=== PATIENT | female | born 1955 | race Caucasian/White ===

== ENCOUNTER 2020-02-03 08:53 | Emergency (ER) | payer OTHER, SELFPAY ==
--- NOTE | ~2020-02-03 | CT_ITS ---
EXAMINATION: CT abdomen pelvis w con DATE: 02/03/2020 10:13 INDICATION: Abdominal pain TECHNIQUE: Computed tomography (CT) of the abdomen and pelvis was performed without intravenous contr ast. Automated exposure control and iterative reconstruction technique were employed. Exam dose: 785 .55 mGy-cm total exam DLP. COMPARISON: 04/21/2018 CT abdomen pelvis FINDINGS: The lung bases are clear. Normal heart size. No pericardial or pleural effusion. There is mild intrahepatic and extrahepatic bile duct dilatation, likely secondary to cholecystectomy . The liver duct dilatation is more prominent at the left hepatic lobe but is chronic, present on 03/29. There is extensive hepatic steatosis, relatively sparing the left lateral hepatic lobe area. No panc reatic or splenic mass lesion. There is an 8 cm right adrenal or upper pole right renal cyst. 2 cm right renal cyst. 8 mm left renal cyst. No urinary tract calculus or hydroureteronephrosis is detected. There is atherosclerotic calcification of the abdominal aorta. No intraperitoneal or retroperitoneal or pelvic mass lesion or adenopathy. The uterus and adnexal areas are unremarkable. No bowel obstruction, bowel wall thickening, pneumatosis or intraperitoneal free air. Multilevel degenerative disc disease of the lumbar and lumbosacral spine. No suspicious osteolytic or osteoblastic lesions. IMPRESSION: Nonspecific biliary duct dilatation, more prominent on the left lobe, but chronic since 04/21/2018 Partial hepatic steatosis Right adrenal or upper pole right renal 8 cm cyst; additional bilateral renal cysts Reviewed, dictated and finalized at Location [facility]. Reviewed, dictated and finalized at location B. IMPRESSION: Nonspecific biliary duct dilatation, more prominent on the left lo be, but chronic since 04/21/2018 Partial hepatic steatosis Right adrenal or upper pole right renal 8 cm cyst; additional bilateral renal c ysts
[2020-02-03 09:04] VITALS: BP 140/66; PULSE 104; RESP 20; TEMP 37.4; O2SAT 100
--- NOTE | 2020-02-03 09:07 | ED.BACK ---
HPI - Back Pain/Injury General Chief Complaint: Back Pain/Injury Stated Complaint: ABD PAIN Time Seen by Provider: 02/03/20 08:58 Source: patient Mode of arrival: ambulatory Limitations: no limitations History of Present Illness HPI Narrative: Patient is a 64-year-old female with a history of biliary stones who presents for evaluation of abdominal pain. Patient reports middle abdominal pain as well as back pain. She denies any chest pain or shortness of breath. She reports low-grade fever, nausea, vomiting, and chills. Patient states she has had pain consistent with this in the past and then of having bile duct stones. Patient also reports an orange coloration to her urine with frequency without dysuria or hematuria. She denies flank pain, but reports middle back pain. Pain in the epigastrium is intermittently sharp in nature, no association with movement. Patient has had decreased oral intake over the past 48 hours. Past surgery for ductal stones was by Dr. Barba in [place]. Related Data Home Medications Medication Instructions Recorded Confirmed alprazolam HS 02/03/20 lisinopril DAILY 02/03/20 oxybutynin chloride BID 02/03/20 tramadol mg HS 02/03/20 Allergies Allergy/AdvReac Type Severity Reaction Status Date / Time Sulfa (Sulfonamide Allergy Unknown Hives Verified 02/03/20 09:10 Antibiotics) Review of Systems Review of Systems: Narrative: CONSTITUTIONAL: Reports subjective fever and chills EYES: Denies visual changes, redness, or discharge. ENT: Denies rhinorrhea, congestion, sore throat, or otalgia. CARDIOVASCULAR: Denies chest pain, palpitations, or edema. RESPIRATORY: Denies cough or dyspnea. GASTROINTESTINAL: Reports abdominal pain, nausea and vomiting GENITOURINARY: Denies dysuria or hematuria. Reports orange coloration to urine. SKIN: Denies rash or itching. MUSCULOSKELETAL: Reports middle back pain NEUROLOGIC: Denies headache, numbness, or weakness. [facility] Past Medical History Medical History Bile duct calculus Carpal tunnel syndrome Hypertension Surgical History Surgical History History of carpal tunnel surgery Hx of cholecystectomy Hx of foot surgery Social History Social History (Updated 02/03/20 @ 09:46 by Yenni Kelly MD) Alcohol intake: never Substance use: never Gender identity (if verbalized by the patient): Female Exam Narrative: Exam Narrative: GENERAL: Awake, alert, conversant HEAD: Normocephalic, atraumatic. EYES: PERRLA and EOMI. ENT: Nares clear, no rhinorrhea or epistaxis. Mucous membranes dry NECK: Supple. CHEST: No respiratory distress, breathing even and non labored HEART: Regular rate, sinus rhythm ABDOMEN: Mild distention, tender in epigastrium, no guarding, negative Neely sign, ventral hernia scar well-healed, no suprapubic pain, no flank tenderness EXTREMITIES: Normal range of motion. No edema. SKIN: Warm, dry, no rash. NEURO:No focal deficits. Alert and oriented x3 Course Vital Signs Vital signs: Vital Signs Temperature 37.4 C 02/03/20 09:04 Pulse Rate 104 H 02/03/20 09:04 Respiratory Rate 20 02/03/20 09:04 Blood Pressure 140/66 02/03/20 09:04 Pulse Oximetry 100 02/03/20 09:04 Temperature 37.4 C 02/03/20 09:04 Pulse Rate 86 02/03/20 11:01 Respiratory Rate 16 02/03/20 11:01 Blood Pressure 141/67 H 02/03/20 11:01 Pulse Oximetry 99 02/03/20 11:01 MDM - Back Pain/Injury MDM Narrative Medical decision making narrative: Pt presented for evaluation of fever, nausea, vomiting, urinary frequency and abdominal pain. Pt at the time of assessment and vital signs are intact. No chest pain. Given the strange nature of pain and back pain did obtain an EKG which showed some nonspecific ST changes, but no ST elevation or depression. Patient without other anginal type pain. Laboratory results notable f
--- NOTE | 2020-02-03 09:46 | ECG_ITS ---
Measurements Intervals [place] Rate: 82 P: 39 CA: 162 QRS: 14 QRSD: 105 T: 1 QT: 353 QTc: 413 Interpretive Statements SINUS RHYTHM NONSPECIFIC T-WAVE ABNORMALITY- ANT/INF LEADS BORDERLINE ECG Electronically Signed On 02-03-2020 11:17:01 CDT by Evan Najera D.O.
[2020-02-03] MEDS: SODIUM CHLORIDE 0.9% IV 1,000 ML 999 ML IV CONT (09:57)
[2020-02-03 09:58] LABS: Basophils Percent Auto 0.3 % (0.2-1.2); Eosinophils Percent Auto 0.1 % (0-4.4); Hematocrit 37.1 % (37.0-47.0); Hemoglobin 12.3 g/dL (12.0-15.0); Immature Granulocyte Absolute 0.05 K/mm3 (0.00-0.031); Immature Granulocyte Percent A 0.4 % (0-0.5); Lymphocytes Absolute Auto 1.25 K/mm3 (0.9-3.2); Lymphocytes Percent Auto 10.9 % (18.3-44.2); Mean Corpuscular HGB Conc 33.2 g/dl (32-36); Mean Corpuscular Volume 90.5 fl (80-100); Mean Platelet Volume 9.8 fl (7.4-10.4); Monocytes Absolute Auto 0.8 K/mm3 (0.1-0.6); Monocytes Percent Auto 7.2 % (2.6-8.5); Neutrophils Absolute Auto 9.3 K/mm3 (1.3-6.7); Neutrophils Percent Auto 81.1 % (45.5-73.1); Platelet Count Result 213 k/mm3 (150-375); Red Cell Distribution Width 12.7 % (11.5-14.5); White Blood Count 11.5 K/mm3 (4.5-10.0)
[2020-02-03] MEDS: ONDANSETRON INJ 4 MG/2 ML VIAL IV PUSH (09:58)
[2020-02-03] MEDS: MORPHINE SULFATE 4 MG/ML INJ IV PUSH (09:58)
[2020-02-03 10:01] LABS: Add Urine Microscopic? YES; Appearance Urine Cloudy (Clear); Bacteria Urine 2+ /hpf; Bilirubin Urine Negative (Negative); Blood Urine 2+ (Negative); Color Urine Yellow (Yellow); Glucose Urine UA Negative (Negative); Ketones Urine 2+ mg/dL (Negative); Leukocyte Esterase Ur 2+ LEU/UL (Negative); Mucus Urine Rare /lpf; Nitrate Urine Positive (Negative); Protein Urine 2+ mg/dL (Negative); Specific Grav Ur 1.017 (1.001-1.035); Squamous Epithelial Cell Urine Few /hpf (Few); Urobilinogen Urine Negative mg/dL (<2.0); WBC Urine >75 /hpf
[2020-02-03 10:09] LABS: Alanine Aminotransferase 19 U/L (4-35); Albumin Level 4.3 g/dL (3.5-5.1); Alkaline Phosphatase 97 U/L (38-126); Aspartate Amino Transferase 18 U/L (14-36); Bilirubin,Total 1.1 mg/dL (0.2-1.3); Blood Urea Nitrogen 11 mg/dL (7-17); Carbon Dioxide 25 mmol/L (22-30); Chloride 103 mmol/L (98-107); Estimated CRCL calculation 84 ml/min; Estimated Glomerular Filt Rate > 60; Glucose 120 mg/dL (65-105); Lipase 32 U/L (23-300); Sodium 138 mmol/L (137-145)
[2020-02-03 10:11] LABS: Estimated CRCL calculation 84 ml/min; Estimated Glomerular Filt Rate > 60
[2020-02-03 11:01] VITALS: BP 141/67; PULSE 86; RESP 16; O2SAT 99
[2020-02-03 12:24] VITALS: BP 155/75; PULSE 80; RESP 18; TEMP 37.8; O2SAT 97
== END 2020-02-03 12:43 | disposition home or self-care (01) ==
PROVIDERS: Emergency Provider Emergency Medicine; PCP Emergency Medicine
DX: N39.0 Urinary tract infection, site not specified (principal); I10 Essential (primary) hypertension; K76.0 Fatty (change of) liver, not elsewhere classified; R94.31 Abnormal electrocardiogram [ECG] [EKG]; N28.1 Cyst of kidney, acquired
CPT/HCPCS: 36415; 74177; 80053; 81001; 83690; 85025; 87077; 87086; 87088; 87186; 93005; 96361; 96365; 96375; 99284; J0696; J2270; J2405; J7030; Q9967

== ENCOUNTER 2020-02-04 06:59 | Outpatient (NON) | payer OTHER, SELFPAY ==
[2020-02-04 18:05] LABS: SARS-CoV-2 RNA PCR Negative
== END 2020-02-04 07:00 ==
PROVIDERS: Visit Provider Emergency Medicine
DX: Z20.828 Contact with and (suspected) exposure to other viral communicable diseases (principal)
CPT/HCPCS: 87635; C9803; U0003

== ENCOUNTER → 2020-05-29 12:21 | Outpatient (CLI) | payer OTHER, SELFPAY ==
--- NOTE | ~2020-05-29 | XR_ITS ---
EXAMINATION: XR knee LT 2V DATE: 05/29/2020 13:20 INDICATION: Left knee pain. TECHNIQUE: 2 views of left knee were obtained. COMPARISON: None. FINDINGS: Bone alignment is normal. No fracture. There is mild tricompartmental osteoarthritis. No kn ee joint effusion. IMPRESSION: 1. Mild left knee osteoarthritis. Reviewed, dictated and finalized at location A. OLE PARAFFINER
--- NOTE | ~2020-05-29 | XR_ITS ---
EXAMINATION: XR hand BI arthritis min 3V DATE: 05/29/2020 13:20 INDICATION: Pain in unspecified joint, other specified abnormal immunological. TECHNIQUE: 4 views of right hand and 4 views of left hand on a total of 7 radiographs were obtained. COMPARISON: Right knee radiographs 09/30/2012 FINDINGS: RIGHT HAND: Bone alignment is normal. No fracture. There is mild osteoarthritis of first carpometacar pal joint, moderate osteoarthritis of third metacarpophalangeal joint, mild osteoarthritis of second metacarpophalangeal joint and most of the interphalangeal joints, and moderate osteoarthritis of firs t interphalangeal joint and second and third distal interphalangeal joints. LEFT HAND: Bone alignment is normal. No fracture. There is mild osteoarthritis of first carpometacarp al joint, first-third metacarpophalangeal joints, and most of the interphalangeal joints. IMPRESSION: 1. Polyarticular osteoarthritis. Reviewed, dictated and finalized at location A. OR ORACLE DBA
--- NOTE | ~2020-05-29 | XR_ITS ---
EXAMINATION: XR knee RT 2V DATE: 05/29/2020 13:19 INDICATION: Right knee pain. TECHNIQUE: 2 views of right knee were obtained. COMPARISON: None. FINDINGS: Bone alignment is normal. No fracture. There is mild tricompartment osteoarthritis. No knee joint effusion. IMPRESSION: 1. Mild right knee osteoarthritis. Reviewed, dictated and finalized at location A. H OPERATOR
--- NOTE | ~2020-05-29 | XR_ITS ---
EXAMINATION: XR hip RT min 2V DATE: 05/29/2020 13:20 INDICATION: Right hip pain. TECHNIQUE: 2 views of right hip were obtained. COMPARISON: Pelvis radiograph 02/13/2018 FINDINGS: Bone alignment is normal. No fracture. There is mild right hip osteoarthritis. IMPRESSION: 1. Mild right hip osteoarthritis. Reviewed, dictated and finalized at location A. S REGISTERED NURSE RN
== END ==
PROVIDERS: PCP Emergency Medicine
DX: R76.8 Other specified abnormal immunological findings in serum (principal); M19.041 Primary osteoarthritis, right hand; M19.042 Primary osteoarthritis, left hand; M16.11 Unilateral primary osteoarthritis, right hip; M17.0 Bilateral primary osteoarthritis of knee
CPT/HCPCS: 73130; 73502; 73560

== ENCOUNTER 2020-07-03 10:51 | Outpatient (CLI) | payer OTHER, SELFPAY ==
--- NOTE | ~2020-07-03 | MR_ITS ---
EXAMINATION: MR MRCP DATE: 07/03/2020 12:04 INDICATION: Dilated bile duct. Abdominal pain. Melena. TECHNIQUE: Magnetic resonance imaging (MRI) of the abdomen was performed without and with 15 mL Multi Emily intravenous contrast. Sequences included coronal T2-weighted FS FSE, coronal T2-weighted FSE, a xial T1-weighted LAVA, coronal FS FIESTA, axial dual-echo T1-weighted SPGR, coronal lava-FLEX, sagitt al T2-weighted FSE, axial T2-weighted FSE, and axial DWI. Thick-slab T2-weighted FSE images were obta ined for magnetic resonance cholangiopancreatography (MRCP). Maximum intensity projection 3-D reconst ructions of the volumetric data were created by the technologist. Postcontrast sequences included cor onal LAVA-flex and time course of axial T1-weighted LAVA. COMPARISON: MRCP 12/11/2007, CT abdomen and pelvis 02/03/2020, 04/21/18 FINDINGS: ABDOMEN MRI: There is steatosis of right hepatic lobe. There is a 16 mm hyperenhancing mass in right hepatic lobe without washout, stable from 04/21/18, likely focal nodular hyperplasia. There is chronic atrophy of left hepatic lobe with chronic biliary duct dilatation, likely secondary to old infection or vascular insult. There is gas in the bile ducts in left hepatic lobe, likely secondary to sphinct erotomy. The gallbladder is absent. There is a 4 mm cystic lesion in the tail of the pancreas, stable from 12/11/07, likely benign. The spleen and left adrenal gland are normal. There are cysts in the ki dneys measuring up to 2.1 cm on the right. A chronic 8.3 cm cyst superior to right kidney may be from the kidney or adrenal gland. There are no dilated loops of bowel. There are no pathologically enlarg ed lymph nodes. There is no free intraperitoneal fluid. ABDOMEN MRCP: The common hepatic duct is chronically dilated to 18 mm. No choledocholithiasis. IMPRESSION: 1. Chronic atrophy of left hepatic lobe with chronic biliary duct dilatation, likely secondary to old infection or vascular insult. 2. Chronic dilatation of the common duct to 18 mm, likely not clinically significant given the normal liver function tests on 02/03/2020. 3. Hepatic steatosis. Reviewed, dictated and finalized at location B. SFER MACHINE OPERATOR IMPRESSION: 1. Chronic atrophy of left hepatic lobe with chronic biliary duct dilatation, l ikely secondary to old infection or vascular insult. 2. Chronic dilatation of the common duct to 18 mm, likely not clinically signif icant given the normal liver function tests on 02/03/2020. 3. Hepatic steatosis.
[2020-07-03 11:21] LABS: Estimated Glomerular Filt Rate > 60
== END 2020-07-03 10:52 ==
PROVIDERS: Visit Provider Internal Medicine Gastroenterology
DX: K92.1 Melena (principal); R10.84 Generalized abdominal pain; K76.0 Fatty (change of) liver, not elsewhere classified
CPT/HCPCS: 74183; A9577

== ENCOUNTER → 2020-10-17 12:49 | Outpatient (CLI) | payer MEDICARE, SELFPAY ==
--- NOTE | ~2020-10-17 | MM_ITS ---
EXAMINATION: MM screening [facility] BI w liliya HISTORY: Screening mammogram TECHNIQUE: Craniocaudal and mediolateral oblique 3-D tomosynthesis images were obtained and synthetic 2-D images were generated. CAD analysis was submitted and interpreted. COMPARISON: 04/15/2019, 01/07/2018 BREAST PARENCHYMAL COMPOSITION: The breasts are almost entirely fatty. FINDINGS: Scattered benign-appearing calcifications are present. There is no evidence of suspicious m ass, calcification, or architectural distortion to suggest malignancy in either breast. There has bee n no suspicious interval change. IMPRESSION: 1. No mammographic evidence of malignancy. 2. Recommend routine screening mammography in one year. BI-RADS Category 2: Benign finding(s). Reviewed, dictated and finalized at location A.
== END ==
PROVIDERS: PCP Emergency Medicine; Visit Provider Emergency Medicine
DX: Z12.31 Encounter for screening mammogram for malignant neoplasm of breast (principal)
CPT/HCPCS: 77063; 77067

== ENCOUNTER → 2020-10-19 12:13 | Outpatient (CLI) | payer MEDICARE, SELFPAY ==
--- NOTE | ~2020-10-19 | MR_ITS ---
EXAMINATION: MR lumbar spine wo con EXAM DATE: 10/19/2020 12:58 INDICATION: Low back pain, right hip pain/swelling, symptoms for years. TECHNIQUE: Multi-sequential, multiplanar MR images of the lumbar spine were obtained without contrast . Sagittal T1, T2, T2 fat saturation images. Axial T2 weighted images. Comparison is made to prior examination from 02/18/2019. FINDINGS: Incidental note of right renal lesions, imaged portions consistent with cysts, largest on t he right at 8 cm. There is mild to moderate upper lumbar levoscoliosis. Moderate to severe L5-S1 disc disease, moderate at the other lumbar levels. There is 2 mm retrolisthesis L1 on L2, L2 on L3, L3 on L4. The conus medullaris terminates at the L1/2 level and has normal signal intensity and morphology . Level by level evaluation: T12-L1: There is a mild diffuse disc bulge. Facet arthropathy: Mild bilateral. Neural foraminal stenosis: No stenosis. Central canal stenosis: No stenosis. L1-L2: There is a mild to moderate diffuse disc bulge. Facet arthropathy: Mild to moderate. Neural foraminal stenosis: Mild to moderate right, mild left. Central canal stenosis: Mild. L2-L3: There is a mild to moderate diffuse disc bulge. Facet arthropathy: Mild to moderate. Neural foraminal stenosis: Mild to moderate right, mild left. Central canal stenosis: Mild. L3-L4: There is a moderate diffuse disc bulge. Facet arthropathy: Moderate. Neural foraminal stenosis: Moderate right, mild to moderate left. Central canal stenosis: Mild. L4-L5: There is a moderate diffuse disc bulge. Facet arthropathy: Moderate to severe right, moderate left. Neural foraminal stenosis: Mild to moderate bilateral. Central canal stenosis: Mild. L5-S1: There is a moderate diffuse disc bulge. Facet arthropathy: Moderate. Neural foraminal stenosis: Moderate to severe left, moderate right. Central canal stenosis: Mild to moderate. Compared to prior study, mild progression in the scoliosis. Otherwise difficult to appreciate any sig nificant interval change. IMPRESSION: 1. Overall moderate lumbar spondylosis as detailed above. 2. Mild to moderate levoscoliosis. Reviewed, dictated and finalized at location A.
== END ==
PROVIDERS: PCP Emergency Medicine; Visit Provider Emergency Medicine
DX: M47.896 Other spondylosis, lumbar region (principal)
CPT/HCPCS: 72148

== ENCOUNTER 2020-12-19 14:03 | Outpatient (CLI) | payer MEDICARE, SELFPAY ==
--- NOTE | ~2020-12-19 | MR_ITS ---
EXAMINATION: MR hip RT wo con DATE: 12/19/2020 15:00 INDICATION: Right hip pain. Gluteus alma swelling. TECHNIQUE: Magnetic resonance imaging (MRI) of the right hip was performed without intravenous contr ast. Sequences included full-field axial PD-weighted FS FSE and T1-weighted FSE, coronal of the pelvi s with PD-weighted FS FSE and T1-weighted FSE, small field of view of the right hip with axial PD-we ighted FS FSE, sagittal PD-weighted FS FSE, coronal T2-weighted FS FSE and coronal PD weighted FS FSE . Additional radial T1-weighted FGR oriented orthogonal to the acetabular rim were obtained for evalu ation of the labrum. COMPARISON: None FINDINGS: Bones/labrum/cartilage: Mild lumbar levocurvature with severe spondylosis. Normal alignment at the bilateral hips. No fractu re, avascular necrosis or pathologic marrow replacing process. Labrum is normal. Mild right hip osteo arthritis with partial thickness cartilage loss with smooth chondral surface and without degenerative subchondral changes most prominent along the posterior superior and posterior margins of the joint s pace. Fluid: Symmetric physiologic amount of fluid within both hip joints. Soft tissues: Normal and symmetric muscle bulk and signal in the pelvis and visualized proximal thighs. Full-thickn ess tear at the right ischial tuberosity origin of the right biceps femoris and semitendinosus tendon s with approximately 1.5 cm distal retraction. Partial tear of the right ischial tuberosity origin of the right semimembranosus tendon. The tear defect along the ischial tuberosity measures approximatel y 2.8 x 2.8 cm area. Mild tendinopathy without discrete tear at the proximal left hamstring tendons. Mild tendinopathy at the bilateral gluteus medius medius tendons. Relatively symmetric focal muscular atrophy at the central distal aspect of the bilateral gluteus medius muscles resulting elongated lexx earance to the gluteus medius tendons with myotendinous junction position approximately 2 cm above le camille of the greater trochanter consistent with partial thickness tears along the lateral facets of the greater trochanters. Small amount of fluid in the bilateral gluteus medius medius bursa consistent w ith associated mild bursitis. Mild tendinopathy without discrete tear of the left gluteus minimus ten don. The right radius minimus tendon is normal. The bilateral gluteus alma and iliopsoas muscles a nd tendons appear normal. Limited evaluation of visceral organs of the pelvis is unremarkable. No pa thologically enlarged pelvic/inguinal lymphadenopathy. IMPRESSION: 1. Complete avulsion of the right biceps femoris and semitendinosus tendons and partial avulsion of t he right semimembranosus tendon from the right ischial tuberosity origin. 2. Mild bilateral gluteus medius tendinopathy with relatively metric partial thickness tears at the l ateral facet insertions of both tendons. 3. Mild left gluteus minimus tendinopathy without discrete tear. 4. Mild right hip osteoarthritis with normal labrum. 5. Mild lumbar levocurvature with severe spondylosis. Reviewed, dictated and finalized at location A. IMPRESSION: 1. Complete avulsion of the right biceps femoris and semitendinosus tendons and partial avulsion of the right semimembranosus tendon from the right ischial tu berosity origin. 2. Mild bilateral gluteus medius tendinopathy with relatively metric partial th ickness tears at the lateral facet insertions of both tendons. 3. Mild left gluteus minimus tendinopathy without discrete tear. 4. Mild right hip osteoarthritis with normal labrum. 5. Mild lumbar levocurvature with severe spondylosis.
== END 2020-12-19 14:04 ==
PROVIDERS: PCP Emergency Medicine; Visit Provider Emergency Medicine
DX: M16.11 Unilateral primary osteoarthritis, right hip (principal); M47.896 Other spondylosis, lumbar region
CPT/HCPCS: 73721

== ENCOUNTER 2021-04-30 08:54 | Outpatient (CLI) | payer MEDICARE, SELFPAY ==
--- NOTE | ~2021-04-30 | US_ITS ---
EXAMINATION: US thyroid DATE: 04/30/2021 09:08 INDICATION: Hypothyroidism, unspecified. TECHNIQUE: Multiple ultrasound images of the thyroid were obtained. COMPARISON: None. FINDINGS: The right thyroid lobe measures 3.6 x 1.1 x 1.5 cm. The left thyroid lobe measures 3.5 x 1.0 x 1.2 c m. In the right thyroid lobe, there is a 3 mm nodule. IMPRESSION: 1. Small thyroid nodule, likely not clinically significant. No follow-up is needed. Reviewed, dictated and finalized at location A. IMPRESSION: 1. Small thyroid nodule, likely not clinically significant. No follow-up is nee ded.
== END 2021-04-30 08:55 ==
PROVIDERS: PCP Emergency Medicine; Visit Provider Emergency Medicine
DX: E03.9 Hypothyroidism, unspecified (principal)
CPT/HCPCS: 76536

== ENCOUNTER → 2021-07-02 09:02 | Outpatient (CLI) | payer MEDICARE, SELFPAY ==
[2021-07-02 19:12] LABS: SARS-CoV-2 RNA PCR Negative
== END ==
PROVIDERS: PCP Emergency Medicine; Visit Provider Orthopaedic Surgery Sports Medicine
DX: S76.801A Unspecified injury of other specified muscles, fascia and tendons at thigh level, right thigh, initial encounter (principal); X58.XXXA Exposure to other specified factors, initial encounter
CPT/HCPCS: C9803; U0003; U0005

== ENCOUNTER → 2021-11-27 08:27 | Outpatient (REF) | payer MEDICARE, SELFPAY | LOC: ANHLAB 08:27 | PROVIDERS: PCP Emergency Medicine; Visit Provider Nurse Practitioner | DX: D17.1 Benign lipomatous neoplasm of skin and subcutaneous tissue of trunk (principal) | CPT/HCPCS: 88304 ==

== ENCOUNTER 2022-01-31 23:14 | Emergency (ER) | payer MEDICARE, SELFPAY ==
--- NOTE | ~2022-01-31 | CT_ITS ---
EXAMINATION: CT BRAIN W/O DATE: 01/31/2022 23:56 INDICATION: Headache and dizziness TECHNIQUE: Computed tomography (CT) of the head was performed without intravenous contrast. The dose- length product was 605.33 mGy-cm. Automated exposure control and iterative reconstruction technique w ere employed. COMPARISON: No prior studies for comparison. FINDINGS: Normal brain parenchymal volume for age. Normal iqbal-white differentiation. No acute intrac ranial hemorrhage, infarction, mass or mass effect. No ventriculomegaly or midline shift. Midline sagittal images demonstrate a normal corpus callosum, c raniovertebral junction and sella turcica. Basilar cisterns are patent. Paranasal sinuses and mastoids are pneumatized. No depressed skull fractures. IMPRESSION: 1. No acute intracranial abnormality. Reviewed, dictated and finalized at location L.
--- NOTE | ~2022-01-31 | XR_ITS ---
EXAMINATION: XR chest 1V portable INDICATION: Heart palpitations TECHNIQUE: Portable AP chest at 2348 hours COMPARISON: 02/17/2009 FINDINGS: The lungs are free of acute opacities. No pleural effusion or pneumothorax. The cardiomedia stinal silhouette is normal. Suture anchors are noted in the right humeral head. IMPRESSION: 1. No acute cardiopulmonary abnormality. Reviewed, dictated and finalized at location B.
[2022-01-31 23:15] VITALS: BP 175/84; PULSE 89; RESP 18; O2SAT 98
[2022-01-31 23:20] VITALS: PULSE 89
[2022-01-31 23:23] VITALS: BP 175/84; PULSE 104; PULSE 90; RESP 14; RESP 18; O2SAT 97; O2SAT 98
[2022-01-31 23:30] VITALS: PULSE 88; RESP 17; O2SAT 96
[2022-01-31 23:31] VITALS: BP 155/73; PULSE 86; RESP 14; O2SAT 94
--- NOTE | 2022-01-31 23:35 | ECG_ITS ---
Measurements Intervals [place] Rate: 86 P: 34 PA: 160 QRS: 22 QRSD: 94 T: 38 QT: 345 QTc: 414 Interpretive Statements SINUS RHYTHM ATRIAL PREMATURE COMPLEX BASELINE ARTIFACT- I, II, III, AVR, AVF BORDERLINE ECG Electronically Signed On 02-01-2022 6:35:38 CDT by Evan Najera D.O.
--- NOTE | 2022-01-31 23:41 | ED.GENADULT ---
HPI - General Adult General Chief complaint: Unspecified Stated complaint: muscle spasms, ringing in the head, HTN Source: RN notes reviewed History of Present Illness HPI narrative: Patient presents emergency department from home for weakness. Patient states that prior to arrival she is getting up to walk to her bedroom when she began to feel pain in her bilateral legs from her knees up to her hips. She states that with this she began to feel very weak she states that she had to lay down in her bed and then was too weak to get up. She states that with that she experienced a headache and ringing in her ears per the son's nephew that was present the patient also had some mild slurred speech during this episode by the time EMS arrived the patient slurred speech was resolved the patient denies having any unilateral numbness or weakness she was noted to have a feeling of heart fluttering but denies having chest pain shortness of breath abdominal pain nausea or vomiting. Patient states she continues to have a headache and ringing in her ear the patient states she had not taken her evening blood pressure medicine yet this evening Related Data Home Medications Medication Instructions Recorded Confirmed lisinopril 40 mg tablet DAILY 02/03/20 Allergies Allergy/AdvReac Type Severity Reaction Status Date / Time Sulfa (Sulfonamide Allergy Unknown Hives Verified 01/31/22 23:24 Antibiotics) latex Allergy Itching Verified 01/31/22 23:24 Review of Systems Review of Systems: Gen.: Denies fevers or chills Eyes: Denies eye pain or visual change ENT: Denies congestion reports ringing in her ear Respiratory: Denies shortness of breath or cough CV: Denies chest pain reports heart fluttering GI: Denies abdominal pain nausea, emesis or diarrhea Musculoskeletal: Denies back pain reports muscle spasms bilateral legs Neuro: Reports headache and weakness Skin: Denies rash Except as documented, all other systems reviewed and negative [facility] Past Medical History Medical History (Updated 02/01/22 @ 03:53 by Silvio Chow DO) Bile duct calculus Carpal tunnel syndrome Hypertension Surgical History Surgical History History of carpal tunnel surgery Hx of cholecystectomy Hx of foot surgery Social History Social History Smoking status: Unknown if ever smoked Alcohol intake: never Substance use: never Gender identity (if verbalized by the patient): Female Exam Narrative: APPEARANCE: No acute distress, nontoxic, resting in bed HEENT: Normocephalic, atraumatic, OMM, TMs clear bilaterally EYES: PERRL, EOMI NECK: Supple, nontender, full range of motion without pain, no meningismus RESPIRATORY: No respiratory distress, clear to auscultation bilaterally with no rhonchi wheezing or rales CARDIOVASCULAR: RRR s murmur ABDOMINAL: Soft, nontender, nondistended MUSCULOSKELETAL: Moves all extremities. No clubbing, cyanosis or edema. NEURO: A and O ?3, following commands, speech normal, cranial nerves II through XII grossly intact,muscle strength 5 out of 5 bilateral upper and lower extremities SKIN:: Warm, dry. Normal Color PSYCHIATRIC: Normal affect/mood Course Course Emergency Course: Patient is remained asymptomatic throughout her stay in the ER remained on director of cardiac cath lab with no arrhythmias noted. States headache is resolved at this time Discussed with patient results of workup and diagnosis. Discussed need for follow-up with primary care, proper use of medication, and reasons to return to the emergency department. Patient understands and agrees to current treatment plan Vital Signs Vital signs: Vital Signs Pulse Rate 89 01/31/22 23:15 Respiratory Rate 18 01/31/22 23:15 Blood Pressure 175/84 H 01/31/22 23:15 Pulse Oximetry 98 01/31/22 23:15 Oxygen Delivery Room Air 01/31/22 23:15 Temperature
[2022-01-31 23:57] LABS: Appearance Urine Clear (Clear); Bilirubin Urine Negative (Negative); Blood Urine 2+ (Negative); Color Urine Yellow (Yellow); Glucose Urine UA Negative (Negative); Ketones Urine Negative (Negative); Leukocyte Esterase Ur Trace LEU/UL (Negative); Nitrate Urine Negative (Negative); Protein Urine Negative (Negative); Specific Grav Ur 1.015 (1.001-1.035); Urobilinogen Urine 0.2 mg/dL (<2.0)
[2022-01-31 23:57] LABS: Basophils Absolute Auto 0.1 K/mm3 (0.0-0.1); Basophils Percent Auto 0.4 % (0.2-1.2); Eosinophils Percent Auto 0.3 % (0-4.4); Hematocrit 39.2 % (37.0-47.0); Hemoglobin 13.1 g/dL (12.0-15.0); Immature Granulocyte Absolute 0.07 K/mm3 (0.00-0.031); Immature Granulocyte Percent A 0.6 % (0-0.5); Lymphocytes Absolute Auto 0.92 K/mm3 (0.9-3.2); Lymphocytes Percent Auto 7.3 % (18.3-44.2); Mean Corpuscular HGB Conc 33.4 g/dl (32-36); Mean Corpuscular Hemoglobin 30.8 pg (26-34); Mean Corpuscular Volume 92.2 fl (80-100); Mean Platelet Volume 9.7 fl (7.4-10.4); Monocytes Absolute Auto 0.2 K/mm3 (0.1-0.6); Monocytes Percent Auto 1.8 % (2.6-8.5); Neutrophils Absolute Auto 11.3 K/mm3 (1.3-6.7); Neutrophils Percent Auto 89.6 % (45.5-73.1); Platelet Count Result 237 k/mm3 (150-375); Red Blood Count 4.25 M/mm3 (4.2-5.4); Red Cell Distribution Width 13.1 % (11.5-14.5); White Blood Count 12.6 K/mm3 (4.5-10.0)
[2022-01-31] MEDS: SODIUM CHLORIDE 0.9% IV 1,000 ML 999 ML IV CONT (23:58)
[2022-01-31 23:59] VITALS: PULSE 90; RESP 18; O2SAT 98
[2022-02-01] VITALS (11 sets, daily range): BP systolic 140–166; BP diastolic 66–78; PULSE 75–92; RESP 10–19; TEMP 36.8; O2SAT 96–97
[2022-02-01 00:03] LABS: Add Urine Microscopic? YES; Bacteria Urine Trace /hpf; Mucus Urine Rare /lpf; Squamous Epithelial Cell Urine Rare /hpf (Few)
[2022-02-01 00:04] LABS: Prothrombin Time 12.5 Seconds (11.1-14.7)
[2022-02-01 00:05] LABS: Partial Thromboplastin Time 28.8 SECONDS (22.3-36.8)
[2022-02-01 00:23] LABS: Alanine Aminotransferase 31 U/L (6-35); Albumin Level 4.2 g/dL (3.5-5.1); Alkaline Phosphatase 73 U/L (38-126); Anion Gap 8 mmol/L (8-16); Aspartate Amino Transferase 21 U/L (14-36); Bilirubin,Total 0.6 mg/dL (0.2-1.3); Blood Urea Nitrogen 19 mg/dL (7-17); Calcium 8.6 mg/dL (8.4-10.2); Carbon Dioxide 22 mmol/L (22-30); Chloride 106 mmol/L (98-107); Creatine Kinase 74 U/L (30-135); Estimated CRCL calculation 80 ml/min; Estimated Glomerular Filt Rate > 60; Glucose 113 mg/dL (65-110); Lipase 150 U/L (23-300); Magnesium 1.9 mg/dL (1.6-2.3); Potassium 3.6 mmol/L (3.4-5.0); Sodium 136 mmol/L (137-145); Troponin I < 0.012 ng/mL (0.000-0.034)
[2022-02-01 03:02] LABS: Ethanol < 10 mg/dL (<10)
[2022-02-01 03:29] LABS: Troponin I < 0.012 ng/mL (0.000-0.034)
[2022-02-01 03:51] LABS: Amphetamine Screen Urine Negative (Negative); Barbiturate Screen Urine Negative (Negative); Benzodiazepines Screen Urine Negative (Negative); Cannabinoid Screen Urine Negative (Negative); Cocaine Screen Urine Negative (Negative); Methadone Screen Urine Negative (Negative); Opiate Screen Urine Negative (Negative); Phencyclidine Screen Urine Negative (Negative)
[2022-02-01 03:54] LABS: SARS-CoV-2 RNA PCR Negative
== END 2022-02-01 04:03 | disposition home or self-care (01) ==
PROVIDERS: Emergency Provider Emergency Medicine; PCP Emergency Medicine
DX: R51.9 Headache, unspecified (principal); Z20.822 Contact with and (suspected) exposure to COVID-19; I10 Essential (primary) hypertension; I49.1 Atrial premature depolarization; M79.652 Pain in left thigh; M79.651 Pain in right thigh; Z79.899 Other long term (current) drug therapy
CPT/HCPCS: 36415; 70450; 71045; 80053; 80307; 81001; 82550; 83690; 83735; 84484; 85025; 85610; 85730; 87077; 87086; 87186; 93005; 96360; 96361; 99284; C9803; J7030; U0003; U0005

== ENCOUNTER → 2022-03-11 13:24 | Outpatient (CLI) | payer MEDICARE, SELFPAY ==
--- NOTE | ~2022-03-11 | DEXA_ITS ---
Bone Density Report Name: ARON DICKSON Age: 66 Sex: Female Ethnicity: White Date of : 1955 Indication: postmenopausal; screening for osteoporosis; Referring Provider: CHERISE CHAMORRO Study: Bone densitometry was performed. Exam Date: March 11, 2022 Accession number: [id number] Bone Density: Region BMD T-score Z-score Classification AP Spine (L1-L4) 1.102 0.5 2.4 Normal Femoral Neck (Left) 0.796 -0.5 1.1 Normal Total Hip (Left) 0.931 -0.1 1.2 Normal Femoral Neck (Right) 0.788 -0.6 1.0 Normal Total Hip (Right) 0.867 -0.6 0.7 Normal Total Hip Mean 0.899 -0.4 1.0 Normal World Health Organization criteria for BMD impression classify patients as: Normal (T-score at or above -1.0), Osteopenia (T-score between -1.0 and -2.5), or Osteoporosis (T-score at or below -2.5). 10-year Fracture Risk: FRAX not reported because: All T-scores for Spine Total, Hip Total, Femoral Neck at or above -1.0 Previous Exams: Region Exam Age BMD T-score BMD Change BMD Change Date g/cm2 vs Baseline vs Previous AP Spine(L1-L4) 03/11/2022 66 1.102 0.5 -0.095* -0.045* 01/07/2018 62 1.147 0.9 -0.051* -0.051* 06/16/2015 59 1.198 1.4 Total Hip(Left) 03/11/2022 66 0.931 -0.1 -0.155* -0.081* 01/07/2018 62 1.012 0.6 -0.074* -0.074* 06/16/2015 59 1.086 1.2 Total Hip(Right) 03/11/2022 66 0.867 -0.6 -0.152* -0.107* 01/07/2018 62 0.974 0.3 -0.045* -0.045* 06/16/2015 59 1.020 0.6 *Denotes significance at 95% confidence level, LSC for AP Spine = 0.022 g/cm2, LSC for Total Hip = 0.027 g/cm2 Clinical Information Provided by Patient: Has used the following medications: Vitamin D Patient maximum height was 62 Menopause Age: 54 Does not regularly consume dairy products Drinks caffeinated beverages Onset of menses at age 10 Number of children 5 Impression: The patient has normal bone mass. The BMD for the AP Spine(L1-L4) decreased, changing by -0.045 since the last DXA exam. The BMD for the Total Hip(Left) decreased, changing by -0.081 since the last DXA exam. The BMD for the Total Hip(Right) decreased, changing by -0.107 since the last DXA exam. Discussion: BONE DENSITY IS ABOVE THE MINIMUM DESIRABLE LEVEL AT ALL SKELETAL SITES TESTED. This patient?s bone mineral density is above the minimum desirable level (T-score -1.0 or better) at all sites me
== END ==
PROVIDERS: PCP Emergency Medicine; Visit Provider Emergency Medicine
DX: Z13.820 Encounter for screening for osteoporosis (principal); Z78.0 Asymptomatic menopausal state
CPT/HCPCS: 77080

== ENCOUNTER → 2022-04-16 07:05 | Outpatient (CLI) | payer MEDICARE, SELFPAY ==
--- NOTE | ~2022-04-16 | MM_ITS ---
EXAMINATION: MM screening [facility] BI w liliya HISTORY: Screening mammogram TECHNIQUE: Craniocaudal and mediolateral oblique 3-D tomosynthesis images were obtained and synthetic 2-D images were generated. CAD analysis was submitted and interpreted. COMPARISON: 10/17/2020, 04/15/2019, 01/07/2018 BREAST PARENCHYMAL COMPOSITION: There are scattered areas of fibroglandular density. FINDINGS: Scattered benign-appearing calcifications are present. There is no suspicious mass, calcifi cation, or architectural distortion to suggest malignancy in either breast. There has been no suspici ous interval change. IMPRESSION: 1. No mammographic evidence of malignancy. 2. Recommend routine screening mammography in one year. BI-RADS Category 2: Benign finding(s). Reviewed, dictated and finalized at location A.
== END ==
PROVIDERS: PCP Emergency Medicine; Visit Provider Emergency Medicine
DX: Z12.31 Encounter for screening mammogram for malignant neoplasm of breast (principal)
CPT/HCPCS: 77063; 77067

== ENCOUNTER 2022-07-01 11:26 | Outpatient (CLI) | payer MEDICARE, SELFPAY ==
--- NOTE | ~2022-07-01 | US_ITS ---
EXAMINATION: US carotid duplex BI DATE: 07/01/2022 12:06 INDICATION: Right-sided neck pain TECHNIQUE: Grayscale, color Doppler, and pulsed Doppler images of the cervical carotid arteries were obtained. The degree of vessel stenosis is placed in one of the following categories: normal, <50%, 5 0-69%, >=70% but less than near-occlusion, near-occlusion, or total occlusion. Note that percent sten osis relative to normal distal artery lumen diameter is indirectly measured from velocity measurement s as described by Luis Manuel, et al. Radiology 2003; 229:340-346. Notes: Normal: Peak systolic velocity <125 centimeters/sec and no plaque <50%. Peak systolic velocity <125 ( EDV <40; ICA/CCA PSV ratio <2.0; used these factors only a tandem lesions or low cardiac output or co ntralateral disease) 50-69 %: PSV 125-230 (EDV 40-100; ratio 2-4) >= 70% but less than near occlusion: PSV greater than 230 (EDV > 100; ratio> 4.0) Near Occlusion: PSV that is variable; markedly narrowed lumen Occlusion: Absent flow on color/spectral Doppler and no lumen on iqbal scale. COMPARISON: None. FINDINGS: RIGHT: The right common carotid artery (CCA) peak systolic velocity (PSV) is 73 cm/s. The right internal car otid artery (ICA) PSV is 58 cm/s. The right ICA end-diastolic velocity (EDV) is 23 cm/s. The right IC A/CCA PSV ratio is 0.8. The external carotid artery (ECA) PSV is 71 cm/s. There is antegrade flow in the right vertebral artery. LEFT: The left CCA PSV is 86 cm/s. The left ICA PSV is 61 cm/s. The left ICA EDV is 18 cm/s. The left ICA/C CA PSV ratio is 0.7. The ECA PSV is 71 cm/s. There is antegrade flow in the left vertebral artery. IMPRESSION: 1. Less than 50% stenosis in the right internal carotid artery by sonographic criteria. 2. Less than 50% stenosis in the left internal carotid artery by sonographic criteria. Reviewed, dictated and finalized at location A. SINGER IMPRESSION: 1. Less than 50% stenosis in the right internal carotid artery by sonographic marcello askew. 2. Less than 50% stenosis in the left internal carotid artery by sonographic carlitos duron.
== END 2022-07-01 11:27 | disposition home or self-care (01) ==
PROVIDERS: PCP Emergency Medicine; Visit Provider Emergency Medicine
DX: M54.2 Cervicalgia (principal); I65.23 Occlusion and stenosis of bilateral carotid arteries
CPT/HCPCS: 93880

== ENCOUNTER 2022-12-20 08:45 | Outpatient (CLI) | payer MEDICARE, SELFPAY ==
--- NOTE | ~2022-12-20 | CT_ITS ---
CT scan of the Neck Technique: 2.5 mm axial scans were obtained through the neck after intravenous administration of 75 c c Omnipaque 350. Coronal and sagittal reconstructions of the neck were obtained. Dose reduction techn ique was used on this scan by utilizing automated exposure control and iterative reconstruction techn ique. The dose-length product (DLP) was 382.50 mGy-cm. Clinical History: Right submandibular pain and lump Findings: There is no evidence of any significant cervical lymphadenopathy. Several small, nonenlarged jugulo- digastric and posterior cervical lymph nodes are noted bilaterally. Parapharyngeal spaces appear norm al bilaterally. The parotid and submandibular glands appear normal. The pharyngeal mucosal spaces appear normal. No soft tissue masses are seen in the neck. The thyroid gland appears normal. Images of the lung apices reveal no abnormalities. There is mild le ft sphenoid sinus disease. Remaining paranasal sinuses and mastoid air cells are clear. There is mild to moderate diffuse degenerative disc narrowing throughout cervical spine. Impression: No abnormal mass lesion or significant soft tissue abnormality seen in the neck. Degenerative changes of the cervical spine, as above. Reviewed, dictated and finalized at location . Impression: No abnormal mass lesion or significant soft tissue abnormality seen in the neck . Degenerative changes of the cervical spine, as above.
[2022-12-20 09:05] LABS: Estimated Glomerular Filt Rate > 60
== END 2022-12-20 08:46 ==
LOC: MICIMG 08:46
PROVIDERS: PCP Emergency Medicine; Visit Provider Emergency Medicine
DX: R22.1 Localized swelling, mass and lump, neck (principal)
CPT/HCPCS: 70491; Q9967

== ENCOUNTER → 2023-09-25 13:30 | Outpatient (CLI) | payer MEDICARE, SELFPAY ==
--- NOTE | ~2023-09-25 | MM_ITS ---
EXAMINATION: MM screening [facility] BI w liliya HISTORY: Screening TECHNIQUE: Craniocaudal and mediolateral oblique 3-D tomosynthesis images were obtained and synthetic 2-D images were generated. CAD analysis was submitted and interpreted. COMPARISON: No prior mammogram is available for comparison at this institution. BREAST PARENCHYMAL COMPOSITION: There are scattered areas of fibroglandular density. FINDINGS: There is no evidence of suspicious mass, calcification, or architectural distortion to sugg est malignancy in either breast. There has been no suspicious interval change. IMPRESSION: 1. No mammographic evidence of malignancy. 2. Recommend routine screening mammography in one year. BI-RADS Category 1: Negative Reviewed, dictated and finalized at location A. 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
== END ==
PROVIDERS: PCP Obstetrics & Gynecology; Visit Provider Emergency Medicine
DX: Z12.31 Encounter for screening mammogram for malignant neoplasm of breast (principal)
CPT/HCPCS: 77063; 77067

== ENCOUNTER 2023-11-08 16:28 | Emergency (ER) | payer MEDICARE, SELFPAY ==
[2023-11-08 16:42] VITALS: BP 120/70; PULSE 72; RESP 18; TEMP 36.4; O2SAT 100
--- NOTE | 2023-11-08 17:05 | PC.NURSE ---
RSV note error- wrong patient.
--- NOTE | 2023-11-08 17:18 | ED.URI ---
HPI - URI/Sore Throat General Chief Complaint: Upper Respiratory Infection Stated Complaint: covid + home test Source: patient Mode of arrival: ambulatory Limitations: no limitations History of Present Illness HPI Narrative: 68-year-old female presents to [facility] with complaints of chills, headache, diarrhea, runny nose, hoarse voice and intermittent dizziness for the past 3 days. Patient reports that 2 family members who live in the home recently tested positive for COVID. Patient reports that he she did take a positive home COVID test today. Patient denies shortness of breath, wheezing, cough, congestion, nausea, vomiting. Patient denies recent travel. MD elicited complaint: rhinorrhea Onset (ago): day(s) (3) Able to tolerate fluids by mouth: Yes Relieving factors: nothing Context: sick contacts Related Data Home Medications Medication Instructions Recorded Confirmed alprazolam 0.5 mg tablet mg 11/08/23 dicyclomine 10 mg capsule mg 11/08/23 irbesartan 300 mg tablet mg 11/08/23 metoprolol succinate 100 mg mg PO 11/08/23 tablet,extended release 24 hr ropinirole 0.5 mg tablet mg 11/08/23 spironolactone 100 mg tablet mg 11/08/23 Allergies Allergy/AdvReac Type Severity Reaction Status Date / Time Sulfa (Sulfonamide Allergy Unknown Hives Verified 11/08/23 16:48 Antibiotics) latex Allergy Itching Verified 11/08/23 16:48 Review of Systems Constitutional: Constitutional: Reports fatigue, Denies fever(s) and Denies weakness ENT: Denies vertigo, Reports dizziness, Denies epistaxis, Denies nasal congestion and Denies sore throat Comments: Runny nose Respiratory: Respiratory: Denies cough, Denies dyspnea and Denies wheezing Gastrointestinal: Gastrointestinal: Reports diarrhea, Denies nausea and Denies vomiting Integumentary/Breasts: Skin/Breast: Denies erythema and Denies rash Neurologic: Denies confusion, Denies vertigo, Reports dizziness, Denies syncope, Denies headache(s), Denies focal weakness, Denies numbness and Denies weakness PMF Past Medical History Medical History (Updated 11/08/23 @ 17:22 by Erlinda Chairez, FERNANDO) Bile duct calculus Carpal tunnel syndrome Hypertension Surgical History Surgical History History of carpal tunnel surgery Hx of cholecystectomy Hx of foot surgery Social History Social History Smoking status: Unknown if ever smoked Alcohol intake: never Substance use: never Gender identity (if verbalized by the patient): Female Comments At time of signature, I agree with nursing past medical, surgical, social and family history. There is no relevant family history pertinent to the presenting complaint. Exam Const: General: healthy appearing and no acute distress Nutritional Appearance: well nourished Orientation/consciousness: patient oriented x3 Limitations: no limitations HENMT: Head: normal to inspection Ears: external ears normal and TM's normal bilaterally Face/Nose/Sinus: Normal external nose present Mouth: Yes Normal oral and palatal mucosa present and Yes moist mucous membranes Throat: posterior oropharynx normal and uvula midline Eyes: Conjunctivae: conjunctivae normal Neck: Neck: normal visual inspection Resp: Effort & Inspection: normal respiratory effort Auscultation: clear to auscultation bilaterally, no crackles and no rales Cardio: Rate: regular rate Rhythm: regular rhythm Heart sounds: no murmurs Skin: General skin exam: normal color Rashes: no rashes Neuro: General: patient oriented x3 Speech: normal speech Gait exam (Neuro): Normal gait present Psych: Affect: normal affect Attitude: cooperative Course Course Level of Care: Express Care Visit Vital Signs Vital signs: Vital Signs Temperature 36.4 C 11/08/23 16:42 Pulse Rate 72 11/08/23 16:42 Respiratory Rate 18 11/08/23 16:42 Blood
== END 2023-11-08 17:25 | disposition home or self-care (01) ==
PROVIDERS: Emergency Provider Nurse Practitioner Family; PCP Emergency Medicine
DX: B34.9 Viral infection, unspecified (principal); I10 Essential (primary) hypertension
CPT/HCPCS: 87426; 87804; 99213; G0463

== ENCOUNTER 2023-12-08 13:48 | Outpatient (CLI) | payer MEDICARE, SELFPAY ==
--- NOTE | ~2023-12-08 | US_ITS ---
EXAMINATION: US soft tissue head and neck DATE: 12/08/2023 14:10 INDICATION: Left supraclavicular lymphadenopathy with palpable knot. TECHNIQUE: Multiple grayscale and Doppler ultrasound images of the left supraclavicular region of adrienne rivasn at the base of the left neck to the left shoulder were obtained. COMPARISON: None FINDINGS: There is a bilobed complex loculated fluid collection in the subcutaneous tissues corresponding to th e palpable abnormality of concern. There is a lateral component which measures 1.7 x 1.1 cm appears c omplex with superficial anechoic component and deeper hypoechoic component. This component is located immediately adjacent to and likely arises from the left acromioclavicular joint. There is a 2.2 cm l anna neck measuring approximately 4 mm in maximal diameter which extends to a more medial loculated co mponent to the fluid collection which measures 3.5 cm medial to lateral and 1.8 x 1.4 cm in maximal o rthogonal dimensions. This portion of the fluid collection appears primarily anechoic with a few inte rnal low-level echoes. There are couple small lobular extensive and medial side of the collection. Th e overall medial to lateral length of the fluid collection measures measures 5.5 cm. No evident inter nal vascular flow or surrounding hyperemia on color Doppler. IMPRESSION: 1. Bilobed loculated complex fluid collection measuring 5.5 cm in length and 1.4 x 1.8 cm in maximal transaxial dimensions. This appears to arise and extending medially from the left acromioclavicular j oint most likely representing a ganglion cyst. Reviewed, dictated and finalized at location B. IMPRESSION: 1. Bilobed loculated complex fluid collection measuring 5.5 cm in length and 1. 4 x 1.8 cm in maximal transaxial dimensions. This appears to arise and extendin g medially from the left acromioclavicular joint most likely representing a luz glion cyst.
== END 2023-12-08 13:49 ==
LOC: MICIMG 13:49
PROVIDERS: PCP Emergency Medicine; Visit Provider Emergency Medicine
DX: R59.1 Generalized enlarged lymph nodes (principal)
CPT/HCPCS: 76536

== ENCOUNTER 2025-03-07 09:21 | Emergency (ER) | payer MEDICARE, SELFPAY ==
--- NOTE | 2025-03-07 09:23 | ED.FEMALEGU ---
HPI - Female Genitourinary General Chief complaint: Urogenital-Female Stated complaint: uti Time Seen by Provider: 03/07/25 09:23 Source: patient Mode of arrival: ambulatory Limitations: no limitations History of Present Illness HPI Narrative: Patient is a 69-year-old female that presents with 3 days of darker urine, urgency, frequency left flank pain. Also had shivers, shakes and self-induced vomiting at the start of symptoms but has not had any since. MD elicited complaint: dysuria Related Data Home Medications ?Medication ?Instructions ?Recorded ?Confirmed ?Last Taken ?Type alprazolam 0.5 mg tablet mg 11/08/23 Unknown History dicyclomine 10 mg capsule mg 11/08/23 Unknown History irbesartan 300 mg tablet mg 11/08/23 Unknown History metoprolol succinate 100 mg mg PO 11/08/23 Unknown History tablet,extended release 24 hr spironolactone 100 mg tablet mg 11/08/23 Unknown History levothyroxine 25 mcg tablet mcg 03/07/25 Unknown History (Unithroid) Allergies Allergy/AdvReac Type Severity Reaction Status Date / Time Sulfa (Sulfonamide Allergy Unknown Hives Verified 03/07/25 09:36 Antibiotics) latex Allergy Itching Verified 03/07/25 09:36 Review of Systems Review of Systems: All systems reviewed & are unremarkable except as noted in HPI and below Constitutional: Constitutional: Denies chills, Denies fever(s), Denies headache(s), Denies malaise and Denies weakness Eyes: Eyes: Denies change in vision, Denies eye discharge and Denies irritation ENT: Denies otalgia, Denies headache(s), Denies nasal congestion, Denies nasal discharge, Denies sinus pain and Denies sore throat Cardiovascular: Cardiovascular: Denies chest pain, Denies edema, Denies palpitations and Denies dyspnea Respiratory: Respiratory: Denies cough and Denies dyspnea Gastrointestinal: Gastrointestinal: Denies abdominal pain, Denies diarrhea, Denies nausea and Denies vomiting Genitourinary: Genitourinary: Denies hematuria, Reports nocturia, Denies dysuria, Denies flank pain and Reports urinary urgency Musculoskeletal: Musculoskeletal: Denies back pain and Denies numbness Integumentary/Breasts: Skin/Breast: Denies pruritus and Denies rash Neurologic: Denies headache(s), Denies numbness and Denies weakness Psychiatric: Psychiatric: Reports no additional psychiatric complaints Endocrine: Endocrine: Denies palpitations PMFSH Past Medical History Medical History Carpal tunnel syndrome Hypertension Bile duct calculus Surgical History Surgical History Hx of foot surgery History of carpal tunnel surgery Hx of cholecystectomy Social History Social History Smoking status: Unknown if ever smoked Alcohol intake: never Substance use: never Gender identity (if verbalized by the patient): Female Comments At time of signature, agree with nursing past medical, surgical, social and family history. There is no relevant family history pertinent to the presenting complaint. Exam Const: General: cooperative, healthy appearing, comfortable, no acute distress and well nourished Nutritional Appearance: well nourished Orientation/consciousness: patient oriented x3 HENMT: Head: normocephalic and atraumatic Ears: external ears normal Face/Nose/Sinus: Normal external nose present, Normal nares present and normal facial exam Face and sinus: normal facial exam Eyes: General: appearance normal, both eyes and all related structures Pupils: Equal, round and reactive pupils present EOM: EOMs intact bilaterally Neck: Neck: normal visual inspection, full ROM and supple Chest: Chest palpation & inspection: normal inspection of the chest Resp: Effort & Inspection: normal respiratory effort and able to speak in complete sentences Cardio: Rate: regular rate Rhythm: regular rhythm GI: Inspection: normal to inspection GI Palp: No abdominal tenderness and Yes Soft to palpation : General: Yes no CVA tenderness Back/Spine/Pelvis: Back: no CVA tenderness Skin: General skin exam: normal color and no rashes or lesions noted Neuro: General: patient oriented x3 and moves all extremities Cranial nerves: Yes Equal, round and reactive pupils present Extrem: General: normal to inspection and full ROM Psych: Appearance: grossly normal and well kempt Course Course Emergency Course: Patient is aware of diagnosis, understands and agrees to treatment plan. Anticipatory guidance given. Patient agrees to follow-up as directed and is aware of reasons to seek care at the emergency department. Portions of this record may have been created with voice recognition software Level of Care: Express Care Visit Vital Signs Vital signs: Vital Signs Temperature 36.2 C L 03/07/25 09:32 Pulse Rate 66 03/07/25 09:32 Respiratory Rate 18 03/07/25 09:32 Blood Pressure 122/62 03/07/25 09:32 Pulse Oximetry 100 03/07/25 09:32 Oxygen Delivery Room Air 03/07/25 09:32 Temperature 36.2 C L 03/07/25 09:32 Pulse Rate 66 03/07/25 09:32 Respiratory Rate 18 03/07/25 09:32 Blood Pressure 122/62 03/07/25 09:32 Pulse Oximetry 100 03/07/25 09:32 Oxygen Delivery Room Air 03/07/25 09:32 Reviewed MDM - Female Genitourinary MDM Narrative Medical decision making narrative: Exam findings and UA show probable UTI; patient is non-toxic appearing and is in no distress. No CMT, adnexal tenderness, or evidence of pelvic etiology. Patient is appropriate for outpatient treatment and follow-up. Differential Diagnosis Differential diagnosis: Likely urinary tract infection, bacterial vaginosis, trichomoniasis, cervicitis, vaginitis and cystitis Medical Records Attestation: I reviewed the patient's medical records. Lab Data Attestation: I reviewed the patient's lab results. Labs: Lab Results 03/07/25 Range/Units 09:37 POC Urine Color Dark POC Urine Clarity Clear POC Urine pH 5.5 POC Ur Specif [place] 1.025 POC Urine Protein 2+ (Negative) POC Ur Glucose (UA) Negative (Negative) POC Urine Ketones Trace (Negative) POC Urine Blood 2+ (Negative) POC Urine Nitrite Positive (Negative) POC Urine Bilirubin 2+ (Negative) POC Urine Urobilinogen 1.0 POC U Leukocyte Esteras Trace (Negative) Discharge Plan Discharge Clinical Impression: Acute UTI Patient Disposition: Home Condition: Stable Instructions: Urinary Tract Infection in Women (ED) Additional Instructions: We will send a urine culture to the lab, based on your symptoms and urine dip we will start treatment today. If culture comes back and bacteria is not susceptible to antibiotic, your prescription may change. Your symptoms should improve within a day of starting antibiotics, but you should finish all the antibiotic pills you get. Otherwise your infection might come back Continue with increased water intake. Take Tylenol or ibuprofen as needed for pain or fever. Follow-up with primary care provider for urine recheck or see ER visit if condition worsens with high fever, nausea, vomiting, severe back pain Patient Language: Icelandic Prescriptions: New phenazopyridine [Pyridium] 200 mg tablet 200 mg PO TID 3 Days Qty: 9 0RF cephalexin 500 mg capsule 500 mg PO Q12H 7 Days Qty: 14 0RF ondansetron 4 mg tablet,disintegrating 4 mg PO Q6-8H PRN (Reason: nausea and vomiting) Qty: 7 0RF No Action levothyroxine [Unithroid] 25 mcg tablet spironolactone 100 mg tablet metoprolol succinate 100 mg tablet extended release 24 hr PO alprazolam 0.5 mg tablet dicyclomine 10 mg capsule irbesartan 300 mg tablet Follow-up/Referrals: Fritz Soria MD [Primary Care Provider] - 3 Days Time of Disposition: 09:50
--- OUTSIDE RECORDS SUMMARY | 2025-03-07 09:28 | XMS_ITS | Clinical Summary ---
Author Organization [facility] [employer] Address [address] [place] [address] Care Team Providers Care Vp Research Name Role Phone Fritz Soria MD Primary Care Provider Source Comments [facility],non-owned Affiliates and Associated Physician Practices is amultiple site organization consisting of ambulatory clinics and hospital sitesin [place], [place], [place] and [place]. This disclosure is being madepursuant to the Care Everywhere program and may not contain all information available regarding this patient. Last updated 18.[facility] [employer] Allergies Active Allergy Reactions Criticality Noted Date Comments Sulfa Drugs Urticaria Medium 01/10/2021 Medications * Be aware that medications may not be up to date on this document. Alwaysverify current medications with the patient. rOPINIRole (Requip) 0.5 MG tablet Take 1 (one) tablet by mouth at bedtime 2 Active diclofenac sodium (Voltaren) 1 % gel Apply 2 (two) g to 4 (four) g to affected area 4 times daily as needed Do Not use with Mobic- TS 3 Active dicyclomine (Bentyl) 10 MG capsule Take 1 (one) capsule by mouth 4 times daily as needed 4 Active Nystop [id number] UNIT/GM powder Apply to affected area 2 times daily as needed 4 Active pantoprazole EC (Protonix) 20 MG tablet Take 1 (one) tablet by mouth once daily Active spironolactone (Aldactone) 100 MG tablet Take 1 (one) tablet by mouth once daily 4 Active ALPRAZolam (Xanax) 0.5 MG tablet Take 1 (one) tablet by mouth as directed 4 Active irbesartan (Avapro) 300 MG tablet Take 1 (one) tablet by mouth every 24 hours 4 Active metoprolol succinate XL 24hr (Toprol XL) 100 MG tablet Take 1 (one) tablet by mouth at bedtime 4 Active clobetasol (Temovate) 0.05 % cream Apply to affected area 2 times daily as needed 4 Active triamcinolone acetonide (Kenalog) 0.1 % cream as needed 4 Active CALCIUM MAGNESIUM ZINC PO Take by mouth at bedtime Active Other Sweet relief OTC glycogen support Active meloxicam (Mobic) 15 MG tablet Take 1 (one) tablet by mouth once daily 30 tablet 4 Active Additional Information Patient not taking.Reported on 02/17/2025 famotidine (Pepcid) 20 MG tablet Take 1 (one) tablet by mouth every 12 hours for 30 days 60 tablet 4 Active Additional Information Patient not taking.Reported on 02/17/2025 aspirin EC (Ecotrin) 81 MG tablet Take 1 (one) tablet by mouth every 12 hours 60 tablet 4 Active Additional Information Patient not taking.Reported on 02/17/2025 pregabalin (Lyrica) 50 MG capsule Take 1 (one) capsule by mouth 2 times daily for 30 days 60 capsule 4 Active Additional Information Patient not taking.Reported on 02/17/2025 HYDROcodone-daniela taminophen ([place]) 5-325 MG tabletIndicatio ns:S/P total knee arthroplasty, right Take 1 (one) tablet by mouth every 4 hours as needed for Pain 42 tablet 4 Active Additional Information Patient not taking.Reported on 02/17/2025 pantoprazole EC (Protonix) 40 MG tablet Take 1 (one) tablet by mouth once daily 4 Active cyclobenzaprine (Flexeril) 10 MG tabletIndicatio ns:S/P total knee arthroplasty, right Take 1 (one) tablet by mouth nightly as needed for Muscle Spasms 30 tablet 5 Active Additional Information Patient not taking.Reported on 02/17/2025 Unithroid 25 MCG tablet TAKE 1 TABLET BY MOUTH EVERY DAY IN THE MORNING ON EMPTY STOMACH 5 Active Active Problems Problem Noted Date Diagnosed Date S/P total knee arthroplasty, right 03/08/2024 Primary osteoarthritis of right knee 03/08/2024 Encounter for screening mamm ogram for malignant neoplasm of breast 12/30/2023 Pain in right knee 06/17/2023 06/17/2023 Recurrent major depression 04/07/202306/17 Panic attacks 04/07/2023 06/17/2023 Nonrheumatic aortic (valve) stenosis 07/31/2022 Labile hypertension 04/11/2022 Heart murmur, systolic 04/11/2022 Restless leg syndrome 04/11/2022 Primary hypertension 04/11/2022 Lumbar radiculopathy 09/26/2020 Hammer toe 04/11/2015 Contracture of Achilles tendon 03/28/2015 Synovitis 03/28/2015 Pain of foot 02/14/2015 Joint pain 10/18/2014 Dizziness and giddiness 08/25/2014 Skin eruption 07/18/2014 Skin eruption 07/18/2014 Obesity 07/08/2014 Streptococcal sore throat 07/08/2014 Abnormal blood chemistry level 06/02/2014 Gastroesophageal reflux disease 06/02/2014 Urinary tract infectious disease 06/02/2014 Abnormal blood chemistry level 06/02/2014 Hyperlipidemia 11/26/2013 Wrist joint pain 09/30/2012 Multiple joint pain 08/06/2012 Low back pain 05/07/2012 Generalized anxiety disorder 05/07/2012 Essential hypertension 05/07/2012 Encounters Date Type Department Care Team Description 02/17/2025 8:45 AM CDT - 02/17/2025 11:59 PM CDT Hospital Encounter [facility] - [facility] [address], [address] [phone] Chiki Vargas MD Discharge Disposition: Home or Self Care 02/17/2025 8:45 AM CDT Office Visit [facility] - [facility] Surgery [address] [place] [phone] Chiki Vargas MD Lumbar spondylosis (Primary Dx); Tendinopathy of left rotator cuff; Tear of left rotator cuff, unspecified tear extent, unspecified whether traumatic; Cervical spondylosis 02/17/2025 Travel 01/04/2025 9:35 AM CDT - 01/04/2025 11:59 PM CDT Hospital Encounter [facility] - [facility] [address] [place] [address], [facility] [address] [phone] Jeff Ortiz MD Discharge Disposition: Home or Self Care 01/04/2025 8:30 AM CDT Office Visit [facility] - Orthopedic Surgery [address] [place] [phone] Jeff Ortiz MD Lumbar spondylosis (Primary Dx); Primary osteoarthritis of left hip 01/04/2025 8:28 AM CDT - 01/04/2025 9:34 AM CDT Hospital Encounter [facility] - Orth[facility] [address] [place] [address], [facility] [address] [phone] Jeff Ortiz MD Discharge Disposition: Home or Self Care 01/04/2025 Travel 01/03/2025 Orders Only [facility] - Orthopedic Surgery [address] [place] [phone] Jeff Ortiz MD History of total right knee replacement ; Pain of left hip from Last 3 Months Social History Tobacco Use Types Packs/Day Years Used Date Smoking Tobacco: Former Smokeless Tobacco: Never Tobacco Cessation:Counseling Given: Not Answered Alcohol Use Standard Drinks/Week Comments Not Currently 0 (1 standard drink = 0.6 oz pur e alcohol) Comments Unknown Sex and Gender Information Value Date Recorded Sex Assigned at Not on file Legal Sex Female 6:26 AM 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 Gender Identity Female 06/15/2021 6:51 AM 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 Sexual Orientation Not on file Last Filed Vital Signs Vital Sign Reading Time Taken Comments Blood Pressure 125/71 03/09/2024 8:18 AM CDT Pulse 59 03/09/2024 8:18 AM CDT Temperature 36.8 C (98.2 F) 03/09/2024 8:18 AM CDT Respiratory Rate 18 03/09/2024 8:18 AM CDT Oxygen Saturation 92% 03/09/2024 8:18 AM CDT Inhaled Oxygen Concentration - - Weight 79.4 kg (175 lb) 04/06/2024 11:58 AM CDT Height 160 cm (5' 3) 04/06/2024 11:58 AM CDT Body Mass Index 31 04/06/2024 11:58 AM CDT Plan of Treatment Upcoming Encounters Date Type Department Care Team (Late st Contact Info) Description 03/31/2025 10:00 AM CDT Office Visit [facility] - [facility] Surgery [address] [place] [phone] Chiki Vargas MD [address] [place] [address] Health Maintenance Due Date Last Done Comments BONE DENSITY TESTING 1955 COLOGUARD (AGES 45-75) - COL ON CA SCREENING 1955 COLON MONITORING 1955 COLONOSCOPY - COLON CA SCREENING 1955 CT COLONOGRAPHY - COLON CA SCREENING 1955 Colorectal Cancer Screening 1955 FIT - COLON CA SCREENING 1955 FLEX SIG - COLON CA SCREENING 1955 MAMMOGRAM 1955 HEPATITIS C SCREENING 09/03/1973 DTAP/TDAP/TD VACCINES (1 - Tdap) 1974 LIPID TESTING 07/28/2003 07/28/1998 PNEUMOCOCCAL VACCINE 50+ (1 of 1 - PCV) 2005 ZOSTER VACCINE (1 of 2) 2005 COVID-19 VACCINE (1 - 2023-2 5 season) 2024 DEPRESSION SCREENING 07/28/2024 MEDICARE AWV CALENDAR YEAR 2024 INFLUENZA VACCINE (#1) 2025 SCREENING FOR DIABETES 02/22/2027 , 02/23/2024, 07/28/1998 Respiratory Syncytial Virus (RSV) Vaccine Pt: or over 60 yrs (1 - 1-dose 75+ series) 2030 HEPATITIS B VACCINE Aged Out No longe r eligible based on patient's age to complete this topic HIB VACCINE Aged Out No longer eligi ble based on patient's age to complete this topic HPV VACCINE Aged Out No longer eligi ble based on patient's age to complete this topic MENINGOCOCCAL (Group B) VACCINE SHARED DECISION-MAKING Aged Out No longer eligible based on patient's age to complete this topic MENINGOCOCCAL GROUPS A/C/Y/W VACCINE Aged Out No longer eligible b ased on patient's age to complete this topic Medical Devices Implanted Type Area Scada Operator Device Identifier Shelf Expiration Date Model / Serial / Lot [place] Sut Qanchr Arthsc Tissue Shldr Implanted:Qty: 2 on 07/05/2021 by Ever Garner MD at [facility] [employer] 11/25/2023 [id number] / / [id number] Cmpnt Fem Kn Rt 4 Crcte Rtn Legion John Implanted:Qty: 1 on 03/08/2024 by Jeff Ortiz MD at [facility] Right: [employer] [id number] 06/30/2033 [id number] / / [id number] Deep Dished Articular Insert Implanted:Qty: 1 on 03/08/2024 by Jeff Ortiz MD at [facility] Right: [employer] [id number] 10/20/2031 [id number] / / [id number] Porous Tibia Baseplate Implanted:Qty: 1 on 03/08/2024 by Jeff Ortiz MD at [facility] Right: [employer] [id number] 09/19/2031 [id number] / / [id number] Procedures Procedure Name Priority Date/Time Associated Diagnosis Comments XR CERVICAL SPINE 4 OR 5VW Routine 02/17/2025 10:03 AM CDT Tendinopathy of left rotator cuff Tear of left rotator cuff, unspecified tear extent, unspecified whether traumatic XR LUMBAR SPINE 2 OR 3VW Routine 01/04/2025 9:38 AM CDT Lumbar spondylosis XR KNEE RIGHT 4VW OR MORE Routine 01/04/2025 8:44 AM CDT History of total right knee replacement XR PELVIS W LEFT HIP 2VW Routine 01/04/2025 8:44 AM CDT Pain of left hip COMPREHENSIVE METABOLIC PANEL Pre-Op 02/23/2024 10:07 AM CDT Preop testing LIPID PROFILE Routine 07/28/1998 12:00 AM 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 from Last 3 Months or Most Recently Relevant to Health Maintenance Results * XR Cervical Spine 4 or 5Vw (02/17/2025 10:03 AM CDT) Anatomical Region Laterality Modality Spine Radiographic Swati ging 02/17/2025 12:1 4 PM CDT Impressions 02/17/2025 12:21 PM CDT IMPRESSION: Multilevel cervical degenerative change. Edited by Charla Chavarria on 02/17/2025 12:18 PM > Interpreting Provider: Tierra Gallardo MD on 02/17/2025 12:21 PM Narrative 02/17/2025 12:21 PM CDT PROCEDURE: XR CERVICAL SPINE 4 OR 5VW DATE/TIME OF EXAM: 02/17/2025 10:03 AM INDICATION: M67.912: Tendinopathy of left rotator cuff. M75.102: Tear of left rotator cuff, unspecified tear extent, unspecified whether traumatic. Additional History: COMPARISON: None. FINDINGS: There is slight kyphosis of the upper cervical spine. There is fusion of the spinous processes at C2 and C3. There is severe multilevel disc space narrowing and facet arthritis. There is posterior osteophyte formation at C4-C5 and C5-C6. There is multilevel uncovertebral osteoarthritis. Lung apices are clear. Vertebral body heights are normal. There is no abnormal translatory motion on flexion or extension. There is limited motion overall on extension. Procedure Note Tierra Gallardo MD - 02/17/2025 PROCEDURE: XR CERVICAL SPINE 4 OR 5VW DATE/TIME OF EXAM: 02/17/2025 10:03 AM INDICATION: M67.912: Tendinopathy of left rotator cuff. M75.102: Tear of left rotator cuff, unspecified tear extent, unspecified whether traumatic. Additional History: COMPARISON: None. FINDINGS: There is slight kyphosis of the upper cervical spine. There is fusion of the spinous processes at C2 and C3. There is severe multilevel discspace narrowing and facet arthritis. There is posterior osteophyte formationat C4-C5 and C5-C6. There is multilevel uncovertebral osteoarthritis. Lung apices are clear. Vertebral body heights are normal. There is noabnormal translatory motion on flexion or extension. There is limited motionoverall on extension. IMPRESSION: Multilevel cervical degenerative change. Edited by Charla Chavarria on 02/17/2025 12:18 PM > Interpreting Provider: Tierra Gallardo MD on 02/17/2025 12:21 PM Chiki Vargas MD DIAGNOSTIC IMAGING ORD ERABLES Final Result * XR Lumbar Spine 2 or 3Vw (01/04/2025 9:38 AM CDT) Anatomical Region Laterality Modality Spine Radiographic Swati ging 01/04/2025 10:1 4 AM CDT Narrative 01/04/2025 10:35 AM CDT PROCEDURE: XR LUMBAR SPINE 2 OR 3VW DATE/TIME OF EXAM: 01/04/2025 9:38 AM CLINICAL INFORMATION: None relevant/not provided if blank. Indication: M47.816: Lumbar spondylosis Additional History: FINDINGS/IMPRESSION: Neurostimulator device superimposes left sacral ala. Degenerative changes are seen in the hips. There is levoscoliosis seen in the spine. No acute fracture or dislocation is seen. Vascular calcifications are present in the abdominal aorta. Edited by Betsy Hazel on 01/04/2025 10:20 AM > Interpreting Provider: Syed Mojica MD on 01/04/2025 10:35 AM Procedure Note Syed Mojica MD - 01/04/2025 PROCEDURE: XR LUMBAR SPINE 2 OR 3VW DATE/TIME OF EXAM: 01/04/2025 9:38 AM CLINICAL INFORMATION: None relevant/not provided if blank. Indication: M47.816: Lumbar spondylosis Additional History: FINDINGS/IMPRESSION: Neurostimulator device superimposes left sacral ala. Degenerativechanges are seen in the hips. There is levoscoliosis seen in the spine. No acute fracture or dislocation is seen. Vascular calcifications are present inthe abdominal aorta. Edited by Betsy Hazel on 01/04/2025 10:20 AM > Interpreting Provider: Syed Mojica MD on 01/04/2025 10:35 AM us Jeff Ortiz MD DIAGNOSTIC IMAGING ORDERABL ES Final Result * XR Pelvis W Left Hip 2Vw (01/04/2025 8:44 AM CDT) Anatomical Region Laterality Modality Pelvis Radiographic Swati ging 01/04/2025 9:04 AM CDT Narrative 01/04/2025 9:13 AM CDT PROCEDURE: XR PELVIS W LEFT HIP 2VW DATE/TIME OF EXAM: 01/04/2025 8:44 AM CLINICAL INFORMATION: None relevant/not provided if blank. Indication: M25.552: Pain of left hip. Additional History: FINDINGS/IMPRESSION: Degenerative changes are seen in the bilateral hips. Surgical anchors are noted along the right inferior ramus. Nerve stimulator device superimposes the left sacrum. Circular density superimposes the lower pelvis. Degenerative changes are seen in the lumbar spine. No acute fracture or dislocation is seen. Edited by Kathi Grady on 01/04/2025 9:08 AM > Interpreting Provider: Syed Mojica MD on 01/04/2025 9:13 AM Procedure Note Syed Mojica MD - 01/04/2025 PROCEDURE: XR PELVIS W LEFT HIP 2VW DATE/TIME OF EXAM: 01/04/2025 8:44 AM CLINICAL INFORMATION: None relevant/not provided if blank. Indication: M25.552: Pain of left hip. Additional History: FINDINGS/IMPRESSION: Degenerative changes are seen in the bilateral hips. Surgical anchorsare noted along the right inferior ramus. Nerve stimulator devicesuperimposes the left sacrum. Circular density superimposes the lower pelvis. Degenerative changes are seen in the lumbar spine. No acute fracture or dislocation is seen. Edited by Kathi Grady on 01/04/2025 9:08 AM > Interpreting Provider: Syed Mojica MD on 01/04/2025 9:13 AM Jeff Ortiz MD DIAGNOSTIC IMAGING ORDERABL ES Final Result * XR Knee Right 4Vw or More (01/04/2025 8:44 AM CDT) Anatomical Region Laterality Modality Lower Extremity Radiographic Swati ging 01/04/2025 9:00 AM CDT Narrative 01/04/2025 9:00 AM CDT PROCEDURE: XR KNEE RIGHT 4VW OR MORE DATE/TIME OF EXAM: 01/04/2025 8:44 AM CLINICAL INFORMATION: None relevant/not provided if blank. Indication: Z96.651: History of total right knee replacement Additional History: Findings/impression: No acute fracture or dislocation seen. Soft tissues appear unremarkable. > Interpreting Provider: Syed Mojica MD on 01/04/2025 9:00 AM Procedure Note Syed Mojica MD - 01/04/2025 PROCEDURE: XR KNEE RIGHT 4VW OR MORE DATE/TIME OF EXAM: 01/04/2025 8:44 AM CLINICAL INFORMATION: None relevant/not provided if blank. Indication: Z96.651: History of total right knee replacement Additional History: Findings/impression: No acute fracture or dislocation seen. Soft tissues appear unremarkable. > Interpreting Provider: Syed Mojica MD on 01/04/2025 9:00 AM us Jeff Ortiz MD DIAGNOSTIC IMAGING ORDERABL ES Final Result * (ABNORMAL) COMPREHENSIVE METABOLIC PANEL (02/23/2024 10:07 AM CDT) [facility] Signature Glucose 101 70 - 105 mg/dL 02/23/2024 11:00 AM CDT [facility] Sodium 137 136 - 145 mmol/L 02/23/2024 11:00 AM CDT [facility] Potassium 4.3 3.5 - 5.1 mmol/L 02/23/2024 11:00 AM [facility] Chloride 103 98 - 107 mmol/L 02/23/2024 11:00 AM [facility] CO2 25 22 - 29 mmol/L 02/23/2024 11:00 AM [facility] Calcium 9.6 8.4 - 10.4 mg/dL 02/23/2024 11:00 AM [facility] Anion Gap 9 6 - 16 mmol/L 02/23/2024 11:00 AM [facility] BUN 15 7 - 26 mg/dL 02/23/2024 11:00 AM [facility] Creatinine 0.82 0.57 - 1.11 mg/dL 02/23/2024 11:00 AM [facility] Alkaline Phosphatase 85 40 - 150 U/L 02/23/2024 11:00 AM [facility] ALT 19 0 - 55 U/L 02/23/2024 11:00 AM [facility] AST 15 5 - 34 U/L 02/23/2024 11:00 AM [facility] Protein Total 7.6 6.4 - 8.3 gm/dL 02/23/2024 11:00 AM [facility] Albumin 4.0 3.4 - 5.0 gm/dL 02/23/2024 11:00 AM [facility] Bilirubin Total 0.6 0.2 - 1.2 mg/dL 02/23/2024 11:00 AM [facility] eGFR by CKD-EPI 78(L) >=90 mL/min/1.7 3 m2 02/23/2024 11:00 AM [facility] Blood BLOOD SPECIMEN / Unknown Venipuncture / Unknown 02/23/2024 10:07 AM CDT 02/23/2024 10:35 AM [facility] us Jeff Ortiz MD LAB - CHEMISTRY ORDERABLES Final Result [facility] [address] [place], [place] [id number] * (ABNORMAL) LIPID PROFILE (07/28/1998 12:00 AM 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) Cholesterol Total 192 [facility] HDL 47 mg/dL [facility] Triglycerides 204(H) <150 mg/dL [facility] LDL Calculated 109 [facility] Venous blood specimen (specimen) 07/28/1998 Narrative [facility] - 07/28/1998 12:00 AM 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 This order was created through External Result Entry Fritz Soria MD LAB - CHEMISTRY ORDERABLES Final Result [facility] [address] from Last 3 Months or Most Recently Relevant to Health Maintenance Insurance [employer] [facility] MANAGED MEDICARE ADV Advance Directives * Full Code (Latest Code Status on File) Date Activated Date Inactivated Comments 03/08/2024 2:53 PM 03/09/2024 2:48 PM Care Teams Vp Research Relationship Specialty Start Date End Date Fritz Soria MD PCP - General 01/04/21
--- OUTSIDE RECORDS SUMMARY | 2025-03-07 09:28 | XMS_ITS | Clinical Summary ---
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 Gender Identity Not on file Sexual Orientation Not on file Plan of Treatment Health Maintenance Due Date Last Done Comments Hepatitis C Virus (HCV) Screening 1955 TdaP Immunization 1955 Cologuard 2000 Colonoscopy 2000 Colorectal Cancer Screening 2000 Immunochemical Fecal Occult Blood 2000 Pneumococcal Immunization (5 0+ years) (1 of 1 - PCV) 2005 Zoster Immunization (1 of 2) 2005 SARS-COV-2 Immunization ( - season) 2024 Influenza Immunization (#1) 2025 05/10/2020 Respiratory Syncytial Virus (RSV) Immunization (Adult) (1 - 1-dose 75+ series) 2030 Hepatitis B Immunization Aged Out No longer eligible based on patient's age to complete this topic Human Papillomavirus (HPV) Immunization Aged Out No longer eligible b ased on patient's age to complete this topic Meningococcal Immunization (ACWY) Aged Out No longer eligible based on patient's age to complete this topic Rotavirus Immunization Aged Out No lo nger eligible based on patient's age to complete this topic
--- OUTSIDE RECORDS SUMMARY | 2025-03-07 09:28 | XMS_ITS | Patient Health Record ---
Author Organization [facility] Address [id number] [place] [id number] Care Team Providers Care Benzol Still Operator Name Role Phone Yumiko Jay [phone] Allergies No Known Allergies Results Component Value Reference Range Flag Notes .COMPREHENSIVE METABOLIC SIMS EL (52685) CMP Reviewed date:12/12/2024 02:19:18 PM Interpretation: Performing Lab:Madan AUSTIN-Lrtcey75721 Eliazar MonteroaKS[address] Shan Yadav MD Notes/Report: GLUCOSE 96 65-99 mg/dL N Fasting reference interval UREA NITROGEN (BUN) 17 7-25 mg/dL N CREATININE 0.56 0.50-1.05 mg/dL N EGFR 99 > OR = 60 mL/min/1.73m2 N BUN/CREATININE RATIO SEE NOTE: 6-22 (calc) Not Reported: BUN and Creatinine are within reference range. SODIUM 145 135-146 mmol/L N POTASSIUM 4.4 3.5-5.3 mmol/L N CHLORIDE 107 98-110 mmol/L N CARBON DIOXIDE 27 20-32 mmol/L N CALCIUM 9.1 8.6-10.4 mg/dL N PROTEIN, TOTAL 7.1 6.1-8.1 g/dL N ALBUMIN 4.4 3.6-5.1 g/dL N GLOBULIN 2.7 1.9-3.7 g/dL (calc) N ALBUMIN/GLOBULIN RATIO 1.6 1.0-2.5 (calc) N BILIRUBIN, TOTAL 0.3 0.2-1.2 mg/dL N ALKALINE PHOSPHATASE 82 37-153 U/L N AST 11 10-35 U/L N ALT 15 6-29 U/L N IRON AND TOTAL IRON BINDING CAPACITY (7573) Reviewed date:12/12/2024 02:19:18 PM Interpretation: Performing Lab:Madan AUSTIN-Hepviu94902 Dustin MonteroQjfawdMH[address] Shan Yadav MD Notes/Report: IRON, TOTAL 51 45-160 mcg/dL N IRON BINDING CAPACITY 363 250-450 mc g/dL (calc) N % SATURATION 14 16-45 % (calc) L .CBC (INCLUDES DIFF/PLT) (63 99) Reviewed date:12/12/2024 02:19:18 PM Interpretation: Performing Lab:Madan AUSTIN-Dfnuiu13985Eliazar HaroaKS[address] Shan Yadav MD Notes/Report: WHITE BLOOD CELL COUNT 5.5 3.8-10.8 Thousand/uL N RED BLOOD CELL COUNT 4.25 3.80-5.10 Million/uL N HEMOGLOBIN 12.4 11.7-15.5 g/dL N HEMATOCRIT 39.1 35.0-45.0 % N MCV 92.0 80.0-100.0 fL N MCH 29.2 27.0-33.0 pg N MCHC 31.7 32.0-36.0 g/dL L condition. interpreted with caution in correlation with other red cell parameters and the patient's clinical value (in the range of 30 to 32 g/dL) is most likely not clinically significant; however, it should be For adults, a slight decrease in the calculated MCHC RDW 13.6 11.0-15.0 % N PLATELET COUNT 290 140-400 Thousand/uL N MPV 10.2 7.5-12.5 fL N ABSOLUTE NEUTROPHILS 2404 1850-0894 cells/uL N ABSOLUTE LYMPHOCYTES 2470 850-3900 cells/uL N ABSOLUTE MONOCYTES 451 200-950 cells/uL N ABSOLUTE EOSINOPHILS 149 15-500 cells/uL N ABSOLUTE BASOPHILS 28 0-200 cells/uL N NEUTROPHILS 43.7 N LYMPHOCYTES 44.9 N MONOCYTES 8.2 N EOSINOPHILS 2.7 N BASOPHILS 0.5 N SED RATE BY MODIFIED DIDI OWENS (809) Reviewed date:12/12/2024 02:19:18 PM Interpretation: Performing Lab:GEOVANNA [facility] Leea10101 Dustin MonteroChoofqHD[address] Shan Yadav MD Notes/Report: SED RATE BY MODIFIED OMEGA 14 < OR = 30 mm/h N C-REACTIVE PROTEIN (4420) Reviewed date:12/12/2024 02:19:18 PM Interpretation: Performing Lab:Madan AUSTIN-Diztay25043 Matt Perry, JeahecTS[address] Shan Yadav MD Notes/Report: C-REACTIVE PROTEIN 4.1 <8.0 mg/L N RHEUMATOID FACTOR (4418) Reviewed date:12/12/2024 02:19:18 PM Interpretation: Performing Lab:Madan AUSTIN-Pezzeg64458 Matt Perry, VqeoolWX[address] Shan Yadav MD Notes/Report: RHEUMATOID FACTOR <10 <14 IU/mL N CYCLIC CITRULLINATED PEPTIDE (CCP) AB (IGG) (76112) Reviewed date:12/12/2024 02:19:18 PM Interpretation: Performing Lab:Madan AUSTIN-Pqzsji36919 Matt Perry, ElbxvmBV[address] Shan Yadav MD Notes/Report: CYCLIC CITRULLINATED PEPTIDE (CCP) AB (IGG) <16 N Reference Range Moderate Positive: 40-59 Strong Positive: >59 Weak Positive: 20-39 Negative: <20 THYROID PEROXIDASE ANTIBODIE S (5081) Reviewed date:12/16/2024 10:58:21 PM Interpretation: Performing Lab:Madan ANTUNEZ-Pierre Mckeone[address] [place], Pierre MckeonVxjvHV[address] Santhosh Alexander Notes/Report: THYROID PEROXIDASE ANTIBODIES 68 <9 IU/mL H MARANDA SCREEN, IFA, W/REFL TITE R AND PATTERN (249) Reviewed date:12/16/2024 10:58:21 PM Interpretation: Performing Lab:Madan AUSTIN-Bcszat37919 Matt Perry, PywbbyAO[address] Shan Yadav MD Notes/Report: MARANDA SCREEN, IFA POSITIVE NEGATIVE A titer and pattern. Further laboratory testing may be For additional information, please refer to MARANDA IFA is a first line screen for detecting the various autoimmune diseases. A positive MARANDA IFA result educational purposes only.) (This link is being provided for informational/ presence of up to approximately 150 autoantibodies in http://education.[employer]/faq/MCI838 considered if clinically indicated. is suggestive of autoimmune disease and reflexes to MARANDA TITER 1:40 H >1:80 Elevated Antibody Level autoimmune diseases and normal individuals. Reference Range A low level MARANDA titer may be present in pre-clinical <1:40 Negative 1:40-1:80 Low Antibody Level MARANDA PATTERN Nuclear, Dense Fine Speckled A Dense fine speckled pattern is seen in normal individuals and rarely associated with systemic lupus erythematosis (SLE), Sjogren's syndrome and systemic sclerosis. AC-2: Dense Fine Speckled International Consensus on MARANDA Patterns (https://doi.org/10.1515 /xnqq-7987-1159) .HEMOGLOBIN A1c (496) Reviewed date:02/10/2025 02:22:14 PM Interpretation: Performing Lab:SENIA [email or web address] ChildrenEvoxk[address] [facility] HospitalLjlatcnIB[address] Shan Yadav Notes/Report: FASTING: YES FASTING:YES SPLIT 02/04/2025 FROM [id number] HEMOGLOBIN A1c 6.2 <5.7 % of total Hgb H Currently, no consensus exists regarding use of targets should be individualized based on duration of prediabetes and should be confirmed with a diabetes, age, comorbid conditions, and other hemoglobin A1c for diagnosis of diabetes for children. indicates that their diabetes is well controlled. A1c considerations. A1c value between 5.7% and 6.4% is consistent with This assay result is consistent with an increased risk For someone without known diabetes, a hemoglobin For someone with known diabetes, a value <7% of diabetes. follow-up test. INSULIN (561) Reviewed date:02/10/2025 02:21:37 PM Interpretation: Performing Lab:Madan AUSTIN-Quscrr05299 Eliazar MonteroaKS[address] Shan Yadav MD Notes/Report: FASTING: YES FASTING:YES SPLIT 02/04/2025 FROM [id number] INSULIN 17.3 N cut points (optimal, moderate, high) High >18.4 Optimal < or = 18.4 in 2021. Moderate NA Risk: are based on Insulin Reference Interval studies performed at [email or web address] Adult cardiovascular event risk category Reference Range < or = 18.4 DHEA SULFATE (402) Reviewed date:12/12/2024 02:19:18 PM Interpretation: Performing Lab:Madan AUSTIN-Llqkid95054 Eliazar MonteroaKS[address] Shan Yadav MD Notes/Report: DHEA SULFATE 24 9-118 mcg/dL N VITAMIN B12/FOLATE, SERUM PA DEMETRIA (9072) Reviewed date:12/12/2024 02:19:18 PM Interpretation: Performing Lab:Madan AUSTIN LenexaKS[address] Shan Yadav MD Notes/Report: VITAMIN B12 365 137-5119 pg/mL N pg/mL may experience neuropsychiatric and hematologic of patients with values above 400 pg/mL will have symptoms. 5 and 10% of patients with values between 200 and 400 Please Note: Although the reference range for vitamin abnormalities due to occult B12 deficiency; less than 1% B12 is 200-1100 pg/mL, it has been reported that between FOLATE, SERUM 19.2 N Borderline: 3.4-5.4 Reference Range Low: <3.4 Normal: >5.4 FERRITIN (457) Reviewed date:12/12/2024 02:19:18 PM Interpretation: Performing Lab:Madan AUSTIN LenexaKS[address] Shan Yadav MD Notes/Report: FERRITIN 24 16-288 ng/mL N T4, FREE (866) Reviewed date:12/12/2024 02:19:18 PM Interpretation: Performing Lab:Madan AUSTIN LenexaKS[address] Shan Yadav MD Notes/Report: T4, FREE 1.0 0.8-1.8 ng/dL N T4, FREE (866) Reviewed date:02/10/2025 02:21:44 PM Interpretation: Performing Lab:Madan AUSTIN LenexaKS[address] Shan Yadav MD Notes/Report: FASTING: YES FASTING:YES SPLIT 02/04/2025 FROM [id number] T4, FREE 1.1 0.8-1.8 ng/dL N CORTISOL, TOTAL (367) Reviewed date:12/09/2024 09:32:18 AM Interpretation: Performing Lab:Madan AUSTIN LenexaKS[address] Shan Yadav MD Notes/Report: FASTING: YES FASTING:YES CORTISOL, TOTAL 1.4 L Reference Range: For 8 a.m.(7-9 a.m.) Specimen: 4.0-22.0 * Please interpret above results accordingly * Reference Range: For 4 p.m.(3-5 p.m.) Specimen: 3.0-17.0 CORTISOL, TOTAL (367) Reviewed date:02/07/2025 09:46:35 AM Interpretation: Performing Lab:Madan AUSTIN LenexaKS[address] Shan Yadav MD Notes/Report: CORTISOL, TOTAL 1.5 L Reference Range: For 8 a.m.(7-9 a.m.) Specimen: 4.0-22.0 * Please interpret above results accordingly * Reference Range: For 4 p.m.(3-5 p.m.) Specimen: 3.0-17.0 TSH (899) Reviewed date:02/10/2025 02:21:51 PM Interpretation: Performing Lab:Madan AUSTIN LenexaKS[address] Shan Yadav MD Notes/Report: SPLIT 02/04/2025 FROM [id number] FASTING:YES FASTING: YES TSH 3.36 0.40-4.50 mIU/L N TSH (899) Reviewed date:12/12/2024 02:19:18 PM Interpretation: Performing Lab:Madan AUSTIN LenexaKS[address] Shan Yadav MD Notes/Report: TSH 3.48 0.40-4.50 mIU/L N T3, FREE (35684) Reviewed date:12/12/2024 02:19:18 PM Interpretation: Performing Lab:Madan AUSTIN LenexaKS[address] Shan Yadav MD Notes/Report: T3, FREE 2.4 2.3-4.2 pg/mL N T3, FREE (27542) Reviewed date:02/10/2025 02:22:02 PM Interpretation: Performing Lab:Madan AUSTIN LenexaKS[address] Shan Yadav MD Notes/Report: FASTING: YES FASTING:YES SPLIT 02/04/2025 FROM [id number] T3, FREE 3.0 2.3-4.2 pg/mL N .VITAMIN D,25-OH,TOTAL,IA (1 7306) Reviewed date:12/12/2024 02:19:18 PM Interpretation: Performing Lab:Madan AUSTIN-Njbqzj76553 Dustin MonteroZzywasOH[address] Shan Yadav MD Notes/Report: VITAMIN D,25-OH,TOTAL,IA 33 30-100 ng/mL N D2-supplementation and patients for whom quantitation 25-OH VIT D, (D2,D3), LC/MS/MS is recommended: order educational purposes only.) code 82031 (patients >2yrs). For additional information, please refer to Vitamin D Status 25-OH Vitamin D: Optimal: > or = 30 ng/mL Insufficiency: 20 - 29 ng/mL (This link is being provided for informational/ See Note 1 Note 1 http://education.[employer]/faq/XOE849 Deficiency: <20 ng/mL of D2 and D3 fractions is required, the QuestAssureD() For 25-OH Vitamin D testing on patients on ALDOSTERONE/PLASMA RENIN ACT IVITY RATIO,LC/MS/MS (49079) Reviewed date:12/16/2024 10:58:21 PM Interpretation: Performing Lab:Madan EKITH/[facility],[address] [facility] HospitalCA[address] Ritika Mei MD,PhD,GUNNAR Notes/Report: ALDOSTERONE, LC/MS/MS 9 used for clinical purposes. Upright 8:00-10:00 am < or = 28 ng/dL has been validated pursuant to the CLIA regulations and is Adult Reference Ranges for Aldosterone: It has not been cleared or approved by the FDA. This assay Upright 4:00-6:00 pm < or = 21 ng/dL Supine 8:00-10:00 am 3-16 ng/dL This test was developed and its analytical performance characteristics have been determined by [facility]. PLASMA RENIN ACTIVITY, LC/MS/MS 1.02 0.25-5.82 ng/mL/h TAMELA/PRA RATIO 8.8 0.9-28.9 Ratio CORTISOL, LC/MS, SALIVA, 2 S ANTONIO (36131) Reviewed date:02/16/2025 05:14:04 PM Interpretation: Performing Lab:SAGAR [facility],[address] [facility] Ritika Mei MD,PhD,GUNNAR Notes/Report: URINE VOLUME: 2000 PATIENT NOT FASTING; ADVISED TO RETURN FOR COLLECTION. DRAW DATE 1 02/02/2025 DRAW TIME 1 11:10 PM CORTISOL, SALIVA SAMPLE 1 0.49 noon-2 PM: < OR = 0.21 mcg/dL 4-6 PM: < OR = 0.15 mcg/dL This test was developed and its analytical performance characteristics have been determined by [email or web address]. It has not been cleared or approved by the FDA. This assay has been validated pursuant to the CLIA regulations and is 10 PM-1 AM: < OR = 0.09 mcg/dL 8-10 AM: 0.04-0.56 mcg/dL used for clinical purposes. DRAW DATE 2 02/03/2025 DRAW TIME 2 11:00 PM CORTISOL, SALIVA SAMPLE 2 0.03 It has not been cleared or approved by the FDA. This assay noon-2 PM: < OR = 0.21 mcg/dL 4-6 PM: < OR = 0.15 mcg/dL 10 PM-1 AM: < OR = 0.09 mcg/dL This test was developed and its analytical performance characteristics have been determined by [facility]. has been validated pursuant to the CLIA regulations and is used for clinical purposes. 8-10 AM: 0.04-0.56 mcg/dL CARDIO IQ(R) INSULIN RESISTA NCE PANEL WITH SCORE (21283) Reviewed date:02/13/2025 12:46:41 PM Interpretation: Performing Lab:EZ [facility],[address] [facility] Ritika Mei MD,PhD,GUNNAR Notes/Report: FASTING: YES FASTING:YES SPLIT 02/04/2025 FROM [id number] INSULIN, INTACT, LC/MS/MS 14 < OR = 16 uIU/mL used for clinical purposes. characteristics have been determined by [facility]. This test was developed and its analytical performance It has not been cleared or approved by the FDA. This assay Insulin concentration can be converted to pmol/L by applying For additional information, please refer to purposes only.) the conversion factor: 1 uIU/mL = 5.97 pmol/L has been validated pursuant to the CLIA regulations and is (This link is being provided for informational/educationa l http://TerraPower.[employer]/faq/QHN870 C-PEPTIDE, LC/MS/MS 3.16 0.68-2.16 ng/mL H INSULIN RESISTANCE SCORE 86 < OR = 66 H It has not been cleared or approved by the FDA. This assay has been validated pursuant to the CLIA regulations and is C-peptide results (Ruma F, Gladys D, Randy TRIPLETT, et al. Insulin resistance probability scores for apparently healthy an insulin suppression test, a standard research test for This test was developed and its analytical performance Insulin Resistant >66 (This link is being provided for informational/educationa l A score below 33 is optimal. The insulin resistance score insulin resistance. The score is based on insulin and correlates with steady state glucose levels achieved during Insulin Sensitive < 33; Impaired Insulin Sensitivity 33-66; purposes only.) individuals. J Endocr Soc. 2018;2(9):0094-7315). For additional information, please refer to used for clinical purposes. http://education.[employer]/faq/LQZ653 characteristics have been determined by [facility]. ACTH, PLASMA (211) Reviewed date:12/12/2024 05:12:50 PM Interpretation: Performing Lab:Madan YEH/[facility] ChavezScott [id number] Desire Silva, XihiokbajDS[address] Julián Rodgers M.D.,PhD Notes/Report: ACTH, PLASMA 18 6-50 pg/mL Reference range applies only to specimens collected between 7am-10am. DEXAMETHASONE (34299) Reviewed date:02/10/2025 07:30:27 PM Interpretation: Performing Lab:Madan KEITH/[facility],[address] [facility] Ritika Mei MD,PhD,GUNNAR Notes/Report: DEXAMETHASONE 474 It has not been cleared or approved by the FDA. This assay has been validated pursuant to the CLIA regulations and is Baseline: Less than 20 ng/dL 1 mg dexamethasone overnight: 180-550 ng/dL (8:00-10:00 AM) used for clinical purposes. characteristics have been determined by [facility]. Reference Ranges for Dexamethasone: This test was developed and its analytical performance DEXAMETHASONE (97271) Reviewed date:12/23/2024 11:05:46 PM Interpretation: Performing Lab:EZ, [facility],[address] [facility] Ritika Mei MD,PhD,GUNNAR Notes/Report: FASTING: YES FASTING:YES DEXAMETHASONE 316 This test was developed and its analytical performance It has not been cleared or approved by the FDA. This assay Reference Ranges for Dexamethasone: Baseline: Less than 20 ng/dL 1 mg dexamethasone overnight: 180-550 ng/dL (8:00-10:00 AM) has been validated pursuant to the CLIA regulations and is characteristics have been determined by [facility]. used for clinical purposes. CORTISOL, FREE, 24 HOUR URIN E (42511) Reviewed date:02/13/2025 12:46:41 PM Interpretation: Performing Lab:EZ [facility],[address] [facility] Ritika Mei MD,PhD,GUNNAR Notes/Report: URINE VOLUME: 2000 PATIENT NOT FASTING; ADVISED TO RETURN FOR COLLECTION. TOTAL VOLUME 2000 CORTISOL, FREE, URINE SEE NOTE 4.0-50.0 mcg/24 h is 1.0 mcg/L. Results are below reportable range for this analyte, which CORTISOL, FREE, URINE SEE NOTE this assay. ADULTS: 3.1-42.3 Unable to calculate. Cortisol is below the sensitivity of Reference Range: CREATININE, URINE 1.68 0.50-2.15 g/24 h This test was developed and its analytical performance has been validated pursuant to the CLIA regulations and is It has not been cleared or approved by the FDA. This assay used for clinical purposes. characteristics have been determined by [facility]. Reason For Referral No Information Medications Medication SIG (Take, Route, Frequency, Duration) Notes Start Date End Date Status Spironolactone 100 MG Tablet 1 tablet Or ally Once a day Active Irbesartan 300 MG Tablet 1 tablet Orally Once a day Active dexAMETHasone 1 MG Tablet 1 tablet Orall y at 10 pm night before 8 am cortisol; Duration: 1 days 01/17/2025 Active Meloxicam 15 MG Tablet 1 tablet Orally O nce a day Active ALPRAZolam 0.5 MG Tablet 1 tablet Orally Twice a day Active Dicyclomine HCl 10 MG Capsule 2 capsules Orally Three times a day Active Unithroid 25 MCG Tablet 1 tablet in the morning on an empty stomach Orally Once a day; Duration: 90 days 01/17/2025 Active Pantoprazole Sodium 40 MG Tablet Delayed Release 1 tablet 1/2 to 1 hour before morning meal Orally Once a day Active Metoprolol Succinate 50 MG Capsule ER 24 Hour Sprinkle 1 capsule Orally Once a day Active Social History Section Notes: Non-Contributory Problems Problem Type SNOMED Code ICD Code Onset Dates Problem Status W/U Status Risk Notes Problem Autoimmune thyroiditis (E06.3) Active confirmed Problem Essential hypertension (89539555) Essential (primary) hypertension (I10) Active confirmed 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 Jay [address] [place] [address] 12/06/2024 Yumiko Jay Impaired fasting gl ucose R73.01 ; Essential (primary) hypertension I10 ; Autoimmune thyroiditis E06.3 ; Other fatigue R53.83 ; Abnormal weight gain R63.5 and Dietary counseling and surveillance Z71.[address] 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 E06.3 ; Abnormal weight gain R63.5 and Dietary counseling and surveillance Z71.3 Assessments Encounter Date Diagnosis (ICD Code) Assessment Notes Treatment Notes Treatment Clinical Notes Section Notes 01/17/2025 Autoimmune thyroiditis (ICD-10 - E06.3) 01/17/2025 Essential (primary) hypertension (ICD-10 - I10) 12/06/2024 Essential (primary) hypertension (ICD-10 - I10) 12/06/2024 Impaired fasting glucose (ICD-10 - R73.01) 01/17/2025 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 12/06/2024 Dietary counseling and surveillance (ICD-10 - Z71.3) Spent 15 minutes preventative counseling patient on dietary recommendations and changes in setting of hyperglycemia- need to restrict refined sugars and processed foods and incorporate up to 150 minutes of moderate level activity weekly. 12/06/2024 Other Assessment and Plan: 1. Suspected Hypothyroidism- Order comprehensive thyroid panel including TSH, Free T3, and Free T4- Discuss benefits and risks of starting levothyroxine treatment- Educate patient on the importance of consistent medication use if started- Emphasize the role of diet in thyroid health and overall inflammation- Provide chocolate-flavored nutritional supplement 2. Hypertension- Continue current antihypertensive regimen- Monitor blood pressure regularly- Emphasize importance of medication adherence- Encourage lifestyle modifications including diet and exercise 3. Dyslipidemia- Order lipid panel- Discuss diet modifications to improve lipid profile- Consider statin therapy based on lipid panel results and cardiovascular risk assessment 4. Chronic Pain (Hip and Nerve Pain)- Recommend careful activity, especially during upcoming [place] trip- Suggest gentle exercises and yoga as tolerated- Await orthopedist evaluation and recommendations 5. Anxiety- Continue current anxiety management with Xanax- Encourage relaxation techniques during upcoming vacation 6. Possible Inflammatory Condition- Order rheumatoid factor test- Consider referral to wire tinner based on test results and clinical progression Spent 45 minutes preparing to see the patient (ex review of tests/chart), obtaining and / or reviewing separately obtained history, performing a medically appropriate examination and/or evaluation, counseling and educating the patient/family/memory care program resident, ordering medications, tests, or procedures, referring and communicating with other health reservoir caretaker, documenting clinical information in the electronic or other health record, independently interpreting results and communicating results to the patient/family/memory care program resident and care coordinating patient plan. Patient alert and oriented x 4 and aware of discussion noted above and in agreeance to plan in management of impaired fasting glucose, autoimmune thyroiditis, hypertension, abnormal weight gain. 01/17/2025 Other Assessment and Plan: 1. Hypothyroidism (Jeanne's thyroiditis)- Start Unithroid (levothyroxine) at a low dose 25 mcg daily- Take first thing in the morning with water, wait 1 hour before eating or drinking anything else- Patient informed about consistent absorption and senior software quality engineer compared to generic alternatives- Provided samples of Unithroid- Discussed potential improvement in iron absorption with thyroid hormone replacement- Recommended dietary modifications: reduce refined sugars and processed foods, consider autoimmune paleo diet- Follow-up in 2-3 months 2. Fatigue- Initiate thyroid hormone replacement (as outlined above)- Consider repeat cortisol testing- Reassess fatigue at follow-up appointment in 2-3 months 3. Anxiety- Continue current anxiety management for now- Discussed potential impact of Xanax and cannabis on cortisol testing- Advised to avoid cannabis gummies for at least 3 days prior to cortisol testing- Consider further evaluation of anxiety management options at future visits 4. Obesity- Encouraged restart of [employer] program as per patient's preference- Discussed potential benefits of autoimmune paleo diet for thyroid function and weight management- Reassess weight at follow-up appointment in 2-3 months Spent 25 minutes preparing to see the patient (ex review of tests/chart), obtaining and / or reviewing separately obtained history, performing a medically appropriate examination and/or evaluation, counseling and educating the patient/family/memory care program resident, ordering medications, tests, or procedures, referring and communicating with other health reservoir caretaker, documenting clinical information in the electronic or other health record, independently interpreting results and communicating results to the patient/family/memory care program resident and care coordinating patient plan. Patient alert and oriented x 4 and aware of discussion noted above and in agreeance to plan in management of hypothyroidism, abnormal weight gain, hypertension and concern for hypercortisolism. Plan Of Treatment Next Appt Details Provider Name:Yumiko Jay, 10:00:00 AM, [address] [place] [address], [id number], Insurance Providers Payer Name Payer Address Payer Phone Subscriber Number Group Number Insured Name Patient Relationship to Insured Coverage Start Date Coverage End Date [employer] [address] [place], [place] [id number] Qi Anders Self - patient is the insured
--- OUTSIDE RECORDS SUMMARY | 2025-03-07 09:28 | XMS_ITS | Clinical Summary ---
Author Organization [facility] Address [address] [place] [address] Care Team Providers Care Lighting Fixture Installer Name Role Phone Fritz Soria MD Primary Care Provider [phone] Social History Tobacco Use Types Packs/Day Years Used Date Smoking Tobacco: Never Assessed Comments Unknown Sex and Gender Information Value Date Recorded Sex Assigned at Not on file Legal Sex Female 7:52 PM CDT Gender Identity Not on file Sexual Orientation Not on file Last Filed Vital Signs Vital Sign Reading Time Taken Comments Blood Pressure 122/78 12/30/2016 10:36 AM CDT Pulse - - Temperature - - Respiratory Rate - - Oxygen Saturation - - Inhaled Oxygen Concentration - - Weight 83.9 kg (185 lb) 12/30/2016 10:36 AM CDT Height 160 cm (5' 3) 12/30/2016 10:36 AM CDT Body Mass Index 32.77 12/30/2016 10:36 AM CDT Plan of Treatment Health Maintenance Due Date Last Done Comments Colorectal Cancer Screening Colonoscopy (10 Years) 1955 Hepatitis C 1973 Mammogram Screening 1995 Annual Medicare Wellness Visit 2020 Dexa Scan (General) 2020 Pneumococcal Vaccine: 50+ Years (2 of 2 - PCV) 11/15/2022 11/15/2021 COVID-19 Vaccine ( - 2023-2 5 season) 2024 RSV Immunization or 60+ Years (1 - 1-dose 75+ series) 2030 DTaP, Tdap and Td Vaccines ( 2 - Td or Tdap) 09/14/2031 09/14/2021 Zoster Vaccines Completed 03/02/2022, 11/15/2021 Meningococcal B Vaccine Aged Out No l onger eligible based on patient's age to complete this topic Meningococcal Vaccine Aged Out No cary jessica eligible based on patient's age to complete this topic RSV Immunizations Under 20 Months Aged Out No longer eligible b ased on patient's age to complete this topic Medical Devices Implanted Type Area Microbiology Lab Manager Device Identifier Shelf Expiration Date Model / Serial / Lot Stimulator Implant-09/05/19 Implanted:03/2023 (Quantity not on file) Stimulator Implant Bladder [id number] / [id number] H / Description:Full body eligib le for MRI - 30 min scan time with 5 min wait Insurance [employer] Care Teams Lighting Fixture Installer Relationship Specialty Start Date End Date Fritz Soria MD [address] [place] [id number] PCP - General FAMILY PRACTICE 03/17/23
--- OUTSIDE RECORDS SUMMARY | 2025-03-07 09:28 | XMS_ITS | Encounter Summary ---
Author Organization [facility] Address [address] [facility] [place] [address] Care Team Providers Care Manager Grocery Name Role Phone Fritz Soria MD Primary Care Provider [phone] Reason for Visit * Reason Onset Date Comments MEDICATION REFILL 05/18/2024 Encounter Details Date Type Department Care Team (Late st Contact Info) Description 05/18/2024 Refill [facility] - Orth[facility] [place] [phone] Jeff Ortiz MD [address] [facility] [address] [place], [place] [id number] MEDICATION REFILL Social History Tobacco Use Types Packs/Day Years Used Date Smoking Tobacco: Former Smokeless Tobacco: Never Alcohol Use Standard Drinks/Week Comments Not Currently 0 (1 standard drink = 0.6 oz pur e alcohol) Comments Unknown Sex and Gender Information Value Date Recorded Sex Assigned at Not on file Legal Sex Female 6:26 AM FAGOT HEATER Gender Identity Female 06/15/2021 6:51 AM FAGOT HEATER Sexual Orientation Not on file documented as of this encounter Functional Status * Is person deaf or have serious hearing difficulty? Answer Date of Assessment Author No 07/05/2021 12:13 PM FAGOT HEATER Brown, M onica C., RN * Is person blind or have serious difficulty seeing? Answer Date of Assessment Author No 07/05/2021 12:13 PM Gee Acevedo RN * Does person have serious difficulty walking/climbing stairs? Answer Date of Assessment Author No 07/05/2021 12:13 PM Gee Acevedo RN * Does person have difficulty dressing/bathing? Answer Date of Assessment Author No 07/05/2021 12:13 PM Gee Acevedo RN * Does person have difficulty doing errands alone? Answer Date of Assessment Author No 07/05/2021 12:13 PM Gee Acevedo RN documented as of this encounter Mental Status * Does person have difficulty concentrating/remembering/making decisions? Answer Entry Date Author No 07/05/2021 12:13 PM Gee Acevedo RN documented in this encounter Plan of Treatment Upcoming Encounters Date Type Department Care Team (Late st Contact Info) Description 03/31/2025 10:00 AM CDT Office Visit [facility] - Orthopedic Surgery [address] [place] [address] Chiki Vargas MD [address] [place] [address] documented as of this encounter Visit Diagnoses Diagnosis S/P total knee arthroplasty, right documented in this encounter Care Teams Manager Grocery Relationship Specialty Start Date End Date Fritz Soria MD PCP - General 01/04/21 documented as of this encounter
--- OUTSIDE RECORDS SUMMARY | 2025-03-07 09:28 | XMS_ITS | Continuity of Care Document ---
Author Organization [facility] Address [address] [facility] [address] [place] [address] Insurance Providers Payer Plan Claims Address Claims Phone Policy Number Group Number Relation Employer Guarantor Name Guarantor Guarantor Address Guarantor Phone Aena [facility] [id number] Papo Anders 1955 [address] [place] [address] [facility] [id number] Self Qi Anders 1955 [address] [place] [address] [facility] [id number] Papo Anders 1955 [address] [place], [place] [address] Problems Condition ICD9 code ICD10 code SNOMED code Start Date End Date S tatus Encounter for screening mammogram for malignant neoplasm of breast Z12.31 Workin g Results No Results Allergies, adverse reactions, alerts No known allergies and adverse reactions Medications No administered medications reported Vital Signs No vital signs reported Social History No smoking Hx information available
--- OUTSIDE RECORDS SUMMARY | 2025-03-07 09:28 | XMS_ITS | Encounter Summary ---
Author Organization [facility] Address [address] [facility] [place] [address] Care Team Providers Care Business Services Coordinator Name Role Phone Fritz Soria MD Primary Care Provider [phone] Reason for Visit * Reason Onset Date Comments MEDICATION REFILL 03/24/2024 Encounter Details Date Type Department Care Team (Late st Contact Info) Description 03/24/2024 Refill [facility] [place] [phone] Jeff Ortiz MD [address] [facility] [address] [place], [place] [phone] MEDICATION REFILL Social History Tobacco Use Types Packs/Day Years Used Date Smoking Tobacco: Former Smokeless Tobacco: Never Alcohol Use Standard Drinks/Week Comments Not Currently 0 (1 standard drink = 0.6 oz pur e alcohol) Comments Unknown Sex and Gender Information Value Date Recorded Sex Assigned at Not on file Legal Sex Female 6:26 AM TECHNICAL TRAINING COORDINATOR Gender Identity Female 06/15/2021 6:51 AM TECHNICAL TRAINING COORDINATOR Sexual Orientation Not on file documented as of this encounter Functional Status * Is person deaf or have serious hearing difficulty? Answer Date of Assessment Author No 07/05/2021 12:13 PM TECHNICAL TRAINING COORDINATOR Brown, M onica C., RN * Is [...] Description 03/31/2025 10:00 AM CDT Office Visit [facility] - Orthopedic Surgery [address] [place] [address] Chiki Vargas MD [address] [place] [address] documented as of this encounter Visit Diagnoses Diagnosis S/P total knee arthroplasty, right documented in this encounter Care Teams Business Services Coordinator Relationship Specialty Start Date End Date Fritz Soria MD PCP - General 01/04/21 documented as of this encounter
--- OUTSIDE RECORDS SUMMARY | 2025-03-07 09:28 | XMS_ITS | Clinical Summary ---
Author Organization [facility] Care Team Providers Care Record Press Supervisor Name Role Phone Fritz Soria MD Primary Care Provider Allergies Active Allergy Reactions Criticality Noted Date Comments Sulfa (Sulfonamide Antibiotics) Rash Medium 06/28 Medications ALPRAZolam (XANAX) 0.5 mg tablet TAKE 1 TABLET BY MOUTH EVERY 4 TO 6 HOURS NEEDED FOR ANXIETY. AVOID DRIVING AND OPRERATE MACHINES 2 Active meloxicam (MOBIC) 15 mg tablet Take 1 tablet (15 mg total) by mouth daily 2 Active Protonix 40 mg EC tablet Take 1 tablet (40 mg total) by mouth daily 3 Active aspirin 81 mg enteric coated tablet Take 1 tablet (81 mg total) by mouth daily Active metoprolol XL (TOPROL-XL) 100 mg 24 hr tablet Take 1 tablet (100 mg total) by mouth daily 4 Active dicyclomine (BENTYL) 10 mg capsule 4 Active irbesartan (AVAPRO) 300 mg tabletIndicatio ns:hypertension Take 1 tablet (300 mg total) by mouth nightly Active Nystop powder Apply topically 2 (two) times a day APPLY TO AFFECTED AREA 4 Active spironolactone (ALDACTONE) 100 mg tablet Take 1 tablet (100 mg total) by mouth daily 4 Active rOPINIRole (REQUIP) 0.5 mg tablet TAKE 1 TABLET BY MOUTH NIGHTLY 90 tablet 2 4 Active Active Problems Problem Noted Date Diagnosed Date Recurrent major depression 04/07/2023 Panic attacks 04/07/2023 Nonrheumatic aortic (valve) stenosis 07/31/2022 Primary hypertension 04/11/2022 Heart murmur, systolic 04/11/2022 Labile hypertension 04/11/2022 Restless leg syndrome 04/11/2022 Lumbar radiculopathy 09/26/2020 Hammer toe 04/11/2015 Synovitis 03/28/2015 Contracture of Achilles tendon 03/28/2015 Pain of foot 02/14/2015 Resolved Problems Problem Noted Date Diagnosed Date Resolved Date Parkinson's disease 04/11/2022 04/11/20 22 Surgical History Surgery Date Site/Laterality Comments CHOLECYSTECTOMY APPENDECTOMY ROTATOR CUFF REPAIR 07/28/1998 - 07/27/1999 Right FOOT SURGERY 07/28/2016 - 07/27/2017 Right Medical History Medical History Date Comments Hypertension Family History Medical History Relation Name Comments Arthritis Father Diabetes Father Arthritis Mother Family history of arthritis - (Added by TW Conv) Hypertension Mother Family history of hypertension - (Added by TW Conv) Relation Name Status Comments Father Mother Social History Tobacco Use Types Packs/Day Years Used Date Smoking Tobacco: Former Tobacco Cessation:Counseling Given: Not Answered Personal Safety Answer Date Recorded Getting School Help Needed Not on file 08/02 Comments Unknown Sex and Gender Information Value Date Recorded Sex Assigned at Not on file Legal Sex Female 11:02 PM GRAIN SPOUTER Gender Identity Female 04/28/2021 9:21 PM CDT Sexual Orientation Not on file Occupation Industry Job Start Date Job End Date Retired Not on file Not on file Not on file Not on file Not on file Not on file Obstetrics History Last Filed Vital Signs Vital Sign Reading Time Taken Comments Blood Pressure 108/62 12/02/2023 9:53 AM CDT Pulse 51 12/02/2023 9:53 AM CDT Temperature 36.3 C (97.3 F) 04/11/2022 9:06 AM CDT Respiratory Rate - - Oxygen Saturation 100% 12/02/2023 9:53 AM CDT Inhaled Oxygen Concentration - - Weight 78.8 kg (173 lb 12.8 oz) 12/02/2023 9:53 AM CDT Height 157.5 cm (5' 2) 04/07/2023 10:3 9 AM CDT Body Mass Index 31.79 04/07/2023 10:39 AM CDT Plan of Treatment Health Maintenance Due Date Last Done Comments Breast Cancer Screening-Mammogram 1955 Colon Cancer Screening-Colonoscopy 1955 Depression Screening 1955 Fall Risk Assessment 1955 Hepatitis C Screening 1955 Osteoporosis Screening-Bone Density Scan 1955 DTaP/Tdap/Td Vaccine (1 - Tdap) 1966 Hepatitis B Screening 1973 Pneumococcal vaccine 65+ (1 of 1 - PCV) 2005 Zoster Vaccine (1 of 2) 2005 Well Visit 65+ 2020 Influenza Vaccine (#1) 2025 05/10/2020 Insurance AETNA MEDICARE GOLD [facility] MEDICARE GOLD Care Teams Record Press Supervisor Relationship Specialty Start Date End Date Fritz Soria MD PCP - General Family Medicine 08/18/20
--- OUTSIDE RECORDS SUMMARY | 2025-03-07 09:28 | XMS_ITS | Encounter Summary ---
Author Organization [facility] Address [address] [place] [address] Phone Care Team Providers Care Winery Cellar Hand Name Role Phone Fritz Soria MD Primary Care Provider Encounter Details Date Type Department Care Team (Late st Contact Info) Description 03/04/2022 Telephone [facility] Cardiology [address] [place] [address] [address] [place] [address] [place] [address] Aisha Fraser, chip person Social History Tobacco Use Types Packs/Day Years Used Date Smoking Tobacco: Former Comments Unknown Sex and Gender Information Value Date Recorded Sex Assigned at Not on file Legal Sex Female 11:02 PM SALT LIFTER Gender Identity Female 04/28/2021 9:21 PM CDT Sexual Orientation Not on file Occupation Industry Job Start Date Job End Date Retired Not on file Not on file Not on file Not on file Not on file Not on file documented as of this encounter Plan of Treatment Not on file documented as of this encounter Visit Diagnoses Not on filedocumented in this encounter Care Teams Winery Cellar Hand Relationship Specialty Start Date End Date Fritz Soria MD PCP - General Family Medicine 08/18/20 documented as of this encounter
--- OUTSIDE RECORDS SUMMARY | 2025-03-07 09:30 | XMS_ITS | Continuity of Care Document ---
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 Name Role Phone Fritz Soria MD Unavailable Unavailable Allergies, Adverse Reactions, Alerts Substance Reaction Status Criticality Sulfa (Sulfonamide Antibiotics) Active No Information Medications Medication Instructions Dosage Effective Dates (start - stop) Status Comments Xanax 0.5 mg tablet take 1 tablet by oral route every 4 - 6 hours as needed 0.5 MG - Active PRN for anxiety, avoid driving or operate machines Synthroid 25 mcg tablet take 1 tablet by oral route every day 25 MCG - Active irbesartan 300 mg tablet take 1 tablet by oral route every day 300 MG - Active spironolactone 100 mg tablet take 1 tablet by oral route every day 100 MG - Active Toprol XL 100 mg tablet,extended release take 1 tablet by oral route every day 100 MG - Active Procedures Procedure Date OFFICE/OUTPATIENT VISIT, EST OFFICE/OUTPATIENT VISIT, EST PREV VISIT, EST, 65 & OVER OFFICE/OUTPATIENT VISIT, EST OFFICE/OUTPATIENT VISIT, EST OFFICE/OUTPATIENT VISIT, EST OFFICE/OUTPATIENT VISIT, EST OFFICE/OUTPATIENT VISIT, EST OFFICE/OUTPATIENT VISIT, EST OFFICE/OUTPATIENT VISIT, EST OFFICE/OUTPATIENT VISIT, EST OFFICE/OUTPATIENT VISIT, EST OFFICE/OUTPATIENT VISIT, EST OFFICE/OUTPATIENT VISIT, EST OFFICE/OUTPATIENT VISIT, EST OFFICE/OUTPATIENT VISIT, EST OFFICE/OUTPATIENT VISIT, EST OFFICE/OUTPATIENT VISIT, EST PREV VISIT, EST, 65 & OVER OFFICE/OUTPATIENT VISIT, EST OFFICE/OUTPATIENT VISIT, EST OFFICE/OUTPATIENT VISIT, EST OFFICE/OUTPATIENT VISIT, EST OFFICE/OUTPATIENT VISIT, EST OFFICE/OUTPATIENT VISIT, EST OFFICE/OUTPATIENT VISIT, EST OFFICE/OUTPATIENT VISIT, EST OFFICE/OUTPATIENT VISIT, EST OFFICE/OUTPATIENT VISIT, EST OFFICE/OUTPATIENT VISIT, EST OFFICE/OUTPATIENT VISIT, EST OFFICE/OUTPATIENT VISIT, EST OFFICE/OUTPATIENT VISIT, EST OFFICE/OUTPATIENT VISIT, EST PREV VISIT, EST, 65 & OVER OFFICE/OUTPATIENT VISIT, EST OFFICE/OUTPATIENT VISIT, EST OFFICE/OUTPATIENT VISIT, EST OFFICE/OUTPATIENT VISIT, EST OFFICE/OUTPATIENT VISIT, EST OFFICE/OUTPATIENT VISIT, EST OFFICE/OUTPATIENT VISIT, EST OFFICE/OUTPATIENT VISIT, EST OFFICE/OUTPATIENT VISIT, EST OFFICE/OUTPATIENT VISIT, EST OFFICE/OUTPATIENT VISIT, EST PREV VISIT, EST, 65 & OVER OFFICE/OUTPATIENT VISIT, EST OFFICE/OUTPATIENT VISIT, EST OFFICE/OUTPATIENT VISIT, EST OFFICE/OUTPATIENT VISIT, EST OFFICE/OUTPATIENT VISIT, EST OFFICE/OUTPATIENT VISIT, EST OFFICE/OUTPATIENT VISIT, EST OFFICE/OUTPATIENT VISIT, EST OFFICE/OUTPATIENT VISIT, EST PREV VISIT, EST, AGE 40-64 OFFICE/OUTPATIENT VISIT, EST OFFICE/OUTPATIENT VISIT, EST OFFICE/OUTPATIENT VISIT, EST OFFICE/OUTPATIENT VISIT, EST OFFICE/OUTPATIENT VISIT, EST PREV VISIT, EST, AGE 40-64 OFFICE/OUTPATIENT VISIT, EST OFFICE/OUTPATIENT VISIT, EST OFFICE/OUTPATIENT VISIT, EST OFFICE/OUTPATIENT VISIT, EST OFFICE/OUTPATIENT VISIT, EST OFFICE/OUTPATIENT VISIT, EST OFFICE/OUTPATIENT VISIT, EST PREV VISIT, EST, AGE 40-64 OFFICE/OUTPATIENT VISIT, EST OFFICE/OUTPATIENT VISIT, EST OFFICE/OUTPATIENT VISIT, EST OFFICE/OUTPATIENT VISIT, EST OFFICE/OUTPATIENT VISIT, EST PREV VISIT, EST, AGE 40-64 OFFICE/OUTPATIENT VISIT, EST OFFICE/OUTPATIENT VISIT, EST OFFICE/OUTPATIENT VISIT, EST OFFICE/OUTPATIENT VISIT, EST OFFICE/OUTPATIENT VISIT, EST OFFICE/OUTPATIENT VISIT, EST OFFICE/OUTPATIENT VISIT, EST PREV VISIT, EST, AGE 40-64 OFFICE/OUTPATIENT VISIT, EST OFFICE/OUTPATIENT VISIT, EST OFFICE/OUTPATIENT VISIT, EST OFFICE/OUTPATIENT VISIT, EST OFFICE/OUTPATIENT VISIT, EST OFFICE/OUTPATIENT VISIT, EST OFFICE/OUTPATIENT VISIT, EST PREV VISIT, EST, AGE 40-64 OFFICE/OUTPATIENT VISIT, EST OFFICE/OUTPATIENT VISIT, EST OFFICE/OUTPATIENT VISIT, EST PREV VISIT, EST, AGE 40-64 OFFICE/OUTPATIENT VISIT, EST OFFICE/OUTPATIENT VISIT, EST OFFICE/OUTPATIENT VISIT, EST OFFICE/OUTPATIENT VISIT, EST Advance Directives Directive Yes / No Effective Date File Name No Information Encounters Encounter Description Practice Location Reason(s) For Visit Diagnoses Date Provider Providers Copied on Encounter OFFICE/OUTPA TIENT VISIT, EST [facility], [address], [place], [place], [address], [place] tel:[phone] [facility] anxiety1 (chief complaint) hashimoto1 (chief complaint) joint pain1 (chief complaint) Sidney's thyroiditisGenerali zed anxiety disorderFatigueRais ed antibody titer 5 Yang Stratton [address], [place], [place], [address] , [place]. tel:[phone] [facility], [address], [place], [place], [address], [place] tel:[phone] [facility] No Information 5 Yang Stratton [address], [place], [place], [address] , [place]. tel:[phone] OFFICE/OUTPA TIENT VISIT, EST [facility], [address], [place], [place], [address], [place] tel:[phone] [facility] hashimoto1 (chief complaint) glucose1 (chief complaint) HLP (chief complaint) Sidney's thyroiditisHypergly cemiaMixed hyperlipidemiaAbnor mal weight gain 5 Yang Stratton [address], [place], [place], [address] , [place]. tel:[phone] PREV VISIT, EST, 65 & OVER [facility], [address], [place], [place], [address], [place] tel:[phone] [facility] physical (chief complaint) Encounter for general adult medical examination without abnormal findings 5 Yang Stratton [address], [address], [place], [place], [address] , [place]. tel:[phone] OFFICE/OUTPA TIENT VISIT, [facility], [address], [place], [place], [address], [place] tel:[phone] [facility] cough1 (chief complaint) Acute bronchitis, unspecified 5- 5 Soria Fritz. [address], [place], [place], [address] , [place]. tel:[phone] OFFICE/OUTPA TIENT VISIT, [facility], [address], [place], [place], [address], [place] tel:[phone] [facility] cough1 (chief complaint) Acute bronchitis 8- 5 Yang Hu. [address], [address], [place], [place], [address] , [place]. tel:[phone] OFFICE/OUTPA TIENT VISIT, [facility], [address], [place], [place], [address], [place] tel:[phone] [facility] HTN (chief complaint) anxiety1 (chief complaint) Generalized anxiety disorderEssential (primary) hypertension 0 4 Yang Hu. [address], [place], [place], [address] , [place]. tel:[phone] OFFICE/OUTPA TIENT VISIT, [facility], [address], [place], [place], [address], [place] tel:[phone] [facility] anxiety1 (chief complaint) HTN (chief complaint) Generalized anxiety disorderEssential (primary) hypertension 3- 4 Osria Fritz. [address], [place], [place], [address] , [place]. tel:[phone] OFFICE/OUTPA TIENT VISIT, [facility], [address], [place], [place], [address], [place] tel:[phone] [facility] anxiety1 (chief complaint) knee pain1 (chief complaint) Generalized anxiety disorderPain in right knee Sep-1 8-202 4 Soria Fritz. [address], [place], [place], [address] , [place]. tel:[phone] OFFICE/OUTPA TIENT VISIT, [facility], [address], [place], [place], [address], [place] tel:[phone] [facility] liver (chief complaint) psoriasis1 (chief complaint) anxiety1 (chief complaint) rash1 (chief complaint) Generalized anxiety disorderFatty liverPsoriasisTinea corporis 4 Soria Fritz. [address], [place], [place], [address] , [place]. tel:[phone] OFFICE/OUTPA TIENT VISIT, [facility], [address], [place], [place], [address], [place] tel:[phone] [facility] HTN (chief complaint) anxiety1 (chief complaint) weight gain1 (chief complaint) shoulder1 (chief complaint) Essential (primary) hypertensionGeneral ized anxiety disorderGanglion, left shoulderAbnormal weight gain 4 Soria Fritz. [address], [place], [place], [address] , [place]. tel:[phone] OFFICE/OUTPA TIENT VISIT, [facility], [address], [place], [place], [address], [place] tel:[phone] [facility] nodule1 (chief complaint) knee pain1 (chief complaint) HTN (chief complaint) Ganglion, left shoulderPain in right kneeEssential (primary) hypertension 4 Soria Fritz. [address], [place], [place], [address] , [place]. tel:[phone] OFFICE/OUTPA TIENT VISIT, [facility], [address], [place], [place], [address], [place] tel:[phone] [facility] lymph (chief complaint) Lymphadenopathy 4 Soria Fritz. [address], [place], [place], [address] , [place]. tel:[phone] OFFICE/OUTPA TIENT VISIT, [facility], [address], [place], [place], [address], [place] tel:[phone] [facility] HTN (chief complaint) anxiety1 (chief complaint) skin (chief complaint) lymph1 (chief complaint) LymphadenopathyEsse ntial (primary) hypertensionGeneral ized anxiety disorderTinea corporis Oct- 4 Yang Hu. [address], [place], [place], [address] , [place]. tel:[phone] OFFICE/OUTPA TIENT VISIT, [facility], [address], [place], [place], [address], [place] tel:[phone] [facility] HTN (chief complaint) viral (chief complaint) Essential (primary) hypertensionViral infection 4 Yang Hu. [address], [place], [place], [address] , [place]. tel:[phone] OFFICE/OUTPA TIENT VISIT, [facility], [address] [place] [address], [place] tel:[phone] [facility] HTN (chief complaint) HLP (chief complaint) LFT (chief complaint) hashimoto1 (chief complaint) weight gain1 (chief complaint) anxiety1 (chief complaint) Essential (primary) hypertensionHashimo to's thyroiditisFatty liverMixed hyperlipidemiaAbnor mal weight gainGeneralized anxiety disorder 4 Yang Hu. [address], [place], [place], [address] , [place]. tel:[phone] OFFICE/OUTPA TIENT VISIT, [facility], [address] [place], [address], [place] tel:[phone] [facility] HTN (chief complaint) anxiety1 (chief complaint) weight gain1 (chief complaint) Essential (primary) hypertensionGeneral ized anxiety disorderAbnormal weight gainHashimoto's thyroiditis 4 Yang Hu. [address], [place], [place], [address] , [place]. tel:[phone] OFFICE/OUTPA TIENT VISIT, [facility], [address], [place], [place], [address], [place] tel:[phone] [facility] cough1 (chief complaint) Acute bronchitis 4 Yang Hu. [address], [place], [place], [address] , [place]. tel:[phone] OFFICE/OUTPA TIENT VISIT, EST [facility], [address], [place], [place], [address], [place] tel:[phone] [facility] HTN (chief complaint) sick (chief complaint) bile duct stone1 (chief complaint) anxiety1 (chief complaint) Generalized anxiety disorderEssential (primary) hypertensionCholedo cholithiasis w/o cholecystitis w/o obstructionViral infection 4 Yang Hu. [address], [place], [place], [address] , [place]. tel:[phone] PREV VISIT, EST, 65 & OVER [facility], [address], [place], [place], [address], [place] tel:[phone] [facility] physical (chief complaint) Encounter for general adult medical exam w abnormal findingsEssential (primary) hypertensionGeneral ized anxiety disorderHashimoto's thyroiditis 3 aYng Hu. [address], [place], [place], [address] , [place]. tel:[phone] OFFICE/OUTPA TIENT VISIT, [facility], [address] [place], [address], [place] tel:[phone] [facility] HTN (chief complaint) RLS (chief complaint) knee pain1 (chief complaint) Essential (primary) hypertensionRestles s legs syndromePrimary osteoarthritis of right kneeInconclusive mammogram 3 Yang Hu. [address], [place], [place], [address] , [place]. tel:[phone] OFFICE/OUTPA TIENT VISIT, [facility], [address], [place], [place], [address], [place] tel:[phone] [facility] knee pain1 (chief complaint) stone1 (chief complaint) anxiety1 (chief complaint) HTN (chief complaint) Essential (primary) hypertensionCholedo cholithiasis w/o cholecystitis w/o obstructionPrimary osteoarthritis of right kneeGeneralized Anxiety Disorder 3 Soria Fritz. [address], [place], [place], [address] , [place]. tel:[phone] OFFICE/OUTPA TIENT VISIT, [facility], [address], [place], [place], [address], [place] tel:[phone] [facility] abd pain1 (chief complaint) HTN (chief complaint) headache1 (chief complaint) Essential (primary) hypertensionGeneral ized abdominal painHeadacheCalculu s of bile duct w/o cholangitis w/o obstruction Mar- 3 Soria Fritz. [address], [place], [place], [address] , [place]. tel:[phone] OFFICE/OUTPA TIENT VISIT, [facility], [address], [place], [place], [address], [place] tel:[phone] [facility] knee pain1 (chief complaint) hashimoto1 (chief complaint) neck pain1 (chief complaint) Sidney's thyroiditisPain in right kneeLocalized swelling w/ lump of neck Jan- 3 Soria Fritz. [address], [place], [place], [address] , [place]. tel:[phone] OFFICE/OUTPA TIENT VISIT, [facility], [address], [place], [place], [address], [place] tel:[phone] [facility] neck pain1 (chief complaint) HTN (chief complaint) Essential (primary) hypertensionLocaliz ed swelling w/ lump of neckHashimoto's thyroiditis 3 Yang Hu. [address], [place], [place], [address] , [place]. tel:[phone] OFFICE/OUTPA TIENT VISIT, [facility], [address], [place], [place], [address], [place] tel:[phone] [facility] edema1 (chief complaint) dizziness1 (chief complaint) anxiety1 (chief complaint) EdemaEssential (primary) hypertensionGeneral ized anxiety disorderCardiac murmur, unspecified 3 Yang Hu. [address], [place], [place], [address] , [place]. tel:[phone] OFFICE/OUTPA TIENT VISIT, [facility], [address], [place], [place], [address], [place] tel:[phone] [facility] weight gain1 (chief complaint) edema1 (chief complaint) Abnormal weight gainEdemaEssential (primary) hypertensionHashimo to's thyroiditis 3 Yang Hu. [address], [place], [place], [address] , [place]. tel:[phone] OFFICE/OUTPA TIENT VISIT, [facility], [address], [place], [place], [address], [place] tel:[phone] [facility] OAB (chief complaint) shoulder pain1 (chief complaint) jaw pain1 (chief complaint) HTN (chief complaint) anxiety1 (chief complaint) Essential (primary) hypertensionGeneral ized anxiety disorderOveractive bladderTremorPain in left shoulderOcclusion and stenosis of bilateral carotid arteries Fe 3 Yang Hu. [address], [place], [place], [address] , [place]. tel:[phone] OFFICE/OUTPA TIENT VISIT, [facility], [address], [place], [place], [address], [place] tel:[phone] [facility] OAB (chief complaint) anxiety1 (chief complaint) neck pain1 (chief complaint) HTN (chief complaint) Essential (primary) hypertensionGeneral ized anxiety disorderOveractive bladderCervicalgiaO ther specified disorder of bone density 2 Yang Stratton [address], [place], [place], [address] , [place]. tel:[phone] OFFICE/OUTPA TIENT VISIT, [facility], [address], [place], [place], [address], [place] tel:[phone] [facility] neck pain1 (chief complaint) Abnormal jaw closureCervicalgiaT remor 2 Yang Stratton [address], [place], [place], [address] , [place]. tel:[phone] Referring Provider: Cata Bateman [address] [facility] [address], [place], [place], [address]. tel:[phone] OFFICE/OUTPA TIENT VISIT, [facility], [address], [place], [place], [address], [place] tel:[phone] [facility] muscle pain (chief complaint) muscle pain1 (chief complaint) HTN (chief complaint) glucose (chief complaint) Essential (primary) hypertensionOther specified disorder of bone densityOther muscle spasmAbnormal jaw closureHyperglycemi a 2 Yang Stratton [address], [place], [place], [address] , [place]. tel:[phone] Referring Provider: Cata Bateman [address], [place], [place], [address]. tel:[phone] OFFICE/OUTPA TIENT VISIT, [facility], [address] [place], [address], [place] tel:[phone] [facility] HTN (chief complaint) tinnitus1 (chief complaint) neuropathy 1 (chief complaint) anxiety1 (chief complaint) Essential (primary) hypertensionEpisodi c cluster headache, not intractableCramp and spasmGeneralized Anxiety Disorder 2 Soria Fritz. [address], [place], [place], [address] , [place]. tel:[phone] Referring Provider: Cata Bateman [address], [place], [place], [address]. tel:[phone] OFFICE/OUTPA TIENT VISIT, [facility], [address], [place], [place], [address], [place] tel:[phone] [facility] UTI1 (chief complaint) weakness1 (chief complaint) HTN (chief complaint) Hypertensive emergencyTremorAcut e cystitis w/ hematuriaTinnitus, bilateral 2 Yang Hu. [address], [place], [place], [address] , [place]. tel:[phone] Referring Provider: Cata Bateman [address], [place], [place], [address]. tel:[phone] OFFICE/OUTPA TIENT VISIT, [facility], [address], [place], [place], [address], [place] tel:[phone] [facility] sick (chief complaint) Acute sinusitisViral infection 2 Yang Hu. [address], [place], [place], [address] , [place]. tel:[phone] Referring Provider: Cata Bateman [facility] [address], [place], [place], [address]. tel:[phone] PREV VISIT, EST, 65 & OVER [facility], [address], [place], [place], [address], [place] tel:[phone] [facility] physical (chief complaint) Encounter for general adult medical exam w abnormal findingsEssential (primary) hypertensionHypothy roidismUrge incontinenceUrinary tract infectionGeneralize d anxiety disorder 2 Yang Hu. [address], [place], [place], [address] , [place]. tel:[phone] Referring Provider: Cata Bateman [address], [place], [place], [address]. tel:[phone] OFFICE/OUTPA TIENT VISIT, [facility], [address], [place], [place], [address], [place] tel:[phone] [facility] UTi1 (chief complaint) thyroid1 (chief complaint) lipoma1 (chief complaint) Urinary tract infectionHypothyroi dismLipoma 2 Yang Hu. [address], [place], [place], [address] , [place]. tel:[phone] Referring Provider: Cata Bateman [address], [place], [place], [address]. tel:[phone] OFFICE/OUTPA TIENT VISIT, [facility], [address], [place], [place], [address], [place] tel:[phone] [facility] HTN (chief complaint) anxiety1 (chief complaint) oAB (chief complaint) thyroid1 (chief complaint) HypothyroidismOvera ctive bladderGeneralized anxiety disorderEssential (primary) hypertension 2 Yagn Hu. [address], [place], [place], [address] , [place]. tel:[phone] Referring Provider: Cata Bateman [address], [place], [place], [address]. tel:[phone] OFFICE/OUTPA TIENT VISIT, [facility], [address], [place], [place], [address], [place] tel:[phone] [facility] OAB1 (chief complaint) thyroid1 (chief complaint) weight loss1 (chief complaint) Overactive bladderUrge incontinenceAbnorma l weight lossHypothyroidism 1 Yang Hu. [address], [place], [place], [address] , [place]. tel:[phone] Referring Provider: Cata Bateman [address], [place], [place], [address]. tel:[phone] OFFICE/OUTPA TIENT VISIT, [facility], [address], [place], [place], [address], [place] tel:[phone] [facility] fatty tumor1 (chief complaint) hip pain1 (chief complaint) weight loss1 (chief complaint) anxiety1 (chief complaint) thyroid1 (chief complaint) Abnormal weight lossGeneralized anxiety disorderHypothyroid ismLipomaPain in right hip Sep- 0 1 Yang Stratton [address], [place], [place], [address] , [place]. tel:[phone] Referring Provider: Cata Bateman [address], [place], [place], [address]. tel:[phone] OFFICE/OUTPA TIENT VISIT, [facility], [address], [place], [place], [address], [place] tel:[phone] [facility] hip pain1 (chief complaint) weight loss1 (chief complaint) anxiety1 (chief complaint) thyroid1 (chief complaint) Allergic contact dermatitis due to plants, except foodHypothyroidismG eneralized anxiety disorderAbnormal weight loss Jan-0 1 Yang Stratton [address], [place], [place], [address] , [place]. tel:[phone] Referring Provider: Cata Bateman [address], [place], [place], [address]. tel:[phone] OFFICE/OUTPA TIENT VISIT, [facility], [address], [address], [place] tel:[phone] [facility] phos (chief complaint) UTI1 (chief complaint) hypothyroi dism1 (chief complaint) hip pain1 (chief complaint) HypothyroidismOther disorders of phosphorus metabolismUrinary tract infectionPain in right hip Ramon- 1 Yang Stratton [address], [place], [place], [address] , [place]. tel:[phone] Referring Provider: Cata Bateman [address], [place], [place], [address]. tel:[phone] OFFICE/OUTPA TIENT VISIT, [facility], [address], [place], [place], [address], [place] tel:[phone] [facility] hip pain1 (chief complaint) fatty tumor1 (chief complaint) anxiety1 (chief complaint) Pain in right hipLipomaGeneralize d Anxiety DisorderOther specified soft tissue disorders 1 Yang Stratton [address], [place], [place], [address] , [place]. tel:[phone] Referring Provider: Fritz Soria [address], [place], [place], [address]. tel:[phone] OFFICE/OUTPA TIENT VISIT, [facility], [address], [place], [place], [address], [place] tel:[phone] [facility] phos (chief complaint) LFT (chief complaint) thyroid1 (chief complaint) pain (chief complaint) Other spondylosis, lumbar regionOther disorders of phosphorus metabolismFatty liverHypothyroidism 1 Yang Stratton [address], [place], [place], [address] , [place]. tel:[phone] Referring Provider: Cata Bateman [address], [place], [place], [address]. tel:[phone] OFFICE/OUTPA TIENT VISIT, [facility], [address], [place], [place], [address], [place] tel:[phone] [facility] pain (chief complaint) anxieyt1 (chief complaint) HTN (chief complaint) Other spondylosis, lumbar regionGeneralized anxiety disorderEssential (primary) hypertension 1 Yang Stratton [address], [address], [place], [place], [address] , [place]. tel:[phone] Referring Provider: Cata [address], [place], [place], [address]. tel:[phone] OFFICE/OUTPA TIENT VISIT, [facility], [address], [place], [place], [address], [place] tel:[phone] [facility] anxiety1 (chief complaint) back pain1 (chief complaint) Generalized anxiety disorderOther spondylosis, lumbar region Sep- 1 Yang Stratton [address], [address], [place], [place], [address] , [place]. tel:[phone] Referring Provider: Fritz Soria, [address], [place], [place], [address]. tel:[phone] PREV VISIT, EST, 65 & OVER [facility], [address], [place], [place], [address], [place] tel:[phone] [facility] physical (chief complaint) Encounter for general adult medical exam w abnormal findingsEssential (primary) hypertensionGeneral ized anxiety disorderOveractive bladderOther spondylosis, lumbar region Sep-0 1 Yang Stratton [address], [address], [place], [place], [address] , [place]. tel:[phone] Referring Provider: Cata Bat[address], [place], [place], [address]. tel:[phone] OFFICE/OUTPA TIENT VISIT, [facility], [address], [place], [place], [address], [place] tel:[phone] [facility] COVID1 (chief complaint) Viral infectionAcute conjunctivitis of right eye 1 Yang Stratton [address], [address], [place], [place], [address] , [place]. tel:[phone] Referring Provider: Fritz Soria [address], [place], [place], [address]. tel:[phone] OFFICE/OUTPA TIENT VISIT, [facility], [address], [place], [place], [address], [place] tel:[phone] [facility] anxiety1 (chief complaint) pain1 (chief complaint) HTN (chief complaint) OAB (chief complaint) CTD (chief complaint) Raised antibody titerEssential (primary) hypertensionOveract jf bladderPain in right hipGeneralized anxiety disorder 1 Yang Stratton [address], [place], [place], [address] , [place]. [phone] Referring Provider: Cata Bat[address], [place], [place], [address]. tel:[phone] OFFICE/OUTPA TIENT VISIT, [facility], [address], [place], [place], [address], [place] tel:[phone] [facility] pain (chief complaint) anxiety1 (chief complaint) MARANDA (chief complaint) UTI1 (chief complaint) Generalized anxiety disorderChronic pain syndromeUrinary tract infectionRaised antibody titerEncounter for oth screening for malignant neoplasm of breast 0 Yang Stratton [address], [place], [place], [address] , [place]. tel:[phone] Referring Provider: Cata [address] [facility], [place], [place], [address]. tel:[phone] OFFICE/OUTPA TIENT VISIT, [facility], [address], [place], [place], [address], [place] tel:[phone] [facility] anxiety1 (chief complaint) pain (chief complaint) UTI1 (chief complaint) fatty liver1 (chief complaint) Urinary tract infectionChronic pain syndromeGeneralized anxiety disorderFatty liver 0 0 Yang Stratton [address], [place], [place], [address] , [place]. tel:[phone] Referring Provider: Cata [address], [place], [place], [address]. tel:[phone] OFFICE/OUTPA TIENT VISIT, [facility], [address], [place], [place], [address], [place] tel:[phone] [facility] sick (chief complaint) Abdominal painViral infectionUrinary tract infection 0 Yang Stratton [address], [place], [place], [address] , [place]. tel:[phone] Referring Provider: Cata [address], [place], [place], [address]. tel:[phone] OFFICE/OUTPA TIENT VISIT, [facility], [address], [place], [place], [address], [place] tel:[phone] [facility] back pain1 (chief complaint) anxiety1 (chief complaint) Generalized anxiety disorderOther spondylosis, lumbar region November-0 0 Yang Hu. [address], [place], [address] , [place]. [phone] Referring Provider: Cata [address], [place], [place], [address]. tel:[phone] OFFICE/OUTPA TIENT VISIT, [facility], [address], [place], [place], [address], [place] tel:[phone] [facility] sick (chief complaint) Viral infection Sep-3 0 Yang Hu. [address], [place], [place], [address] , [place]. tel:[phone] Referring Provider: Cata [address], [place], [place], [address]. tel:[phone] OFFICE/OUTPA TIENT VISIT, [facility], [address], [place], [place], [address], [place] tel:[phone] [facility] colon polyp (chief complaint) HTN (chief complaint) anxiety1 (chief complaint) pain (chief complaint) Essential (primary) hypertensionGeneral ized anxiety disorderChronic pain syndromePolyp of colon Mar-0 0 Yang Hu. [address], [place], [place], [address] , [place]. tel:[phone] Referring Provider: Cata [address], [place], [place], [address]. tel:[phone] PREV VISIT, EST, AGE 40-64 [facility], [address], [place], [place], [address], [place] tel:[phone] [facility] physical (chief complaint) Encounter for general adult medical exam w abnormal findingsHyperlipide miaOveractive bladderGeneralized anxiety disorderChronic pain syndromeEssential (primary) hypertension 9 Yang Hu. [address], [place], [place], [address] , [place]. [phone] Referring Provider: Cata [address], [place], [place], [address]. tel:[phone] OFFICE/OUTPA TIENT VISIT, [facility], [address], [place], [place], [address], [place] tel:[phone] [facility] HLP (chief complaint) anxiety1 (chief complaint) lumbago1 (chief complaint) OAB (chief complaint) Overactive bladderHyperlipidem iaHyperglycemiaGene ralized anxiety disorderChronic pain syndrome 9 Yang Stratton [address], [place], [place], [address] , [place]. [phone] Referring Provider: Cata [address], [place], [place], [address]. tel:[phone] OFFICE/OUTPA TIENT VISIT, [facility], [address], [place], [address], [place] tel:[phone] [facility] OAB (chief complaint) anxiety1 (chief complaint) HTN (chief complaint) HLP (chief complaint) HyperlipidemiaOvera ctive bladderEssential (primary) hypertensionGeneral ized anxiety disorderEncounter for oth screening for malignant neoplasm of breast 9 Yang Stratton [address], [place], [place], [address] , [place]. tel:[phone] Referring Provider: [address]ata [address], [place], [place], [address]. tel:[phone] OFFICE/OUTPA TIENT VISIT, [facility], [address], [place], [place], [address], [place] tel:[phone] [facility] colon1 (chief complaint) anxiety1 (chief complaint) HLP (chief complaint) leukopenia 1 (chief complaint) HyperlipidemiaLeuko peniaGeneralized anxiety disorderEncounter for screening for malignant neoplasm of colon 9 Yang Stratton [address], [place], [place], [address] , [place]. tel:[phone] OFFICE/OUTPA TIENT VISIT, EST [facility], [address], [place], [place], [address], [place] tel:[phone] [facility] anxiety1 (chief complaint) back pain1 (chief complaint) shingle1 (chief complaint) Lumbago with sciatica, right sideGeneralized anxiety disorderHerpes simplex infection 9 Yang Stratton [address], [place], [place], [address] , [place]. tel:[phone] Referring Provider: Cata [address], [place], [place], [address]. tel:[phone] PREV VISIT, EST, AGE 40-64 [facility], [address], [place], [place], [address], [place] tel:[phone] [facility] physical (chief complaint) Encounter for general adult medical exam w abnormal findingsEssential (primary) hypertensionOveract jf bladderHyperlipidem iaLeukopeniaHypergl ycemia 8 Yang Stratton [address], [place], [place], [address] , [place]. tel:[phone] Referring Provider: Cata [address], [place], [place], [address]. tel:[phone] OFFICE/OUTPA TIENT VISIT, EST [facility], [address], [place], [place], [address], [place] tel:[phone] [facility] back pain1 (chief complaint) biliary1 (chief complaint) HLP (chief complaint) HTn1 (chief complaint) Essential (primary) hypertensionHyperli pidemiaOther spondylosis, lumbosacral regionOveractive bladderCholedocholi thiasis w/o cholecystitis w/o obstruction 8 Yang Stratton [address], [place], [place], [address] , [place]. tel:[phone] Referring Provider: Cata [address], [place], [place], [address]. tel:[phone] OFFICE/OUTPA TIENT VISIT, [facility], [address], [place], [place], [address], [place] [phone] [facility] OAB1 (chief complaint) anxiety1 (chief complaint) belching1 (chief complaint) weight loss1 (chief complaint) back pain1 (chief complaint) Overactive bladderAbnormal weight lossGeneralized Anxiety DisorderChronic pain syndrome Sep-2 8 Yang Stratton [address], [place], [address] , [place]. [phone] Referring Provider: Cata [address], [place], [place], [address]. tel:[phone] OFFICE/OUTPA TIENT VISIT, [facility], [address], [place], [place], [address], [place] tel:[phone] [facility] LFT (chief complaint) chronic pain1 (chief complaint) skin lesion1 (chief complaint) anxiety1 (chief complaint) Liver diseaseAbnormal weight lossLipomaNevus, non-neoplasticChron ic pain syndrome Jan-0 8 Yang Stratton [address], [place], [place], [address] , [place]. [phone] Referring Provider: Cata [address], [place], [place], [address]. tel:[phone] OFFICE/OUTPA TIENT VISIT, [facility], [address], [place], [place], [address], [place] tel:[phone] [facility] anxiety1 (chief complaint) back pain1 (chief complaint) bile duct stone1 (chief complaint) Generalized anxiety disorderChronic pain syndromeCholedochol ithiasis w/o cholecystitis w/o obstructionLiver disease 8 Yang Stratton [address], [place], [place], [address] , [place]. [phone] Referring Provider: Cata [address], [place], [place], [address]. tel:[phone] OFFICE/OUTPA TIENT VISIT, [facility], [address], [place], [place], [address], [place] tel:[phone] [facility] abdominal pain1 (chief complaint) Abdominal painViral infection 8 Yang [address], [place], [place], [address] , [place]. [phone] Referring Provider: Cata [address], [place], [place], [address]. tel:[phone] OFFICE/OUTPA TIENT VISIT, [facility], [address], [place], [place], [address], [place] tel:[phone] [facility] sick1 (chief complaint) anxiety1 (chief complaint) back pain1 (chief complaint) Viral infectionGeneralize d Anxiety DisorderChronic pain syndrome 8 Yang [address], [place], [place], [address] , [place]. [phone] Referring Provider: Cata [address], [place], [place], [address]. tel:[phone] PREV VISIT, EST, AGE 40-64 [facility], [address], [place], [place], [address], [place] tel:[phone] [facility] Physical (chief complaint) Encounter for general adult medical exam w abnormal findingsOveractive bladderHyperlipidem iaGeneralized Anxiety Disorder 7 Yang Stratton [address], [place], [place], [address] , [place]. tel:[phone] Referring Provider: Cata [address], [place], [place], [address]. tel:[phone] OFFICE/OUTPA TIENT VISIT, [facility], [address], [place], [place], [address], [place] tel:[phone] [facility] foot pain1 (chief complaint) incontinen ce1 (chief complaint) HLP (chief complaint) HyperlipidemiaOvera ctive bladderLumbago with sciatica, right sidePain in right foot 7 Yang Hu. [address], [place], [place], [address] , [place]. tel:[phone] Referring Provider: Cata [address], [place], [place], [address]. tel:[phone] OFFICE/OUTPA TIENT VISIT, [facility], [address], [place], [place], [address], [place] tel:[phone] [facility] anxiety1 (chief complaint) lumbago1 (chief complaint) obesity1 (chief complaint) screening for colon (chief complaint) Generalized Anxiety DisorderLumbago with sciatica, right sideBody mass index (BMI) 32.0-32.9, adultEncounter for screening for malignant neoplasm of colon 7 Yang Stratton [address], [place], [place], [address] , [place]. tel:[phone] Referring Provider: Cata [address], [place], [place], [address]. tel:[phone] OFFICE/OUTPA TIENT VISIT, [facility], [address], [place], [place], [address], [place] tel:[phone] [facility] glucose1 (chief complaint) HLP (chief complaint) back pain1 (chief complaint) HTN (chief complaint) HyperlipidemiaEssen tial (primary) hypertensionLumbago with sciatica, right sideHyperglycemia 7 Yang Stratton [address], [place], [place], [address] , [place]. tel:[phone] Referring Provider: Cata [address], [place], [place], [address]. tel:[phone] OFFICE/OUTPA TIENT VISIT, EST [facility], [address], [place], [place], [address], [place] tel:[phone] [facility] HTN (chief complaint) anxiety1 (chief complaint) heel pain1 (chief complaint) HLP (chief complaint) HyperlipidemiaEssen tial (primary) hypertensionGeneral ized Anxiety DisorderPain in right foot 7 Yang Hu. [address], [place], [place], [address] , [place]. [phone] Referring Provider: Cata [address], [place], [place], [address]. tel:[phone] PREV VISIT, EST, AGE 40-64 [facility], [address], [place], [place], [address], [place] tel:[phone] [facility] Physical (chief complaint) Encounter for general adult medical exam w abnormal findingsMixed hyperlipidemiaEssen tial (primary) hypertensionGeneral ized Anxiety Disorder 6 Yang Hu. [address], [place], [place], [address] , [place]. tel:[phone] Referring Provider: Cata [address], [place], [place], [address]. tel:[phone] OFFICE/OUTPA TIENT VISIT, EST [facility], [address], [place], [place], [address], [place] tel:[phone] [facility] hip pain1 (chief complaint) Anxiety1 (chief complaint) Chronic pain syndromeGeneralized Anxiety DisorderEncounter for oth screening for malignant neoplasm of breast 6 Yang Hu. [address], [place], [place], [address] , [place]. tel:[phone] Referring Provider: Fritz Soria, [address], [place], [place], [address]. tel:[phone] OFFICE/OUTPA TIENT VISIT, [facility], [address], [place], [place], [address], [place] tel:[phone] [facility] hip pain1 (chief complaint) HLP (chief complaint) HTN (chief complaint) Essential (primary) hypertensionMixed hyperlipidemiaPain in left hip 6 Yang Hu. [address], [place], [place], [address] , [place]. [phone] Referring Provider: Cata [address], [place], [place], [address]. tel:[phone] OFFICE/OUTPA TIENT VISIT, [facility], [address], [place], [place], [address], [place] tel:[phone] [facility] HLP (chief complaint) anxiety1 (chief complaint) pain (chief complaint) low D (chief complaint) Mixed hyperlipidemiaGener alized anxiety disorderChronic pain syndromeEssential (primary) hypertension 6 Yang Hu. [address], [place], [place], [address] , [place]. [phone] Referring Provider: Cata [address], [place], [place], [address]. tel:[phone] OFFICE/OUTPA TIENT VISIT, [facility], [address], [place], [place], [address], [place] tel:[phone] [facility] cough1 (chief complaint) HTN (chief complaint) HLP (chief complaint) Hyperlipidemia, unspecifiedAcute bronchitis, unspecifiedEssentia l (primary) hypertension 6 Yang Hu. [address], [place], [place], [address] , [place]. [phone] Referring Provider: Cata [address], [place], [place], [address]. tel:[phone] OFFICE/OUTPA TIENT VISIT, EST [facility], [address], [place], [place], [address], [place] tel:[phone] [facility] HLP1 (chief complaint) low vitamin D1 (chief complaint) neck pain1 (chief complaint) Mixed hyperlipidemiaVitam in D deficiency, unspecifiedChronic pain syndrome 5 Yang Hu. [address], [place], [place], [address] , [place]. [phone] Referring Provider: Cata [address], [place], [place], [address]. tel:[phone] OFFICE/OUTPA TIENT VISIT, [facility], [address], [place], [place], [address], [place] tel:[phone] [facility] pain1 (chief complaint) Anxiety1 (chief complaint) Other spondylosis, cervical regionGeneralized anxiety disorderEncounter for screening for osteoporosis 5 Yang Hu. [address], [place], [address] , [place]. [phone] Referring Provider: Cata [address], [place], [place], [address]. tel:[phone] PREV VISIT, EST, AGE 40-64 [facility], [address], [place], [place], [address], [place] tel:[phone] [facility] PHysical (chief complaint) Dietary surveillance and counselingEncounter for general adult medical exam w/ abnormal findingEssential (primary) hypertensionGeneral ized anxiety disorderParesthesia of skinDietary counseling and surveillance 5 Yang Stratton [address], [place], [place], [address] , [place]. tel:[phone] Referring Provider: Cata [address], [place], [place], [address]. tel:[phone] OFFICE/OUTPA TIENT VISIT, [facility], [address], [place], [address], [place] tel:[phone] [facility] abd pain (chief complaint) hematuria (chief complaint) Abdominal painGeneralized anxiety disorderHematuriaUn specified essential hypertension 5 Yang Hu. [address], [place], [place], [address] , [place]. tel:[phone] Referring Provider: Cata [address], [place], [place], [address]. tel:[phone] OFFICE/OUTPA TIENT VISIT, [facility], [address], [place], [place], [address], [place] tel:[phone] [facility] anxiety (chief complaint) joint pain (chief complaint) rash (chief complaint) Pain in joint, site unspecifiedRash and other nonspecific skin eruptionGeneralized anxiety disorderDietary surveillance and counseling 5 Yang Hu. [address], [place], [place], [address] , [place]. tel:[phone] Referring Provider: Cata [address], [place], [place], [address]. tel:[phone] OFFICE/OUTPA TIENT VISIT, [facility], [address], [place], [place], [address], [place] tel:[phone] [facility] rash (chief complaint) dizzy (chief complaint) GERD (chief complaint) Dietary surveillance and counselingRash and other nonspecific skin eruptionDizzinessGE RD [address] Yang Hu. [address], [place], [place], [address] , [place]. tel:[phone] Referring Provider: Cata [address], [place], [place], [address]. tel:[phone] OFFICE/OUTPA TIENT VISIT, [facility], [address], [place], [place], [address], [place] tel:[phone] [facility] rash (chief complaint) back pain (chief complaint) UTI (chief complaint) Dietary surveillance and counselingRash and other nonspecific skin eruptionLumbagoUrin tania Tract Infection 4 Yang Hu. [address], [place], [place], [address] , [place]. [phone] Referring Provider: Cata [address], [place], [place], [address]. tel:[phone] OFFICE/OUTPA TIENT VISIT, [facility], [address], [place], [place], [address], [place] tel:[phone] [facility] sick (chief complaint) GERD (chief complaint) anxiety (chief complaint) ObesityStreptococca l sore throatGERDGeneraliz ed anxiety disorder 4 Yang Stratton [address], [place], [place], [address] , [place]. [phone] Referring Provider: Cata Bateman [facility], [place], [place], [address]. tel:[phone] OFFICE/OUTPA TIENT VISIT, [facility], [address], [place], [place], [address], [place] [phone] [facility] GERD (chief complaint) hyperglyce zoila (chief complaint) UTI (chief complaint) HLP (chief complaint) Dietary surveillance and counselingGERDOther and unspecified hyperlipidemiaHyper glycemiaUrinary Tract Infection 4 Yang Hu. [address], [place], [place], [address] , [place]. [phone] Referring Provider: Cata Bat[address], [place], [place], [address]. tel:[phone] PREV VISIT, EST, AGE 40-64 [facility], [address], [place], [place], [address], [place] tel:[phone] [facility] Physical (chief complaint) Dietary surveillance and counselingRoutine Medical ExamHypertension, UnspecifiedOther and unspecified hyperlipidemiaGener alized anxiety disorderRoutine Medical Exam 4 Yang Hu. [address], [place], [place], [address] , [place]. tel:[phone] Referring Provider: Cata [address], [place], [place], [address]. tel:[phone] OFFICE/OUTPA TIENT VISIT, [facility], [address], [place], [address], [place] tel:[phone] [facility] itching (chief complaint) HTN (chief complaint) anxiety (chief complaint) TG (chief complaint) Unspecified pruritic disorderHypertensio n, UnspecifiedGenerali zed anxiety disorderDietary surveillance and counselingOther and unspecified hyperlipidemia 4 Yang Hu. [address], [place], [place], [id number] , [place]. tel:[phone] Referring Provider: Cata Bateman [address], [place], [place], [id number]. tel:[phone] OFFICE/OUTPA TIENT VISIT, [facility], [address], [place], [place], [address], [place] tel:[phone] [facility] HTN (chief complaint) anxiety (chief complaint) arthritis (chief complaint) Dietary surveillance and counselingHypertens ion, UnspecifiedGenerali zed anxiety disorderPain in joint involving multiple sites 4 Yang Hu. [address], [place], [place], [address] , [place]. tel:[phone] Referring Provider: Cata Bateman [address], [place], [place], [id number]. tel:[phone] PREV VISIT, EST, AGE 40-64 [facility], [address], [place], [place], [address], [place] tel:[phone] [facility] Annual physica (chief complaint) Dietary surveillance and counselingRoutine Medical ExamHypertension, UnspecifiedPain in joint involving multiple sitesGeneralized anxiety disorderRoutine Medical Exam 3 Yang Hu. [address], [place], [place], [address] , [place]. [phone] Referring Provider: Fritz Soria, [address], [place], [place], [address]. tel:[phone] OFFICE/OUTPA TIENT VISIT, [facility], [address], [place], [place], [address], [place] [phone] [facility] hand/wrist pain (chief complaint) Pain in joint involving forearmDietary surveillance and counseling 3 Yang Hu. [address], [place], [place], [address] , [place]. tel:[phone] Referring Provider: Cata Bateman [address], [place], [place], [address]. [phone] OFFICE/OUTPA TIENT VISIT, [facility], [address], [place], [place], [address], [place] [phone] [facility] anxiety (chief complaint) GERD (chief complaint) HTN (chief complaint) arthritis (chief complaint) Dietary surveillance and counselingHypertens ion, UnspecifiedGenerali zed anxiety disorderPain in joint involving multiple sites 3 Yang Hu. [address], [place], [place], [address] , [place]. [phone] Referring Provider: Cata Bateman [address], [place], [place], [address]. tel:[phone] OFFICE/OUTPA TIENT VISIT, [facility], [address], [place], [address], [place] [phone] [facility] back pain (chief complaint) LumbagoGeneralized anxiety disorderDietary surveillance and counseling 2 Yang Hu. [address], [place], [place], [address] , [place]. tel:[phone] Referring Provider: Cata Bateman [address], [place], [place], [address]. tel:[phone] Family History Family Member Type Diagnosis Age At Onset Sister Problem (finding) Alive and well Father Problem (finding) Alive and well Mother Problem Thyroid disorder Mother Problem (finding) Alive and well Payers Payer name Insurance type Covered constitution party ID Socorro arellano(akua Nunez Medicare CI [id number] Social History Type Description Quantity Date Captured Comments Alcohol Use Details No Caffeine Use Details Unknown Tobacco Use Status Never smoked tobacco 2024 Smoking Status Never smoker Sex Female Vital Signs Date / Time: Height Weight BMI Pulse Rate Blood Pressure Temperature Respiratory Rate Body Surface Area Head Circumference BMI percentile Pulse Ox Inhaled Ox 10:49 AM 63.00 in 184.00 lbs 32.5 9 kg/m eter (2) 61 /min 130/72 mm[Hg] 97.3 F 16 /min Chief Complaint And Reason For Visit From encounter dated '12/27/2024 10:43'. anxiety1 (chief complaint). Description: Pt has chronic anxiety Pt denies any depression or any suicidal or homicidal thought Pt denies any crying spells. Pt takes xanax PRN and doing ok. hashimoto1 (chief complaint). Description: pt denies any dysphagia or neck pain pt has not started synthroid yet. Pt states that she saw speech language pathologist recently and had bunch of labs done and she supposes to go back for follow up. Pt denies any dysphagia or neck pain. joint pain1 (chief complaint). Description: Pt has diffuse joint pain. Pt saw endo and she has positive MARANDA Pt will follow up with endo soon. Pt has difficulty losing weight and she feels tired Plan Of Treatment Date Type Action Status Goal Tdap. Due on due Goal Pneumococcal vaccine. Due on due Goal Cognitive assessment. Due on due Goal Lipid panel. Due on 025 due Goal Sigmoidoscopy. Due on due Goal Depression screening. Due on due Goal Influenza vaccine. Due on due Goal FOBT. Due on due Goal Td vaccine. Due on due Goal Zoster vaccine. Due on due Goal Zoster vaccine. Due on due Goal Td vaccine. Due on due Goal FOBT. Due on due Goal Tdap. Due on due Goal Pneumococcal vaccine. Due on due Goal Cognitive assessment. Due on due Goal Lipid panel. Due on due Goal Sigmoidoscopy. Due on due Goal Depression screening. Due on due Goal Influenza vaccine. Due on due Goal Zoster vaccine. Due on due Goal Td vaccine. Due on due Goal FOBT. Due on due Goal Tdap. Due on due Goal Pneumococcal vaccine. Due on due Goal Cognitive assessment. Due on due Goal Lipid panel. Due on due Goal Sigmoidoscopy. Due on due Goal Depression screening. Due on due Goal Influenza vaccine. Due on due Goal Influenza vaccine. Due on due Goal Depression screening. Due on due Goal Sigmoidoscopy. Due on due Goal Lipid panel. Due on due Goal Zoster vaccine. Due on due Goal Td vaccine. Due on due Goal FOBT. Due on due Goal Tdap. Due on due Goal Pneumococcal vaccine. Due on due Goal Cognitive assessment. Due on due Goal Cognitive assessment. Due on due Goal Pneumococcal vaccine. Due on due Goal Tdap. Due on due Goal FOBT. Due on due Goal Influenza vaccine. Due on due Goal Depression screening. Due on due Goal Sigmoidoscopy. Due on due Goal Lipid panel. Due on due Goal Zoster vaccine. Due on due Goal Td vaccine. Due on due Goal Td vaccine. Due on due Goal Zoster vaccine. Due on due Goal Lipid panel. Due on due Goal Sigmoidoscopy. Due on due Goal Depression screening. Due on due Goal Cognitive assessment. Due on due Goal Pneumococcal vaccine. Due on due Goal Tdap. Due on due Goal FOBT. Due on due Goal Influenza vaccine. Due on due Goal Influenza vaccine. Due on due Goal FOBT. Due on due Goal Td vaccine. Due on due Goal Zoster vaccine. Due on due Goal Lipid panel. Due on due Goal Sigmoidoscopy. Due on due Goal Depression screening. Due on due Goal Cognitive assessment. Due on due Goal Pneumococcal vaccine. Due on due Goal Tdap. Due on due Goal Tdap. Due on due Goal Pneumococcal vaccine. Due on due Goal Cognitive assessment. Due on due Goal Depression screening. Due on due Goal Sigmoidoscopy. Due on due Goal Lipid panel. Due on due Goal Influenza vaccine. Due on due Goal FOBT. Due on due Goal Td vaccine. Due on due Goal Zoster vaccine. Due on due Goal Influenza vaccine. Due on due Goal Lipid panel. Due on due Goal Sigmoidoscopy. Due on due Goal Depression screening. Due on due Goal Cognitive assessment. Due on due Goal Pneumococcal vaccine. Due on due Goal Tdap. Due on due Goal FOBT. Due on due Goal Td vaccine. Due on due Goal Zoster vaccine. Due on due Goal Influenza vaccine. Due on due Goal Lipid panel. Due on due Goal Sigmoidoscopy. Due on due Goal Depression screening. Due on due Goal Cognitive assessment. Due on due Goal Pneumococcal vaccine. Due on due Goal Tdap. Due on due Goal FOBT. Due on due Goal Td vaccine. Due on due Goal Zoster vaccine. Due on due Goal Tdap. Due on due Goal Pneumococcal vaccine. Due on due Goal Cognitive assessment. Due on due Goal Depression screening. Due on due Goal Sigmoidoscopy. Due on due Goal Lipid panel. Due on due Goal Zoster vaccine. Due on due Goal Td vaccine. Due on due Goal FOBT. Due on due Goal Influenza vaccine. Due on due Goal Influenza vaccine. Due on due Goal FOBT. Due on due Goal Tdap. Due on due Goal Pneumococcal vaccine. Due on due Goal Cognitive assessment. Due on due Goal Depression screening. Due on due Goal Sigmoidoscopy. Due on due Goal Lipid panel. Due on due Goal Zoster vaccine. Due on due Goal Td vaccine. Due on due Goal Influenza vaccine. Due on due Goal FOBT. Due on due Goal Tdap. Due on due Goal Pneumococcal vaccine. Due on due Goal Cognitive assessment. Due on due Goal Depression screening. Due on due Goal Sigmoidoscopy. Due on due Goal Lipid panel. Due on due Goal Zoster vaccine. Due on due Goal Td vaccine. Due on due Goal Influenza vaccine. Due on due Goal FOBT. Due on due Goal Tdap. Due on due Goal Pneumococcal vaccine. Due on due Goal Cognitive assessment. Due on due Goal Depression screening. Due on due Goal Sigmoidoscopy. Due on due Goal Lipid panel. Due on due Goal Zoster vaccine. Due on due Goal Td vaccine. Due on due Goal Cognitive assessment. Due on due Goal Pneumococcal vaccine. Due on due Goal Tdap. Due on due Goal FOBT. Due on due Goal Influenza vaccine. Due on due Goal Depression screening. Due on due Goal Sigmoidoscopy. Due on due Goal Lipid panel. Due on due Goal Zoster vaccine. Due on due Goal Td vaccine. Due on due Goal Influenza vaccine. Due on due Goal FOBT. Due on due Goal Tdap. Due on due Goal Pneumococcal vaccine. Due on due Goal Cognitive assessment. Due on due Goal Depression screening. Due on due Goal Sigmoidoscopy. Due on due Goal Lipid panel. Due on due Goal Zoster vaccine. Due on due Goal Td vaccine. Due on due Goal Zoster vaccine. Due on due Goal Td vaccine. Due on due Goal Lipid panel. Due on due Goal Sigmoidoscopy. Due on due Goal Depression screening. Due on due Goal Influenza vaccine. Due on due Goal FOBT. Due on due Goal Tdap. Due on due Goal Pneumococcal vaccine. Due on due Goal Cognitive assessment. Due on due Goal Influenza vaccine. Due on due Goal Depression screening. Due on due Goal Sigmoidoscopy. Due on due Goal Lipid panel. Due on due Goal Td vaccine. Due on due Goal Zoster vaccine. Due on due Goal FOBT. Due on due Goal Tdap. Due on due Goal Pneumococcal vaccine. Due on due Goal Cognitive assessment. Due on due Goal Cognitive assessment. Due on due Goal Pneumococcal vaccine. Due on due Goal Tdap. Due on due Goal FOBT. Due on due Goal Influenza vaccine. Due on due Goal Depression screening. Due on due Goal Sigmoidoscopy. Due on due Goal Lipid panel. Due on 024 due Goal Td vaccine. Due on 24 due Goal Zoster vaccine. Due on due Goal Zoster vaccine. Due on due Goal Td vaccine. Due on due Goal Lipid panel. Due on 023 due Goal Sigmoidoscopy. Due on due Goal Depression screening. Due on due Goal Cognitive assessment. Due on due Goal Pneumococcal vaccine. Due on due Goal Tdap. Due on due Goal FOBT. Due on due Goal Influenza vaccine. Due on due Goal Influenza vaccine. Due on due Goal FOBT. Due on due Goal Zoster vaccine. Due on due Goal Td vaccine. Due on due Goal Lipid panel. Due on 023 due Goal Sigmoidoscopy. Due on due Goal Depression screening. Due on due Goal Cognitive assessment. Due on due Goal Pneumococcal vaccine. Due on due Goal Tdap. Due on due Goal Tdap. Due on due Goal Pneumococcal vaccine. Due on due Goal Cognitive assessment. Due on due Goal Depression screening. Due on due Goal Sigmoidoscopy. Due on due Goal Lipid panel. Due on 023 due Goal Influenza vaccine. Due on Oc due Goal FOBT. Due on due Goal Zoster vaccine. Due on due Goal Td vaccine. Due on due Goal Influenza vaccine. Due on Se due Goal Lipid panel. Due on due Goal Sigmoidoscopy. Due on due Goal Depression screening. Due on due Goal Cognitive assessment. Due on due Goal Pneumococcal vaccine. Due on due Goal Tdap. Due on due Goal FOBT. Due on due Goal Zoster vaccine. Due on due Goal Td vaccine. Due on due Goal Td vaccine. Due on due Goal Zoster vaccine. Due on due Goal FOBT. Due on due Goal Influenza vaccine. Due on due Goal Lipid panel. Due on due Goal Sigmoidoscopy. Due on due Goal Depression screening. Due on due Goal Cognitive assessment. Due on due Goal Pneumococcal vaccine. Due on due Goal Tdap. Due on due Goal Tdap. Due on due Goal Pneumococcal vaccine. Due on due Goal Cognitive assessment. Due on due Goal Depression screening. Due on due Goal Sigmoidoscopy. Due on due Goal Lipid panel. Due on due Goal Td vaccine. Due on due Goal Zoster vaccine. Due on due Goal FOBT. Due on due Goal Influenza vaccine. Due on due Goal Zoster vaccine. Due on due Goal Td vaccine. Due on due Goal Lipid panel. Due on due Goal Sigmoidoscopy. Due on due Goal Depression screening. Due on due Goal Cognitive assessment. Due on due Goal Pneumococcal vaccine. Due on due Goal Tdap. Due on due Goal FOBT. Due on due Goal Influenza vaccine. Due on due Goal Tdap. Due on due Goal Pneumococcal vaccine. Due on due Goal Cognitive assessment. Due on due Goal Depression screening. Due on due Goal Sigmoidoscopy. Due on due Goal Lipid panel. Due on due Goal Td vaccine. Due on due Goal Zoster vaccine. Due on due Goal FOBT. Due on due Goal Influenza vaccine. Due on due Goal Zoster vaccine. Due on due Goal Td vaccine. Due on due Goal Lipid panel. Due on due Goal Sigmoidoscopy. Due on due Goal Depression screening. Due on due Goal Cognitive assessment. Due on due Goal Pneumococcal vaccine. Due on due Goal Tdap. Due on due Goal FOBT. Due on due Goal Influenza vaccine. Due on due Goal Influenza vaccine. Due on due Goal FOBT. Due on due Goal Zoster vaccine. Due on due Goal Td vaccine. Due on due Goal Lipid panel. Due on 022 due Goal Sigmoidoscopy. Due on due Goal Depression screening. Due on due Goal Cognitive assessment. Due on due Goal Pneumococcal vaccine. Due on due Goal Tdap. Due on due Goal Td vaccine. Due on due Goal Zoster vaccine. Due on due Goal FOBT. Due on due Goal Influenza vaccine. Due on Oc t due Goal Lipid panel. Due on due Goal Sigmoidoscopy. Due on due Goal Depression screening. Due on due Goal Cognitive assessment. Due on due Goal Pneumococcal vaccine. Due on due Goal Tdap. Due on due Goal Tdap. Due on due Goal Pneumococcal vaccine. Due on due Goal Cognitive assessment. Due on due Goal Depression screening. Due on due Goal Sigmoidoscopy. Due on due Goal Lipid panel. Due on due Goal Td vaccine. Due on due Goal Zoster vaccine. Due on due Goal FOBT. Due on due Goal Influenza vaccine. Due on Oc due Goal Influenza vaccine. Due on Au due Goal Zoster vaccine. Due on due Goal Td vaccine. Due on due Goal Lipid panel. Due on due Goal Sigmoidoscopy. Due on due Goal Depression screening. Due on due Goal Cognitive assessment. Due on due Goal Pneumococcal vaccine. Due on due Goal Tdap. Due on due Goal FOBT. Due on due Goal Td vaccine. Due on due Goal Zoster vaccine. Due on due Goal Influenza vaccine. Due on due Goal Pneumococcal vaccine. Due on due Goal Tdap. Due on due Goal FOBT. Due on due Goal Lipid panel. Due on due Goal Sigmoidoscopy. Due on due Goal Depression screening. Due on due Goal Cognitive assessment. Due on due Goal Cognitive assessment. Due on due Goal Depression screening. Due on due Goal Sigmoidoscopy. Due on due Goal Lipid panel. Due on due Goal Td vaccine. Due on due Goal Zoster vaccine. Due on due Goal Influenza vaccine. Due on due Goal Pneumococcal vaccine. Due on due Goal Tdap. Due on due Goal FOBT. Due on due Goal FOBT. Due on due Goal Tdap. Due on due Goal Pneumococcal vaccine. Due on due Goal Cognitive assessment. Due on due Goal Depression screening. Due on due Goal Sigmoidoscopy. Due on due Goal Lipid panel. Due on due Goal Td vaccine. Due on due Goal Zoster vaccine. Due on due Goal Influenza vaccine. Due on due Goal Depression screening. Due on due Goal Cognitive assessment. Due on due Goal Pneumococcal vaccine. Due on due Goal Tdap. Due on due Goal FOBT. Due on due Goal Sigmoidoscopy. Due on due Goal Lipid panel. Due on due Goal Td vaccine. Due on due Goal Zoster vaccine. Due on due Goal Influenza vaccine. Due on due Goal Influenza vaccine. Due on due Goal Zoster vaccine. Due on due Goal Td vaccine. Due on due Goal Lipid panel. Due on due Goal Sigmoidoscopy. Due on due Goal Depression screening. Due on due Goal Cognitive assessment. Due on due Goal Pap/HPV testing. Due on due Goal Pneumococcal vaccine. Due on due Goal Tdap. Due on due Goal FOBT. Due on due Goal Influenza vaccine. Due on due Goal Zoster vaccine. Due on due Goal Td vaccine. Due on due Goal Lipid panel. Due on due Goal Sigmoidoscopy. Due on due Goal Depression screening. Due on due Goal Cognitive assessment. Due on due Goal Pap/HPV testing. Due on due Goal Pneumococcal vaccine. Due on due Goal Tdap. Due on due Goal FOBT. Due on due Goal FOBT. Due on due Goal Tdap. Due on due Goal Pneumococcal vaccine. Due on due Goal Pap/HPV testing. Due on due Goal Influenza vaccine. Due on due Goal Zoster vaccine. Due on due Goal Td vaccine. Due on due Goal Lipid panel. Due on due Goal Sigmoidoscopy. Due on due Goal Depression screening. Due on due Goal Cognitive assessment. Due on due Goal Cognitive assessment. Due on due Goal Depression screening. Due on due Goal Sigmoidoscopy. Due on due Goal Lipid panel. Due on due Goal FOBT. Due on due Goal Tdap. Due on due Goal Pneumococcal vaccine. Due on due Goal Pap/HPV testing. Due on due Goal Influenza vaccine. Due on due Goal Zoster vaccine. Due on due Goal Td vaccine. Due on due Goal Td vaccine. Due on due Goal Zoster vaccine. Due on due Goal Influenza vaccine. Due on due Goal Pap/HPV testing. Due on due Goal Pneumococcal vaccine. Due on due Goal Cognitive assessment. Due on due Goal Depression screening. Due on due Goal Sigmoidoscopy. Due on due Goal Lipid panel. Due on due Goal FOBT. Due on due Goal Tdap. Due on due Goal Td vaccine. Due on due Goal Zoster vaccine. Due on due Goal Influenza vaccine. Due on due Goal Pap/HPV testing. Due on due Goal Pneumococcal vaccine. Due on due Goal Cognitive assessment. Due on due Goal Depression screening. Due on due Goal Sigmoidoscopy. Due on due Goal Lipid panel. Due on due Goal FOBT. Due on due Goal Tdap. Due on due Goal FOBT. Due on due Goal Lipid panel. Due on due Goal Sigmoidoscopy. Due on due Goal Depression screening. Due on due Goal Cognitive assessment. Due on due Goal Pneumococcal vaccine. Due on due Goal Pap/HPV testing. Due on due Goal Influenza vaccine. Due on due Goal Zoster vaccine. Due on due Goal Td vaccine. Due on due Goal Tdap. Due on due Goal Tdap. Due on due Goal Td vaccine. Due on due Goal Zoster vaccine. Due on due Goal Influenza vaccine. Due on due Goal Pap/HPV testing. Due on due Goal Pneumococcal vaccine. Due on due Goal Cognitive assessment. Due on due Goal Depression screening. Due on due Goal Sigmoidoscopy. Due on due Goal Lipid panel. Due on due Goal FOBT. Due on due Goal Tdap. Due on due Goal Td vaccine. Due on due Goal Zoster vaccine. Due on due Goal Influenza vaccine. Due on due Goal Pap/HPV testing. Due on due Goal Pneumococcal vaccine. Due on due Goal Cognitive assessment. Due on due Goal Depression screening. Due on due Goal Sigmoidoscopy. Due on due Goal Lipid panel. Due on due Goal FOBT. Due on due Goal Tdap. Due on due Goal Td vaccine. Due on due Goal Zoster vaccine. Due on due Goal Influenza vaccine. Due on due Goal Pap/HPV testing. Due on due Goal Pneumococcal vaccine. Due on due Goal Cognitive assessment. Due on due Goal Depression screening. Due on due Goal Sigmoidoscopy. Due on due Goal Lipid panel. Due on due Goal FOBT. Due on due Goal Tdap. Due on due Goal Td vaccine. Due on due Goal Zoster vaccine. Due on due Goal Influenza vaccine. Due on due Goal Pap/HPV testing. Due on due Goal Pneumococcal vaccine. Due on due Goal Cognitive assessment. Due on due Goal Depression screening. Due on due Goal Sigmoidoscopy. Due on due Goal Lipid panel. Due on due Goal FOBT. Due on due Goal Tdap. Due on due Goal Td vaccine. Due on due Goal Zoster vaccine. Due on due Goal Influenza vaccine. Due on due Goal Pap/HPV testing. Due on due Goal Depression screening. Due on due Goal Sigmoidoscopy. Due on due Goal Lipid panel. Due on due Goal FOBT. Due on due Goal FOBT. Due on due Goal Lipid panel. Due on 020 due Goal Sigmoidoscopy. Due on due Goal Depression screening. Due on due Goal Pap/HPV testing. Due on due Goal Influenza vaccine. Due on due Goal Zoster vaccine. Due on due Goal Td vaccine. Due on due Goal Tdap. Due on due Goal FOBT. Due on due Goal Lipid panel. Due on due Goal Sigmoidoscopy. Due on due Goal Depression screening. Due on due Goal Pap/HPV testing. Due on due Goal Influenza vaccine. Due on due Goal Zoster vaccine. Due on due Goal Td vaccine. Due on due Goal Tdap. Due on due Goal Tdap. Due on due Goal Td vaccine. Due on due Goal Zoster vaccine. Due on due Goal Influenza vaccine. Due on due Goal Pap/HPV testing. Due on due Goal Depression screening. Due on due Goal Sigmoidoscopy. Due on due Goal Lipid panel. Due on due Goal FOBT. Due on due Goal Tdap. Due on due Goal Td vaccine. Due on due Goal Zoster vaccine. Due on due Goal Influenza vaccine. Due on due Goal Pap/HPV testing. Due on due Goal Depression screening. Due on due Goal Sigmoidoscopy. Due on due Goal Lipid panel. Due on due Goal FOBT. Due on due Goal Tdap. Due on due Goal Td vaccine. Due on due Goal Zoster vaccine. Due on due Goal Influenza vaccine. Due on due Goal Pap/HPV testing. Due on due Goal Depression screening. Due on due Goal Sigmoidoscopy. Due on due Goal Lipid panel. Due on due Goal FOBT. Due on due Goal Tdap. Due on due Goal Td vaccine. Due on due Goal Zoster vaccine. Due on due Goal Influenza vaccine. Due on due Goal Pap/HPV testing. Due on due Goal Depression screening. Due on due Goal Sigmoidoscopy. Due on due Goal Lipid panel. Due on due Goal FOBT. Due on due Goal FOBT. Due on due Goal Lipid panel. Due on 019 due Goal Sigmoidoscopy. Due on due Goal Depression screening. Due on due Goal Pap/HPV testing. Due on due Goal Influenza vaccine. Due on due Goal Zoster vaccine. Due on due Goal Td vaccine. Due on 19 due Goal Tdap. Due on due Goal Special diet education compl eted Goal FOBT. Due on due Goal Lipid panel. Due on due Goal Sigmoidoscopy. Due on due Goal Depression screening. Due on due Goal Pap/HPV testing. Due on due Goal Influenza vaccine. Due on due Goal Zoster vaccine. Due on due Goal Td vaccine. Due on due Goal Tdap. Due on due Goal Special diet education compl eted Goal Pap/HPV testing. Due on due Goal Influenza vaccine. Due on due Goal Zoster vaccine. Due on due Goal Td vaccine. Due on due Goal Tdap. Due on due Goal FOBT. Due on due Goal Lipid panel. Due on due Goal Sigmoidoscopy. Due on due Goal Depression screening. Due on due Goal Special diet education compl eted Goal FOBT. Due on due Goal Lipid panel. Due on due Goal Sigmoidoscopy. Due on due Goal Depression screening. Due on due Goal Pap/HPV testing. Due on due Goal Influenza vaccine. Due on due Goal Zoster vaccine. Due on due Goal Td vaccine. Due on due Goal Tdap. Due on due Goal Special diet education compl eted Goal FOBT. Due on due Goal Lipid panel. Due on due Goal Sigmoidoscopy. Due on due Goal Depression screening. Due on due Goal Pap/HPV testing. Due on due Goal Influenza vaccine. Due on due Goal Zoster vaccine. Due on due Goal Td vaccine. Due on 19 due Goal Colonoscopy. Due on 019 due Goal Tdap. Due on due Goal Special diet education compl eted Goal FOBT. Due on due Goal Tdap. Due on due Goal Colonoscopy. Due on due Goal Td vaccine. Due on 18 due Goal Zoster vaccine. Due on due Goal Influenza vaccine. Due on due Goal Pap/HPV testing. Due on due Goal Depression screening. Due on due Goal Sigmoidoscopy. Due on due Goal Lipid panel. Due on due Goal Special diet education compl eted Goal Lipid panel. Due on due Goal Sigmoidoscopy. Due on due Goal Depression screening. Due on due Goal Pap/HPV testing. Due on due Goal Influenza vaccine. Due on Oc due Goal Zoster vaccine. Due on due Goal Td vaccine. Due on 18 due Goal Colonoscopy. Due on due Goal Tdap. Due on due Goal FOBT. Due on due Goal Special diet education compl eted Goal FOBT. Due on due Goal Tdap. Due on due Goal Colonoscopy. Due on due Goal Td vaccine. Due on due Goal Zoster vaccine. Due on due Goal Influenza vaccine. Due on due Goal Pap/HPV testing. Due on due Goal Depression screening. Due on due Goal Sigmoidoscopy. Due on due Goal Lipid panel. Due on due Goal Special diet education compl eted Goal Lipid panel. Due on due Goal Sigmoidoscopy. Due on due Goal Depression screening. Due on due Goal Pap/HPV testing. Due on due Goal Influenza vaccine. Due on due Goal Zoster vaccine. Due on due Goal Td vaccine. Due on 18 due Goal Colonoscopy. Due on due Goal Tdap. Due on due Goal FOBT. Due on due Goal Special diet education compl eted Goal Sigmoidoscopy. Due on due Goal Depression screening. Due on due Goal Pap/HPV testing. Due on due Goal Influenza vaccine. Due on due Goal Zoster vaccine. Due on due Goal Td vaccine. Due on due Goal Colonoscopy. Due on due Goal FOBT. Due on due Goal Tdap. Due on due Goal Lipid panel. Due on due Goal Prescribed dietary intake co mpleted Goal Tdap. Due on due Goal FOBT. Due on due Goal Colonoscopy. Due on due Goal Td vaccine. Due on due Goal Zoster vaccine. Due on due Goal Influenza vaccine. Due on due Goal Pap/HPV testing. Due on due Goal Depression screening. Due on due Goal Sigmoidoscopy. Due on due Goal Sigmoidoscopy. Due on due Goal Zoster vaccine. Due on due Goal Influenza vaccine. Due on due Goal Depression screening. Due on due Goal Colonoscopy. Due on due Goal Tdap. Due on due Goal Td vaccine. Due on due Goal Pap/HPV testing. Due on due Goal FOBT. Due on due Goal Depression screening. Due on due Goal Tdap. Due on due Goal FOBT. Due on due Goal Pap/HPV testing. Due on due Goal Td vaccine. Due on due Goal Sigmoidoscopy. Due on due Goal Influenza vaccine. Due on due Goal Zoster vaccine. Due on due Goal Colonoscopy. Due on due Goal Depression screening. Due on due Goal Colonoscopy. Due on due Goal FOBT. Due on due Goal Td vaccine. Due on due Goal Influenza vaccine. Due on due Goal Sigmoidoscopy. Due on due Goal Tdap. Due on due Goal Zoster vaccine. Due on due Goal Pap/HPV testing. Due on due Goal Colonoscopy. Due on due Goal FOBT. Due on due Goal Sigmoidoscopy. Due on due Goal Depression screening. Due on due Goal Influenza vaccine. Due on due Goal Zoster vaccine. Due on due Goal Pap/HPV testing. Due on due Goal Td vaccine. Due on due Goal Tdap. Due on due Goal Colonoscopy. Due on due Goal Pap/HPV testing. Due on due Goal Influenza vaccine. Due on due Goal Sigmoidoscopy. Due on due Goal Td vaccine. Due on due Goal Tdap. Due on due Goal Depression screening. Due on due Goal FOBT. Due on due Goal Zoster vaccine. Due on due Goal Colonoscopy. Due on 017 due Goal Zoster vaccine. Due on due Goal Tdap. Due on due Goal Td vaccine. Due on 17 due Goal FOBT. Due on due Goal Depression screening. Due on due Goal Pap/HPV testing. Due on due Goal Sigmoidoscopy. Due on due Goal Influenza vaccine. Due on due Goal Tdap. Due on due Goal Influenza vaccine. Due on due Goal Zoster vaccine. Due on due Goal Pap/HPV testing. Due on due Goal FOBT. Due on due Goal Colonoscopy. Due on 016 due Goal Depression screening. Due on due Goal Sigmoidoscopy. Due on due Goal Td vaccine. Due on 16 due Goal Influenza vaccine. Due on due Goal Colonoscopy. Due on 016 due Goal Td vaccine. Due on 16 due Goal Sigmoidoscopy. Due on due Goal Tdap. Due on due Goal Pap/HPV testing. Due on due Goal Zoster vaccine. Due on due Goal FOBT. Due on due Goal Depression screening. Due on due Goal Depression screening. Due on due Goal Influenza vaccine. Due on due Goal Sigmoidoscopy. Due on due Goal Pap/HPV testing. Due on due Goal Zoster vaccine. Due on due Goal Tdap. Due on due Goal Td vaccine. Due on 16 due Goal Colonoscopy. Due on 016 due Goal FOBT. Due on due Goal Pap/HPV testing. Due on due Goal Sigmoidoscopy. Due on due Goal FOBT. Due on due Goal Influenza vaccine. Due on due Goal Tdap. Due on due Goal Depression screening. Due on due Goal Zoster vaccine. Due on due Goal Colonoscopy. Due on 016 due Goal Td vaccine. Due on 16 due Goal Depression screening. Due on due Goal Tdap. Due on due Goal Zoster vaccine. Due on due Goal Td vaccine. Due on 16 due Goal Colonoscopy. Due on 016 due Goal Influenza vaccine. Due on due Goal Pap/HPV testing. Due on due Goal Sigmoidoscopy. Due on due Goal FOBT. Due on due Goal Influenza vaccine. Due on due Goal Sigmoidoscopy. Due on due Goal Td vaccine. Due on 15 due Goal Pap/HPV testing. Due on due Goal Depression screening. Due on due Goal FOBT. Due on due Goal Tdap. Due on due Goal Colonoscopy. Due on due Goal Pap/HPV testing. Due on due Goal Tdap. Due on due Goal Depression screening. Due on due Goal Influenza vaccine. Due on due Goal Colonoscopy. Due on due Goal Sigmoidoscopy. Due on due Goal FOBT. Due on due Goal Td vaccine. Due on 15 due Goal Tdap. Due on due Goal FOBT. Due on due Goal Sigmoidoscopy. Due on due Goal Influenza vaccine. Due on due Goal Pap/HPV testing. Due on due Goal Depression screening. Due on due Goal Colonoscopy. Due on due Goal Td vaccine. Due on 15 due Goal Colonoscopy. Due on 015 due Goal Depression screening. Due on due Goal FOBT. Due on due Goal Influenza vaccine. Due on due Goal Pap/HPV testing. Due on due Goal Sigmoidoscopy. Due on due Goal Td vaccine. Due on 15 due Goal Tdap. 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 Evaluate and treat ordered Referral Ordered: CT SOFT TISSUE NECK W/DYE ordered Referral Ordered: Reza Forrest -[facility] : Internal Medicine : Infectious Disease (related to Abnormal jaw closure) ordered Referral Referred To: Reza Forrest [address] [place] [address]
[facility] [place] [place], [address] Ordered: Referrals: [facility] : Internal Medicine : Infectious Disease. Reza Forrest. Evaluate and treat ordered Referral Ordered: Cardiology (related to Hypertensive emergency) ordered Referral Ordered: Referrals: Cardiology. Evaluate and treat ordered Referral Ordered: Urology (related to Urinary tract infection) ordered Referral Ordered: Referrals: Urology. Evaluate and treat ordered Referral Ordered: Diederich, Cecilio -[facility] : Surgery (related to Lipoma) ordered Referral Ordered: Cecilio Hanna -[facility] : Surgery (related to Lipoma) ordered Referral Ordered: Ever Garner -[facility] : Orthopaedic Surgery (related to Pain in right hip) ordered Referral Referred To: Ever Garner [address] [place], [place], [id number] Ordered: Referrals: [facility] : Orthopaedic Surgery. Ever Garner. Evaluate and treat ordered Referral Ordered: US THYROID ordered Referral Ordered: MRI JNT OF LWR EXTRE W/O DYE ordered Referral Ordered: Pain Medicine (related to Other spondylosis, lumbar region) ordered Referral Referred To: Dominick REYES, Jose Rome[facility] [address] [facility]
[place] [address] [place], [place], [id number] Ordered: Referrals: Jose Tan MD. Evaluate and treat ordered Referral Referred To: Alia Gee MD [address] [facility]
[address] [place], [place], [id number] Ordered: Referrals: Alia Gee MD. Evaluate and treat ordered Referral Ordered: COLONOSCOPY AND BIOPSY ordered Referral Ordered: Pain Medicine (related to Other spondylosis, lumbosacral region) ordered Referral Ordered: Referrals: Pain Medicine ordered Referral Ordered: Cecilio Hanna -[facility] : Surgery (related to Lipoma) ordered Referral Ordered: Gastroenterology (related to Abnormal weight loss) ordered Referral Ordered: Referrals: Gastroenterology. Evaluate and treat ordered Referral Referred To: Cecilio Hanna [address] [place], [place] [id number] Ordered: Referrals: [facility] : Surgery. Cecilio Hanna. Evaluate and treat ordered Referral Ordered: MRI LUMBAR SPINE W/O DYE ordered Referral Ordered: Pain Medicine (related to Lumbago with sciatica, right side) ordered Referral Ordered: Referrals: Pain Medicine. Evaluate and treat ordered Referral Ordered: Rheumatology (related to Chronic pain syndrome) ordered Referral Ordered: Referrals: Rheumatology. Evaluate and treat ordered Referral Ordered: AP PELVIS AND BILATERAL HIPS XRAY ordered Referral Ordered: Physical Therapy (related to Other spondylosis, cervical region) ordered Referral Referred To: Physical Therapy Ordered: Referrals: Physical Therapy. Evaluate and treat ordered Referral Ordered: DXA BONE DENSITY, AXIAL ordered Referral Ordered: CERVICAL SPINE XRAY 7 VIEWS ordered Referral Ordered: Gastroenterology (related to Abdominal pain) ordered Referral Ordered: Referrals: Gastroenterology ordered Referral Ordered: UPPER GI W/ KUB ordered Referral Ordered: MAMMOGRAM, SCREENING ordered Referral Ordered: HAND XRAY, TWO VIEW ordered History Of Present Illness Encounter Date Complaint History Of Prese nt Illness anxiety1 Pt has chronic a nxiety Pt denies any depression or any suicidal or homicidal thought Pt denies any crying spells. Pt takes xanax PRN and doing ok. hashimoto1 pt denies any dy sphagia or neck pain pt has not started synthroid yet. Pt states that she saw speech language pathologist recently and had bunch of labs done and she supposes to go back for follow up. Pt denies any dysphagia or neck pain. joint pain1 Pt has diffuse j oint pain. Pt saw endo and she has positive MARANDA Pt will follow up with endo soon. Pt has difficulty losing weight and she feels tired HLP Pt has HLP Pt is not on diet glucose1 Pt has mildly hi gh glucose Pt denies any polyuria, polydipsia . hashimoto1 Pt has sidney .Pt denies any dysphagia or neck pain Pt has low thyroid Pt has been gaining weight and feels tired . physical Pt needs annual physical pt has HTn Pt takes toprol, spironolactone and irbesartan and her bp is ok Pt denies any chest pain or headache Pt has chronic anxiety Pt denies any depression or any suicidal or homicidal thought Pt denies any crying spells Pt takes xanax PRn and doing ok. pt has sidney .Pt denies any dysphagia or neck pain cough1 Pt c/o acute ons et of productive cough with green phlegm x 104 days Pt denies any sob, sore throat or sinus symptoms pt denies any fever, chill Pt tested negative for COVID at home . Pt states that she has difficulty sleeping due to cough. pt went to pharmacy but the tussionex was over $100 and she never received the Z harry either. cough1 Pt c/o acute ons et of productive cough with green phlegm x 10 days Pt denies any sob, sore throat or sinus symptoms pt denies any fever, chill Pt tested negative for COVID at home yesterday. Pt states that she has difficulty sleeping due to cough HTN Pt has HTN. Pt t akes toprol, irbesartan and spironolactone and her bp is stable anxiety1 Pt has chronic a nxiety Pt denies any depression or any suicidal or homicidal thought .Pt denies any crying spells Pt takes xanax PRn and doing ok anxiety1 Pt has chronic a nxiety Pt denies any depression or any suicidal or homicidal thought. Pt denies any crying spells Pt takes xanax PRN and doing ok. HTN Pt has HTN Pt ta kes toprol , spironolactone and irbesartan and her bp is high Pt denies any chest pain or headache .Pt missed her bp med for several days and her bp is mildly high anxiety1 Pt has chronic a nxiety Pt denies any depression or any suicidal or homicidal thought Pt denies any crying spells. Pt takes xanax PRn and doing ok knee pain1 Pt has chronic r ight knee pain. She underwent right knee replacement recently and she is doing well post op. Pt notices mild right knee swelling Pt sees ortho. rash1 Pt has intermitt ent itchy rash under breat and around inguinal area due to sweat and yeast infection Pt needs nystatin topical refilled . liver pt has mildly el evated LFT on recent lab from dermatology Pt does have fatty liver Pt denies any abd pain or jaundice Pt does not have hepatitis. Pt does not drink alcohol. psoriasis1 Pt has acute pso riasis outbreak and she saw dermatology and she will start monthly shot for above .Pt notices mild itching Pt has not had any outbreak for years for psoriasis. anxiety1 Pt has chronic a nxiety Pt denies any depression or any suicidal or homicidal thought Pt denies any crying spells. HTN Pt has HTN Pt ta kes irbesartan, spironolactone and toprol and her bp is ok. Pt needs refill anxiety1 Pt has chronic a nxiety Pt denies any depression or any suicidal or homicidal thought Pt denies any crying spells Pt takes xanax PRn and doing ok Pt stopped zoloft which made her worse. weight gain1 Pt has been gain ing weight gain Pt wants to try GLP-1 shoulder1 Pt has chronic k nee and shoulder pain Pt has ganglion cyst left shoulder area Pt is seeing ortho and she was told the ganglion cyst is not related to her shoulder . HTN She takes toprol , spironolactone and irbesartan and her bp has been stable. knee pain1 Pt has chronic r ight knee pain Pt is seeing ortho Pt needs surgical clearance before she can have right knee surgery. nodule1 Pt tried to lift something with left arm 8 weeks ago and she notices a swollen nodule left supraclavicular area since then. Pt notices mild pain around the area. Pt c/o chronic bilateral shoulder pain as well Pt had ultrasound done which showed possible ganglion cyst extending from left AC joint. lymph Pt tried to lift something with left arm 6 weeks ago and she notices a swollen nodule left supraclavicular area since 6 weeks ag Pt notices mild pain around the area. Pt denies any shoulder pain. Pt denies any size change .Pt denies any other swelling. CT of the soft tissue of the neck was denied by insurance . lymph1 Pt tried to lift something with left arm 6 weeks ago and she notices a swollen nodule left supraclavicular area since 6 weeks ag Pt notices mild pain around the area. Pt denies any shoulder pain. Pt denies any size change HTN Pt has HTN Pt ta kes irbesartan, toprol and also irbesartan and her bp has been ok at home. Pt denies any chest pain or headache or dizziness anxiety1 Pt has chronic a nxiety with mild depression Pt is back on zoloft now Pt denies any suicidal or homicidal thought Pt denies any crying spells. Pt takes xanax PRn and doing ok. skin Pt has skin fold around abdomen and she notices itching and burning and redness around the crease line around lower abdomen HTN Pt has HTN, Pt h as been taking toprol, spironolactone and irbesartan and her bp at home is around 130/80. Pt has been taking 100 mg spironolactone. pt did not start triamterene/hctz. She feels well Pt denies any chest pain or headache or sob Pt denies any dizziness. Pt states that her bp is better now with higher dose of spironolactone. She is seeing cardiology currently and she has appointment soon with cardiology and she will do renal function soon. Pt is waiting for cardiology clearance before she can have knee surgery soon. Pt denies any chest pain viral Pt is exposed to COVID at home recently. Pt denies any fever, chill, sob, cough, headache, myalgia, sore throat, etc. Pt is not vaccinated HTN Pt has HTN, pt t akes irbesartan and toprol and spironolactone and her bp is around 140/70 at home pt denies any chest pain or headache Pt run out of spironolactone several days ago. Pt just saw cardiology today and she was started on triamterene hctz but the ladies' locker room attendant did not know that she was prescribed spironolactone since she did not remember the name of spironolactone. Pt denies any chest pain or headache weight gain1 Pt has been gain ing weight gain lately/ anxiety1 Pt has chronic a nxiety .Pt denies any depression or any suicidal or homicidal thought Pt denies any crying spells Pt stopped lexapro on her own. HLP Pt has HLP Pt steinberg s been gaining weight Pt has not been physically active .Pt is not on any diet LFT Pt has fatty deja er ,Pt has borderline high LFT Pt denies any abd tristen or jaundice hashimoto1 Pt has sidney Pt denies any dysphagia or neck pain. her tsh is ok. HTN Pt has HTN, Pt t akes toprol 100 mg and irbesartan 300 mg daily and her bp is still high Pt denies any chest pain .pt denies any headache Pt does feel ringing in her ears anxiety1 Pt has chronic a nxiety and depression Pt states that she could not tolerate lexapro due to fatigue Pt was given zoloft by ladies' locker room attendant but she never tried it. Pt denies any suicidal or homicidal thought. pt denies any crying spells weight gain1 Pt has been gain ing weight Pt does have sidney . cough1 Pt c/o productiv e cough with green phlegm x two days. Pt denies any fever, or sob Pt states that she has hard time sleeping due to cough Pt denies any sore throat or chest pain Pt could not tolerate tamiflu which made her nauseated. Pt failed OTC med. bile duct stone1 Pt has common b ile duct stone and she had ERCP and she had stent removed recently. pt denies any abd pain or jaundice sick pt c/o productiv e cough with green mucous ,nonbloody diarrhea, sore throat, sinus congestion headache since 4 days ago Pt denies any fever. her grandson who sleeps with her daily was diagnosed with influenza 4 days ago .Pt denies any sob HTN Pt has HTN pt ta kes irbesartan and toprol and her bp is high today Pt denies any chest pain or headache Pt stats that her bp is around 160/90 at home pt states that she has been having more stress lately anxiety1 Pt has chronic a nxiety and she feels worsening anxiety and some depression lately due to family situation .Pt denies any suicidal or homicidal thought Pt denies any crying spells physical Pt needs annual physical Pt has HTN Pt takes irbesartan and nebivolol and her bp is still high Pt denies any chest pain and headache.. Pt has chronic anxiety Pt denies any depression or any suicidal or homicidal thought Pt denies any crying spells. Pt takes xanax PRn and doing ok. Pt overall feels fine RLS Pt has ? RLS and she is on requip now by cardiology. Pt states that she is not sure if it is helping or not .Pt has not had much leg symptoms . knee pain1 Pt has right kne e pain Pt is seeing ortho and she will do PT .Pt already had injections. HTN Pt has HTn pt ta kes irbesartan 300 mg daily and her bp is borderline high Pt denies any chest pain or headache. stone1 Pt has biliary s tone and she has right upper quadrant abd pain and she saw GI and had ERCR with stone removal and stent placement. Pt will have stent removed in 3 months Pt states that her abd pain improved Pt denies any jaundice. HTN Pt has HTN. Pt t akes irbesartan and her bp is high Pt denies any chest pain or headache Pt could not tolerate norvasc due to swelling knee pain1 Pt has chronic r ight knee pain Pt had MRI done which showed severe osteoarthritis with medial femoral cartilage with medical meniscal tear with claros cyst. Pt does see ortho Pt has intermittent right knee swelling. Pt denies any knee redness or warmth anxiety1 Pt has chronic a nxiety without depression Pt takes xanax PRn Pt saw her cardiology recently who started her on zoloft for anxiety. Pt has not started zoloft yet. Pt also was diagnosed with RLS and she was started on requip by cardiology but she also has not started it. Pt does not think she need zoloft or requip. abd pain1 pt c/o acute ons et of midepigastric abd pain since one month ago Pt states that the pain is present all the time, worse with food. Pt feels nauseated without vomiting Pt states that the pain is worse with any type of food but she also has some pain without food. Pt has history of biliary stones s/p removal with stent placement in the past pt denies any jaundice. Pt also has been belching without moni GERD Pt has been taking large amount of tums which helps slightly. HTN Pt has HTN Pt ta kes irbesartan and her bp is high today Pt states that she is in pain. headache1 Pt has been havi ng some pressure frontal headache since last week Pt denies any photophobia, Pt denies any head injury or waking up at night with headache . 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 pt notices diffuse swelling around popiteal fossa and also around her patella area. Pt denies any red or warmth. Pt c/o sharp pain constantly but worse with weight bearing. Pt states that bending her right knee causes pain Pt has been using a knee brace to ambulate now. Pt has lexx with ortho next week neck pain1 Pt c/o chronic r ight side neck and preauricular pain, which is throbbing in nature x 4 years. Pt had right side tooth removed but the symptoms persisted. Pt states that right side of neck area feel slightly swollen. Pt denies any sore throat. Pt had negative carotid doppler study. Pt also had negative thyroid ultrasound.. Pt also had negative soft tissue of the neck and she was evaluated by ENT and had negative laryngoscope and she was told the right side neck issue is due to tooth problem neck pain1 Pt c/o chronic r ight side neck and preauricular pain, which is throbbing in nature x 4 years. Pt had right side tooth removed but the symptoms persisted. Pt states that right side of neck area feel slightly swollen. Pt denies any sore throat. Pt had negative carotid doppler study HTN Pt has HTN. pt s tates that she feels slightly vertigo feeling recently, especially when she turns her head. Pt denies any dizziness from standing up from sitting position. Pt denies any ear pain. Pt c/o mild tinnitus Pt denies any hearing loss. pt states that the dizziness improved without HCTZ. Her bp has been around 130/70 at home on irbesartan. pt denies any latoya pain or headache. Her bp is borderline high today. edema1 Pt has mild depe ndent LE edema for a while Pt stopped norvasc and she started irbesartan/hctz and her edema resolved. However pt notices frequent sense of dizziness, especially when she tries to stand up from sitting or lying position since taking irbesartan/hctz Pt denies any syncope or any headache or any further edema. dizziness1 Pt has chronic a nd intermittent cardiac murmur .Pt denies any chest pain or sob .Pt states that cardiology told her murmur is benign recently anxiety1 Pt has chronic a nxiety Pt denies any depression or any suicidal or homicidal thought Pt denies any crying spells Pt takes xanax PRn and doing ok edema1 Pt has been havi ng bilateral LE edema for the past 5 weeks, worse on right side Pt states that swelling is worse towards the end of the day ,Pt denies any sob Pt denies any chest pain. Pt had negative nuclear cardiac stress by cardiology several months ago .Pt denies any calf pain or paresthesia. Pt denies any recent travel or bedrest weight gain1 Pt has been gain ing weight Pt denies any change in activity. shoulder pain1 Pt has chronic l eft shoulder pain Pt sees ortho and she had MRI done which showed severe shoulder tear and arthritis and ortho recommended shoulder replacement OAB Pt has OAB Pt steinberg s been off oxybutynin Pt had neurostimulator implant placed recently by urology. Pt doing well HTN Pt has HTN Pt is on irbesartan and norvasc and her bp is ok. Pt saw cardiology recently and had negative cardiac stress test .Pt was started on requip at night by cardiology. anxiety1 Pt has chronic a nxiety Pt denies any depression or any suicidal or homicidal thought pt denies any crying spells Pt takes xanax PRn and doing ok. jaw pain1 Pt c/o chronic r ight side neck and preauricular pain. ID doctor deferred seeing her. Pt has not had any jaw spasm recently. Pt had carotid doppler done which was benign. OAB Pt has OAB with some urge and stress incontinence. Pt failed oxybutynin Pt has to use pad all day. Pt is seeing urology and she will do neurostimulator implant soon. anxiety1 Pt has chronic a nxiety Pt denies any depression or any suicidal or homicidal thought .Pt denies any crying spells. Pt takes xanax PRn and doing ok. Pt needs refill HTN Pt has HTN. Pt t akes norvasc and irbesartan and her bp is stable. neck pain1 Pt c/o chronic r ight side neck and preauricular pain Pt has not had any tremor episodes. ID doctor deferred seeing her. Pt has not had any jaw spasm recently. CT of neck and carotid doppler denied by insurance. neck pain1 Pt c/o persisten t right side neck pain for 4 years. Pt states that she had some infected tooth for the past several years which was pulled. Pt c/o persistent right side neck pain and stiffness and also bilateral jaw stiffness. Pt denies any fever. Pt does have frequent chill and tremors as well. muscle pain1 Pt c/o recurrent episodes of bilateral upper thigh muscle spasm, jaw pain and stiffness, and submandibular pain for the past several months. Pt feels acute shaking and tremor which is uncontrollable and also she feels chin muscle tightening up as well during the acute episode. Pt denies any sore throat. . Pt denies any speech issue or mental status change or LOC. Pt denies any headache. She denies any dysphagia or fever. Her bp has been ok with irbesartan and norvasc. she had negative head CT in ER. Pt was evaluated by cardiology and was told that the episodes are not caused by HTN. Pt denies any fever, chill. Pt states that episode usually last 5-10 mins then goes away. Pt states that the episodes occurred 2-3 times during last several months. Pt denies any LOC or seizure activity. pt also describes bilateral upper arm muscle tightness and pain as well during episode muscle pain HTN Pt has HTN. Pt t akes norvasc and irbesartan and her bp is ok. Pt was evaluated by cardiology and was told no cardiac issue and symptoms are not due to HTN glucose Pt has borderlin e high glucose Pt denies any polyuria, polydipsia. HTN Pt has HTN. Pt t akes norvasc and irbesartan and her bp has been running around 155/95 at home Pt denies any chest pain or headache Pt has not had anymore tremor or any previous episodes. anxiety1 Pt has chronic a nxiety pt denies any depression or any suicidal or homicidal thought Pt denies any crying spells. Pt takes xanax PRn and doing ok neuropathy1 Pt c/o right nicolas t cramp and right ankle burning only at night about 4-5 times per week for several months Pt denies any leg swelling. Pt denies any cold extremity tinnitus1 Pt c/o persisten t tinnitus bilateral ear and also dull headache for several months Pt denies any head injury or waking up at night with headache. Pt had benign head CT recently Pt has pressure headache accompanied by nausea without photophobia. Pt sometimes wakes up with headache. HTN her bp has been elevated all week. Pt denies any chest pain or palpitation Pt has been having headache. Her head CT is ok. Pt denies any vision change or sob Pt denies any edema UTI1 Pt has recurrent UTI. Pt denies any UTI symptoms. Pt is seeing urology. Pt also has urge incontinence. Pt was told to stop oxybutynin and she was started Gemtesa but has not working either. Pt denies any fever, chill, flank pain. weakness1 Pt states that s he got up last with mild headache. Pt states that both upper thigh muscle suddenly felt tight and she lie down and could not get up due to upper thigh muscle tightness. Pt feels acute shaking and tremor and also she feels chin muscle tightening up as well. Pt denies any sore throat. Pt feels slightly hoarse. Pt denies any speech issue or mental status change or LOC. Pt states that she continues to have headache and also bilateral tinnitus. Her bp was 230/120 when the EMS arrived. Pt went to ER and had negative CT of head and lab work. She was sent home to follow up with PCP. Pt had one more episode last week again after initial episode but has not occurred since last Friday. Pt denies any chest pain or palpitation or sob. Pt denies any chest pain or sob. Pt denies any dysphagia sick Pt c/o acute ons et of sinus congestion, deep cough with some green mucous, sore throat for 3 days ,pt denies any fever or sob. Pt feels hoarseness. Pt denies any headache. Pt is fully vaccinated for COVID Pt also had exposure to COVID as well. physical Pt needs annual physical. pt has recurrent urinary urgency and urge incontinence. Pt does have recurrent asymptomatic UTIs. Pt denies any flank pain Pt denies any fever, chill or abd or pelvic pain. Pt could not tolerate bactrim due to rash. Pt stopped bactrim and rash resolved. Pt takes oxybutynin but not working well. Pt has HTN. Pt takes lisinopril and her bp is ok .Pt has chronic anxiety .Pt denies any depression or any suicidal or homicidal thought Pt denies any crying spells UTi1 Pt has asymptoma tic UTI. Pt denies any fever, chill, flank pain, dysuria, burning, frequency . thyroid1 Pt has autoimmun e thyroid disease Her TSh is ok. T3 is borderline low. Pt denies any dysphagia or neck pain lipoma1 Pt has chronic l ipoma left upper back area for several year but she notices getting bigger with slight pain recently Pt denies any drainage, redness or warmth HTN Pt has HTN Pt ta kes lisinopril and her bp is ok Pt denies any chest pain or headache anxiety1 Pt has chronic a nxiety pt denies any depression or any suicidal or homicidal thought pt denies any crying spells. Pt takes xanax PRn and doing ok oAB Pt has OAB Pt steinberg s urgency and frequency. Pt states that oxybutynin is helping her. Pt needs refilled thyroid1 Pt has autoimmun e thyroiditis. Pt denies any dysphagia or neck pain. OAB1 Pt has OAB Pt steinberg s urgency and frequency. Pt states that oxybutynin is helping with urge but she has been noticing some leakage of urine when she has the urgency and she cannot make it to bathroom. Pt denies any dysuria. pt denies any abdominal pain. Pt denies any fever, chill. Pt denies any leakage urine while resting, only during urgency thyroid1 Pt has autoimmun e thyroid disease but her recent tsh was ok. Pt denies any dysphagia or neck pain. Pt has lost some weight recently due to special diet. Pt had thyroid ultrasound done which showed benign thyroid nodule. Pt denies any chest pain or headache or palpitation weight loss1 Pt has been losi ng weight and she attributes to her special diet. Pt denies any nausea, vomiting, GERd, appetite loss, early satiety, abdominal pain, GI bleeding, change of bowel, abd pain, etc . fatty tumor1 Pt has a chronic lipoma left upper back for 3 years, and getting slightly bigger Pt denies any drainage. Pt denies any redness or warmth. Pt notices some pain when she lay on her back. Pt wants it removed hip pain1 Pt has chronic r ight hip pain Pt has right hamstring pathology and she was told the hamstring is almost completely torn off the hip area. Pt is seeing ortho and she will have surgery soon weight loss1 Pt has been on a weight loss program and she has been losing weight Pt denies any appetite loss, nausea, vomiting, change of bowel, etc anxiety1 Pt has chronic a nxiety Pt denies any depression or any suicidal or homicidal thought Pt denies any crying spells. Pt takes xanax prn and doing ok thyroid1 Pt has elevated TPO and TSI. Pt denies any dysphasia or neck pain her TSh was ok recently thyroid1 Pt has autoimmun e thyroid disease Pt has not done thyroid ultrasound yet Pt denies any dysphagia or neck pain hip pain1 Pt has chronic r ight hip pain. Pt will have right hamstring surgery soon. pt received right hip injection on 01/01/21 and subsequently 2 more in December and she noticed itchy and bubbly rash around the injection site since last Friday. Pt then notices itchy rash spreading to her elbows. Pt denies any sob or difficulty with swallowing. Pt denies any right hip pain or any warmth around the hip area. Pt is able to tolerating weight bearing ok. Pt states that the injection does help with hip pain. Pt denies any fever or sob. pt denies any right hip swelling .pt has been using benadryl without improvement of the rash. anxiety1 Pt has chronic a nxiety Pt denies depression or any suicidal thought Pt denies any crying spells. Pt needs xanax refilled. weight loss1 Pt has been on a weight loss program and she has been losing weight Pt denies any appetite loss, nausea, vomiting, change of bowel, etc phos Pt has borderlin e high phos. Repeat phos is ok as well as PTH hypothyroidism1 Pt has mild low thyroid. Pt denies any dysphagia or neck pain. Repeat TSH is ok. Pt has high TPO and TSI. hip pain1 Pt has chronic r ight hip pain and she notices a bulge around right hip area. MRI showed avulsion of right bicep femoris and semitendinosus tendon and also bilateral gluteus tendinopathy, etc . UTI1 Pt has UTI. Pt n otices mild low pelvic pressure Pt denies any dysuria urinary urgency or frequency. Pt denies any flank pain hip pain1 Pt c/o chronic r ight hip pain and she has arthritis .Pt also has low back pain with right sciatica and right leg numbness .Pt denies any loss of bladder or bowel control Pt just saw ortho and was told that she has arthritis and the pain is from right sciatica from low back area Pt recently noticed swelling right hip area without redness or warmth. Pt has normal ROM right hip. Pt denies any injury .Pt notices mild pain when she lean on right hip area . fatty tumor1 Pt c/o nontender , non size changing soft growth left upper back chronically. Pt denies any redness or warmth anxiety1 Pt has chronic a nxiety Pt denies any depression or any suicidal thought pt denies any crying spells. pt takes xanax PRn Pt has a small pet dog and she wants to carry her dog with her during her incoming road trip and she wants a letter stating that it is a emotional support dog so she can bring her dog with her to hotel and road trip phos Pt has high phos .Pt jorden any muscle cramp or pain LFT Pt has fatty deja er Pt has borderline high LFT. Pt denies any abd pain or jaundice .pt rarely drinks alcohol thyroid1 Pt has borderlin e low thyroid Pt denies any fatigue or weight gain Pt denies any dysphagia or neck pain pain Pt has chronic l ow back pain with right sciatica and right leg numbness and tingling pt denies any loss of bladder or bowel control Pt failed neurontin .Pt had MRI of L spine done which showed moderate spondylosis. Pt has lexx with pain management in 10 days anxieyt1 Pt has chronic a nxiety Pt denies any depression or any suicidal thought Pt denies any crying spells HTN Pt has HTN. Pt t akes lisinopril and her bp is stable. Pt denies any dry cough pain Pt has chronic l ow back pain with right sciatica and right leg numbness and tingling pt denies any loss of bladder or bowel control .Pt stopped taking ultram. Pt failed neurontin .Pt had MRI of L spine done which showed moderate spondylosis anxiety1 Pt has chronic a nxiety Pt denies any depression or any suicidal thought Pt denies any crying spells pt states that she almost run out of xanax and her insurance informed her they do not cover xanax. back pain1 Pt has chronic l ow back pain with right sciatica and right leg numbness and tingling pt denies any loss of bladder or bowel control .Pt stopped taking ultram. Pt failed neurontin .Pt just MRI of L spine done. physical Pt needs annual physical. Pt has HTn .Pt takes lisinopril and her BP is ok. Pt has OAB. Pt takes oxybutynin and doing ok .Pt has chronic low back and hip pain ,Pt saw ortho and was told that her hip pain is due to low back pain and he referred her to rehab doctor but she does NOT want rehab/PT or pain injection, which she tried but did not work in the past Pt has constant low back pain with right sciatica and right leg numbness and tingling Pt denies any loss of bladder or bowel control. Pt denies any leg weakness ,Pt takes ultram PRn. pt failed neurontin Pt also has anxiety Pt denies any depression or any suicidal thought ,Pt denies any crying spells ,Pt takes xanax PRn and doing ok COVID1 Pt had COVID-19 diagnosis 16 days ago Pt since recovered fully Pt denies any cough ,fever, sob ,loss of taste and smell. Pt c/o acute onset of itchy and mild pain around right eye since last night Pt notices crusty discharge from right eye as well Pt denies any headache or vision change Pt denies any sick contact. Pt denies any sinus symptoms. Pt does not wear contact Pt denies any FB in right eye. Pt also notices mild symptoms starting on left eye as well anxiety1 Pt has chronic a nxiety pt denies any depression or any suicidal thought. Pt takes xanax prn and doing ok pain1 Pt has chronic l ow back pain pt takes ultram PRn for pain and doing ok. Pt c/o right hip pain for several months. Pt denies any injury ,Pt notices right hip swelling and burning feeling. pt has right sciatica and right leg numbness and tingling. Pt denies any low back pain recently. Pt had right hip x ray done per rheumatology after onset of hip pain and showed arthritis. her water technician told her it is due to arthritis HTN Pt has HTn. Pt t akes lisinopril and doing ok. OAB Pt has oab .Pt t akes oxybutynin only once per day and doing ok CTD Pt is seeing dr gee and she is on Plaquenil now. pain Pt has chronic l ow back pain Pt denies any worsening pain. pt denies any loss of bladder control. Pt has disc disease Pt failed pain management and injection. Pt takes ultram PRn and doing ok. anxiety1 Pt has chronic a nxiety pt denies any depression or any suicidal thought Pt denies any crying spells. Pt takes xanax PRn and doing ok UTI1 Pt denies any ur inary symptoms. Pt took abx and her UA was ok. MARANDA Pt has positive MARANDA on recent lab work from GI. Pt does have fatty liver Pt denies any polyarthralgia. Pt has nuclear dense speckle pattern. Pt denies any polyarthralgia pain Pt has chronic l ow back pain Pt denies any worsening pain. pt denies any loss of bladder control. Pt has disc disease Pt failed pain management and injection. UTI1 Pt recently was treated with keflex for UTI. Pt has E c0li. Pt never took levaquin .Pt went to ER and she received keflex. Pt also had negative CT scan ,Pt denies any fever Pt had negative COVID-19. Pt currently denies any urinary symptoms Pt denies any flank pain . fatty liver1 Pt has partial f atty liver Pt denies any abd pain anxiety1 Pt has chronic a nxiety pt denies any depression or any suicidal thought Pt denies any crying spells. Pt takes xanax PRn and doing ok sick Pt c/o feeling f everish but she does not have thermometer, headache since yesterday. Pt feels pressure around pelvic area when she urinate and left flank pain for one week. Pt also notices headache last night. Pt c/o sore throat since last night. Pt denies any dysphagia. Pt denies any coughing or sob .Pt feels chills last night. pt denies any sick contact. Pt also feels sweaty and clammy this morning,. Pt does have chronic low back pain with sciatica. Pt not sure if she has typical back pain vs UTI Vs pyelo. Pt denies any nausea, vomiting, diarrhea. Pt denies any urinary burning or urgency or frequency. Pt just feels some low pelvic pressure when she urinate. back pain1 Pt has chronic l ow back pain with sciatica and leg numbness and tingling, Pt denies any loss of bladder control. Pt has DDD Pt failed injections Pt notices acute flare up of low back pain with right sciatica for 2-3 days. Pt denies any injury. Pt takes ultram PRn for pain. Pt has normal ambulation anxiety1 Pt has chronic a nxiety ,PT denies any depression or any suicidal thought. Pt denies any crying spells. Pt takes xanax PRn and doing ok sick Pt c/o nonbloody diarrhea, vomiting , fever blisters, lightheadedness,, low back pain since last week Pt has low grade temp around 99. .Pt denies any coughing or sore throat. Pt has some sneezing. Pt feels that she has to take some deep breath Pt feels some chest pressure. Pt denies any exertional chest pain pt denies any diaphoresis and no radiation of pain to arm or leg. pt denies nay sore throat Pt has not vomited since last week pt has mild diarrhea after food .Pt only vomited once last week. Pt denies any exertional chest pain. Pt denies any abd pain Pt did have some abd cramp last week but passed Pt denies any travel or sick contact . Pt denies any urinary symptoms Pt has decent appetite and she is able to drink lemon joseph tea and she has good urine output colon polyp Pt has colon torie yp pt was told to repeat colonoscopy in 10 years Pt not sure what type of colon polyp. Pt just had her internal hemorrhoid ablated HTN Pt has HTN. Pt t akes lisinopril and her BP is stable. Pt needs refill . pain Pt has chronic l ow back pain Pt denies any worsening pain. pt denies any loss of bladder control. Pt has disc disease Pt is seeing pain management and got injections but did not work. Pt wants some ultram PRn. Pt no longer wants more injections anxiety1 Pt has chronic a nxiety pt denies any depression or any suicidal thought Pt denies any crying spells. Pt takes xanax PRn and doing ok physical PT needs annual physical, Pt has anxiety without depression, Pt takes xanax PRn and doing ok Pt has low back pain with right sciatica and leg numbness, Pt failed pain management. Pt takes ultram PRN for pain. Pt has HTn, P takes lisinopril and BP stable. Pt has OAB Pt takes oxybutynin and doing ok. Pt denies any other complaints HLP Pt has mild high tg Pt has been off feno Pt has been working on low fat and low carb diet. Pt has mildly high glucose. Pt denies any polyuria, polydipsia anxiety1 Pt has chronic a nxiety pt denies any depression or any suicidal thought Pt denies any crying spells. Pt takes xanax PRn and doing ok lumbago1 Pt has chronic l ow back pain Pt denies any worsening pain. pt denies any loss of bladder control. Pt has disc disease Pt is seeing pain management and is getting injections and is helping pt like to have some ultram PRn. OAB Pt has OAB ,pt d oing well with oxybutynin. Pt denies any dysuria, frequency or urgency OAB Pt has OAB. Pt t akes oxybutynin and doing ok Pt denies any dysuria, or pelvic pain or flank pain anxiety1 Pt has chronic a nxiety Pt denies any depression or any suicidal thought. Pt denies any crying spells. Pt takes xanax PRn and doing ok Pt deferred SSRIs HTN pt has HTN. Pt t akes lisinopril and her BP is borderline today. Pt denies any chest pain or headache HLP Pt has HLP. pt i s off feno. Pt is on low fat and low carb diet. Pt has not done lab yet leukopenia1 Pt has mild low WBC. pt denies any infection colon1 Pt needs colonos copy Pt denies any blood in stool. Pt denies any GI bowel change. Pt denies any weight loss anxiety1 Pt has chronic a nxiety. Pt denies any depression or any suicidal thought. Pt denies any crying spells. HLP Pt has history o f HLp. Pt is off feno. Pt denies any myalgia. Pt is trying to eat healthy anxiety1 Pt has chronic a nxiety Pt denies any depression or any suicidal thought. Pt denies any crying spells. Pt has a lot of stress at home back pain1 Pt has chronic l ow back pain. Pt has DDD Pt has sciatica down right leg. Pt notices intermittent right leg numbness. pt already had one set of back injections Pt takes ultram PRN for pain .Pt has not noticed any improvement after pain injection. Pt denies any loss of bladder control shingle1 Pt recently c/o numbness and tingling last week and she went to ER and was diagnosed with shingle. Pt states that the pain is improving with valtrex. Pt denies any fever, chill, illness physical Pt needs annual physical. Pt has mildly high glucose and low WBC. Pt has low D. Pt takes calcium. Pt has OAB. pt takes oxybutynin and doing ok. Her UA is ok. Pt has htn. Pt takes lisinopril. Pt has HLP Pt takes feno. Pt denies any myalgia. Pt has chronic low back pain. Pt denies any worsening pain. Pt denies any loss of bladder control. Pt has right sciatica. Pt has right leg numbness. Pt just seen pain management and will do shot soon. Pt has chronic anxiety. Pt denies any depression or any suicidal thought. Pt denies any crying spells. Pt denies any other complaints HTn1 Pt takes lisinop ril and her BP is stable. biliary1 Pt has history o f cholelithiasis and he had ERCP with stone removal recently. Pt denies any abdominal pain Pt denies any jaundice. Pt denies any nausea, vomiting Pt has GERD and she takes omeprazole and doing ok HLP Pt has HLP. Pt t zuly valente. Pt denies any myalgia back pain1 pt has chronic l ow back pain. Pt denies any sciatica or any loss of bladder control. Pt states that the pain is around right lower back area and is sharp and burning feeling Pt denies any right sciatica Pt denies any loss of bladder control. Pt had ct done which showed severe spondylosis. OAB1 Pt has OAB Pt steinberg s urinary urgency Pt denies any dysuria or frequency. Pt increased oxybutynin to 5 mg TID on her own recently and she notices a big improvement. Pt denies any flank pain anxiety1 Pt has chronic a nxiety Pt denies any depression or any suicidal thought Pt denies any suicidal thought. Pt takes xanax PRn and doing ok belching1 Pt has been belc bill a lot. Pt had negative EGD recently. Pt has not been taking omeprazole daily pt only takes PRN. Pt denies any moni GERD weight loss1 Pt has been losi ng weight. Pt recently suffered from chololithiasis and she had to go through ERCPs and she feels poor appetite and she has severe belching with any fatty meal. Pt denies any nausea, vomiting, Pt denies any blood in stool. Pt denies any change in bowel habit. pt has not done colonoscopy yet back pain1 Pt has low back and right SI joint pain Pt has DDD around lumbar area. Pt denies any sciatica or any loss of bladder control. Pt has CT of pelvis scheduled by Dr Hanna tomorrow to address the right lower back pain per pt. Pt notices burning type of pain. Pt failed pain management with injection LFT Pt recently had common bile duct and eh did have elevated LFT recently. pt had ERCP and stone retraction and she has been feeling better. Pt states that she has been having belching almost daily now with some nausea. Pt has been having poor appetite due to above. Pt has been lose weight also chronic pain1 Pt has low back chronically. Pt also has been having left hip pain for several months. pt denies any injury. Pt denies any sciatica or any numbness. skin lesion1 Pt notices a sof t mass left upper back for several months. Pt notices pain and enlarging mass. anxiety1 Pt has chronic a nxiety .Pt denies any depression or any suicidal thought Pt takes. Pt takes xanax PRn and doing ok bile duct stone1 Pt recently c/o right side abdominal pain s/p choledocholithiasis. Pt underwent ERCP and she had multiple stone removed. Pt states that her abdominal pain improved Pt denies any nausea, vomiting . anxiety1 Pt has chronic a nxiety Pt denies any depression or any suicidal thought. Pt takes xanax PRN and doing ok Pt denies any crying spells back pain1 Pt has low back pain and right heel pain due to heel spur and she takes plasm PRn for pain Pt states that right heel still swells up occasionally. Pt had right heel surgery already abdominal pain1 Pt has fever as high as 100.4 on and off for the past week with abdominal pain, black diarrhea for the past one week. Pt states that the black diarrhea is on and off and she has not had it for two days. Pt c/o nausea, without vomiting. Pt has headache. Pt denies any joint pain. Pt had gallbladder out and she had bile duct stent 4 years ago due to choledocolithiasis. Pt also has dark and very smelly urine for several days. Pt states that she has abdominal pain worse with food. anxiety1 Pt has chronic a nxiety. Pt denies any depression or any suicidal thought Pt denies any cyring spells. sick1 Pt c/o intermitt ent fever as high as 101, mild stomach ache, myalgia for 2 weeks. Pt denies any nause, vomiting, diarrhea. Last fever was yesterday. pt denies any sore throat Pt has mild dry cough. Pt feels slighlty better today back pain1 Pt c/o low back and right heel pain. Pt just had right heel surgery for heel spur and tendon repair by podiatry. Pt needs ultram refilled Physical Pt needs annual physical. pt has OAB and she is doing well with oxybybynin. Her urinary frequency and urgency resolved. Pt did have some stress incontinence which resolved also with oxybutynin. Pt has chronic anxiety. Pt takes xanax PRn. pt denies any depression or any suiciadl thought. Pt has HLP and she takes feno. Pt denies any myalgia. Pt has HTn and she takes lisinopril and doing ok. Pt will have heel surgery soon due to heel spur. Pt deneis any other complaints. foot pain1 pt c/o persisten t right heel pain due to heel spur. Pt denies any plantar surface pain. Pt denies any numnbess. Pt is seeing podiatry and was told she needs heel spur surgery. Pt did repsond to steroid two months ago. Pt also has low back pain. Pt is seeing pain managment and received some injections. Pt c/o burning pain low back and right scaitica. Pt did not want to do PT. Her MRI was denied. Pt denies any foot injury incontinence1 Pt c/o urinary i ncontinence and she has urge incontinence for 1.5 years. Pt denies leaking when she sneezes. Pt has to wear pad now. Pt c/o urinary burning and frequency and some pelvic pressure when she has to urinate for 4 days. Pt denies any flank pain. Pt state that she canot hold her urine sometimes HLP Pt has HLP. Pt t akes feno. Pt denies any myalgia. Pt is on low fat and low carb diet obesity1 Pt is overweight . Pt has been diet and exercising. Pt states that she sleeps ok. Pt does not snore. Pt denies waking up fatigue or tired throughout the day. Pt lost some weight screening for colon Pt needs scr eening colonoscopy. pt denies any GI bleeding. Pt denies any nauea, vomiting. Pt told me she had fecal globin stool done but I could not find the result from [facility] anxiety1 Pt has chronic a nxiety. Pt denies any depression or any suicidal thought. Pt denies any crying spells Pt takes xanax PRN and doing ok. lumbago1 Pt has chronic l ow back pain. Pt has burning sensation low back with right sciatica to right hip. pt denies any loss of bladder control. Pt denies any worsening pain. Pt failed PT and also she received back injection x 1 without much improvement glucose1 Pt has mild gluc ose. Pt denies any polyuria, polyidpsia. HLP Pt has HLP P sachin valente. Her lipid profile is ok Pt denies any myalgia back pain1 Pt has intermitt ent low back pain with right sciatica. Pt denies any numbness. Pt denies any loss of bladder control. Pt feels burning around low back and right SI joint. Pt has right heel spur and she has been walking funny and she thinks that it aggrevates her back pain. Pt has 5/10 pain. Pt denies any injury HTN Pt has mild HTn. Pt takes lisinopril and her BP is borderline Pt denies any chest pain or hedache HTN Pt has HTN. Pt t kes lisinorpil and her BP is stable. anxiety1 Pt has chronic a nxiety Pt denies any depression or any suicidal thought Pt takes xanax and doing ok. Pt denies any crying spells heel pain1 Pt c/o right huseyin l pain for 2 months Pt denies any injury. Pt denies any radiation to rest of her foot. Pt feels burning Pt denies worsening pain in the morning Pt denies any numbness HLP Pt has HLP. Pt t zuly chisholmo Pt denies any myalgia Physical Pt needs annual physical. Pt has chornic neck and back apin. Pt takes ultram PRN and doing ok. Pt denies any wrosening pain. Pt has arthritis. Pt also has chronic anxiety Pt denies any depression or any suicidal thought. Pt takes xanax PRN. Pt denies any cyring spells. Pt has HTN and she takes lisinopril. Pt has HLP Pt taks feno Pt denies any myalgia. Pt denies any other complaints. hip pain1 Pt c/o chronic l eft hip pain for at least 6 months. Pt had benign xray. Pt has dDD on lumbar spine Pt notices left sciatica. Pt denies any numbness left leg Pt states that she has sharp and dull pain daily. Pt also c/o left shoulder pain. Pt is seeing ortho and received shoulder injection but not helping. Pt was told by ortho that it is from her neck. Pt denies any neck pain. Anxiety1 Pt has chornic a nxiety. Pt denies any depression or any sucidal thought. Pt takes xanax PRN Pt denies any cring spells. HTN Pt takes lisinop ril Her BP is stable. Pt is on low salt diet HLP Pt has HLP Pt ta kes feno. Pt denies any myalgia. Pt is on low fat and low carb diet hip pain1 Pt c/o left hip pain raditing down to left leg for several months. Pt denies any injury. Pt denies any low back pain. Pt has been working on her feet a lot recently. Pt denies any loss of bowel or bladder control. Pt denies any numbness. Pt denies any right hip pain. HLP Pt has HLP. Pt t akes feno. Pt denies any myalgia. Her lab is normal now. Pt is eating better anxiety1 Pt has chronic a nxeity Pt denies any depression or any suicidal thought. Pt takes xanax PRN and doing ok. Pt denies any crying spells. pain Pt has some hand and shoudler pain due to arthritis. Pt wants refill of ultram. which works ok low D Pt has low D. Pt takes vitamin D but she has not been taking for a while. Pt denies any spontaneous fx HLP Pt takes feno. P t denies any myalgia. Pt is trying low fat and low carb diet. HTN Pt has HTN. pt t akes lisinopril and her BP is borderline Pt deneis any chest pain or headache cough1 Pt c/o productiv e coughing with yellow phlegm for 4 weeks. Pt denies any running nose sore throat. Pt has mild sinus pressure Pt denies any chest pain or SOB. Pt denies any fever. HLP1 Pt has HLP. Pt t akes a lot of carb and processed food. Pt denies any chest pain low vitamin D1 Pt has low vitam in D. neck pain1 Pt has left side neck pain for several months. Pt has degenerative disease on xray. Pt has not done carotid doppler yet. Pt denies any radiculopathy. Pt denies any chest pain or palpation pain1 Pt c/o intermitt ent left side shoudler and neck pain with radiation to left arm for the past 3 months . Pt states she feels tingling sensation left side of neck and left upper shulder area. Pt denies any arm weakness. Pt states that certain movement aggrevates the symptoms. Pt has degenerative diseas on xray Pt denies any chest pain Pt denies any improvement of her symptoms Anxiety1 Pt has chronic a nxiety Pt denies any depression or any suicidal thought pt takes xanax PRN. Pt denies crying spells or any feeling of hopelessness PHysical Pt needs annual physical. Pt has HTn and anxiety. P takes lisinopril and xanax PRN. . Pt has stress fracture around left toe and currently is wearing a cam walker boot and he is seeing ortho now, Pt wants ultram for pain PRN. Pt also sees Dr. Kaiser for left shooulder pain Pt sates that her abd pain resolved and she is off omerpzole and she is doing ok Pt does not want to see GI for EGD. Pt c/o tingling feeling around left side of neck and left shoulder area for two months Pt denies any injury. Pt notices some neck stiffness. Pt denies any radiculopathy to left arm. Pt denies any chest pain. Pt states that the left side of neck and left uper chest muscle feels stiff sometimes only when she lies on left shoulder area. Pt denies any exertional symptoms. Pt notices left upper chest muscle sometimes bulge out per patient abd pain Pt has sudden on set of midepigastric pain for two days. Pt feels slightly nausea, no vomiting. Pt had gallbladder removed. Pt had history of bile duct stones. Pt went to eR and lab ok. Pt feels slighlty better now. hematuria Pt has hematuria . Pt denies any UTI symptoms Instructions Date Instruction Additional Infor kyle Weight management Related to Enc ounter for general adult medical exam w abnormal findings Increase physical activity Relat ed to Encounter for general adult medical exam w abnormal findings Special diet education Related t o Body mass index (BMI) 31.0-31.9, adult Special diet education Related t o Body mass index (BMI) 31.0-31.9, adult Increase physical activity Relat ed to Overactive bladder Weight management Related to Ove ractive bladder Special diet education Related t o Body mass index (BMI) 31.0-31.9, adult Increase activity. Related to Hy perlipidemia Follow a low sodium diet. Relate d to Hyperlipidemia Special diet education Related t o Body mass index (BMI) 31.0-31.9, adult Special diet education Related t o Body mass index (BMI) 30.0-30.9, adult Special diet education Related t o Body mass index (BMI) 29.0-29.9, adult Increase physical activity Relat ed to Encounter for general adult medical exam w abnormal findings Special diet education Related t o Body mass index (BMI) 28.0-28.9, adult Increase physical activity Relat ed to Overactive bladder Weight management Related to Ove ractive bladder Special diet education Related t o Body mass index (BMI) 28.0-28.9, adult Special diet education Related t o Body mass index (BMI) 28.0-28.9, adult Prescribed dietary intake Relate d to Body mass index (BMI) 30.0-30.9, adult Increase physical activity Relat ed to Generalized anxiety disorder Weight management Related to Gen eralized anxiety disorder Prescribed Activity and Exercise Education Related to Dietary Surveillance and Counseling Prescribed Diet Educ ation/Lifestyle Education Regarding Diet Related to Dietary Surveillance and Counseling Medications as instructed Relate d to Abdominal pain Prescribed Activity and Exercise Education Related to Dietary Surveillance and Counseling Prescribed Diet Educ ation/Lifestyle Education Regarding Diet Related to Dietary Surveillance and Counseling Increase physical activity Relat ed to Viral infection Weight management Related to Vir al infection Prescribed Activity and Exercise Education Related to Dietary Surveillance and Counseling Prescribed Diet Educ ation/Lifestyle Education Regarding Diet Related to Dietary Surveillance and Counseling Increase physical activity Relat ed to Encounter for general adult medical exam w abnormal findings Weight management Related to Enc ounter for general adult medical exam w abnormal findings Prescribed Activity and Exercise Education Related to Dietary Surveillance and Counseling Prescribed Diet Educ ation/Lifestyle Education Regarding Diet Related to Dietary Surveillance and Counseling Increase activity. Related to Hy perlipidemia Follow a low sodium diet. Relate d to Hyperlipidemia Prescribed Activity and Exercise Education Related to Dietary Surveillance and Counseling Prescribed Diet Educ ation/Lifestyle Education Regarding Diet Related to Dietary Surveillance and Counseling Increase physical activity Relat ed to Generalized Anxiety Disorder Weight management Related to Gen eralized Anxiety Disorder Prescribed Activity and Exercise Education Related to Dietary Surveillance and Counseling Prescribed Diet Educ ation/Lifestyle Education Regarding Diet Related to Dietary Surveillance and Counseling Prescribed Diet Educ ation/Lifestyle Education Regarding Diet Related to Dietary Surveillance and Counseling Prescribed Activity and Exercise Education Related to Dietary Surveillance and Counseling Prescribed Activity and Exercise Education Related to Dietary Surveillance and Counseling Prescribed Diet Educ ation/Lifestyle Education Regarding Diet Related to Dietary Surveillance and Counseling Prescribed Activity and Exercise Education Related to Dietary Surveillance and Counseling Prescribed Diet Educ ation/Lifestyle Education Regarding Diet Related to Dietary Surveillance and Counseling Prescribed Activity and Exercise Education Related to Dietary Surveillance and Counseling Prescribed Diet Educ ation/Lifestyle Education Regarding Diet Related to Dietary Surveillance and Counseling Prescribed Activity and Exercise Education Related to Dietary Surveillance and Counseling Prescribed Diet Educ ation/Lifestyle Education Regarding Diet Related to Dietary Surveillance and Counseling Prescribed Diet Educ ation/Lifestyle Education Regarding Diet Related to Dietary Surveillance and Counseling Prescribed Activity and Exercise Education Related to Dietary Surveillance and Counseling Prescribed Activity and Exercise Education Related to Dietary Surveillance and Counseling Prescribed Diet Educ ation/Lifestyle Education Regarding Diet Related to Dietary Surveillance and Counseling Prescribed Activity and Exercise Education Related to Dietary Surveillance and Counseling Prescribed Diet Educ ation/Lifestyle Education Regarding Diet Related to Dietary Surveillance and Counseling Prescribed Activity and Exercise Education Related to Dietary Surveillance and Counseling Prescribed Diet Educ ation/Lifestyle Education Regarding Diet Related to Dietary Surveillance and Counseling Physical activity counseling Rel ated to Dietary surveillance counseling Decrease caloric intake Related to Dietary surveillance counseling Physical activity counseling Rel ated to Dietary surveillance counseling Decrease caloric intake Related to Dietary surveillance counseling Physical activity counseling Rel ated to Dietary surveillance counseling Decrease caloric intake Related to Dietary surveillance counseling Dietary counseling Related to Ob esity unspecified, BMI 30-39 Decrease caloric intake Related to Obesity unspecified, BMI 30-39 Decrease caloric intake Related to Dietary surveillance counseling Dietary counseling Related to Di etary surveillance counseling Dietary counseling Related to Di etary surveillance counseling Decrease caloric intake Related to Dietary surveillance counseling Dietary counseling Related to Di etary surveillance counseling Decrease caloric intake Related to Dietary surveillance counseling Decrease caloric intake Related to Dietary surveillance counseling Dietary counseling Related to Di etary surveillance counseling Dietary counseling Related to Di etary surveillance counseling Decrease caloric intake Related to Dietary surveillance counseling Dietary counseling Related to Di etary surveillance counseling Decrease caloric intake Related to Dietary surveillance counseling Dietary counseling Related to Di etary surveillance counseling Decrease caloric intake Related to Dietary surveillance counseling Dietary counseling Related to Di etary surveillance counseling Decrease caloric intake Related to Dietary surveillance counseling Assessments Type Assessment 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
[2025-03-07 09:32] VITALS: BP 122/62; PULSE 66; RESP 18; TEMP 36.2; O2SAT 100
[2025-03-07 09:41] LABS: EDUAAPPEAR Clear; EDUABILI 2+ (Negative); EDUABLOOD 2+ (Negative); EDUACOLOR1 Dark; EDUAGLUCOSE Negative (Negative); EDUAKETONE Trace (Negative); EDUALEUKO Trace (Negative); EDUANITRATE Positive (Negative); EDUAPH 5.5; EDUAPROTEIN 2+ (Negative); EDUASPGRAVITY 1.025; EDUAUROBILI 1.0
== END 2025-03-07 09:55 | disposition home or self-care (01) ==
PROVIDERS: Emergency Provider Nurse Practitioner Family; PCP Emergency Medicine
DX: N39.0 Urinary tract infection, site not specified (principal); I10 Essential (primary) hypertension
CPT/HCPCS: 81003; 87086; 99213; G0463

== ENCOUNTER 2025-03-12 19:50 | Emergency (ER) | payer MEDICARE, SELFPAY ==
--- NOTE | ~2025-03-12 | CT_ITS ---
Non-contrast CT scan of the Abdomen and Pelvis Clinical indication: Left flank pain Technique: 2.5 mm axial scans were obtained through the abdomen and pelvis without intravenous or or al contrast. Dose reduction technique was used on this scan by utilizing automated exposure control a nd iterative reconstruction technique. The dose-length product (DLP) was 560.33 mGy-cm. Findings: Images through the lung bases reveal no abnormalities. There is no evidence of renal or ureteral calculi. The kidneys and the ureters are nondilated. Right renal cysts are present. Gallbladder absent, with small amount of pneumobilia present. The spleen, pancreas, and adrenals othe rwise appear normal. There are atherosclerotic calcifications of the aorta. . There is no evidence of bowel obstruction. Images through the pelvis were performed. There is no evidence of ascites or lymphadenopathy. Urinary bladder unremarkable. There is a 2.3 cm mass in the posterior right pelvis with peripheral calcifica tion (axial image 137), indeterminate, but likely benign.. Impression: No acute abnormality. Chronic findings, as above. Reviewed, dictated and finalized at location M. Impression: No acute abnormality. Chronic findings, as above.
--- OUTSIDE RECORDS SUMMARY | 2025-03-12 19:53 | XMS_ITS | Patient Health Record ---
Author Organization [facility]. 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 Name Role Phone Yumiko Jay [phone] Allergies No Known Allergies Results Component Value Reference Range Flag Notes .COMPREHENSIVE METABOLIC SIMS EL (20183) CMP Reviewed date:12/12/2024 02:19:18 PM Interpretation: Performing Lab:Madan AUSTIN-Jlkubk49526 Dustin MonteroXckzgoFG[address]-55[address] Shan Yadav MD Notes/Report: GLUCOSE 96 65-99 [...] date:12/12/2024 02:19:18 PM Interpretation: Performing Lab:[facility]-Eqtriz96594 Dustin MonteroGpzyfnWP8[address]-78[address] Shan Yadav MD Notes/Report: IRON, TOTAL 51 45-160 mcg/dL N IRON BINDING CAPACITY 363 250-450 mc g/dL (calc) N % SATURATION 14 16-45 % (calc) L .CBC (INCLUDES DIFF/PLT) (63 99) Reviewed date:12/12/2024 02:19:18 PM Interpretation: Performing Lab:Madan AUSTIN-Hepnvd64026 Eliazar MonteroaKS[address] Shan Yadav MD Notes/Report: WHITE BLOOD CELL COUNT 5.5 3.8-10.8 Thousand/uL N RED BLOOD CELL COUNT 4.25 3.80-5.10 Million/uL N HEMOGLOBIN 12.4 11.7-15.5 g/dL N HEMATOCRIT 39.1 35.0-45.0 % N MCV 92.0 80.0-100.0 fL N MCH 29.2 27.0-33.0 pg N MCHC 31.7 32.0-36.0 g/dL L For adults, a slight decrease in the calculated MCHC value (in the range of 30 to 32 g/dL) is most likely not clinically significant; however, it should be interpreted with caution in correlation with other red cell parameters and the patient's clinical condition. RDW 13.6 11.0-15.0 % N PLATELET COUNT 290 140-400 Thousand/uL N MPV 10.2 7.5-12.5 fL N ABSOLUTE NEUTROPHILS 2404 1890-4394 cells/uL N ABSOLUTE LYMPHOCYTES 2470 850-3900 cells/uL N ABSOLUTE MONOCYTES 451 200-950 cells/uL N ABSOLUTE EOSINOPHILS 149 15-500 cells/uL N ABSOLUTE BASOPHILS 28 0-200 cells/uL N NEUTROPHILS 43.7 N LYMPHOCYTES 44.9 N MONOCYTES 8.2 N EOSINOPHILS 2.7 N BASOPHILS 0.5 N SED RATE BY MODIFIED DIDI OWENS (809) Reviewed date:12/12/2024 02:19:18 PM Interpretation: Performing Lab:Madan AUSTINexa10101 Dustin MonteroXprsxfLB[address] Shan Yadav MD Notes/Report: SED RATE BY MODIFIED OMEGA 14 < OR = 30 mm/h N C-REACTIVE PROTEIN (4420) Reviewed date:12/12/2024 02:19:18 PM Interpretation: Performing Lab:Madan AUSTIN-Shkwjn43049 Matt Perry, HwpkvfKH64[address] Shan Yadav MD Notes/Report: C-REACTIVE PROTEIN 4.1 <8.0 mg/L N RHEUMATOID FACTOR (4418) Reviewed date:12/12/2024 02:19:18 PM Interpretation: Performing Lab:Madan AUSTIN-Hwwqxm64613 Matt Perry, AfjvzuUF[address] Shan Yadav MD Notes/Report: RHEUMATOID FACTOR <10 <14 IU/mL N CYCLIC CITRULLINATED PEPTIDE (CCP) AB (IGG) (41003) Reviewed date:12/12/2024 02:19:18 PM Interpretation: Performing Lab:Madan AUSTIN-Dtsaqc46834 Matt Perry, IqllupDI[address] Shan Yadav MD Notes/Report: CYCLIC CITRULLINATED PEPTIDE (CCP) AB (IGG) <16 N Reference Range Negative: <20 Weak Positive: 20-39 Moderate Positive: 40-59 Strong Positive: >59 THYROID PEROXIDASE ANTIBODIE S (5081) Reviewed date:12/16/2024 10:58:21 PM Interpretation: Performing Lab:Madan ANTUNEZ-Pierre [address], Pierre MillsCtyjRV[address] Santhosh Alexander Notes/Report: THYROID PEROXIDASE ANTIBODIES 68 <9 IU/mL H MARANDA SCREEN, IFA, W/REFL TITE R AND PATTERN (249) Reviewed date:12/16/2024 10:58:21 PM Interpretation: Performing Lab:GEOVANNA [facility] Dhruv-Rkxqgs51533 Matt Perry, ZjtholIP[address] Shan Yadav MD Notes/Report: MARANDA SCREEN, IFA POSITIVE NEGATIVE A MARANDA IFA is a first line screen for detecting the presence of up to approximately 150 autoantibodies in various autoimmune diseases. A positive MARANDA IFA result is suggestive of autoimmune disease and reflexes to titer and pattern. Further laboratory testing may be considered if clinically indicated. For additional information, please refer to http://education.MobiVita/faq/XUK662 (This link is being provided for informational/ educational purposes only.) MARANDA TITER 1:40 H A low level MARANDA titer may be present in pre-clinical autoimmune diseases and normal individuals. Reference Range <1:40 Negative 1:40-1:80 Low Antibody Level >1:80 Elevated Antibody Level MARANDA PATTERN Nuclear, Dense Fine Speckled A Dense fine speckled pattern is seen in normal individuals and rarely associated with systemic lupus erythematosis (SLE), Sjogren's syndrome and systemic sclerosis. AC-2: Dense Fine Speckled International Consensus on MARANDA Patterns (https://doi.org/10.1515 /plop-6398-2853) .HEMOGLOBIN A1c (496) Reviewed date:02/10/2025 02:22:14 PM Interpretation: Performing Lab:[facility] [place] [address] Shan Yadav Notes/Report: FASTING: YES FASTING:YES SPLIT 02/04/2025 FROM [id number] HEMOGLOBIN A1c 6.2 <5.7 % of total Hgb H For someone without known diabetes, a hemoglobin A1c value between 5.7% and 6.4% is consistent with prediabetes and should be confirmed with a follow-up test. For someone with known diabetes, a value <7% indicates that their diabetes is well controlled. A1c targets should be individualized based on duration of diabetes, age, comorbid conditions, and other considerations. This assay result is consistent with an increased risk of diabetes. Currently, no consensus exists regarding use of hemoglobin A1c for diagnosis of diabetes for children. INSULIN (561) Reviewed date:02/10/2025 02:21:37 PM Interpretation: Performing Lab:Madan AUSTIN-Zqdjaj06607 Dustin MonteroVcyjesDW[address] Shan Yadav MD Notes/Report: FASTING: YES FASTING:YES SPLIT 02/04/2025 FROM [id number] INSULIN 17.3 N Reference Range < or = 18.4 Risk: Optimal < or = 18.4 Moderate NA High >18.4 Adult cardiovascular event risk category cut points (optimal, moderate, high) are based on Insulin Reference Interval studies performed at [facility] in 2021. DHEA SULFATE (402) Reviewed date:12/12/2024 02:19:18 PM Interpretation: Performing Lab:Madan AUSTIN-Yactlj11075 Dustin MonteroDeqmplYQ[address] Shan Yadav MD Notes/Report: DHEA SULFATE 24 9-118 mcg/dL N VITAMIN B12/FOLATE, SERUM PA DEMETRIA (1267) Reviewed date:12/12/2024 02:19:18 PM Interpretation: Performing Lab:Madan AUSTIN LenexaKS[address] Shan Yadav MD Notes/Report: VITAMIN B12 005 298-2828 pg/mL N Please Note: Although the reference range for vitamin B12 is 200-1100 pg/mL, it has been reported that between 5 and 10% of patients with values between 200 and 400 pg/mL may experience neuropsychiatric and hematologic abnormalities due to occult B12 deficiency; less than 1% of patients with values above 400 pg/mL will have symptoms. FOLATE, SERUM 19.2 N Reference Range Low: <3.4 Borderline: 3.4-5.4 Normal: >5.4 FERRITIN (457) Reviewed date:12/12/2024 02:19:18 [...] Notes/Report: FASTING: YES FASTING:YES SPLIT 02/04/2025 FROM [id number] T4, FREE 1.1 0.8-1.8 ng/dL N CORTISOL, TOTAL (367) Reviewed date:12/09/2024 09:32:18 AM Interpretation: Performing Lab:Madan AUSTIN LenexaKS[address] Shan Yadav MD Notes/Report: FASTING: YES FASTING:YES CORTISOL, TOTAL 1.4 L Reference Range: For 8 a.m.(7-9 a.m.) Specimen: 4.0-22.0 Reference Range: For 4 p.m.(3-5 p.m.) Specimen: 3.0-17.0 * Please interpret above results accordingly * CORTISOL, TOTAL (367) Reviewed date:02/07/2025 09:46:35 AM Interpretation: Performing Lab:Madan AUSTIN-Eirzxi59669 Matt Perry, SzfcdrGK[address] Shan Yadav MD Notes/Report: CORTISOL, TOTAL 1.5 L Reference Range: For 8 a.m.(7-9 a.m.) Specimen: 4.0-22.0 Reference Range: For 4 p.m.(3-5 p.m.) Specimen: 3.0-17.0 * Please interpret above results accordingly * TSH (899) Reviewed date:02/10/2025 02:21:51 PM Interpretation: Performing Lab:Madan AUSTIN, RimqxnRH[address] Shan Yadav MD Notes/Report: SPLIT 02/04/2025 FROM [id number] FASTING:YES FASTING: YES TSH 3.36 0.40-4.50 mIU/L N TSH (899) Reviewed date:12/12/2024 02:19:18 PM Interpretation: Performing Lab:Madan AUSTIN, GaliziTI[address] hSan Yadav MD Notes/Report: TSH 3.48 0.40-4.50 mIU/L N T3, FREE (72482) Reviewed date:12/12/2024 02:19:18 PM Interpretation: Performing Lab:Madan AUSTIN LenexaKS[address] Shan Yadav MD Notes/Report: T3, FREE 2.4 2.3-4.2 pg/mL N T3, FREE (93735) Reviewed date:02/10/2025 02:22:02 PM Interpretation: Performing Lab:Madan AUSTIN, BecesjXH[address] Shan Yadav MD Notes/Report: FASTING: YES FASTING:YES SPLIT 02/04/2025 FROM [id number] T3, FREE 3.0 2.3-4.2 pg/mL N .VITAMIN D,25-OH,TOTAL,IA (1 7306) Reviewed date:12/12/2024 02:19:18 PM Interpretation: Performing Lab:Madan AUSTIN-Mnnscx93495 Matt Perry, JsnpyoCS[address] Shan Yadav MD Notes/Report: VITAMIN D,25-OH,TOTAL,IA 33 30-100 ng/mL N Vitamin D Status 25-OH Vitamin D: Deficiency: <20 ng/mL Insufficiency: 20 - 29 ng/mL Optimal: > or = 30 ng/mL For 25-OH Vitamin D testing on patients on D2-supplementation and patients for whom quantitation of D2 and D3 fractions is required, the QuestAssureD(TM) 25-OH VIT D, (D2,D3), LC/MS/MS is recommended: order code 28648 (patients >2yrs). See Note 1 Note 1 For additional information, please refer to http://education.MobiVita/faq/VAC792 (This link is being provided for informational/ educational purposes only.) ALDOSTERONE/PLASMA RENIN ACT IVITY RATIO,LC/MS/MS (76792) Reviewed date:12/16/2024 10:58:21 PM Interpretation: Performing Lab:Madan KEITH/[facility],[address] [facility] Ritika Mei MD,PhD,GUNNAR Notes/Report: ALDOSTERONE, LC/MS/MS 9 Adult Reference Ranges for Aldosterone: Upright 8:00-10:00 am < or = 28 ng/dL Upright 4:00-6:00 pm < or = 21 ng/dL Supine 8:00-10:00 am 3-16 ng/dL This test was developed and its analytical performance characteristics have been determined by [facility]. It has not been cleared or approved by the FDA. This assay has been validated pursuant to the CLIA regulations and is used for clinical purposes. PLASMA RENIN ACTIVITY, LC/MS/MS 1.02 0.25-5.82 ng/mL/h TAMELA/PRA RATIO 8.8 0.9-28.9 Ratio CORTISOL, LC/MS, SALIVA, 2 S ANTONIO (67280) Reviewed date:02/16/2025 05:14:04 PM Interpretation: Performing Lab:EZ [facility],[address] [facility] Ritika Mei MD,PhD,GUNNAR Notes/Report: PATIENT NOT FASTING; ADVISED TO RETURN FOR COLLECTION. URINE VOLUME: 1999 DRAW DATE 1 02/02/2025 DRAW TIME 1 11:10 PM CORTISOL, SALIVA SAMPLE 1 0.49 8-10 AM: 0.04-0.56 mcg/dL noon-2 PM: < OR = 0.21 mcg/dL 4-6 PM: < OR = 0.15 mcg/dL 10 PM-1 AM: < OR = 0.09 mcg/dL This test was developed and its analytical performance characteristics have been determined by [facility]. It has not been cleared or approved by the FDA. This assay has been validated pursuant to the CLIA regulations and is used for clinical purposes. DRAW DATE 2 02/03/2025 DRAW TIME 2 11:00 PM CORTISOL, SALIVA SAMPLE 2 0.03 8-10 AM: 0.04-0.56 mcg/dL noon-2 PM: < OR = 0.21 mcg/dL 4-6 PM: < OR = 0.15 mcg/dL 10 PM-1 AM: < OR = 0.09 mcg/dL This test was developed and its analytical performance characteristics have been determined by [facility]. It has not been cleared or approved by the FDA. This assay has been validated pursuant to the CLIA regulations and is used for clinical purposes. CARDIO IQ(R) INSULIN RESISTA NCE PANEL WITH SCORE (05137) Reviewed date:02/13/2025 12:46:41 PM Interpretation: Performing Lab:EZ, [facility],[address] [facility] Ritika Mei MD,PhD,GUNNAR Notes/Report: FASTING: YES FASTING:YES SPLIT 02/04/2025 FROM [id number] INSULIN, INTACT, LC/MS/MS 14 < OR = 16 uIU/mL Insulin concentration can be converted to pmol/L by applying the conversion factor: 1 uIU/mL = 5.97 pmol/L For additional information, please refer to http://[employer].MobiVita/faq/VJW586 (This link is being provided for informational/educationa l purposes only.) This test was developed and its analytical performance characteristics have been determined by [facility]. It has not been cleared or approved by the FDA. This assay has been validated pursuant to the CLIA regulations and is used for clinical purposes. C-PEPTIDE, LC/MS/MS 3.16 0.68-2.16 ng/mL H INSULIN RESISTANCE SCORE 86 < OR = 66 H Insulin Sensitive < 33; Impaired Insulin Sensitivity 33-66; Insulin Resistant >66 A score below 33 is optimal. The insulin resistance score correlates with steady state glucose levels achieved during an insulin suppression test, a standard research test for insulin resistance. The score is based on insulin and C-peptide results (Ruma F, Gladys D, Randy TRIPLETT, et al. Insulin resistance probability scores for apparently healthy individuals. J Endocr Soc. 2018;2(9):2980-4399). For additional information, please refer to http://[employer]/faq/PXO615 (This link is being provided for informational/educationa l purposes only.) This test was developed and its analytical performance characteristics have been determined by [facility]. It has not been cleared or approved by the FDA. This assay has been validated pursuant to the CLIA regulations and is used for clinical purposes. ACTH, PLASMA (211) Reviewed date:12/12/2024 05:12:50 PM Interpretation: Performing Lab:Madan YEH/[facility] [place] Desire Silva, MtlfklmiqOS[address] Julián Rodgers M.D.,PhD Notes/Report: ACTH, PLASMA 18 6-50 pg/mL Reference range applies only to specimens collected between 7am-10am. DEXAMETHASONE (56654) Reviewed date:02/10/2025 07:30:27 PM Interpretation: Performing Lab:Madan KEITH/[facility],[address] [address] [facility]CA[address] Ritika Mei MD,PhD,GUNNAR Notes/Report: DEXAMETHASONE 474 Reference Ranges for Dexamethasone: Baseline: Less than 20 ng/dL 1 mg dexamethasone overnight: 180-550 ng/dL (8:00-10:00 AM) This test was developed and its analytical performance characteristics have been determined by [facility]. It has not been cleared or approved by the FDA. This assay has been validated pursuant to the CLIA regulations and is used for clinical purposes. DEXAMETHASONE (51586) Reviewed date:12/23/2024 11:05:46 PM Interpretation: Performing Lab:EZ, [facility],[address] [facility] Ritika Mei MD,PhD,GUNNAR Notes/Report: FASTING: YES FASTING:YES DEXAMETHASONE 316 Reference Ranges for Dexamethasone: Baseline: Less than 20 ng/dL 1 mg dexamethasone overnight: 180-550 ng/dL (8:00-10:00 AM) This test was developed and its analytical performance characteristics have been determined by [facility]. It has not been cleared or approved by the FDA. This assay has been validated pursuant to the CLIA regulations and is used for clinical purposes. CORTISOL, FREE, 24 HOUR URIN E (81120) Reviewed date:02/13/2025 12:46:41 PM Interpretation: Performing Lab:SAG[facility],[address] [facility] Ritika Mei MD,PhD,GUNNAR Notes/Report: URINE VOLUME: 2000 PATIENT NOT FASTING; ADVISED TO RETURN FOR COLLECTION. TOTAL VOLUME 2000 CORTISOL, FREE, URINE SEE NOTE 4.0-50.0 mcg/24 h Results are below reportable range for this analyte, which is 1.0 mcg/L. CORTISOL, FREE, URINE SEE NOTE Reference Range: ADULTS: 3.1-42.3 Unable to calculate. Cortisol is below the sensitivity of this assay. CREATININE, URINE 1.68 0.50-2.15 g/24 h This test was developed and its analytical performance characteristics have been determined by [facility]. It has not been cleared or approved by the FDA. This assay has been validated pursuant to the CLIA regulations and is used for clinical purposes. 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 [address] [place] [address] 12/06/2024 Yumiko Jay Impaired fasting gl ucose R73.01 ; Essential (primary) hypertension I10 ; Autoimmune thyroiditis E06.3 ; Other fatigue R53.83 ; Abnormal weight gain R63.5 and Dietary counseling and surveillance Z71.[address] 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 ; Abnormal weight gain R63.5 and Dietary counseling and surveillance Z71.3 Assessments Encounter Date Diagnosis (ICD Code) Assessment Notes Treatment Notes Treatment Clinical Notes Section Notes 12/06/2024 Essential (primary) hypertension (ICD-10 - I10) 12/06/2024 Impaired fasting glucose (ICD-10 - R73.01) 01/17/2025 Autoimmune thyroiditis (ICD-10 - E06.3) 01/17/2025 Essential (primary) hypertension (ICD-10 - I10) 12/06/2024 Autoimmune thyroiditis (ICD-10 - E06.3) 01/17/2025 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) 01/17/2025 Abnormal weight gain (ICD-10 - R63.5) 12/06/2024 Other fatigue (ICD-10 - R53.83) 12/06/2024 Abnormal weight gain (ICD-10 - R63.5) [...] Order rheumatoid factor test- Consider referral to tank builder helper based on test results and clinical progression Spent 45 minutes preparing to see the patient (ex review of tests/chart), obtaining and / or reviewing separately obtained history, performing a medically appropriate examination and/or evaluation, counseling and educating the patient/family/clinical care coordinator, ordering medications, tests, or procedures, referring and communicating with other health customer care team coach, documenting clinical information in the electronic or other health record, independently interpreting results and communicating results to the patient/family/clinical care coordinator and care coordinating patient plan. Patient alert [...] else- Patient informed about consistent absorption and cloth tester quality compared to generic alternatives- Provided samples of [...] examination and/or evaluation, counseling and educating the patient/family/clinical care coordinator, ordering medications, tests, or procedures, referring and communicating with other health customer care team coach, documenting clinical information in the electronic or other health record, independently interpreting results and communicating results to the patient/family/clinical care coordinator and care coordinating patient plan. Patient alert and oriented x 4 and aware of discussion noted above and in agreeance to plan in management of hypothyroidism, abnormal weight gain, hypertension and concern for hypercortisolism. Plan Of Treatment Next Appt Details Provider Name:Yumiko Jay, 10:00:00 AM, [address] [place] [address], [id number], Insurance Providers Payer Name Payer Address Payer Phone Subscriber Number Group Number Insured Name Patient Relationship to Insured Coverage Start Date Coverage End Date [employer] [address] [place], [place] [id number] [phone] [id number] Qi Anders Self - patient is the insured
--- OUTSIDE RECORDS SUMMARY | 2025-03-12 19:53 | XMS_ITS | Continuity of Care Document ---
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 tel:[phone] [facility], [address], [place], [place], [address], [place] tel:[phone] [facility] No Information 5 Yang Stratton [address], [place], [place], [address] , [place]. tel:[phone] OFFICE/OUTPA TIENT VISIT, EST [facility], [address], [place], [place], [address], [place] tel:[phone] [facility] hashimoto1 (chief complaint) glucose1 (chief complaint) HLP (chief complaint) Sidney's thyroiditisHypergly cemiaMixed hyperlipidemiaAbnor mal weight gain 5 Yang Stratton [address], [place], [place], [address] , [place]. tel:[phone] PREV VISIT, EST, 65 & OVER [facility], [address], [place], [place], [address], [place] tel:[phone] [facility] physical (chief complaint) Encounter for general adult medical examination without abnormal findings 5 Yang Stratton [address], [place], [place], [address] , [place]. tel:[phone] OFFICE/OUTPA TIENT VISIT, [facility], [address], [place], [place], [address], [place] tel:[phone] [facility] Medicine cough1 (chief complaint) Acute bronchitis, unspecified 5- 5 Soria Fritz. [address], [place], [place], [address] , [place]. tel:[phone] OFFICE/OUTPA TIENT VISIT, [facility], [address], [place], [place], [address], [place] tel:[phone] [facility] cough1 (chief complaint) Acute bronchitis 8- 5 Yang Hu. [address], [place], [place], [address] , [place]. tel:[phone] OFFICE/OUTPA TIENT VISIT, [facility], [address], [place], [place], [address], [place] tel:[phone] [facility] HTN (chief complaint) anxiety1 (chief complaint) Generalized anxiety disorderEssential (primary) hypertension 0 4 Yang Hu. [address], [place], [place], [address] , [place]. tel:[phone] OFFICE/OUTPA TIENT VISIT, [facility], [address], [place], [place], [address], [place] tel:[phone] [facility] anxiety1 (chief complaint) HTN (chief complaint) Generalized anxiety disorderEssential (primary) hypertension 3- 4 Soria Fritz. [address], [place], [place], [address] , [place]. tel:[phone] OFFICE/OUTPA TIENT VISIT, [facility], [address], [place], [place], [address], [place] tel:[phone] [facility] anxiety1 (chief complaint) knee pain1 (chief complaint) Generalized anxiety disorderPain in right knee Sep-1 8-202 4 Soria Fritz. [address], [place], [place], [address] , [place]. tel:[phone] OFFICE/OUTPA TIENT VISIT, [facility], [address], [place], [place], [address], [place] tel:[phone] [facility] liver (chief complaint) psoriasis1 (chief complaint) anxiety1 (chief complaint) rash1 (chief complaint) Generalized anxiety disorderFatty liverPsoriasisTinea corporis 4 Soria Fritz. [address], [place], [place], [address] , [place]. tel:[phone] OFFICE/OUTPA TIENT VISIT, [facility], [address], [place], [place], [address], [place] tel:[phone] [facility] HTN (chief complaint) anxiety1 (chief complaint) weight gain1 (chief complaint) shoulder1 (chief complaint) Essential (primary) hypertensionGeneral ized anxiety disorderGanglion, left shoulderAbnormal weight gain 4 Soria Fritz. [address], [place], [place], [address] , [place]. tel:[phone] OFFICE/OUTPA TIENT VISIT, [facility], [address], [place], [place], [address], [place] tel:[phone] [facility] nodule1 (chief complaint) knee pain1 (chief complaint) HTN (chief complaint) Ganglion, left shoulderPain in right kneeEssential (primary) hypertension 4 Soria Fritz. [address], [place], [place], [address] , [place]. tel:[phone] OFFICE/OUTPA TIENT VISIT, [facility], [address], [place], [place], [address], [place] tel:[phone] [facility] lymph (chief complaint) Lymphadenopathy 4 Soria Fritz. [address], [place], [place], [address] , [place]. tel:[phone] OFFICE/OUTPA TIENT VISIT, [facility], [address], [place], [place], [address], [place] tel:[phone] [facility] HTN (chief complaint) anxiety1 (chief complaint) skin (chief complaint) lymph1 (chief complaint) LymphadenopathyEsse ntial (primary) hypertensionGeneral ized anxiety disorderTinea corporis Oct- 4 Yang Hu. [address], [place], [place], [address] , [place]. tel:[phone] OFFICE/OUTPA TIENT VISIT, [facility], [address], [place], [place], [address], [place] tel:[phone] [facility] HTN (chief complaint) viral (chief complaint) Essential (primary) hypertensionViral infection 4 Yang Hu. [address], [place], [place], [address] , [place]. tel:[phone] OFFICE/OUTPA TIENT VISIT, [facility], [address] [place], [address], [place] tel:[phone] [facility] HTN (chief complaint) HLP (chief complaint) LFT (chief complaint) hashimoto1 (chief complaint) weight gain1 (chief complaint) anxiety1 (chief complaint) Essential (primary) hypertensionHashimo to's thyroiditisFatty liverMixed hyperlipidemiaAbnor mal weight gainGeneralized anxiety disorder 4 Yang Hu. [address], [place], [place], [address] , [place]. tel:[phone] OFFICE/OUTPA TIENT VISIT, [facility], [address] [place], [address], [place] tel:[phone] [facility] HTN (chief complaint) anxiety1 (chief complaint) weight gain1 (chief complaint) Essential (primary) hypertensionGeneral ized anxiety disorderAbnormal weight gainHashimoto's thyroiditis 4 Yang Hu. [address], [place], [place], [address] , [place]. tel:[phone] OFFICE/OUTPA TIENT VISIT, [facility], [address], [place], [place], [address], [place] tel:[phone] [facility] cough1 (chief complaint) Acute bronchitis 4 Yang Hu. [address], [place], [place], [address] , [place]. tel:[phone] OFFICE/OUTPA TIENT VISIT, EST [facility], [address], [place], [place], [address], [place] tel:[phone] [facility] HTN (chief complaint) sick (chief complaint) bile duct stone1 (chief complaint) anxiety1 (chief complaint) Generalized anxiety disorderEssential (primary) hypertensionCholedo cholithiasis w/o cholecystitis w/o obstructionViral infection 4 Yang Hu. [address], [place], [place], [address] , [place]. tel:[phone] PREV VISIT, EST, 65 & OVER [facility], [address], [place], [place], [address], [place] tel:[phone] [facility] physical (chief complaint) Encounter for general adult medical exam w abnormal findingsEssential (primary) hypertensionGeneral ized anxiety disorderHashimoto's thyroiditis 3 Yang Hu. [address], [place], [place], [address] , [place]. tel:[phone] OFFICE/OUTPA TIENT VISIT, [facility], [address], [address], [place] tel:[phone] [facility] HTN (chief complaint) RLS (chief complaint) knee pain1 (chief complaint) Essential (primary) hypertensionRestles s legs syndromePrimary osteoarthritis of right kneeInconclusive mammogram 3 Yang Hu. [address], [place], [place], [address] , [place]. tel:[phone] OFFICE/OUTPA TIENT VISIT, [facility], [address], [place], [place], [address], [place] tel:[phone] [facility] knee pain1 (chief complaint) stone1 (chief complaint) anxiety1 (chief complaint) HTN (chief complaint) Essential (primary) hypertensionCholedo cholithiasis w/o cholecystitis w/o obstructionPrimary osteoarthritis of right kneeGeneralized Anxiety Disorder 3 Soria Fritz. [address], [place], [place], [address] , [place]. tel:[phone] OFFICE/OUTPA TIENT VISIT, [facility], [address], [place], [place], [address], [place] tel:[phone] [facility] abd pain1 (chief complaint) HTN (chief complaint) headache1 (chief complaint) Essential (primary) hypertensionGeneral ized abdominal painHeadacheCalculu s of bile duct w/o cholangitis w/o obstruction Mar- 3 Soria Fritz. [address], [place], [place], [address] , [place]. tel:[phone] OFFICE/OUTPA TIENT VISIT, [facility], [address], [place], [place], [address], [place] tel:[phone] [facility] knee pain1 (chief complaint) hashimoto1 (chief complaint) neck pain1 (chief complaint) Sidney's thyroiditisPain in right kneeLocalized swelling w/ lump of neck Jan- 3 Soria Fritz. [address], [place], [place], [address] , [place]. tel:[phone] OFFICE/OUTPA TIENT VISIT, [facility], [address], [place], [place], [address], [place] tel:[phone] [facility] neck pain1 (chief complaint) HTN (chief complaint) Essential (primary) hypertensionLocaliz ed swelling w/ lump of neckHashimoto's thyroiditis 3 Yang Hu. [address], [place], [place], [address] , [place]. tel:[phone] OFFICE/OUTPA TIENT VISIT, [facility], [address], [place], [place], [address], [place] tel:[phone] [facility] edema1 (chief complaint) dizziness1 (chief complaint) anxiety1 (chief complaint) EdemaEssential (primary) hypertensionGeneral ized anxiety disorderCardiac murmur, unspecified 3 Yang Hu. [address], [place], [place], [address] , [place]. tel:[phone] OFFICE/OUTPA TIENT VISIT, [facility], [address], [place], [place], [address], [place] tel:[phone] [facility] weight gain1 (chief complaint) edema1 (chief complaint) Abnormal weight gainEdemaEssential (primary) hypertensionHashimo to's thyroiditis 3 Yang Hu. [address], [place], [place], [address] , [place]. tel:[phone] OFFICE/OUTPA TIENT VISIT, [facility], [address], [place], [place], [address], [place] tel:[phone] [facility] OAB (chief complaint) shoulder pain1 (chief complaint) jaw pain1 (chief complaint) HTN (chief complaint) anxiety1 (chief complaint) Essential (primary) hypertensionGeneral ized anxiety disorderOveractive bladderTremorPain in left shoulderOcclusion and stenosis of bilateral carotid arteries Fe 3 Yang Hu. [address], [place], [place], [address] , [place]. tel:[phone] OFFICE/OUTPA TIENT VISIT, [facility], [address], [place], [place], [address], [place] tel:[phone] [facility] OAB (chief complaint) anxiety1 (chief complaint) neck pain1 (chief complaint) HTN (chief complaint) Essential (primary) hypertensionGeneral ized anxiety disorderOveractive bladderCervicalgiaO ther specified disorder of bone density 2 Yang Stratton [address], [place], [place], [address] , [place]. tel:[phone] OFFICE/OUTPA TIENT VISIT, [facility], [address], [place], [place], [address], [place] tel:[phone] [facility] neck pain1 (chief complaint) Abnormal jaw closureCervicalgiaT remor 2 Yang Stratton [address], [place], [place], [address] , [place]. tel:[phone] Referring Provider: Cata Bateman [address] [facility] [address], [place], [place], [address]. tel:[phone] OFFICE/OUTPA TIENT VISIT, [facility], [address], [place], [place], [address], [place] tel:[phone] [facility] muscle pain (chief complaint) muscle pain1 (chief complaint) HTN (chief complaint) glucose (chief complaint) Essential (primary) hypertensionOther specified disorder of bone densityOther muscle spasmAbnormal jaw closureHyperglycemi a 2 Yang Stratton [address], [place], [place], [address] , [place]. tel:[phone] Referring Provider: Cata Bateman [address], [place], [place], [address]. tel:[phone] OFFICE/OUTPA TIENT VISIT, [facility], [address], [address], [place] tel:[phone] [facility] HTN (chief complaint) tinnitus1 (chief complaint) neuropathy 1 (chief complaint) anxiety1 (chief complaint) Essential (primary) hypertensionEpisodi c cluster headache, not intractableCramp and spasmGeneralized Anxiety Disorder 2 Soria Fritz. [address], [place], [place], [address] , [place]. tel:[phone] Referring Provider: Cata Bateman [address], [place], [place], [address]. tel:[phone] OFFICE/OUTPA TIENT VISIT, [facility], [address], [place], [place], [address], [place] tel:[phone] [facility] UTI1 (chief complaint) weakness1 (chief complaint) HTN (chief complaint) Hypertensive emergencyTremorAcut e cystitis w/ hematuriaTinnitus, bilateral 2 Yang Hu. [address], [place], [place], [address] , [place]. tel:[phone] Referring Provider: Cata [address], [place], [place], [address]. tel:[phone] OFFICE/OUTPA TIENT VISIT, [facility], [address], [place], [place], [address], [place] tel:[phone] [facility] sick (chief complaint) Acute sinusitisViral infection 2 Yang Hu. [address], [place], [place], [address] , [place]. tel:[phone] Referring Provider: Cata Bateman [facility] A, [place], [place], [address]. tel:[phone] PREV VISIT, EST, 65 & OVER [facility], [address], [place], [place], [address], [place] tel:[phone] [facility] physical (chief complaint) Encounter for general adult medical exam w abnormal findingsEssential (primary) hypertensionHypothy roidismUrge incontinenceUrinary tract infectionGeneralize d anxiety disorder 2 Yang Hu. [address], [place], [place], [address] , [place]. tel:[phone] Referring Provider: Cata [address], [place], [place], [address]. tel:[phone] OFFICE/OUTPA TIENT VISIT, [facility], [address], [place], [place], [address], [place] tel:[phone] [facility] UTi1 (chief complaint) thyroid1 (chief complaint) lipoma1 (chief complaint) Urinary tract infectionHypothyroi dismLipoma 2 Yang Hu. [address], [place], [place], [address] , [place]. tel:[phone] Referring Provider: Cata Bateman [address], [place], [place], [address]. tel:[phone] OFFICE/OUTPA TIENT VISIT, [facility], [address], [place], [place], [address], [place] tel:[phone] [facility] HTN (chief complaint) anxiety1 (chief complaint) oAB (chief complaint) thyroid1 (chief complaint) HypothyroidismOvera ctive bladderGeneralized anxiety disorderEssential (primary) hypertension 2 Yang Hu. [address], [place], [place], [address] , [place]. tel:[phone] Referring Provider: Cata [address], [place], [place], [address]. tel:[phone] OFFICE/OUTPA TIENT VISIT, [facility], [address], [place], [place], [address], [place] tel:[phone] [facility] OAB1 (chief complaint) thyroid1 (chief complaint) weight loss1 (chief complaint) Overactive bladderUrge incontinenceAbnorma l weight lossHypothyroidism 1 Yang Hu. [address], [place], [place], [address] , [place]. tel:[phone] Referring Provider: Cata Bat[address], [place], [place], [address]. tel:[phone] OFFICE/OUTPA TIENT VISIT, [facility], [address], [place], [place], [address], [place] tel:[phone] [facility] fatty tumor1 (chief complaint) hip pain1 (chief complaint) weight loss1 (chief complaint) anxiety1 (chief complaint) thyroid1 (chief complaint) Abnormal weight lossGeneralized anxiety disorderHypothyroid ismLipomaPain in right hip Sep- 0 1 Yang Stratton [address], [place], [place], [address] , [place]. tel:[phone] Referring Provider: Cata Bateman [address], [place], [place], [address]. tel:[phone] OFFICE/OUTPA TIENT VISIT, [facility], [address], [place], [place], [address], [place] tel:[phone] [facility] hip pain1 (chief complaint) weight loss1 (chief complaint) anxiety1 (chief complaint) thyroid1 (chief complaint) Allergic contact dermatitis due to plants, except foodHypothyroidismG eneralized anxiety disorderAbnormal weight loss Jan-0 1 Yang Stratton [address], [place], [place], [address] , [place]. tel:[phone] Referring Provider: [address]ata [address], [place], [place], [address]. tel:[phone] OFFICE/OUTPA TIENT VISIT, [facility], [address], [address], [place] tel:[phone] [facility] phos (chief complaint) UTI1 (chief complaint) hypothyroi dism1 (chief complaint) hip pain1 (chief complaint) HypothyroidismOther disorders of phosphorus metabolismUrinary tract infectionPain in right hip Ramon- 1 Yang Stratton [address], [place], [place], [address] , [place]. tel:[phone] Referring Provider: Cata Bateman [address], [place], [place], [address]. tel:[phone] OFFICE/OUTPA TIENT VISIT, [facility], [address], [place], [place], [address], [place] tel:[phone] [facility] hip pain1 (chief complaint) fatty tumor1 (chief complaint) anxiety1 (chief complaint) Pain in right hipLipomaGeneralize d Anxiety DisorderOther specified soft tissue disorders 1 Yang Stratton [address], [place], [place], [address] , [place]. tel:[phone] Referring Provider: Fritz Soria [address], [place], [place], [address]. tel:[phone] OFFICE/OUTPA TIENT VISIT, [facility], [address], [place], [place], [address], [place] tel:[phone] [facility] phos (chief complaint) LFT (chief complaint) thyroid1 (chief complaint) pain (chief complaint) Other spondylosis, lumbar regionOther disorders of phosphorus metabolismFatty liverHypothyroidism 1 Yang Stratton [address], [place], [place], [address] , [place]. tel:[phone] Referring Provider: Cata Bateman [address], [place], [place], [address]. tel:[phone] OFFICE/OUTPA TIENT VISIT, [facility], [address], [place], [place], [address], [place] tel:[phone] [facility] pain (chief complaint) anxieyt1 (chief complaint) HTN (chief complaint) Other spondylosis, lumbar regionGeneralized anxiety disorderEssential (primary) hypertension 1 Yang Stratton [address], [place], [place], [address] , [place]. tel:[phone] Referring Provider: Cata Bateman [address], [place], [place], [address]. tel:[phone] OFFICE/OUTPA TIENT VISIT, [facility], [address], [place], [place], [address], [place] tel:[phone] [facility] anxiety1 (chief complaint) back pain1 (chief complaint) Generalized anxiety disorderOther spondylosis, lumbar region Sep- 1 Yang Stratton [address], [place], [place], [address] , [place]. tel:[phone] Referring Provider: Fritz Soria, [address], [place], [place], [address]. tel:[phone] PREV VISIT, EST, 65 & OVER [facility], [address], [place], [place], [address], [place] tel:[phone] [facility] physical (chief complaint) Encounter for general adult medical exam w abnormal findingsEssential (primary) hypertensionGeneral ized anxiety disorderOveractive bladderOther spondylosis, lumbar region Sep-0 1 Yang Stratton [address], [place], [place], [address] , [place]. tel:[phone] Referring Provider: Cata Bateman [address], [place], [place], [address]. tel:[phone] OFFICE/OUTPA TIENT VISIT, [facility], [address], [place], [place], [address], [place] tel:[phone] [facility] COVID1 (chief complaint) Viral infectionAcute conjunctivitis of right eye 1 Yang Stratton [address], [place], [place], [address] , [place]. tel:[phone] Referring Provider: Fritz Soria [address], [place], [place], [address]. tel:[phone] OFFICE/OUTPA TIENT VISIT, [facility], [address], [place], [place], [address], [place] tel:[phone] [facility] anxiety1 (chief complaint) pain1 (chief complaint) HTN (chief complaint) OAB (chief complaint) CTD (chief complaint) Raised antibody titerEssential (primary) hypertensionOveract jf bladderPain in right hipGeneralized anxiety disorder 1 Yang Stratton [address], [place], [place], [address] , [place]. [phone] Referring Provider: Cata Bateman [address], [place], [place], [address]. tel:[phone] OFFICE/OUTPA TIENT VISIT, [facility], [address], [place], [place], [address], [place] tel:[phone] [facility] pain (chief complaint) anxiety1 (chief complaint) MARANDA (chief complaint) UTI1 (chief complaint) Generalized anxiety disorderChronic pain syndromeUrinary tract infectionRaised antibody titerEncounter for oth screening for malignant neoplasm of breast 0 Yang Stratton [address], [place], [place], [address] , [place]. tel:[phone] Referring Provider: Cata Bateman [address] [facility] [address], [place], [place], [address]. tel:[phone] OFFICE/OUTPA TIENT VISIT, [facility], [address], [place], [place], [address], [place] tel:[phone] [facility] anxiety1 (chief complaint) pain (chief complaint) UTI1 (chief complaint) fatty liver1 (chief complaint) Urinary tract infectionChronic pain syndromeGeneralized anxiety disorderFatty liver 0 0 Yang Stratton [address], [place], [place], [address] , [place]. tel:[phone] Referring Provider: Cata Bateman [address], [place], [place], [address]. tel:[phone] OFFICE/OUTPA TIENT VISIT, [facility], [address], [place], [place], [address], [place] tel:[phone] [facility] sick (chief complaint) Abdominal painViral infectionUrinary tract infection 0 Yang Stratton [address], [place], [place], [address] , [place]. tel:[phone] Referring Provider: Cata Bateman [address], [place], [place], [address]. tel:[phone] OFFICE/OUTPA TIENT VISIT, [facility], [address], [place], [place], [address], [place] tel:[phone] [facility] back pain1 (chief complaint) anxiety1 (chief complaint) Generalized anxiety disorderOther spondylosis, lumbar region November-0 0 Yang Hu. [address], [place], [place], [address] , [place]. [phone] Referring Provider: Cata Bateman [address], [place], [place], [address]. tel:[phone] OFFICE/OUTPA TIENT VISIT, [facility], [address], [place], [place], [address], [place] tel:[phone] [facility] sick (chief complaint) Viral infection Sep-3 0 Yang Hu. [address], [place], [place], [address] , [place]. tel:[phone] Referring Provider: Cata Bateman [address], [place], [place], [address]. tel:[phone] OFFICE/OUTPA TIENT VISIT, [facility], [address], [place], [place], [address], [place] tel:[phone] [facility] colon polyp (chief complaint) HTN (chief complaint) anxiety1 (chief complaint) pain (chief complaint) Essential (primary) hypertensionGeneral ized anxiety disorderChronic pain syndromePolyp of colon Mar-0 0 Yang Hu. [address], [place], [place], [address] , [place]. tel:[phone] Referring Provider: Cata Bateman [address], [place], [place], [address]. tel:[phone] PREV VISIT, EST, AGE 40-64 [facility], [address], [place], [place], [address], [place] tel:[phone] [facility] physical (chief complaint) Encounter for general adult medical exam w abnormal findingsHyperlipide miaOveractive bladderGeneralized anxiety disorderChronic pain syndromeEssential (primary) hypertension 9 Yang Hu. [address], [place], [place], [address] , [place]. [phone] Referring Provider: Cata Bateman [address], [place], [place], [address]. tel:[phone] OFFICE/OUTPA TIENT VISIT, [facility], [address], [place], [place], [address], [place] tel:[phone] [facility] HLP (chief complaint) anxiety1 (chief complaint) lumbago1 (chief complaint) OAB (chief complaint) Overactive bladderHyperlipidem iaHyperglycemiaGene ralized anxiety disorderChronic pain syndrome 9 Yang Stratton [address], [place], [place], [address] , [place]. [phone] Referring Provider: Cata [address], [place], [place], [address]. tel:[phone] OFFICE/OUTPA TIENT VISIT, [facility], [address], [place], [place], [address], [place] tel:[phone] [facility] OAB (chief complaint) anxiety1 (chief complaint) HTN (chief complaint) HLP (chief complaint) HyperlipidemiaOvera ctive bladderEssential (primary) hypertensionGeneral ized anxiety disorderEncounter for oth screening for malignant neoplasm of breast 9 Yang Stratton [address], [place], [place], [address] , [place]. tel:[phone] Referring Provider: Cata [address], [place], [place], [address]. tel:[phone] OFFICE/OUTPA TIENT VISIT, [facility], [address], [place], [place], [address], [place] tel:[phone] [facility] Medicine colon1 (chief complaint) anxiety1 (chief complaint) HLP (chief complaint) leukopenia 1 (chief complaint) HyperlipidemiaLeuko peniaGeneralized anxiety disorderEncounter for screening for malignant neoplasm of colon 9 Yang Stratton [address], [place], [place], [address] , [place]. tel:[phone] OFFICE/OUTPA TIENT VISIT, EST [facility], [address], [place], [place], [address], [place] tel:[phone] [facility] anxiety1 (chief complaint) back pain1 (chief complaint) shingle1 (chief complaint) Lumbago with sciatica, right sideGeneralized anxiety disorderHerpes simplex infection 9 Yang Stratton [address], [place], [place], [address] , [place]. tel:[phone] Referring Provider: Cata Bateman [address], [place], [place], [address]. tel:[phone] PREV VISIT, EST, AGE 40-64 [facility], [address], [place], [place], [address], [place] tel:[phone] [facility] physical (chief complaint) Encounter for general adult medical exam w abnormal findingsEssential (primary) hypertensionOveract jf bladderHyperlipidem iaLeukopeniaHypergl ycemia 8 Yang Stratton [address], [place], [place], [address] , [place]. tel:[phone] Referring Provider: Cata Bateman [address], [place], [place], [address]. tel:[phone] OFFICE/OUTPA TIENT VISIT, EST [facility], [address], [place], [place], [address], [place] tel:[phone] [facility] back pain1 (chief complaint) biliary1 (chief complaint) HLP (chief complaint) HTn1 (chief complaint) Essential (primary) hypertensionHyperli pidemiaOther spondylosis, lumbosacral regionOveractive bladderCholedocholi thiasis w/o cholecystitis w/o obstruction 8 Yang Stratton [address], [place], [place], [address] , [place]. tel:[phone] Referring Provider: Cata Bateman [address], [place], [place], [address]. tel:[phone] OFFICE/OUTPA TIENT VISIT, [facility], [address], [place], [place], [address], [place] [phone] [facility] OAB1 (chief complaint) anxiety1 (chief complaint) belching1 (chief complaint) weight loss1 (chief complaint) back pain1 (chief complaint) Overactive bladderAbnormal weight lossGeneralized Anxiety DisorderChronic pain syndrome Sep-2 8 Yang Stratton [address], [place], [place], [address] , [place]. [phone] Referring Provider: Cata Bateman [address], [place], [place], [address]. tel:[phone] OFFICE/OUTPA TIENT VISIT, [facility], [address], [place], [place], [address], [place] tel:[phone] [facility] LFT (chief complaint) chronic pain1 (chief complaint) skin lesion1 (chief complaint) anxiety1 (chief complaint) Liver diseaseAbnormal weight lossLipomaNevus, non-neoplasticChron ic pain syndrome Jan-0 8 Yang Stratton [address], [place], [place], [address] , [place]. [phone] Referring Provider: Cata Bateman [address], [place], [place], [address]. tel:[phone] OFFICE/OUTPA TIENT VISIT, [facility], [address], [place], [place], [address], [place] tel:[phone] [facility] anxiety1 (chief complaint) back pain1 (chief complaint) bile duct stone1 (chief complaint) Generalized anxiety disorderChronic pain syndromeCholedochol ithiasis w/o cholecystitis w/o obstructionLiver disease 8 Yang Stratton [address], [place], [place], [address] , [place]. [phone] Referring Provider: Cata Bateman [address], [place], [place], [address]. tel:[phone] OFFICE/OUTPA TIENT VISIT, [facility], [address], [place], [place], [address], [place] tel:[phone] [facility] abdominal pain1 (chief complaint) Abdominal painViral infection 8 Yang Ivy [address], [place], [place], [address] , [place]. [phone] Referring Provider: Cata Bateman [address], [place], [place], [address]. tel:[phone] OFFICE/OUTPA TIENT VISIT, [facility], [address], [place], [place], [address], [place] tel:[phone] [facility] sick1 (chief complaint) anxiety1 (chief complaint) back pain1 (chief complaint) Viral infectionGeneralize d Anxiety DisorderChronic pain syndrome 8 Yang Ivy [address], [place], [place], [address] , [place]. [phone] Referring Provider: Cata Bateman [address], [place], [place], [address]. tel:[phone] PREV VISIT, EST, AGE 40-64 [facility], [address], [place], [place], [address], [place] tel:[phone] [facility] Physical (chief complaint) Encounter for general adult medical exam w abnormal findingsOveractive bladderHyperlipidem iaGeneralized Anxiety Disorder 7 Yang Stratton [address], [place], [place], [address] , [place]. tel:[phone] Referring Provider: Cata Bateman [address], [place], [place], [address]. tel:[phone] OFFICE/OUTPA TIENT VISIT, [facility], [address], [place], [place], [address], [place] tel:[phone] [facility] foot pain1 (chief complaint) incontinen ce1 (chief complaint) HLP (chief complaint) HyperlipidemiaOvera ctive bladderLumbago with sciatica, right sidePain in right foot 7 Yang Hu. [address], [place], [place], [address] , [place]. tel:[phone] Referring Provider: Cata Bateman [address], [place], [place], [address]. tel:[phone] OFFICE/OUTPA TIENT VISIT, [facility], [address], [place], [place], [address], [place] tel:[phone] [facility] anxiety1 (chief complaint) lumbago1 (chief complaint) obesity1 (chief complaint) screening for colon (chief complaint) Generalized Anxiety DisorderLumbago with sciatica, right sideBody mass index (BMI) 32.0-32.9, adultEncounter for screening for malignant neoplasm of colon 7 Yang Stratton [address], [place], [place], [address] , [place]. tel:[phone] Referring Provider: Cata Bateman [address], [place], [place], [address]. tel:[phone] OFFICE/OUTPA TIENT VISIT, [facility], [address], [place], [place], [address], [place] tel:[phone] [facility] glucose1 (chief complaint) HLP (chief complaint) back pain1 (chief complaint) HTN (chief complaint) HyperlipidemiaEssen tial (primary) hypertensionLumbago with sciatica, right sideHyperglycemia 7 Yang Stratton [address], [place], [place], [address] , [place]. tel:[phone] Referring Provider: Cata Bateman [address], [place], [place], [address]. tel:[phone] OFFICE/OUTPA TIENT VISIT, EST [facility], [address], [place], [place], [address], [place] tel:[phone] [facility] Medicine HTN (chief complaint) anxiety1 (chief complaint) heel pain1 (chief complaint) HLP (chief complaint) HyperlipidemiaEssen tial (primary) hypertensionGeneral ized Anxiety DisorderPain in right foot 7 Yang Hu. [address], [place], [place], [address] , [place]. [phone] Referring Provider: [address]ata [address], [place], [place], [address]. tel:[phone] PREV VISIT, EST, AGE 40-64 [facility], [address], [place], [place], [address], [place] tel:[phone] [facility] Physical (chief complaint) Encounter for general adult medical exam w abnormal findingsMixed hyperlipidemiaEssen tial (primary) hypertensionGeneral ized Anxiety Disorder 6 Yang Hu. [address], [place], [place], [address] , [place]. tel:[phone] Referring Provider: Cata Bateman [address], [place], [place], [address]. tel:[phone] OFFICE/OUTPA TIENT VISIT, EST [facility], [address], [place], [place], [address], [place] tel:[phone] [facility] hip pain1 (chief complaint) Anxiety1 (chief complaint) Chronic pain syndromeGeneralized Anxiety DisorderEncounter for oth screening for malignant neoplasm of breast 6 Yang Hu. [address], [place], [place], [address] , [place]. tel:[phone] Referring Provider: Fritz Soria, [address], [place], [place], [address]. tel:[phone] OFFICE/OUTPA TIENT VISIT, [facility], [address], [place], [place], [address], [place] tel:[phone] [facility] hip pain1 (chief complaint) HLP (chief complaint) HTN (chief complaint) Essential (primary) hypertensionMixed hyperlipidemiaPain in left hip 6 Yang Hu. [address], [place], [place], [address] , [place]. [phone] Referring Provider: Cata Bateman [address], [place], [place], [address]. tel:[phone] OFFICE/OUTPA TIENT VISIT, [facility], [address], [place], [place], [address], [place] tel:[phone] [facility] HLP (chief complaint) anxiety1 (chief complaint) pain (chief complaint) low D (chief complaint) Mixed hyperlipidemiaGener alized anxiety disorderChronic pain syndromeEssential (primary) hypertension 6 Yang Hu. [address], [place], [place], [address] , [place]. [phone] Referring Provider: Cata Bateman [address], [place], [place], [address]. tel:[phone] OFFICE/OUTPA TIENT VISIT, [facility], [address], [place], [place], [address], [place] tel:[phone] [facility] cough1 (chief complaint) HTN (chief complaint) HLP (chief complaint) Hyperlipidemia, unspecifiedAcute bronchitis, unspecifiedEssentia l (primary) hypertension 6 Yang Hu. [address], [place], [place], [address] , [place]. [phone] Referring Provider: Cata Bateman [address], [place], [place], [address]. tel:[phone] OFFICE/OUTPA TIENT VISIT, EST [facility], [address], [place], [place], [address], [place] tel:[phone] [facility] HLP1 (chief complaint) low vitamin D1 (chief complaint) neck pain1 (chief complaint) Mixed hyperlipidemiaVitam in D deficiency, unspecifiedChronic pain syndrome 5 Yang Hu. [address], [place], [place], [address] , [place]. [phone] Referring Provider: Cata [address], [place], [place], [address]. tel:[phone] OFFICE/OUTPA TIENT VISIT, [facility], [address], [place], [place], [address], [place] tel:[phone] [facility] pain1 (chief complaint) Anxiety1 (chief complaint) Other spondylosis, cervical regionGeneralized anxiety disorderEncounter for screening for osteoporosis 5 Yang Hu. [address], [place], [place], [address] , [place]. [phone] Referring Provider: Cata Bateman [address], [place], [place], [address]. [phone] PREV VISIT, EST, AGE 40-64 [facility], [address], [place], [place], [address], [place] tel:[phone] [facility] PHysical (chief complaint) Dietary surveillance and counselingEncounter for general adult medical exam w/ abnormal findingEssential (primary) hypertensionGeneral ized anxiety disorderParesthesia of skinDietary counseling and surveillance 5 Yang Stratton [address], [place], [place], [address] , [place]. tel:[phone] Referring Provider: Cata [address], [place], [place], [address]. tel:[phone] OFFICE/OUTPA TIENT VISIT, [facility], [address], [place], [place], [address], [place] tel:[phone] [facility] abd pain (chief complaint) hematuria (chief complaint) Abdominal painGeneralized anxiety disorderHematuriaUn specified essential hypertension 5 Yang Hu. [address], [place], [place], [address] , [place]. tel:[phone] Referring Provider: Cata Bateman [address], [place], [place], [address]. tel:[phone] OFFICE/OUTPA TIENT VISIT, [facility], [address], [place], [place], [address], [place] tel:[phone] [facility] anxiety (chief complaint) joint pain (chief complaint) rash (chief complaint) Pain in joint, site unspecifiedRash and other nonspecific skin eruptionGeneralized anxiety disorderDietary surveillance and counseling 5 Yang Hu. [address], [place], [place], [address] , [place]. tel:[phone] Referring Provider: Cata Bateman [address], [place], [place], [address]. tel:[phone] OFFICE/OUTPA TIENT VISIT, [facility], [address], [place], [place], [address], [place] tel:[phone] [facility] rash (chief complaint) dizzy (chief complaint) GERD (chief complaint) Dietary surveillance and counselingRash and other nonspecific skin eruptionDizzinessGE RD [address] Yang Hu. [address], [place], [place], [address] , [place]. tel:[phone] Referring Provider: Cata Bateman [address], [place], [place], [address]. tel:[phone] OFFICE/OUTPA TIENT VISIT, [facility], [address], [place], [place], [address], [place] tel:[phone] [facility] rash (chief complaint) back pain (chief complaint) UTI (chief complaint) Dietary surveillance and counselingRash and other nonspecific skin eruptionLumbagoUrin tania Tract Infection 4 Yang Hu. [address], [place], [place], [address] , [place]. [phone] Referring Provider: Cata [address], [place], [place], [address]. tel:[phone] OFFICE/OUTPA TIENT VISIT, [facility], [address], [place], [place], [address], [place] tel:[phone] [facility] sick (chief complaint) GERD (chief complaint) anxiety (chief complaint) ObesityStreptococca l sore throatGERDGeneraliz ed anxiety disorder 4 Yang Stratton [address], [place], [place], [address] , [place]. [phone] Referring Provider: Cata Bateman [facility], [place], [place], [address]. tel:[phone] OFFICE/OUTPA TIENT VISIT, [facility], [address], [place], [place], [address], [place] [phone] [facility] GERD (chief complaint) hyperglyce zoila (chief complaint) UTI (chief complaint) HLP (chief complaint) Dietary surveillance and counselingGERDOther and unspecified hyperlipidemiaHyper glycemiaUrinary Tract Infection 4 Yang Hu. [address], [place], [place], [address] , [place]. [phone] Referring Provider: Cata Bateman [address], [place], [place], [address]. tel:[phone] PREV VISIT, EST, AGE 40-64 [facility], [address], [place], [place], [address], [place] tel:[phone] [facility] Physical (chief complaint) Dietary surveillance and counselingRoutine Medical ExamHypertension, UnspecifiedOther and unspecified hyperlipidemiaGener alized anxiety disorderRoutine Medical Exam 4 Yang Hu. [address], [place], [place], [address] , [place]. tel:[phone] Referring Provider: Cata Bateman [address], [place], [place], [address]. tel:[phone] OFFICE/OUTPA TIENT VISIT, [facility], [address], [place], [place], [address], [place] tel:[phone] [facility] itching (chief complaint) HTN (chief complaint) anxiety (chief complaint) TG (chief complaint) Unspecified pruritic disorderHypertensio n, UnspecifiedGenerali zed anxiety disorderDietary surveillance and counselingOther and unspecified hyperlipidemia 4 Yang Hu. [address], [place], [place], [address] , [place]. tel:[phone] Referring Provider: Cata Bateman [address], [place], [place], [address]. tel:[phone] OFFICE/OUTPA TIENT VISIT, [facility], [address], [place], [place], [address], [place] tel:[phone] [facility] HTN (chief complaint) anxiety (chief complaint) arthritis (chief complaint) Dietary surveillance and counselingHypertens ion, UnspecifiedGenerali zed anxiety disorderPain in joint involving multiple sites 4 Yang Hu. [address], [place], [place], [address] , [place]. tel:[phone] Referring Provider: Cata Bateman [address], [place], [place], [address]. tel:[phone] PREV VISIT, EST, AGE 40-64 [facility], [address], [place], [place], [address], [place] tel:[phone] [facility] Annual physica (chief complaint) Dietary surveillance and counselingRoutine Medical ExamHypertension, UnspecifiedPain in joint involving multiple sitesGeneralized anxiety disorderRoutine Medical Exam 3 Yang Hu. [address], [place], [place], [address] , [place]. [phone] Referring Provider: Fritz Soria, [address], [place], [place], [address]. tel:[phone] OFFICE/OUTPA TIENT VISIT, [facility], [address], [place], [place], [address], [place] [phone] [facility] hand/wrist pain (chief complaint) Pain in joint involving forearmDietary surveillance and counseling 3 Yang Hu. [address], [place], [place], [address] , [place]. tel:[phone] Referring Provider: Cata Bateman [address], [place], [place], [address]. tel:[phone] OFFICE/OUTPA TIENT VISIT, [facility], [address], [place], [place], [address], [place] [phone] [facility] anxiety (chief complaint) GERD (chief complaint) HTN (chief complaint) arthritis (chief complaint) Dietary surveillance and counselingHypertens ion, UnspecifiedGenerali zed anxiety disorderPain in joint involving multiple sites 3 Yang Hu. [address], [place], [place], [address] , [place]. [phone] Referring Provider: Cata Bateman [address], [place], [place], [address]. tel:[phone] OFFICE/OUTPA TIENT VISIT, [facility], [address], [place], [place], [address], [place] [phone] [facility] back pain (chief complaint) LumbagoGeneralized anxiety disorderDietary surveillance and counseling 2 Yang Hu. [address], [place], [place], [address] , [place]. tel:[phone] Referring Provider: Cata Bateman [address], [place], [place], [address]. tel:[phone] Family History Family Member Type Diagnosis Age At Onset Sister Problem (finding) Alive and well Father Problem (finding) Alive and well Mother Problem Thyroid disorder Mother Problem (finding) Alive and well Payers Payer name Insurance type Covered constitution party ID Socorro arellano(s) No Information Social History Type Description Quantity Date Captured [...] synthroid yet. Pt states that she saw plate painter recently and had bunch of labs done [...] on due Goal Influenza vaccine. Due on Ma due Goal FOBT. Due on due Goal [...] on due Goal Td vaccine. Due on 23 due Goal Lipid panel. Due on 023 [...] Se due Goal Lipid panel. Due on 023 [...] on 19 due Goal Colonoscopy. Due on due Goal [...] Td vaccine. Due on 17 due Goal Tdap. Due on due Goal [...] closure) ordered Referral Referred To: Reza Forrest [address] [place] [address]
[facility] [place], [address] Ordered: Referrals: Allopathic & Osteopathic Physicians : Internal Medicine : Infectious Disease. Reza Forrest. Evaluate and treat ordered Referral Ordered: Cardiology (related to Hypertensive emergency) ordered Referral Ordered: Referrals: Cardiology. Evaluate and treat ordered Referral Ordered: Urology (related to Urinary tract infection) ordered Referral Ordered: Referrals: Urology. Evaluate and treat ordered Referral Ordered: Cecilio Hanna -Allopathic & Osteopathic Physicians : Surgery (related to Lipoma) ordered Referral Ordered: Cecilio Hanna -Allopathic & Osteopathic Physicians : Surgery (related to Lipoma) ordered Referral Ordered: Ever Garner -Allopathic & Osteopathic Physicians : Orthopaedic Surgery (related to Pain in right hip) ordered Referral Referred To: Ever Garner [address] [place], [place], [phone] Ordered: Referrals: Allopathic & Osteopathic Physicians : Orthopaedic Surgery. Ever Garner. Evaluate and treat ordered Referral Ordered: US THYROID ordered Referral Ordered: MRI JNT OF LWR EXTRE W/O DYE ordered Referral Ordered: Pain Medicine (related to Other spondylosis, lumbar region) ordered Referral Referred To: Dominick REYES, Jose Romeo [address]
[place] [address] [place], [place], [id number] Ordered: Referrals: Jose Tan MD. Evaluate and treat ordered Referral Referred To: Alia Gee MD [address] [facility]
[address] [place], [place], [id number] Ordered: Referrals: Alia Gee MD. Evaluate and [...] treat ordered Referral Referred To: Cecilio Hanna [address] [place], [place] [id number] Ordered: Referrals: Allopathic & Osteopathic Physicians : [...] Referral Ordered: HAND XRAY, TWO VIEW ordered Appointment Qi Anders BOOKED History Of Present Illness Encounter Date Complaint History Of Prese nt Illness anxiety1 Pt has chronic a nxiety Pt denies any depression or any suicidal or homicidal thought Pt denies any crying spells. Pt takes xanax PRN and doing ok. hashimoto1 pt denies any dy sphagia or neck pain pt has not started synthroid yet. Pt states that she saw plate painter recently and had bunch of labs done and she supposes to go back for follow up. Pt denies any dysphagia or neck pain. joint pain1 Pt has diffuse j oint pain. Pt saw endo and she has positive MARANDA Pt will follow up with endo soon. Pt has difficulty losing weight and she feels tired hashimoto1 Pt has sidney .Pt denies any dysphagia or neck pain Pt has low thyroid Pt has been gaining weight and feels tired . glucose1 Pt has mildly hi gh glucose Pt denies any polyuria, polydipsia . HLP Pt has HLP Pt is not on diet physical Pt needs annual physical pt has [...] homicidal thought Pt denies any crying spells. shoulder1 Pt has chronic k nee and shoulder pain Pt has ganglion cyst left shoulder area Pt is seeing ortho and she was told the ganglion cyst is not related to her shoulder . weight gain1 Pt has been gain ing weight gain Pt wants to try GLP-1 anxiety1 Pt has chronic a nxiety Pt denies any depression or any suicidal or homicidal thought Pt denies any crying spells Pt takes xanax PRn and doing ok Pt stopped zoloft which made her worse. HTN Pt has HTN Pt ta kes irbesartan, spironolactone and toprol and her bp is ok. Pt needs refill HTN She takes toprol , spironolactone and [...] was started on triamterene hctz but the resourcing advisor did not know that she was prescribed [...] to fatigue Pt was given zoloft by resourcing advisor but she never tried it. Pt denies [...] made her nauseated. Pt failed OTC med. HTN Pt has HTN pt ta kes irbesartan and toprol and her bp is high today Pt denies any chest pain or headache Pt stats that her bp is around 160/90 at home pt states that she has been having more stress lately sick pt c/o productiv e cough with green mucous ,nonbloody diarrhea, sore throat, sinus congestion headache since 4 days ago Pt denies any fever. her grandson who sleeps with her daily was diagnosed with influenza 4 days ago .Pt denies any sob bile duct stone1 Pt has common b ile duct stone and she had ERCP and she had stent removed recently. pt denies any abd pain or jaundice anxiety1 Pt has chronic a nxiety and [...] and doing ok. Pt overall feels fine HTN Pt has HTn pt ta kes irbesartan 300 mg daily and her bp is borderline high Pt denies any chest pain or headache. RLS Pt has ? RLS and she is on requip now by cardiology. Pt states that she is not sure if it is helping or not .Pt has not had much leg symptoms . knee pain1 Pt has right kne e pain Pt is seeing ortho and she will do PT .Pt already had injections. stone1 Pt has biliary s tone and she has right upper quadrant abd pain and she saw GI and had ERCR with stone removal and stent placement. Pt will have stent removed in 3 months Pt states that her abd pain improved Pt denies any jaundice. knee pain1 Pt has chronic r ight [...] not think she need zoloft or requip. HTN Pt has HTN. Pt t akes irbesartan and her bp is high Pt denies any chest pain or headache Pt could not tolerate norvasc due to swelling abd pain1 pt c/o acute ons et [...] ok knee pain1 Pt was running a [place] 3 weeks ago and she felt acute [...] PRn and doing ok. Pt needs refill neck pain1 Pt c/o chronic r ight side neck and preauricular pain Pt has not had any tremor episodes. ID doctor deferred seeing her. Pt has not had any jaw spasm recently. CT of neck and carotid doppler denied by insurance. HTN Pt has HTN. Pt t akes norvasc and irbesartan and her bp is stable. neck pain1 Pt c/o persisten t right [...] photophobia. Pt sometimes wakes up with headache. UTI1 Pt has recurrent UTI. Pt denies [...] pain or sob. Pt denies any dysphagia HTN her bp has been elevated all week. Pt denies any chest pain or palpitation Pt has been having headache. Her head CT is ok. Pt denies any vision change or sob Pt denies any edema sick Pt c/o acute ons et of [...] Pt denies any dysphagia or neck pain. thyroid1 Pt has autoimmun e thyroid disease [...] change of bowel, abd pain, etc . OAB1 Pt has OAB Pt steinberg s urgency and frequency. Pt states that oxybutynin is helping with urge but she has been noticing some leakage of urine when she has the urgency and she cannot make it to bathroom. Pt denies any dysuria. pt denies any abdominal pain. Pt denies any fever, chill. Pt denies any leakage urine while resting, only during urgency fatty tumor1 Pt has a chronic lipoma [...] and also bilateral gluteus tendinopathy, etc . UTI Pt has UTI. Pt n otices mild [...] with her to hotel and road trip pain Pt has chronic l ow back pain with right sciatica and right leg numbness and tingling pt denies any loss of bladder or bowel control Pt failed neurontin .Pt had MRI of L spine done which showed moderate spondylosis. Pt has lexx with pain management in 10 days phos Pt has high phos .Pt jorden any muscle cramp or pain LFT Pt has fatty deja er Pt has borderline high LFT. Pt denies any abd pain or jaundice .pt rarely drinks alcohol thyroid1 Pt has borderlin e low thyroid Pt denies any fatigue or weight gain Pt denies any dysphagia or neck pain HTN Pt has HTN. Pt t akes lisinopril and her bp is stable. Pt denies any dry cough anxieyt1 Pt has chronic a nxiety Pt denies any depression or any suicidal thought Pt denies any crying spells pain Pt has chronic l ow back [...] of hip pain and showed arthritis. 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 Pt does have fatty liver Pt denies any polyarthralgia. Pt has nuclear dense speckle pattern. Pt denies any polyarthralgia UTI1 Pt denies any ur inary symptoms. Pt took abx and her UA was ok. UTI1 Pt recently was treated with keflex [...] Pt takes xanax PRn and doing ok pain Pt has chronic l ow back pain Pt denies any worsening pain. pt denies any loss of bladder control. Pt has disc disease Pt failed pain management and injection. sick Pt c/o feeling f everish but [...] diet. Pt has not done lab yet colon1 Pt needs colonos copy Pt denies any blood in stool. Pt denies any GI bowel change. Pt denies any weight loss anxiety1 Pt has chronic a nxiety. Pt denies any depression or any suicidal thought. Pt denies any crying spells. HLP Pt has history o f HLp. Pt is off feno. Pt denies any myalgia. Pt is trying to eat healthy leukopenia1 Pt has mild low WBC. pt denies any infection anxiety1 Pt has chronic a nxiety Pt [...] occasionally. Pt had right heel surgery already bile duct stone1 Pt recently c/o right side abdominal pain s/p choledocholithiasis. Pt underwent ERCP and she had multiple stone removed. Pt states that her abdominal pain improved Pt denies any nausea, vomiting . abdominal pain1 Pt has fever as high [...] heel spur. Pt deneis any other complaints. HLP Pt has HLP. Pt t akes feno. Pt denies any myalgia. Pt is on low fat and low carb diet foot pain1 pt c/o persisten t right [...] that she canot hold her urine sometimes obesity1 Pt is overweight . Pt has [...] back injection x 1 without much improvement HTN Pt has mild HTn. Pt takes lisinopril and her BP is borderline Pt denies any chest pain or hedache glucose1 Pt has mild gluc ose. Pt [...] has 5/10 pain. Pt denies any injury heel pain1 Pt c/o right huseyin l pain for 2 months Pt denies any injury. Pt denies any radiation to rest of her foot. Pt feels burning Pt denies worsening pain in the morning Pt denies any numbness HLP Pt has HLP. Pt t zuly valente Pt denies any myalgia HTN Pt has HTN. Pt t kes lisinorpil and her BP is stable. anxiety1 Pt has chronic a nxiety Pt denies any depression or any suicidal thought Pt takes xanax and doing ok. Pt denies any crying spells Physical Pt needs annual physical. Pt has [...] diet HLP Pt has HLP Pt ta yg feno. Pt denies any myalgia. Pt is [...] pain. HLP Pt has HLP. Pt t zuly feno. Pt denies any myalgia. Her lab [...] as instructed Relate d to Abdominal pain Weight management Related to Vir al infection Prescribed Activity and Exercise Education Related to Dietary Surveillance and Counseling Prescribed Diet Educ ation/Lifestyle Education Regarding Diet Related to Dietary Surveillance and Counseling Increase physical activity Relat ed to Viral infection Prescribed Activity and Exercise Education Related [...] Education Related to Dietary Surveillance and Counseling Physical [...] Assessments Type Assessment Date assessment Sidney's thyroiditis assessment Generalized anxiety disorder Dec assessment Fatigue assessment Raised antibody titer Mental Status Date Cognitive Assessment Orientation - [place] ed to time, place, person, situation.
--- OUTSIDE RECORDS SUMMARY | 2025-03-12 19:53 | XMS_ITS | Encounter Summary ---
Author Organization [facility] Address [address] [place] [address] Care Team Providers Care Concrete Journeyman Name Role Phone Fritz Soria MD Primary Care Provider [phone] Reason for Visit * Reason Onset Date Comments MEDICATION REFILL 05/18/2024 Encounter Details Date Type Department Care Team (Late st Contact Info) Description 05/18/2024 Refill [facility] [place] [phone] Jeff Ortiz MD [address] [facility] [address] [place], [place] [id number] MEDICATION REFILL Social History Tobacco Use Types Packs/Day Years Used Date Smoking Tobacco: Former Smokeless Tobacco: Never Alcohol Use Standard Drinks/Week Comments Not Currently 0 (1 standard drink = 0.6 oz pur e alcohol) Comments Unknown Sex and Gender Information Value Date Recorded Sex Assigned at Not on file Legal Sex Female 6:26 AM PHOTOGRAMMETRIC STEREO COMPILER Gender Identity Female 06/15/2021 6:51 AM PHOTOGRAMMETRIC STEREO COMPILER Sexual Orientation Not on file documented as of this encounter Functional Status * Is person deaf or have serious hearing difficulty? Answer Date of Assessment Author No 07/05/2021 12:13 PM PHOTOGRAMMETRIC STEREO COMPILER Brown, M onica C., RN * Is [...] Description 03/31/2025 10:00 AM CDT Office Visit [facility] - Orthopedic Surgery [address] [place] [address] Chiki Vargas MD [address] [place] [address] documented as of this encounter Visit Diagnoses Diagnosis S/P total knee arthroplasty, right documented in this encounter Care Teams Concrete Journeyman Relationship Specialty Start Date End Date Fritz Soria MD PCP - General 01/04/21 documented as of this encounter
--- OUTSIDE RECORDS SUMMARY | 2025-03-12 19:53 | XMS_ITS | Clinical Summary ---
Author Organization [facility] Address [address] [place] [address] Care Team Providers Care Sound Engineer Name Role Phone Fritz Soria MD Primary Care Provider [phone] Social History Tobacco Use Types Packs/Day Years [...] this topic Medical Devices Implanted Type Area Hazardous Waste Remover Device Identifier Shelf Expiration Date Model / Serial / Lot Stimulator Implant-09/05/19 Implanted:03/2023 (Quantity not on file) Stimulator Implant Bladder [id number] / [id number] / Description:Full body eligib le for MRI - 30 min scan time with 5 min wait Insurance [employer] Care Teams Sound Engineer Relationship Specialty Start Date End Date Fritz Soria MD [address] [place] [phone] PCP - General FAMILY PRACTICE 03/17/23
--- OUTSIDE RECORDS SUMMARY | 2025-03-12 19:53 | XMS_ITS | Clinical Summary ---
Author Organization [facility] Address [address] [place] [address] Care Team Providers Care Prison Warden Name Role Phone Fritz Soria MD Primary Care Provider [phone] Source Comments [facility],non-owned Affiliates and Associated Physician Practices is amultiple site organization consisting of ambulatory clinics and hospital sitesin [place], [place], [place] and [place]. This disclosure is being madepursuant to the Care Everywhere program and may not contain all information available regarding this patient. Last updated 18.[facility] Allergies Active Allergy Reactions Criticality Noted Date [...] times daily as needed 4 Active Nystop 463440 UNIT/GM powder Apply to affected area 2 [...] Patient not taking.Reported on 02/17/2025 HYDROcodone-daniela taminophen ([place]ow) 5-325 MG tabletIndicatio ns:S/P total knee arthroplasty, [...] Encounter [facility] [address] [place] [address] Chiki Vargas MD Discharge Disposition: Home or Self Care 02/17/2025 8:45 AM CDT Office Visit [facility] - Orthopedic Surgery [address] [place] [phone] Chiki Vargas MD Lumbar spondylosis (Primary Dx); Tendinopathy of left rotator cuff; Tear of left rotator cuff, unspecified tear extent, unspecified whether traumatic; Cervical spondylosis 02/17/2025 Travel 01/04/2025 9:35 AM CDT - 01/04/2025 11:59 PM CDT Hospital Encounter [facility] - Orthopedics [address] [place] [address], [facility] [address] [place] [address] Jeff Ortiz MD Discharge Disposition: Home or Self Care 01/04/2025 8:30 AM CDT Office Visit [facility] - Orthopedic Surgery [address] [place] [phone] Jeff Ortiz MD Lumbar spondylosis (Primary Dx); Primary osteoarthritis of left hip 01/04/2025 8:28 AM CDT - 01/04/2025 9:34 AM CDT Hospital Encounter [facility] - Orthopedics [address] [place] [address], [facility] [address] [place] [address] Jeff Ortiz MD Discharge Disposition: Home or Self Care 01/04/2025 Travel 01/03/2025 Orders Only [facility] - Orthopedic Surgery [address] [place] [phone] Jeff Ortiz MD History of total right [...] on file Legal Sex Female 6:26 AM ASPHALT PAVING SUPERVISOR Gender Identity Female 06/15/2021 6:51 AM ASPHALT PAVING SUPERVISOR Sexual Orientation Not on file Last Filed [...] [facility] [address] [place] [address] Chiki Vargas MD [address] [place] [address] Health Maintenance Due Date Last Done Comments [...] this topic Medical Devices Implanted Type Area Stamps Or Coins Salesperson Device Identifier Shelf Expiration Date Model / Serial / Lot Arbuckle Sut Qanchr Arthsc Tissue Shldr Implanted:Qty: 2 on 07/05/2021 by Ever Garner MD at [facility] [employer] 11/25/2023 [id number] / / [id number] Cmpnt Fem Kn Rt 4 Crcte Rtn Legion John Implanted:Qty: 1 on 03/08/2024 by Jeff Ortiz MD at [facility] Right: Knee [employer] [id number] 06/30/2033 [id number] / / [id number] Deep Dished Articular Insert Implanted:Qty: 1 on 03/08/2024 by Jeff Ortiz MD at [facility] Right: Knee [employer] [id number] 10/20/2031 [id number] / / [id number] Porous Tibia Baseplate Implanted:Qty: 1 on 03/08/2024 by Jeff Ortiz MD at [facility] Right: Knee [employer] [id number] 09/19/2031 [id number] / / [id number] Procedures Procedure Name Priority Date/Time Associated Diagnosis [...] testing LIPID PROFILE Routine 07/28/1998 12:00 AM ASPHALT PAVING SUPERVISOR from Last 3 Months or Most Recently [...] COMPREHENSIVE METABOLIC PANEL (02/23/2024 10:07 AM CDT) [facility] Signature Glucose 101 70 - 105 mg/dL 02/23/2024 11:00 AM CDT [facility] Sodium 137 136 - 145 mmol/L 02/23/2024 11:00 AM CDT [facility] Potassium 4.3 3.5 - 5.1 mmol/L 02/23/2024 11:00 AM [facility] Chloride 103 98 - 107 mmol/L 02/23/2024 11:00 AM [facility] CO2 25 22 - 29 mmol/L 02/23/2024 11:00 AM [facility] Calcium 9.6 8.4 - 10.4 mg/dL 02/23/2024 11:00 AM [facility] Anion Gap 9 6 - 16 mmol/L 02/23/2024 11:00 AM [facility] BUN 15 7 - 26 mg/dL 02/23/2024 11:00 AM [facility] Creatinine 0.82 0.57 - 1.11 mg/dL 02/23/2024 11:00 AM [facility] Alkaline Phosphatase 85 40 - 150 U/L 02/23/2024 11:00 AM [facility] ALT 19 0 - 55 U/L 02/23/2024 11:00 AM [facility] AST 15 5 - 34 U/L 02/23/2024 11:00 AM [facility] Protein Total 7.6 6.4 - 8.3 gm/dL 02/23/2024 11:00 AM [facility] Albumin 4.0 3.4 - 5.0 gm/dL 02/23/2024 11:00 AM [facility] Bilirubin Total 0.6 0.2 - 1.2 mg/dL 02/23/2024 11:00 AM [facility] eGFR by CKD-EPI 78(L) >=90 mL/min/1.7 3 m2 02/23/2024 11:00 AM [facility] Blood BLOOD SPECIMEN / Unknown Venipuncture / Unknown 02/23/2024 10:07 AM CDT 02/23/2024 10:35 AM [facility] Jeff Ortiz MD LAB - CHEMISTRY ORDERABLES Final Result [facility] [address] [place], [place] [id number] * (ABNORMAL) LIPID PROFILE (07/28/1998 12:00 AM ASPHALT PAVING SUPERVISOR) Cholesterol Total 192 [facility] HDL 47 mg/dL [facility] Triglycerides 204(H) <150 mg/dL [facility] LDL Calculated [facility] Venous blood specimen (specimen) 07/28/1998 Narrative [facility] - 07/28/1998 12:00 AM ASPHALT PAVING SUPERVISOR This order was created through External Result Entry Fritz Soria MD LAB - CHEMISTRY ORDERABLES Final Result [facility] [address] from Last 3 Months or Most Recently Relevant to Health Maintenance Insurance AETNA [facility] MANAGED MEDICARE ADV Advance Directives * Full Code (Latest Code Status on File) Date Activated Date Inactivated Comments 03/08/2024 2:53 PM 03/09/2024 2:48 PM Care Teams Prison Warden Relationship Specialty Start Date End Date Fritz Soria MD PCP - General 01/04/21
--- OUTSIDE RECORDS SUMMARY | 2025-03-12 19:53 | XMS_ITS | Patient Health Record ---
Author Organization [facility] Address [address] [facility] [address] [place] [address] Care Team Providers Care Montessori Preschool Teacher Name Role Phone Alia Gee Unavailable [phone] Fritz Soria MD Unavailable Unavailable Reason For Referral No Information Medications Medication SIG (Take, Route, Frequency, Duration) Notes Start Date End Date Status Pantoprazole Sodium 20 MG take 1 tablet (20 mg) by oral route once daily Oral 1 Active traMADol HCl 50 MG take 1 tablet (50 mg ) by oral route every 6 hours as needed Oral 4 Active Lisinopril 40 MG take 1 tablet (40 mg ) by oral route once daily Oral 1 Active oxyBUTYnin Chloride 5 MG take 1 tablet ( 5 mg) by oral route 2 times per day Oral 2 Active ALPRAZolam 0.5 MG take 1 tablet at bed time Oral Active Plan Of Treatment No Information Insurance Providers Payer Name Payer Address Payer Phone Subscriber Number Group Number Insured Name Patient Relationship to Insured Coverage Start Date Coverage End Date C[employer] Ppo [address] [place] [address] [phone] [id number] Qi Anders Self - patient is the insured Medical (General) History Surgical History Surgery Date(Month/Year) Foot surgery; 2020-05-26
--- OUTSIDE RECORDS SUMMARY | 2025-03-12 19:53 | XMS_ITS | Encounter Summary ---
Author Organization [facility] Address [address] [place] [address] Care Team Providers Care Family And Marriage Counsellor Name Role Phone Fritz Soria MD Primary Care Provider [phone] Reason for Visit * Reason Onset Date Comments MEDICATION REFILL 03/24/2024 Encounter Details Date Type Department Care Team (Late st Contact Info) Description 03/24/2024 Refill [facility] [place] [phone] Jeff Ortiz MD [address] [facility] [address] [place], [place] [id number] MEDICATION REFILL Social History Tobacco Use Types Packs/Day Years Used Date Smoking Tobacco: Former Smokeless Tobacco: Never Alcohol Use Standard Drinks/Week Comments Not Currently 0 (1 standard drink = 0.6 oz pur e alcohol) Comments Unknown Sex and Gender Information Value Date Recorded Sex Assigned at Not on file Legal Sex Female 6:26 AM DAY CARE ASSISTANT Gender Identity Female 06/15/2021 6:51 AM DAY CARE ASSISTANT Sexual Orientation Not on file documented as of this encounter Functional Status * Is person deaf or have serious hearing difficulty? Answer Date of Assessment Author No 07/05/2021 12:13 PM DAY CARE ASSISTANT Brown, M onica C., RN * Is [...] Description 03/31/2025 10:00 AM CDT Office Visit [facility] - Orthopedic Surgery [address] [place] [address] Chiki Vargas MD [address] [place] [address] documented as of this encounter Visit Diagnoses Diagnosis S/P total knee arthroplasty, right documented in this encounter Care Teams Family And Marriage Counsellor Relationship Specialty Start Date End Date Fritz Soria MD PCP - General 01/04/21 documented as of this encounter
--- OUTSIDE RECORDS SUMMARY | 2025-03-12 19:53 | XMS_ITS | Clinical Summary ---
Author Organization [facility] Care Team Providers Care Finance Teacher Name Role Phone Unavailable Primary Care Provider Unavailabl e Social History Tobacco Use Types Packs/Day Years Used Date Smoking Tobacco: Never Assessed Comments Unknown Sex and Gender Information Value Date Recorded Sex Assigned at Not on file Legal Sex Female 8:59 AM TOY PACKER Gender Identity Not on file Sexual Orientation [...]
--- OUTSIDE RECORDS SUMMARY | 2025-03-12 19:53 | XMS_ITS | Encounter Summary ---
Author Organization [facility] Address [address] [place] [address] Phone Care Team Providers Care Mosaic Floor Layer Name Role Phone Fritz Soria MD Primary Care Provider [phone] Encounter Details Date Type Department Care Team (Late st Contact Info) Description 03/04/2022 Telephone [facility] Cardiology [address] [place] [address] [address] [place] [address] [place] [address] Aisha Fraser, spinneret cleaner Social History Tobacco Use Types Packs/Day Years Used Date Smoking Tobacco: Former Comments Unknown Sex and Gender Information Value Date Recorded Sex Assigned at Not on file Legal Sex Female 11:02 PM BLUING OVEN TENDER Gender Identity Female 04/28/2021 9:21 PM CDT [...] on filedocumented in this encounter Care Teams Mosaic Floor Layer Relationship Specialty Start Date End Date Fritz Soria MD PCP - General Family Medicine 08/18/20 documented as of this encounter
--- OUTSIDE RECORDS SUMMARY | 2025-03-12 19:53 | XMS_ITS | Clinical Summary ---
Author Organization [facility] HealthCare Care Team Providers Care Sprayer Operator Name Role Phone Fritz Soria MD Primary Care Provider [phone] Allergies Active Allergy Reactions Criticality Noted Date [...] on file Legal Sex Female 11:02 PM FX ARTIST Gender Identity Female 04/28/2021 9:21 PM CDT [...] (#1) 2025 05/10/2020 Insurance [employer] MEDICARE GOLD [facility] MEDICARE GOLD Care Teams Sprayer Operator Relationship Specialty Start Date End Date Fritz Soria MD PCP - General Family Medicine 08/18/20
[2025-03-12 19:59] VITALS: BP 134/72; PULSE 69; RESP 20; TEMP 36.3; O2SAT 97
[2025-03-12 22:17] LABS: Add Urine Microscopic? NO; Appearance Urine Clear (Clear); Glucose Urine UA Negative (Negative); Leukocyte Esterase Ur Negative LEU/UL (Negative); Nitrate Urine Negative (Negative); Specific Grav Ur 1.007 (1.001-1.035)
[2025-03-12 23:55] VITALS: BP 128/55; PULSE 60; RESP 17; TEMP 36.6; O2SAT 100
--- OUTSIDE RECORDS SUMMARY | 2025-03-13 01:13 | XMS_ITS | Patient Health Record ---
Author Organization [email or web address] [facility] [employer]. Address [address] [facility] [address] [place] [address] Care Team Providers Care Certified Nurses Aide Name Role Phone Yumiko Jay [phone] Allergies No Known Allergies Results Component Value Reference Range Flag Notes .COMPREHENSIVE METABOLIC SIMS EL (58684) CMP Reviewed date:12/12/2024 02:19:18 PM Interpretation: Performing Lab:[facility] AUSTIN-Jwfrqh01984 Dustin MonteroRodvijHJ[address]55[address] Shan Yadav MD Notes/Report: GLUCOSE 96 65-99 [...] date:12/12/2024 02:19:18 PM Interpretation: Performing Lab:[facility]-Pdfcvb07722 Dustin MonteroHethtfUK[address] Shan Yadav MD Notes/Report: IRON, TOTAL 51 45-160 mcg/dL N IRON BINDING CAPACITY 363 250-450 mc g/dL (calc) N % SATURATION 14 16-45 % (calc) L .CBC (INCLUDES DIFF/PLT) (63 99) Reviewed date:12/12/2024 02:19:18 PM Interpretation: Performing Lab:[facility]-Zntnvg02404 Dustin MonteroMjkhqkDB88[address]-5051 Shan Yadav MD Notes/Report: WHITE BLOOD CELL [...] 10.2 7.5-12.5 fL N ABSOLUTE NEUTROPHILS 2404 5271-5903 cells/uL N ABSOLUTE LYMPHOCYTES 2470 850-3900 cells/uL N ABSOLUTE MONOCYTES 451 200-950 cells/uL N ABSOLUTE EOSINOPHILS 149 15-500 cells/uL N ABSOLUTE BASOPHILS 28 0-200 cells/uL N NEUTROPHILS 43.7 N LYMPHOCYTES 44.9 N MONOCYTES 8.2 N EOSINOPHILS 2.7 N BASOPHILS 0.5 N SED RATE BY MODIFIED DIDI OWENS (809) Reviewed date:12/12/2024 02:19:18 PM Interpretation: Performing Lab:[facility]-Pebnmn04806 Dustin MonteroGyhptzDC[address]-44[address] Shan Yadav MD Notes/Report: SED RATE BY MODIFIED OMEGA 14 < OR = 30 mm/h N C-REACTIVE PROTEIN (4420) Reviewed date:12/12/2024 02:19:18 PM Interpretation: Performing Lab:[facility]-Aywnod05430 Matt Perry, TofrrpAL[address] Shan aYdav MD Notes/Report: C-REACTIVE PROTEIN 4.1 <8.0 mg/L N RHEUMATOID FACTOR (4418) Reviewed date:12/12/2024 02:19:18 PM Interpretation: Performing Lab:[facility]-Dpfifm98046 Matt Perry, AkcsnsRM[address] Shan Yadav MD Notes/Report: RHEUMATOID FACTOR <10 <14 IU/mL N CYCLIC CITRULLINATED PEPTIDE (CCP) AB (IGG) (13516) Reviewed date:12/12/2024 02:19:18 PM Interpretation: Performing Lab:[facility]-Qmrxzp71342 Matt Perry, QkqeftUY[address] Shan Yadav MD Notes/Report: CYCLIC CITRULLINATED PEPTIDE (CCP) AB (IGG) <16 N Reference Range Moderate Positive: 40-59 Strong Positive: >59 Weak Positive: 20-39 Negative: <20 THYROID PEROXIDASE ANTIBODIE S (5081) Reviewed date:12/16/2024 10:58:21 PM Interpretation: Performing Lab:[facility] ANTUNEZ-Pierre [address], Pierre MckeonHolpZU[address] Santhosh Alexander Notes/Report: THYROID PEROXIDASE ANTIBODIES 68 <9 IU/mL H MARANDA SCREEN, IFA, W/REFL TITE R AND PATTERN (249) Reviewed date:12/16/2024 10:58:21 PM Interpretation: Performing Lab:[facility]-Thsayy92597 Matt Perry, YkmcgzCA7[address] Shan Yadva MD Notes/Report: MARANDA SCREEN, IFA POSITIVE NEGATIVE A titer and pattern. Further laboratory testing may be For additional information, please refer to MARANDA IFA is a first line screen for detecting the various autoimmune diseases. A positive MARANDA IFA result educational purposes only.) (This link is being provided for informational/ presence of up to approximately 150 autoantibodies in http://education.Playrcart/faq/KHI131 considered if clinically indicated. is suggestive of [...] Speckled International Consensus on MARANDA Patterns (https://doi.org/10.1515 /tcaz-0585-6636) .HEMOGLOBIN A1c (496) Reviewed date:02/10/2025 02:22:14 PM Interpretation: Performing Lab:[facility] CONN [facility] SystemMjzpb[address] [facility] HospitalJehankvXV[address] Shan Yadav Notes/Report: SPLIT 02/04/2025 FROM [id number] FASTING:YES FASTING: YES HEMOGLOBIN A1c 6.2 <5.7 % of total [...] Reviewed date:02/10/2025 02:21:37 PM Interpretation: Performing Lab:[facility] AUSTIN-Uvhory19085 Dustin MonteroZhdjscKH[address] Shan Yadav MD Notes/Report: SPLIT 02/04/2025 FROM [id number] FASTING:YES FASTING: YES INSULIN 17.3 N cut points (optimal, moderate, high) High >18.4 Optimal < or = 18.4 in 2021. Moderate NA Risk: are based on Insulin Reference Interval studies performed at [facility] Adult cardiovascular event risk category Reference Range < or = 18.4 DHEA SULFATE (402) Reviewed date:12/12/2024 02:19:18 PM Interpretation: Performing Lab:[facility] AUSTIN-Cvdvug71977 Dustin MonteroRxshdeMY[address]-17[address] Shan Yadav MD Notes/Report: DHEA SULFATE 24 9-118 mcg/dL N VITAMIN B12/FOLATE, SERUM PA DEMETRIA (6889) Reviewed date:12/12/2024 02:19:18 PM Interpretation: Performing Lab:[facility] AUSTIN LenexaKS[address] Shan Yadav MD Notes/Report: VITAMIN B12 088 092-9068 pg/mL N pg/mL may experience neuropsychiatric and [...] Shan Yadav MD Notes/Report: SPLIT 02/04/2025 FROM [id number] FASTING:YES FASTING: YES T4, FREE 1.1 0.8-1.8 ng/dL N CORTISOL, TOTAL (367) Reviewed date:12/09/2024 09:32:18 AM Interpretation: Performing Lab:[facility] AUSTIN LenexaKS[address] Shan Yadav MD Notes/Report: FASTING:YES FASTING: YES CORTISOL, TOTAL 1.4 L Reference Range: For 8 a.m.(7-9 a.m.) Specimen: 4.0-22.0 * Please interpret above results accordingly * Reference Range: For 4 p.m.(3-5 p.m.) Specimen: 3.0-17.0 CORTISOL, TOTAL (367) Reviewed date:02/07/2025 09:46:35 AM Interpretation: Performing Lab:[facility] AUSTIN-Zgkcrh56415 Matt Perry, BfvbdzNL[address] Shan Yadav MD Notes/Report: CORTISOL, TOTAL 1.5 L Reference Range: For 8 a.m.(7-9 a.m.) Specimen: 4.0-22.0 * Please interpret above results accordingly * Reference Range: For 4 p.m.(3-5 p.m.) Specimen: 3.0-17.0 TSH (899) Reviewed date:02/10/2025 02:21:51 PM Interpretation: Performing Lab:[facility] AUSTIN, BvnzhmKW[address] Shan Yadav MD Notes/Report: SPLIT 02/04/2025 FROM [id number] FASTING:YES FASTING: YES TSH 3.36 0.40-4.50 mIU/L N TSH (899) Reviewed date:12/12/2024 02:19:18 PM Interpretation: Performing Lab:[facility] AUSTIN, FwoklvEH[address] Shan Yadav MD Notes/Report: TSH 3.48 0.40-4.50 mIU/L N T3, FREE (98900) Reviewed date:12/12/2024 02:19:18 PM Interpretation: Performing Lab:[facility] AUSTIN LenexaKS[address] Shan Yadav MD Notes/Report: T3, FREE 2.4 2.3-4.2 pg/mL N T3, FREE (96084) Reviewed date:02/10/2025 02:22:02 PM Interpretation: Performing Lab:[facility] AUSTIN, FnfztvQV[address] Shan Yadav MD Notes/Report: FASTING: YES FASTING:YES SPLIT 02/04/2025 FROM [id number] T3, FREE 3.0 2.3-4.2 pg/mL N .VITAMIN D,25-OH,TOTAL,IA (1 7306) Reviewed date:12/12/2024 02:19:18 PM Interpretation: Performing Lab:[facility] AUSTIN-Ljwxan24201 Matt Perry, RjhqzhVO[address] Shan Yadav MD Notes/Report: VITAMIN D,25-OH,TOTAL,IA 33 30-100 ng/mL N D2-supplementation and patients for whom quantitation 25-OH VIT D, (D2,D3), LC/MS/MS is recommended: order educational purposes only.) code 22288 (patients >2yrs). For additional information, please refer to Vitamin D Status 25-OH Vitamin D: Optimal: > or = 30 ng/mL Insufficiency: 20 - 29 ng/mL (This link is being provided for informational/ See Note 1 Note 1 http://education.Playrcart/faq/BAF892 Deficiency: <20 ng/mL of D2 and D3 fractions is required, the [facility]() For 25-OH Vitamin D testing on patients on ALDOSTERONE/PLASMA RENIN ACT IVITY RATIO,LC/MS/MS (19102) Reviewed date:12/16/2024 10:58:21 PM Interpretation: Performing Lab:Madan KEITH/[facility],[address] [facility] HospitalCA[address] Ritika Mei MD,PhD,GUNNAR Notes/Report: ALDOSTERONE, LC/MS/MS [...] analytical performance characteristics have been determined by [facility]. PLASMA RENIN ACTIVITY, LC/MS/MS 1.02 0.25-5.82 ng/mL/h TAMELA/PRA RATIO 8.8 0.9-28.9 Ratio CORTISOL, LC/MS, SALIVA, 2 S ANTONIO (42110) Reviewed date:02/16/2025 05:14:04 PM Interpretation: Performing Lab:E[facility],[address] [facility] Ritika Mei MD,PhD,GUNNAR Notes/Report: PATIENT NOT FASTING; ADVISED TO RETURN FOR COLLECTION. URINE VOLUME: 1999 DRAW DATE 1 02/02/2025 DRAW TIME 1 11:10 PM CORTISOL, SALIVA SAMPLE 1 0.49 noon-2 PM: < OR = 0.21 mcg/dL 4-6 PM: < OR = 0.15 mcg/dL This test was developed and its analytical performance characteristics have been determined by [facility]. It has not been cleared or approved [...] analytical performance characteristics have been determined by [facility]. has been validated pursuant to the CLIA regulations and is used for clinical purposes. 8-10 AM: 0.04-0.56 mcg/dL CARDIO IQ(R) INSULIN RESISTA NCE PANEL WITH SCORE (99809) Reviewed date:02/13/2025 12:46:41 PM Interpretation: Performing Lab:EZ, [facility],[address] [facility] Ritika Mei MD,PhD,GUNNAR Notes/Report: FASTING: YES FASTING:YES SPLIT 02/04/2025 FROM [id number] INSULIN, INTACT, LC/MS/MS 14 < OR = 16 uIU/mL used for clinical purposes. characteristics have been determined by [facility]. This test was developed and its analytical performance It has not been cleared or approved by the FDA. This assay Insulin concentration can be converted to pmol/L by applying For additional information, please refer to purposes only.) the conversion factor: 1 uIU/mL = 5.97 pmol/L has been validated pursuant to the CLIA regulations and is (This link is being provided for informational/educationa l http://[employer].Playrcart/faq/ATP072 C-PEPTIDE, LC/MS/MS 3.16 0.68-2.16 ng/mL H INSULIN [...] 33-66; purposes only.) individuals. J Endocr Soc. 2018;2(9):0328-3505). For additional information, please refer to used for clinical purposes. http://bitHound/faq/TKN631 characteristics have been determined by [facility]. ACTH, PLASMA (211) Reviewed date:12/12/2024 05:12:50 PM Interpretation: Performing Lab:Madan YEH/[facility] ChavezScott [id number] Desire Silva, XzjqlylcyUB[address] Julián Rodgers M.D.,PhD Notes/Report: ACTH, PLASMA 18 6-50 pg/mL Reference range applies only to specimens collected between 7am-10am. DEXAMETHASONE (24403) Reviewed date:02/10/2025 07:30:27 PM Interpretation: Performing Lab:Madan KEITH/[facility],[address] [address]Intermountain Medical CenterYgeviubelaUY[address] Ritika Mei MD,PhD,GUNNAR Notes/Report: DEXAMETHASONE 474 It has not been cleared or approved by the FDA. This assay has been validated pursuant to the CLIA regulations and is Baseline: Less than 20 ng/dL 1 mg dexamethasone overnight: 180-550 ng/dL (8:00-10:00 AM) used for clinical purposes. characteristics have been determined by [facility]. Reference Ranges for Dexamethasone: This test was developed and its analytical performance DEXAMETHASONE (03719) Reviewed date:12/23/2024 11:05:46 PM Interpretation: Performing Lab:EZ, [facility],[address] [address] [facility]ylesJordan [facility] Center[address] Ritika Mei MD,PhD,GUNNAR Notes/Report: FASTING: YES FASTING:YES DEXAMETHASONE 316 This test was developed and its analytical performance It has not been cleared or approved by the FDA. This assay Reference Ranges for Dexamethasone: Baseline: Less than 20 ng/dL 1 mg dexamethasone overnight: 180-550 ng/dL (8:00-10:00 AM) has been validated pursuant to the CLIA regulations and is characteristics have been determined by [facility]. used for clinical purposes. CORTISOL, FREE, 24 HOUR URIN E (79142) Reviewed date:02/13/2025 12:46:41 PM Interpretation: Performing Lab:EZ, [facility],[address] [facility] HospitalCA[address] Ritika Mei MD,PhD,GUNNAR Notes/Report: URINE VOLUME: [...] clinical purposes. characteristics have been determined by [facility]. 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 [place] [address] [place] [address] 12/06/2024 Yumiko Jay Impaired fasting gl ucose R73.01 ; Essential (primary) hypertension I10 ; Autoimmune thyroiditis E06.3 ; Other fatigue R53.83 ; Abnormal weight gain R63.5 and Dietary counseling and surveillance Z71.[address] Jay [address] [place] [address] 01/17/2025 Yumiko Jay Essential (primary) hypertension I10 [...] Order rheumatoid factor test- Consider referral to manager administrative based on test results and clinical progression Spent 45 minutes preparing to see the patient (ex review of tests/chart), obtaining and / or reviewing separately obtained history, performing a medically appropriate examination and/or evaluation, counseling and educating the patient/family/caregivers non medical, ordering medications, tests, or procedures, referring and communicating with other health rn homecare, documenting clinical information in the electronic or other health record, independently interpreting results and communicating results to the patient/family/caregivers non medical and care coordinating patient plan. Patient alert [...] else- Patient informed about consistent absorption and director supplier quality compared to generic alternatives- Provided samples [...] examination and/or evaluation, counseling and educating the patient/family/caregivers non medical, ordering medications, tests, or procedures, referring and communicating with other health rn homecare, documenting clinical information in the electronic or other health record, independently interpreting results and communicating results to the patient/family/caregivers non medical and care coordinating patient plan. Patient alert and oriented x 4 and aware of discussion noted above and in agreeance to plan in management of hypothyroidism, abnormal weight gain, hypertension and concern for hypercortisolism. Plan Of Treatment Next Appt Details Provider Name:Yumiko Jay, 10:00:00 AM, [address] [place] [address], [phone], Insurance Providers Payer Name Payer Address Payer Phone Subscriber Number Group Number Insured Name Patient Relationship to Insured Coverage Start Date Coverage End Date [employer] [address] [place], [place] [id number] Qi Anders Self - patient is the insured
--- OUTSIDE RECORDS SUMMARY | 2025-03-13 01:13 | XMS_ITS | Clinical Summary ---
Author Organization 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
--- OUTSIDE RECORDS SUMMARY | 2025-03-13 01:14 | XMS_ITS | Encounter Summary ---
Author Organization [facility] Address [address] [place] [address] Care Team Providers Care Treasury Director Name Role Phone Fritz Soria MD Primary Care Provider [phone] Reason for Visit * Reason Onset Date Comments MEDICATION REFILL 05/18/2024 Encounter Details Date Type Department Care Team (Late st Contact Info) Description 05/18/2024 Refill [facility] - [facility] [place] [id number] Jeff Ortiz MD [address] [facility] [address] [place], [place] [id number] MEDICATION REFILL Social History Tobacco Use Types Packs/Day Years Used Date Smoking Tobacco: Former Smokeless Tobacco: Never Alcohol Use Standard Drinks/Week Comments Not Currently 0 (1 standard drink = 0.6 oz pur e alcohol) Comments Unknown Sex and Gender Information Value Date Recorded Sex Assigned at Not on file Legal Sex Female 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 Answer Date of Assessment Author No 07/05/2021 12:13 PM LABOR GANG SUPERVISOR Brown, M onica C., RN * Is [...] Description 03/31/2025 10:00 AM CDT Office Visit [facility] - Orthopedic Surgery [address] [place] [address] Chiki Vargas MD [address] [place] [address] documented as of this encounter Visit Diagnoses Diagnosis S/P total knee arthroplasty, right documented in this encounter Care Teams Treasury Director Relationship Specialty Start Date End Date Fritz Soria MD PCP - General 01/04/21 documented as of this encounter
--- OUTSIDE RECORDS SUMMARY | 2025-03-13 01:14 | XMS_ITS | Clinical Summary ---
Author Organization [facility] [employer] Address [address] [place] [address] Care Team Providers Care Application Performance Engineer Name Role Phone Fritz Soria MD Primary Care Provider [phone] Source Comments [facility],non-owned Affiliates and Associated Physician Practices is amultiple site organization consisting of ambulatory clinics and hospital sitesin [place], [place], [place] and [place]. This disclosure is being madepursuant to the Care Everywhere program and may not contain all information available regarding this patient. Last updated 18.[facility] Allergies Active Allergy Reactions Criticality Noted Date [...] times daily as needed 4 Active Nystop 324522 UNIT/GM powder Apply to affected area 2 [...] Patient not taking.Reported on 02/17/2025 HYDROcodone-daniela taminophen ([place]) 5-325 MG tabletIndicatio ns:S/P total knee arthroplasty, [...] Encounter [facility] [address], [address] [place] [address] Chiki Vargas MD Discharge Disposition: Home or Self Care 02/17/2025 8:45 AM CDT Office Visit [facility] [address] [place] [phone] Chiki Vargas MD Lumbar spondylosis (Primary Dx); Tendinopathy of left rotator cuff; Tear of left rotator cuff, unspecified tear extent, unspecified whether traumatic; Cervical spondylosis 02/17/2025 Travel 01/04/2025 9:35 AM CDT - 01/04/2025 11:59 PM CDT Hospital Encounter [facility] [address] [place] [address], [facility] [address] [place] [address] Jeff Ortiz MD Discharge Disposition: Home or Self Care 01/04/2025 8:30 AM CDT Office Visit [facility] [address] [place] [phone] Jeff Ortiz MD Lumbar spondylosis (Primary Dx); Primary osteoarthritis of left hip 01/04/2025 8:28 AM CDT - 01/04/2025 9:34 AM CDT Hospital Encounter [facility] [address] [place] [address], [facility] [address] [place] [address] Jeff Ortiz MD Discharge Disposition: Home or Self Care 01/04/2025 Travel 01/03/2025 Orders Only [facility] [address] [place] [phone] Jeff Ortiz MD History of total right [...] on file Legal Sex Female 6:26 AM DIRECTOR OF TECHNOLOGY Gender Identity Female 06/15/2021 6:51 AM DIRECTOR OF TECHNOLOGY Sexual Orientation Not on file Last Filed [...] [facility] [address] [place] [phone] Chiki Vargas MD [address] [place] [address] Health Maintenance Due Date Last Done Comments [...] this topic Medical Devices Implanted Type Area Taffy Candy Maker Device Identifier Shelf Expiration Date Model / Serial / Lot Leslie Sut Qanchr Arthsc Tissue Shldr Implanted:Qty: 2 on 07/05/2021 by Ever Garner MD at [facility] [employer] 11/25/2023 [id number] / / [id number] Cmpnt Fem Kn Rt 4 Crcte Rtn Legion John Implanted:Qty: 1 on 03/08/2024 by Jeff Ortiz MD at [facility] Right: Knee [employer] [id number] 06/30/2033 [id number] / / [id number] Deep Dished Articular Insert Implanted:Qty: 1 on 03/08/2024 by Jeff Ortiz MD at [facility] Right: Knee [employer] [id number] 10/20/2031 [id number] / / [id number] Porous Tibia Baseplate Implanted:Qty: 1 on 03/08/2024 by Jeff Ortiz MD at [facility] Right: Knee [employer] [id number] 09/19/2031 [id number] / / [id number] Procedures Procedure Name Priority Date/Time Associated Diagnosis [...] testing LIPID PROFILE Routine 07/28/1998 12:00 AM DIRECTOR OF TECHNOLOGY from Last 3 Months or Most Recently [...] COMPREHENSIVE METABOLIC PANEL (02/23/2024 10:07 AM CDT) [facility] Signature Glucose 101 70 - 105 mg/dL 02/23/2024 11:00 AM CDT [facility] Sodium 137 136 - 145 mmol/L 02/23/2024 11:00 AM CDT [facility] Potassium 4.3 3.5 - 5.1 mmol/L 02/23/2024 11:[address] [facility] Chloride 103 98 - 107 mmol/L 02/23/2024 11:[address] [facility] CO2 25 22 - 29 mmol/L 02/23/2024 11:[address] [facility] Calcium 9.6 8.4 - 10.4 mg/dL 02/23/2024 11:[address] [facility] Anion Gap 9 6 - 16 mmol/L 02/23/2024 11:[address] [facility] BUN 15 7 - 26 mg/dL 02/23/2024 11:[address] [facility] Creatinine 0.82 0.57 - 1.11 mg/dL 02/23/2024 11:[address] [facility] Alkaline Phosphatase 85 40 - 150 U/L 02/23/2024 11:[address] [facility] ALT 19 0 - 55 U/L 02/23/2024 11:[address] [facility] AST 15 5 - 34 U/L 02/23/2024 11:[address] [facility] Protein Total 7.6 6.4 - 8.3 gm/dL 02/23/2024 11:[address] [facility] Albumin 4.0 3.4 - 5.0 gm/dL 02/23/2024 11:[address] [facility] Bilirubin Total 0.6 0.2 - 1.2 mg/dL 02/23/2024 11:[address] [facility] eGFR by CKD-EPI 78(L) >=90 mL/min/1.7 3 m2 02/23/2024 11:[address] [facility] Blood BLOOD SPECIMEN / Unknown Venipuncture / Unknown 02/23/2024 10:07 AM CDT 02/23/2024 10:35 AM [facility] [place] Jeff Ortiz MD LAB - CHEMISTRY ORDERABLES Final Result [facility] [address] [place], [place] [id number] * (ABNORMAL) LIPID PROFILE (07/28/1998 12:00 AM DIRECTOR OF TECHNOLOGY) Cholesterol Total 192 [facility] HDL 47 mg/dL [facility] Triglycerides 204(H) <150 mg/dL [facility] LDL Calculated 109 [facility] Venous blood specimen (specimen) 07/28/1998 Narrative [facility] - 07/28/1998 12:00 AM DIRECTOR OF TECHNOLOGY This order was created through External Result Entry Fritz Soria MD LAB - CHEMISTRY ORDERABLES Final Result [facility] [address] from Last 3 Months or Most Recently Relevant to Health Maintenance Insurance [employer] [facility] MANAGED MEDICARE ADV Advance Directives * Full Code (Latest Code Status on File) Date Activated Date Inactivated Comments 03/08/2024 2:53 PM 03/09/2024 2:48 PM Care Teams Application Performance Engineer Relationship Specialty Start Date End Date Fritz Soria MD PCP - General 01/04/21
--- OUTSIDE RECORDS SUMMARY | 2025-03-13 01:14 | XMS_ITS | Continuity of Care Document ---
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 tel:[phone] [facility], [address], [place], [place], [address], [place] tel:[phone] [facility] No Information 5 Yang Stratton [address], [address], [place], [place], [address] , [place]. tel:[phone] OFFICE/OUTPA TIENT VISIT, EST [facility], [address], [place], [place], [address], [place] tel:[phone] [facility] hashimoto1 (chief complaint) glucose1 (chief complaint) HLP (chief complaint) Sidney's thyroiditisHypergly cemiaMixed hyperlipidemiaAbnor mal weight gain 5 Yang Stratton [address], [address], [place], [place], [address] , [place]. tel:[phone] PREV VISIT, EST, 65 & OVER [facility], [address], [place], [place], [address], [place] tel:[phone] [facility] physical (chief complaint) Encounter for general adult medical examination without abnormal findings 5 Yang Stratton [address], [address], [place], [place], [address] , [place]. tel:[phone] OFFICE/OUTPA TIENT VISIT, [facility], [address], [place], [place], [address], [place] tel:[phone] [facility] cough1 (chief complaint) Acute bronchitis, unspecified 5- 5 Soria Fritz. [address], [address], [place], [place], [address] , [place]. tel:[phone] OFFICE/OUTPA TIENT VISIT, [facility], [address], [place], [place], [address], [place] tel:[phone] [facility] cough1 (chief complaint) Acute bronchitis 8- 5 Yang Hu. [address], [address], [place], [place], [address] , [place]. tel:[phone] OFFICE/OUTPA TIENT VISIT, [facility], [address], [place], [place], [address], [place] tel:[phone] [facility] HTN (chief complaint) anxiety1 (chief complaint) Generalized anxiety disorderEssential (primary) hypertension 0 4 Yang Hu. [address], [place], [place], [address] , [place]. tel:[phone] OFFICE/OUTPA TIENT VISIT, [facility], [address], [place], [place], [address], [place] tel:[phone] [facility] anxiety1 (chief complaint) HTN (chief complaint) Generalized anxiety disorderEssential (primary) hypertension 3- 4 Soria Fritz. [address], [address], [place], [place], [address] , [place]. tel:[phone] OFFICE/OUTPA TIENT VISIT, [facility], [address], [place], [place], [address], [place] tel:[phone] [facility] anxiety1 (chief complaint) knee pain1 (chief complaint) Generalized anxiety disorderPain in right knee Sep-1 8-202 4 Soria Fritz. [address], [address], [place], [place], [address] , [place]. tel:[phone] OFFICE/OUTPA TIENT VISIT, [facility], [address], [place], [place], [address], [place] tel:[phone] [facility] liver (chief complaint) psoriasis1 (chief complaint) anxiety1 (chief complaint) rash1 (chief complaint) Generalized anxiety disorderFatty liverPsoriasisTinea corporis 4 Soria Fritz. [address], [address], [place], [place], [address] , [place]. tel:[phone] OFFICE/OUTPA TIENT VISIT, [facility], [address], [place], [place], [address], [place] tel:[phone] [facility] HTN (chief complaint) anxiety1 (chief complaint) weight gain1 (chief complaint) shoulder1 (chief complaint) Essential (primary) hypertensionGeneral ized anxiety disorderGanglion, left shoulderAbnormal weight gain 4 Soria Fritz. [address], [place], [place], [address] , [place]. tel:[phone] OFFICE/OUTPA TIENT VISIT, [facility], [address], [place], [place], [address], [place] tel:[phone] [facility] nodule1 (chief complaint) knee pain1 (chief complaint) HTN (chief complaint) Ganglion, left shoulderPain in right kneeEssential (primary) hypertension 4 Soria Fritz. [address], [place], [place], [address] , [place]. tel:[phone] OFFICE/OUTPA TIENT VISIT, [facility], [address], [place], [place], [address], [place] tel:[phone] [facility] lymph (chief complaint) Lymphadenopathy 4 Soria Fritz. [address], [address], [place], [place], [address] , [place]. tel:[phone] OFFICE/OUTPA TIENT VISIT, [facility], [address], [place], [place], [address], [place] tel:[phone] [facility] HTN (chief complaint) anxiety1 (chief complaint) skin (chief complaint) lymph1 (chief complaint) LymphadenopathyEsse ntial (primary) hypertensionGeneral ized anxiety disorderTinea corporis Oct- 4 Yang Hu. [address], [place], [place], [address] , [place]. tel:[phone] OFFICE/OUTPA TIENT VISIT, [facility], [address], [place], [place], [address], [place] tel:[phone] [facility] HTN (chief complaint) viral (chief complaint) Essential (primary) hypertensionViral infection 4 Yang Hu. [address], [place], [place], [address] , [place]. tel:[phone] OFFICE/OUTPA TIENT VISIT, [facility], [address] [place], [address], [place] tel:[phone] [facility] HTN (chief complaint) HLP (chief complaint) LFT (chief complaint) hashimoto1 (chief complaint) weight gain1 (chief complaint) anxiety1 (chief complaint) Essential (primary) hypertensionHashimo to's thyroiditisFatty liverMixed hyperlipidemiaAbnor mal weight gainGeneralized anxiety disorder 4 Yang Hu. [address], [place], [place], [address] , [place]. tel:[phone] OFFICE/OUTPA TIENT VISIT, [facility], [address] [place], [address], [place] tel:[phone] [facility] HTN (chief complaint) anxiety1 (chief complaint) weight gain1 (chief complaint) Essential (primary) hypertensionGeneral ized anxiety disorderAbnormal weight gainHashimoto's thyroiditis 4 Yang Hu. [address], [place], [place], [address] , [place]. tel:[phone] OFFICE/OUTPA TIENT VISIT, [facility], [address], [place], [place], [address], [place] tel:[phone] [facility] cough1 (chief complaint) Acute bronchitis 4 Yang Hu. [address], [place], [place], [address] , [place]. tel:[phone] OFFICE/OUTPA TIENT VISIT, EST [facility], [address], [place], [place], [address], [place] tel:[phone] [facility] HTN (chief complaint) sick (chief complaint) bile duct stone1 (chief complaint) anxiety1 (chief complaint) Generalized anxiety disorderEssential (primary) hypertensionCholedo cholithiasis w/o cholecystitis w/o obstructionViral infection 4 Yang Hu. [address], [place], [place], [address] , [place]. tel:[phone] PREV VISIT, EST, 65 & OVER [facility], [address], [place], [place], [address], [place] tel:[phone] [facility] physical (chief complaint) Encounter for general adult medical exam w abnormal findingsEssential (primary) hypertensionGeneral ized anxiety disorderHashimoto's thyroiditis 3 Yang Hu. [address], [place], [place], [address] , [place]. tel:[phone] OFFICE/OUTPA TIENT VISIT, [facility], [address] [place], [address], [place] tel:[phone] [facility] HTN (chief complaint) RLS (chief complaint) knee pain1 (chief complaint) Essential (primary) hypertensionRestles s legs syndromePrimary osteoarthritis of right kneeInconclusive mammogram 3 Yang Hu. [address], [place], [place], [address] , [place]. tel:[phone] OFFICE/OUTPA TIENT VISIT, [facility], [address], [place], [place], [address], [place] tel:[phone] [facility] knee pain1 (chief complaint) stone1 (chief complaint) anxiety1 (chief complaint) HTN (chief complaint) Essential (primary) hypertensionCholedo cholithiasis w/o cholecystitis w/o obstructionPrimary osteoarthritis of right kneeGeneralized Anxiety Disorder 3 Soria Fritz. [address], [place], [place], [address] , [place]. tel:[phone] OFFICE/OUTPA TIENT VISIT, [facility], [address], [place], [place], [address], [place] tel:[phone] [facility] abd pain1 (chief complaint) HTN (chief complaint) headache1 (chief complaint) Essential (primary) hypertensionGeneral ized abdominal painHeadacheCalculu s of bile duct w/o cholangitis w/o obstruction Mar- 3 Soria Fritz. [address], [place], [place], [address] , [place]. tel:[phone] OFFICE/OUTPA TIENT VISIT, [facility], [address], [place], [place], [address], [place] tel:[phone] [facility] knee pain1 (chief complaint) hashimoto1 (chief complaint) neck pain1 (chief complaint) Sidney's thyroiditisPain in right kneeLocalized swelling w/ lump of neck Jan- 3 Soria Fritz. [address], [place], [place], [address] , [place]. tel:[phone] OFFICE/OUTPA TIENT VISIT, [facility], [address], [place], [place], [address], [place] tel:[phone] [facility] neck pain1 (chief complaint) HTN (chief complaint) Essential (primary) hypertensionLocaliz ed swelling w/ lump of neckHashimoto's thyroiditis 3 Yang Hu. [address], [place], [place], [address] , [place]. tel:[phone] OFFICE/OUTPA TIENT VISIT, [facility], [address], [place], [place], [address], [place] tel:[phone] [facility] edema1 (chief complaint) dizziness1 (chief complaint) anxiety1 (chief complaint) EdemaEssential (primary) hypertensionGeneral ized anxiety disorderCardiac murmur, unspecified 3 Yang Hu. [address], [place], [place], [address] , [place]. tel:[phone] OFFICE/OUTPA TIENT VISIT, [facility], [address], [place], [place], [address], [place] tel:[phone] [facility] weight gain1 (chief complaint) edema1 (chief complaint) Abnormal weight gainEdemaEssential (primary) hypertensionHashimo to's thyroiditis 3 Yang Hu. [address], [place], [place], [address] , [place]. tel:[phone] OFFICE/OUTPA TIENT VISIT, [facility], [address], [place], [place], [address], [place] tel:[phone] [facility] OAB (chief complaint) shoulder pain1 (chief complaint) jaw pain1 (chief complaint) HTN (chief complaint) anxiety1 (chief complaint) Essential (primary) hypertensionGeneral ized anxiety disorderOveractive bladderTremorPain in left shoulderOcclusion and stenosis of bilateral carotid arteries Fe 3 Yang Hu. [address], [place], [place], [address] , [place]. tel:[phone] OFFICE/OUTPA TIENT VISIT, [facility], [address], [place], [place], [address], [place] tel:[phone] [facility] OAB (chief complaint) anxiety1 (chief complaint) neck pain1 (chief complaint) HTN (chief complaint) Essential (primary) hypertensionGeneral ized anxiety disorderOveractive bladderCervicalgiaO ther specified disorder of bone density 2 Yang Stratton [address], [place], [place], [address] , [place]. tel:[phone] OFFICE/OUTPA TIENT VISIT, [facility], [address], [place], [place], [address], [place] tel:[phone] [facility] neck pain1 (chief complaint) Abnormal jaw closureCervicalgiaT remor 2 Yang Stratton [address], [place], [place], [address] , [place]. tel:[phone] Referring Provider: Cata Bateman [address] [facility], [place], [place], [address]. tel:[phone] OFFICE/OUTPA TIENT VISIT, [facility], [address], [place], [place], [address], [place] tel:[phone] [facility] muscle pain (chief complaint) muscle pain1 (chief complaint) HTN (chief complaint) glucose (chief complaint) Essential (primary) hypertensionOther specified disorder of bone densityOther muscle spasmAbnormal jaw closureHyperglycemi a 2 Yang Stratton [address], [place], [place], [address] , [place]. tel:[phone] Referring Provider: Cata Bateman [address], [place], [place], [address]. tel:[phone] OFFICE/OUTPA TIENT VISIT, [facility], [address], [place], [address], [place] tel:[phone] [facility] HTN (chief complaint) tinnitus1 (chief complaint) neuropathy 1 (chief complaint) anxiety1 (chief complaint) Essential (primary) hypertensionEpisodi c cluster headache, not intractableCramp and spasmGeneralized Anxiety Disorder 2 Soria Fritz. [address], [place], [place], [address] , [place]. tel:[phone] Referring Provider: Cata Bateman [address], [place], [place], [address]. tel:[phone] OFFICE/OUTPA TIENT VISIT, [facility], [address], [place], [place], [address], [place] tel:[phone] [facility] UTI1 (chief complaint) weakness1 (chief complaint) HTN (chief complaint) Hypertensive emergencyTremorAcut e cystitis w/ hematuriaTinnitus, bilateral 2 Yang Hu. [address], [place], [place], [address] , [place]. tel:[phone] Referring Provider: [address], [place], [place], [address]. tel:[phone] OFFICE/OUTPA TIENT VISIT, [facility], [address], [place], [place], [address], [place] tel:[phone] [facility] sick (chief complaint) Acute sinusitisViral infection 2 Yang Hu. [address], [place], [place], [address] , [place]. tel:[phone] Referring Provider: Cata Bateman [facility], [place], [place], [address]. tel:[phone] PREV VISIT, EST, 65 & OVER [facility], [address], [place], [place], [address], [place] tel:[phone] [facility] physical (chief complaint) Encounter for general adult medical exam w abnormal findingsEssential (primary) hypertensionHypothy roidismUrge incontinenceUrinary tract infectionGeneralize d anxiety disorder 2 Yang Hu. [address], [place], [place], [address] , [place]. tel:[phone] Referring Provider: [address], [place], [place], [address]. tel:[phone] OFFICE/OUTPA TIENT VISIT, [facility], [address], [place], [place], [address], [place] tel:[phone] [facility] UTi1 (chief complaint) thyroid1 (chief complaint) lipoma1 (chief complaint) Urinary tract infectionHypothyroi dismLipoma 2 Yang Hu. [address], [place], [place], [address] , [place]. tel:[phone] Referring Provider: Cata Bateman [address], [place], [place], [address]. tel:[phone] OFFICE/OUTPA TIENT VISIT, [facility], [address], [place], [place], [address], [place] tel:[phone] [facility] HTN (chief complaint) anxiety1 (chief complaint) oAB (chief complaint) thyroid1 (chief complaint) HypothyroidismOvera ctive bladderGeneralized anxiety disorderEssential (primary) hypertension 2 Yang Hu. [address], [place], [place], [address] , [place]. tel:[phone] Referring Provider: C[address], [place], [place], [address]. tel:[phone] OFFICE/OUTPA TIENT VISIT, [facility], [address], [place], [place], [address], [place] tel:[phone] [facility] OAB1 (chief complaint) thyroid1 (chief complaint) weight loss1 (chief complaint) Overactive bladderUrge incontinenceAbnorma l weight lossHypothyroidism 1 Yang Hu. [address], [place], [place], [address] , [place]. tel:[phone] Referring Provider: [address], [place], [place], [address]. tel:[phone] OFFICE/OUTPA TIENT VISIT, [facility], [address], [place], [place], [address], [place] tel:[phone] [facility] fatty tumor1 (chief complaint) hip pain1 (chief complaint) weight loss1 (chief complaint) anxiety1 (chief complaint) thyroid1 (chief complaint) Abnormal weight lossGeneralized anxiety disorderHypothyroid ismLipomaPain in right hip Sep- 0 1 Yang Stratton [address], [place], [place], [address] , [place]. tel:[phone] Referring Provider: Cata Bateman [address], [place], [place], [address]. tel:[phone] OFFICE/OUTPA TIENT VISIT, [facility], [address], [place], [place], [address], [place] tel:[phone] [facility] hip pain1 (chief complaint) weight loss1 (chief complaint) anxiety1 (chief complaint) thyroid1 (chief complaint) Allergic contact dermatitis due to plants, except foodHypothyroidismG eneralized anxiety disorderAbnormal weight loss Jan-0 1 Yang Stratton [address], [place], [place], [address] , [place]. tel:[phone] Referring Provider: C[address], [place], [place], [address]. tel:[phone] OFFICE/OUTPA TIENT VISIT, [facility], [address], [address], [place] tel:[phone] [facility] phos (chief complaint) UTI1 (chief complaint) hypothyroi dism1 (chief complaint) hip pain1 (chief complaint) HypothyroidismOther disorders of phosphorus metabolismUrinary tract infectionPain in right hip Ramon- 1 Yang Stratton [address], [place], [place], [address] , [place]. tel:[phone] Referring Provider: Cata Bateman [address], [place], [place], [address]. tel:[phone] OFFICE/OUTPA TIENT VISIT, [facility], [address], [place], [place], [address], [place] tel:[phone] [facility] hip pain1 (chief complaint) fatty tumor1 (chief complaint) anxiety1 (chief complaint) Pain in right hipLipomaGeneralize d Anxiety DisorderOther specified soft tissue disorders 1 Yang Stratton [address], [place], [place], [address] , [place]. tel:[phone] Referring Provider: Fritz Soria [address], [place], [place], [address]. tel:[phone] OFFICE/OUTPA TIENT VISIT, [facility], [address], [place], [place], [address], [place] tel:[phone] [facility] phos (chief complaint) LFT (chief complaint) thyroid1 (chief complaint) pain (chief complaint) Other spondylosis, lumbar regionOther disorders of phosphorus metabolismFatty liverHypothyroidism 1 Yang Stratton [address], [place], [place], [address] , [place]. tel:[phone] Referring Provider: Cata Bateman [address], [place], [place], [address]. tel:[phone] OFFICE/OUTPA TIENT VISIT, [facility], [address], [place], [place], [address], [place] tel:[phone] [facility] pain (chief complaint) anxieyt1 (chief complaint) HTN (chief complaint) Other spondylosis, lumbar regionGeneralized anxiety disorderEssential (primary) hypertension 1 Yang Stratton [address], [place], [place], [address] , [place]. tel:[phone] Referring Provider: Cata Bateman [address], [place], [place], [address]. tel:[phone] OFFICE/OUTPA TIENT VISIT, [facility], [address], [place], [place], [address], [place] tel:[phone] [facility] anxiety1 (chief complaint) back pain1 (chief complaint) Generalized anxiety disorderOther spondylosis, lumbar region Sep- 1 Yang Stratton [address], [place], [place], [address] , [place]. tel:[phone] Referring Provider: Fritz Soria, [address], [place], [place], [address]. tel:[phone] PREV VISIT, EST, 65 & OVER [facility], [address], [place], [place], [address], [place] tel:[phone] [facility] physical (chief complaint) Encounter for general adult medical exam w abnormal findingsEssential (primary) hypertensionGeneral ized anxiety disorderOveractive bladderOther spondylosis, lumbar region Sep-0 1 Yang Stratton [address], [place], [place], [address] , [place]. tel:[phone] Referring Provider: Cata Bateman [address], [place], [place], [address]. tel:[phone] OFFICE/OUTPA TIENT VISIT, [facility], [address], [place], [place], [address], [place] tel:[phone] [facility] COVID1 (chief complaint) Viral infectionAcute conjunctivitis of right eye 1 Yang Stratton [address], [place], [place], [address] , [place]. tel:[phone] Referring Provider: Fritz Soria [address], [place], [place], [address]. tel:[phone] OFFICE/OUTPA TIENT VISIT, [facility], [address], [place], [place], [address], [place] tel:[phone] [facility] anxiety1 (chief complaint) pain1 (chief complaint) HTN (chief complaint) OAB (chief complaint) CTD (chief complaint) Raised antibody titerEssential (primary) hypertensionOveract jf bladderPain in right hipGeneralized anxiety disorder 1 Yang Stratton [address], [place], [place], [address] , [place]. [phone] Referring Provider: Cata Bateman [address], [place], [place], [address]. tel:[phone] OFFICE/OUTPA TIENT VISIT, [facility], [address], [place], [place], [address], [place] tel:[phone] [facility] pain (chief complaint) anxiety1 (chief complaint) MARANDA (chief complaint) UTI1 (chief complaint) Generalized anxiety disorderChronic pain syndromeUrinary tract infectionRaised antibody titerEncounter for oth screening for malignant neoplasm of breast 0 Yang Stratton [address], [place], [place], [address] , [place]. tel:[phone] Referring Provider: Cata Bateman [address] [facility], [place], [place], [address]. tel:[phone] OFFICE/OUTPA TIENT VISIT, [facility], [address], [place], [place], [address], [place] tel:[phone] [facility] anxiety1 (chief complaint) pain (chief complaint) UTI1 (chief complaint) fatty liver1 (chief complaint) Urinary tract infectionChronic pain syndromeGeneralized anxiety disorderFatty liver 0 0 Yang Stratton [address], [place], [place], [address] , [place]. tel:[phone] Referring Provider: Cata Bateman [address], [place], [place], [address]. tel:[phone] OFFICE/OUTPA TIENT VISIT, [facility], [address], [place], [place], [address], [place] tel:[phone] [facility] sick (chief complaint) Abdominal painViral infectionUrinary tract infection 0 Yang Stratton [address], [place], [place], [address] , [place]. tel:[phone] Referring Provider: Cata Bateman [address], [place], [place], [address]. tel:[phone] OFFICE/OUTPA TIENT VISIT, [facility], [address], [place], [place], [address], [place] tel:[phone] [facility] back pain1 (chief complaint) anxiety1 (chief complaint) Generalized anxiety disorderOther spondylosis, lumbar region November-0 0 Yang Hu. [address], [place], [place], [address] , [place]. [phone] Referring Provider: Cata Bateman [address], [place], [place], [address]. tel:[phone] OFFICE/OUTPA TIENT VISIT, [facility], [address], [place], [place], [address], [place] tel:[phone] [facility] sick (chief complaint) Viral infection Sep-3 0 Yang Hu. [address], [place], [place], [address] , [place]. tel:[phone] Referring Provider: Cata Bateman [address], [place], [place], [address]. tel:[phone] OFFICE/OUTPA TIENT VISIT, [facility], [address], [place], [place], [address], [place] tel:[phone] [facility] colon polyp (chief complaint) HTN (chief complaint) anxiety1 (chief complaint) pain (chief complaint) Essential (primary) hypertensionGeneral ized anxiety disorderChronic pain syndromePolyp of colon Mar-0 0 Yang Hu. [address], [place], [place], [address] , [place]. tel:[phone] Referring Provider: Cata Bateman [address], [place], [place], [address]. tel:[phone] PREV VISIT, EST, AGE 40-64 [facility] [facility], [address], [place], [place], [address], [place] tel:[phone] [facility] physical (chief complaint) Encounter for general adult medical exam w abnormal findingsHyperlipide miaOveractive bladderGeneralized anxiety disorderChronic pain syndromeEssential (primary) hypertension [address], [place], [place], [address] , [place]. [phone] Referring Provider: Cata Bateman [address], [place], [place], [address]. tel:[phone] OFFICE/OUTPA TIENT VISIT, [facility], [address], [place], [place], [address], [place] tel:[phone] [facility] HLP (chief complaint) anxiety1 (chief complaint) lumbago1 (chief complaint) OAB (chief complaint) Overactive bladderHyperlipidem iaHyperglycemiaGene ralized anxiety disorderChronic pain syndrome 9 Yang [address], [address], [place], [place], [address] , [place]. [phone] Referring Provider: Cata Bat[address], [place], [place], [address]. tel:[phone] OFFICE/OUTPA TIENT VISIT, [facility], [address], [place], [place], [address], [place] tel:[phone] [facility] OAB (chief complaint) anxiety1 (chief complaint) HTN (chief complaint) HLP (chief complaint) HyperlipidemiaOvera ctive bladderEssential (primary) hypertensionGeneral ized anxiety disorderEncounter for oth screening for malignant neoplasm of breast 9 Yang Stratton [address], [address], [place], [place], [address] , [place]. tel:[phone] Referring Provider: [address], [place], [address]. tel:[phone] OFFICE/OUTPA TIENT VISIT, [facility], [address], [place], [place], [address], [place] tel:[phone] [facility] colon1 (chief complaint) anxiety1 (chief complaint) HLP (chief complaint) leukopenia 1 (chief complaint) HyperlipidemiaLeuko peniaGeneralized anxiety disorderEncounter for screening for malignant neoplasm of colon 9 Yang [address], [place], [place], [address] , [place]. tel:[phone] OFFICE/OUTPA TIENT VISIT, EST [facility], [address], [place], [place], [address], [place] tel:[phone] [facility] anxiety1 (chief complaint) back pain1 (chief complaint) shingle1 (chief complaint) Lumbago with sciatica, right sideGeneralized anxiety disorderHerpes simplex infection 9 Yang [address], [address], [place], [place], [address] , [place]. tel:[phone] Referring Provider: Cata Bateman [address], [place], [place], [address]. tel:[phone] PREV VISIT, EST, AGE 40-64 [facility], [address], [place], [place], [address], [place] tel:[phone] [facility] physical (chief complaint) Encounter for general adult medical exam w abnormal findingsEssential (primary) hypertensionOveract jf bladderHyperlipidem iaLeukopeniaHypergl ycemia 8 Yang [address], [place], [address] , [place]. tel:[phone] Referring Provider: Cata Bateman [address], [place], [place], [address]. tel:[phone] OFFICE/OUTPA TIENT VISIT, EST [facility], [address], [place], [place], [address], [place] tel:[phone] [facility] back pain1 (chief complaint) biliary1 (chief complaint) HLP (chief complaint) HTn1 (chief complaint) Essential (primary) hypertensionHyperli pidemiaOther spondylosis, lumbosacral regionOveractive bladderCholedocholi thiasis w/o cholecystitis w/o obstruction 8 Yang [address], [address], [place], [place], [address] , [place]. tel:[phone] Referring Provider: Cata Bateman [address], [place], [place], [address]. tel:[phone] OFFICE/OUTPA TIENT VISIT, [facility], [address], [place], [place], [address], [place] [phone] [facility] OAB1 (chief complaint) anxiety1 (chief complaint) belching1 (chief complaint) weight loss1 (chief complaint) back pain1 (chief complaint) Overactive bladderAbnormal weight lossGeneralized Anxiety DisorderChronic pain syndrome Sep-2 8 Yang [address], [place], [address] , [place]. [phone] Referring Provider: Cata Bateman [address], [place], [place], [address]. tel:[phone] OFFICE/OUTPA TIENT VISIT, [facility], [address], [place], [place], [address], [place] tel:[phone] [facility] LFT (chief complaint) chronic pain1 (chief complaint) skin lesion1 (chief complaint) anxiety1 (chief complaint) Liver diseaseAbnormal weight lossLipomaNevus, non-neoplasticChron ic pain syndrome Jan-0 8 Yang [address], [place], [address] , [place]. [phone] Referring Provider: Cata Bateman [address], [place], [place], [address]. tel:[phone] OFFICE/OUTPA TIENT VISIT, [facility], [address], [place], [place], [address], [place] tel:[phone] [facility] anxiety1 (chief complaint) back pain1 (chief complaint) bile duct stone1 (chief complaint) Generalized anxiety disorderChronic pain syndromeCholedochol ithiasis w/o cholecystitis w/o obstructionLiver disease 8 Yang [address], [place], [address] , [place]. [phone] Referring Provider: Cata Bateman [address], [place], [place], [address]. tel:[phone] OFFICE/OUTPA TIENT VISIT, [facility], [address], [place], [address], [place] tel:[phone] [facility] abdominal pain1 (chief complaint) Abdominal painViral infection 8 Yang Ivy [address], [place], [address] , [place]. [phone] Referring Provider: Cata Bateman [address], [place], [address]. tel:[phone] OFFICE/OUTPA TIENT VISIT, [facility], [address], [place], [place], [address], [place] tel:[phone] [facility] sick1 (chief complaint) anxiety1 (chief complaint) back pain1 (chief complaint) Viral infectionGeneralize d Anxiety DisorderChronic pain syndrome 8 Yang [address], [place], [place], [address] , [place]. [phone] Referring Provider: Cata Bateman [address], [place], [address]. tel:[phone] PREV VISIT, EST, AGE 40-64 [facility], [address], [place], [place], [address], [place] tel:[phone] [facility] Physical (chief complaint) Encounter for general adult medical exam w abnormal findingsOveractive bladderHyperlipidem iaGeneralized Anxiety Disorder 7 Yang [address], [place], [place], [address] , [place]. tel:[phone] Referring Provider: Cata Bateman [address], [place], [place], [address]. tel:[phone] OFFICE/OUTPA TIENT VISIT, [facility], [address], [place], [place], [address], [place] tel:[phone] [facility] foot pain1 (chief complaint) incontinen ce1 (chief complaint) HLP (chief complaint) HyperlipidemiaOvera ctive bladderLumbago with sciatica, right sidePain in right foot 7 Yang Hu. [address], [place], [place], [address] , [place]. tel:[phone] Referring Provider: Cata Bateman [address], [place], [place], [address]. tel:[phone] OFFICE/OUTPA TIENT VISIT, [facility], [address], [place], [place], [address], [place] tel:[phone] [facility] anxiety1 (chief complaint) lumbago1 (chief complaint) obesity1 (chief complaint) screening for colon (chief complaint) Generalized Anxiety DisorderLumbago with sciatica, right sideBody mass index (BMI) 32.0-32.9, adultEncounter for screening for malignant neoplasm of colon 7 Yang [address], [place], [address] , [place]. tel:[phone] Referring Provider: Cata Bateman [address], [place], [place], [address]. tel:[phone] OFFICE/OUTPA TIENT VISIT, [facility], [address], [place], [place], [address], [place] tel:[phone] [facility] glucose1 (chief complaint) HLP (chief complaint) back pain1 (chief complaint) HTN (chief complaint) HyperlipidemiaEssen tial (primary) hypertensionLumbago with sciatica, right sideHyperglycemia 7 Yang [address], [place], [address] , [place]. tel:[phone] Referring Provider: Cata Bateman [address], [place], [place], [address]. tel:[phone] OFFICE/OUTPA TIENT VISIT, EST [facility], [address], [place], [place], [address], [place] tel:[phone] [facility] HTN (chief complaint) anxiety1 (chief complaint) heel pain1 (chief complaint) HLP (chief complaint) HyperlipidemiaEssen tial (primary) hypertensionGeneral ized Anxiety DisorderPain in right foot 7 Yang [address]. [address], [place], [place], [address] , [place]. [phone] Referring Provider: [address], [place], [place], [address]. tel:[phone] PREV VISIT, EST, AGE 40-64 [facility], [address], [place], [place], [address], [place] tel:[phone] [facility] Physical (chief complaint) Encounter for general adult medical exam w abnormal findingsMixed hyperlipidemiaEssen tial (primary) hypertensionGeneral ized Anxiety Disorder 6 Yang [address], [place], [place], [address] , [place]. tel:[phone] Referring Provider: Cata Bateman [address], [place], [place], [address]. tel:[phone] OFFICE/OUTPA TIENT VISIT, EST [facility], [address], [place], [place], [address], [place] tel:[phone] [facility] hip pain1 (chief complaint) Anxiety1 (chief complaint) Chronic pain syndromeGeneralized Anxiety DisorderEncounter for oth screening for malignant neoplasm of breast 6 Yang [address], [place], [place], [address] , [place]. tel:[phone] Referring Provider: Fritz Soria, [address], [place], [place], [address]. tel:[phone] OFFICE/OUTPA TIENT VISIT, [facility], [address], [place], [place], [address], [place] tel:[phone] [facility] hip pain1 (chief complaint) HLP (chief complaint) HTN (chief complaint) Essential (primary) hypertensionMixed hyperlipidemiaPain in left hip 6 Yang [address]. [address], [place], [place], [address] , [place]. [phone] Referring Provider: Cata Bateman [address], [place], [place], [address]. tel:[phone] OFFICE/OUTPA TIENT VISIT, [facility], [address], [place], [place], [address], [place] tel:[phone] [facility] HLP (chief complaint) anxiety1 (chief complaint) pain (chief complaint) low D (chief complaint) Mixed hyperlipidemiaGener alized anxiety disorderChronic pain syndromeEssential (primary) hypertension 6 Yang [address], [place], [place], [address] , [place]. [phone] Referring Provider: Cata Bateman [address], [place], [place], [address]. tel:[phone] OFFICE/OUTPA TIENT VISIT, [facility], [address], [place], [place], [address], [place] tel:[phone] [facility] cough1 (chief complaint) HTN (chief complaint) HLP (chief complaint) Hyperlipidemia, unspecifiedAcute bronchitis, unspecifiedEssentia l (primary) hypertension 6 Yang Hu. [address], [place], [place], [address] , [place]. [phone] Referring Provider: Cata Bateman [address], [place], [place], [address]. tel:[phone] OFFICE/OUTPA TIENT VISIT, EST [facility], [address], [place], [place], [address], [place] tel:[phone] [facility] HLP1 (chief complaint) low vitamin D1 (chief complaint) neck pain1 (chief complaint) Mixed hyperlipidemiaVitam in D deficiency, unspecifiedChronic pain syndrome 5 Yang Hu. [address], [place], [place], [address] , [place]. [phone] Referring Provider: Cata [address], [place], [place], [address]. tel:[phone] OFFICE/OUTPA TIENT VISIT, [facility], [address], [place], [place], [address], [place] tel:[phone] [facility] pain1 (chief complaint) Anxiety1 (chief complaint) Other spondylosis, cervical regionGeneralized anxiety disorderEncounter for screening for osteoporosis 5 Yang [address], [place], [place], [address] , [place]. [phone] Referring Provider: Cata Bateman [address], [place], [place], [address]. tel:[phone] PREV VISIT, EST, AGE 40-64 [facility], [address], [place], [place], [address], [place] tel:[phone] [facility] PHysical (chief complaint) Dietary surveillance and counselingEncounter for general adult medical exam w/ abnormal findingEssential (primary) hypertensionGeneral ized anxiety disorderParesthesia of skinDietary counseling and surveillance 5 Yang [address], [place], [place], [address] , [place]. tel:[phone] Referring Provider: C[address], [place], [place], [address]. tel:[phone] OFFICE/OUTPA TIENT VISIT, [facility], [address], [place], [place], [address], [place] tel:[phone] [facility] abd pain (chief complaint) hematuria (chief complaint) Abdominal painGeneralized anxiety disorderHematuriaUn specified essential hypertension 5 Yang [address], [place], [place], [address] , [place]. tel:[phone] Referring Provider: Cata Bateman [address], [place], [place], [address]. tel:[phone] OFFICE/OUTPA TIENT VISIT, [facility], [address], [place], [place], [address], [place] tel:[phone] [facility] anxiety (chief complaint) joint pain (chief complaint) rash (chief complaint) Pain in joint, site unspecifiedRash and other nonspecific skin eruptionGeneralized anxiety disorderDietary surveillance and counseling 5 Yang [address], [place], [place], [address] , [place]. tel:[phone] Referring Provider: Cata Bateman [address], [place], [place], [address]. tel:[phone] OFFICE/OUTPA TIENT VISIT, [facility], [address], [place], [place], [address], [place] tel:[phone] [facility] rash (chief complaint) dizzy (chief complaint) GERD (chief complaint) Dietary surveillance and counselingRash and other nonspecific skin eruptionDizzinessGE RD [address] Yang [address], [place], [place], [address] , [place]. tel:[phone] Referring Provider: Cata Bateman [address], [place], [place], [address]. tel:[phone] OFFICE/OUTPA TIENT VISIT, [facility], [address], [place], [place], [address], [place] tel:[phone] [facility] rash (chief complaint) back pain (chief complaint) UTI (chief complaint) Dietary surveillance and counselingRash and other nonspecific skin eruptionLumbagoUrin tania Tract Infection 4 [address], [place], [place], [address] , [place]. [phone] Referring Provider: Cata [address], [place], [place], [address]. tel:[phone] OFFICE/OUTPA TIENT VISIT, [facility], [address], [place], [place], [address], [place] tel:[phone] [facility] sick (chief complaint) GERD (chief complaint) anxiety (chief complaint) ObesityStreptococca l sore throatGERDGeneraliz ed anxiety disorder 4 Yang [address], [place], [place], [address] , [place]. [phone] Referring Provider: Cata Bateman [facility], [place], [place], [address]. tel:[phone] OFFICE/OUTPA TIENT VISIT, [facility], [address], [place], [place], [address], [place] [phone] [facility] GERD (chief complaint) hyperglyce zoila (chief complaint) UTI (chief complaint) HLP (chief complaint) Dietary surveillance and counselingGERDOther and unspecified hyperlipidemiaHyper glycemiaUrinary Tract Infection 4 [address], [place], [place], [address] , [place]. [phone] Referring Provider: Cata Bateman [address], [place], [place], [address]. tel:[phone] PREV VISIT, EST, AGE 40-64 [facility], [address], [place], [place], [address], [place] tel:[phone] [facility] Physical (chief complaint) Dietary surveillance and counselingRoutine Medical ExamHypertension, UnspecifiedOther and unspecified hyperlipidemiaGener alized anxiety disorderRoutine Medical Exam 4 [address], [place], [place], [address] , [place]. tel:[phone] Referring Provider: Cata Bateman [address], [place], [place], [address]. tel:[phone] OFFICE/OUTPA TIENT VISIT, [facility], [address], [place], [place], [address], [place] tel:[phone] [facility] itching (chief complaint) HTN (chief complaint) anxiety (chief complaint) TG (chief complaint) Unspecified pruritic disorderHypertensio n, UnspecifiedGenerali zed anxiety disorderDietary surveillance and counselingOther and unspecified hyperlipidemia 4 [address], [place], [place], [address] , [place]. tel:[phone] Referring Provider: Cata Bateman [address], [place], [place], [address]. tel:[phone] OFFICE/OUTPA TIENT VISIT, [facility], [address], [place], [place], [address], [place] tel:[phone] [facility] HTN (chief complaint) anxiety (chief complaint) arthritis (chief complaint) Dietary surveillance and counselingHypertens ion, UnspecifiedGenerali zed anxiety disorderPain in joint involving multiple sites 4 [address], [place], [place], [address] , [place]. tel:[phone] Referring Provider: Cata Bateman [address], [place], [place], [address]. tel:[phone] PREV VISIT, EST, AGE 40-64 [facility], [address], [place], [place], [address], [place] tel:[phone] [facility] Annual physica (chief complaint) Dietary surveillance and counselingRoutine Medical ExamHypertension, UnspecifiedPain in joint involving multiple sitesGeneralized anxiety disorderRoutine Medical Exam 3 [address], [place], [place], [address] , [place]. [phone] Referring Provider: Fritz Soria, [address], [place], [place], [address]. tel:[phone] OFFICE/OUTPA TIENT VISIT, [facility], [address], [place], [place], [address], [place] [phone] [facility] hand/wrist pain (chief complaint) Pain in joint involving forearmDietary surveillance and counseling 3 [address], [place], [place], [address] , [place]. [phone] Referring Provider: Cata Bateman [address], [place], [place], [address]. tel:[phone] OFFICE/OUTPA TIENT VISIT, [facility], [address], [place], [place], [address], [place] [phone] [facility] anxiety (chief complaint) GERD (chief complaint) HTN (chief complaint) arthritis (chief complaint) Dietary surveillance and counselingHypertens ion, UnspecifiedGenerali zed anxiety disorderPain in joint involving multiple sites 3 [address], [place], [place], [address] , [place]. [phone] Referring Provider: Cata Bateman [address], [place], [place], [address]. tel:[phone] OFFICE/OUTPA TIENT VISIT, [facility], [address], [place], [place], [address], [place] [phone] [facility] back pain (chief complaint) LumbagoGeneralized anxiety disorderDietary surveillance and counseling 2 [address], [place], [place], [address] , [place]. [phone] Referring Provider: Cata Bateman [address], [place], [place], [address]. tel:[phone] Family History Family Member Type Diagnosis Age At Onset Sister Problem (finding) Alive and well Father Problem (finding) Alive and well Mother Problem Thyroid disorder Mother Problem (finding) Alive and well Payers Payer name Insurance type Covered democrat ID Socorro arellano(s) No Information Social History [...] synthroid yet. Pt states that she saw corporate responsibility officer recently and had bunch of labs done [...] closure) ordered Referral Referred To: Reza Forrest [address] [place] [address]
[facility] [place], [address] Ordered: Referrals: Allopathic & Osteopathic Physicians : [...] ordered Referral Referred To: Ever Garner [address] [place], [place], [id number] Ordered: Referrals: Allopathic & Osteopathic Physicians : Orthopaedic Surgery. Ever Garner. Evaluate and treat ordered Referral Ordered: US THYROID ordered Referral Ordered: MRI JNT OF LWR EXTRE W/O DYE ordered Referral Ordered: Pain Medicine (related to Other spondylosis, lumbar region) ordered Referral Referred To: Dominick REYES, Jose Romeo [address] [facility]
[place] [address] [place], [place], [address] Ordered: Referrals: Jose Tan MD. Evaluate and treat ordered Referral Referred To: Alia Gee MD [address] [facility]
[address] [place], [place], [address] Ordered: Referrals: Alia Gee MD. Evaluate and [...] treat ordered Referral Referred To: [place] Hanna [address] [place], [place] [id number] Ordered: Referrals: Allopathic & Osteopathic Physicians : [...] synthroid yet. Pt states that she saw corporate responsibility officer recently and had bunch of labs done [...] days and her bp is mildly high knee pain1 Pt has chronic r ight knee pain. She underwent right knee replacement recently and she is doing well post op. Pt notices mild right knee swelling Pt sees ortho. anxiety1 Pt has chronic a nxiety Pt denies any depression or any suicidal or homicidal thought Pt denies any crying spells. Pt takes xanax PRn and doing ok rash1 Pt has intermitt ent itchy rash [...] shoulder pain. Pt denies any size change anxiety1 Pt has chronic a nxiety with mild depression Pt is back on zoloft now Pt denies any suicidal or homicidal thought Pt denies any crying spells. Pt takes xanax PRn and doing ok. skin Pt has skin fold around abdomen and she notices itching and burning and redness around the crease line around lower abdomen HTN Pt has HTN Pt ta kes irbesartan, toprol and also irbesartan and her bp has been ok at home. Pt denies any chest pain or headache or dizziness HTN Pt has HTN, Pt h as [...] sore throat, etc. Pt is not vaccinated weight gain1 Pt has been gain ing weight gain lately/ hashimoto1 Pt has sidney Pt denies any dysphagia or neck pain. her tsh is ok. HTN Pt has HTN, pt t akes irbesartan and toprol and spironolactone and her bp is around 140/70 at home pt denies any chest pain or headache Pt run out of spironolactone several days ago. Pt just saw cardiology today and she was started on triamterene hctz but the customer project manager did not know that she was prescribed spironolactone since she did not remember the name of spironolactone. Pt denies any chest pain or headache anxiety1 Pt has chronic a nxiety .Pt [...] Pt denies any abd tristen or jaundice HTN Pt has HTN, Pt t akes toprol 100 mg and irbesartan 300 mg daily and her bp is still high Pt denies any chest pain .pt denies any headache Pt does feel ringing in her ears anxiety1 Pt has chronic a nxiety and depression Pt states that she could not tolerate lexapro due to fatigue Pt was given zoloft by customer project manager but she never tried it. Pt denies [...] waking up at night with headache . 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 Pt n otices mild low pelvic pressure Pt denies any dysuria urinary urgency or frequency. Pt denies any flank pain hypothyroidism1 Pt has mild low thyroid. Pt denies any dysphagia or neck pain. Repeat TSH is ok. Pt has high TPO and TSI. hip pain1 Pt has chronic r ight hip pain and she notices a bulge around right hip area. MRI showed avulsion of right bicep femoris and semitendinosus tendon and also bilateral gluteus tendinopathy, etc . hip pain1 Pt c/o chronic r ight [...] lexx with pain management in 10 days HTN Pt has HTN. Pt t akes [...] Pt takes xanax prn and doing ok HTN Pt has HTn. Pt t akes lisinopril and doing ok. OAB Pt has oab .Pt t akes oxybutynin only once per day and doing ok CTD Pt is seeing dr gee and she is on Plaquenil now. pain1 Pt has chronic l ow back [...] of hip pain and showed arthritis. her spar finisher told her it is due to arthritis pain Pt has chronic l ow back [...] some low pelvic pressure when she urinate. anxiety1 Pt has chronic a nxiety ,PT denies any depression or any suicidal thought. Pt denies any crying spells. Pt takes xanax PRn and doing ok back pain1 Pt has chronic l ow back pain with sciatica and leg numbness and tingling, Pt denies any loss of bladder control. Pt has DDD Pt failed injections Pt notices acute flare up of low back pain with right sciatica for 2-3 days. Pt denies any injury. Pt takes ultram PRn for pain. Pt has normal ambulation sick Pt c/o nonbloody diarrhea, vomiting , [...] BP is stable. Pt needs refill . anxiety1 Pt has chronic a nxiety pt [...] PRn. Pt no longer wants more injections physical PT needs annual physical, Pt has [...] crying spells. Pt denies any other complaints biliary1 Pt has history o f cholelithiasis [...] had ct done which showed severe spondylosis. HTn1 Pt takes lisinop ril and her BP is stable. OAB1 Pt has OAB Pt steinberg s [...] pain. Pt failed pain management with injection skin lesion1 Pt notices a sof t mass left upper back for several months. Pt notices pain and enlarging mass. anxiety1 Pt has chronic a nxiety .Pt denies any depression or any suicidal thought Pt takes. Pt takes xanax PRn and doing ok LFT Pt recently had common bile duct [...] Pt denies any sciatica or any numbness. anxiety1 Pt has chronic a nxiety Pt [...] she has abdominal pain worse with food. back pain1 Pt c/o low back and right heel pain. Pt just had right heel surgery for heel spur and tendon repair by podiatry. Pt needs ultram refilled sick1 Pt c/o intermitt ent fever as high as 101, mild stomach ache, myalgia for 2 weeks. Pt denies any nause, vomiting, diarrhea. Last fever was yesterday. pt denies any sore throat Pt has mild dry cough. Pt feels slighlty better today anxiety1 Pt has chronic a nxiety. Pt denies any depression or any suicidal thought Pt denies any cyring spells. Physical Pt needs annual physical. pt has [...] on low fat and low carb diet anxiety1 Pt has chronic a nxiety. Pt [...] back injection x 1 without much improvement obesity1 Pt is overweight . Pt has [...] could not find the result from quest glucose1 Pt has mild gluc ose. Pt [...] t zuly valente Pt denies any myalgia Physical Pt needs [...] HLP Pt has HLP Pt ta yg chisholmo. Pt denies any myalgia. Pt is on [...] a while. Pt denies any spontaneous fx HTN Pt has HTN. pt t akes lisinopril and her BP is borderline Pt deneis any chest pain or headache HLP Pt takes feno. P t denies any myalgia. Pt is trying low fat and low carb diet. cough1 Pt c/o productiv e coughing with [...] adult medical exam w abnormal findings Prescribed Diet Educ ation/Lifestyle Education Regarding Diet [...] Mental Status Date Cognitive Assessment Orientation - Kamas ed to time, place, person, situation.
--- OUTSIDE RECORDS SUMMARY | 2025-03-13 01:14 | XMS_ITS | Clinical Summary ---
Author Organization [facility] Address [address] [place] [id number] Care Team Providers Care Finance Administrator Name Role Phone Fritz Soria MD Primary Care Provider [phone] Social History Tobacco Use Types Packs/Day Years [...] this topic Medical Devices Implanted Type Area Technical Maintenance Technician Device Identifier Shelf Expiration Date Model / Serial / Lot Stimulator Implant-09/05/19 Implanted:03/2023 (Quantity not on file) Stimulator Implant Bladder [id number] / [id number] / Description:Full body eligib le for MRI - 30 min scan time with 5 min wait Insurance [employer] Care Teams Finance Administrator Relationship Specialty Start Date End Date Fritz Soria MD [address] [place] [id number] PCP - General FAMILY PRACTICE 03/17/23
--- OUTSIDE RECORDS SUMMARY | 2025-03-13 01:14 | XMS_ITS | Patient Health Record ---
Author Organization [facility] Address [address] [place] [address] Care Team Providers Care Athletic Field Custodian Name Role Phone Alia Gee Unavailable [phone] Fritz Soria MD Unavailable Unavailable Reason For [...] Coverage End Date [employer] Ppo [address] [place] [address] [id number] Qi Anders Self - patient is the insured Medical (General) History Surgical History Surgery Date(Month/Year) Foot surgery; 2020-05-26
--- OUTSIDE RECORDS SUMMARY | 2025-03-13 01:14 | XMS_ITS | Encounter Summary ---
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
--- OUTSIDE RECORDS SUMMARY | 2025-03-13 01:14 | XMS_ITS | Encounter Summary ---
Author Organization [facility] Address [address] [place] [address] Care Team Providers Care Historical Archeologist Name Role Phone Fritz Soria MD Primary Care Provider [phone] Reason for Visit * Reason Onset Date Comments MEDICATION REFILL 03/24/2024 Encounter Details Date Type Department Care Team (Late st Contact Info) Description 03/24/2024 Refill [facility] - Orthopedic [facility] [place] [id number] Jeff Ortiz MD [address] [facility] [address] [place], [place] [id number] MEDICATION REFILL Social History Tobacco Use Types Packs/Day Years Used Date Smoking Tobacco: Former Smokeless Tobacco: Never Alcohol Use Standard Drinks/Week Comments Not Currently 0 (1 standard drink = 0.6 oz pur e alcohol) Comments Unknown Sex and Gender Information Value Date Recorded Sex Assigned at Not on file Legal Sex Female 6:26 AM 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 Answer Date of Assessment Author No 07/05/2021 12:13 PM ANODE ADJUSTER Brown, M onica C., RN * Is [...] Description 03/31/2025 10:00 AM CDT Office Visit [facility] - Orth[facility] Surgery [address] [place] [address] Chiki Vargas MD [address] [place] [address] documented as of this encounter Visit Diagnoses Diagnosis S/P total knee arthroplasty, right documented in this encounter Care Teams Historical Archeologist Relationship Specialty Start Date End Date Fritz Soria MD PCP - General 01/04/21 documented as of this encounter
--- OUTSIDE RECORDS SUMMARY | 2025-03-13 01:14 | XMS_ITS | Clinical Summary ---
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
--- NOTE | 2025-03-13 01:50 | PC.NURSE ---
Patient taken to CT via w/c at this time.
[2025-03-13 01:53] LABS: Hematocrit 39.6 % (37.0-47.0); Hemoglobin 12.7 g/dL (12.0-15.0); Immature Granulocyte Percent A 0.6 % (0-0.5); Lymphocytes Absolute Auto 3.38 K/mm3 (0.9-3.2); Mean Corpuscular HGB Conc 32.1 g/dl (32-36); Mean Corpuscular Hemoglobin 29.3 pg (26-34); Mean Corpuscular Volume 91.5 fl (80-100); Nucleated Red Blood Cells Absolute Auto 0.000 K/mm3 (0.0-0.012); Nucleated Red Blood Cells Perc 0.0 % (0.0-0.2); Platelet Count Result 339 k/mm3 (150-375); Red Blood Count 4.33 M/mm3 (4.2-5.4); White Blood Count 7.1 K/mm3 (4.5-10.0)
--- NOTE | 2025-03-13 01:56 | ED.FEMALEGU ---
HPI - Female Genitourinary General Chief complaint: Urogenital-Female Stated complaint: UTI - from UC Time Seen by Provider: 03/12/25 23:38 Source: patient Mode of arrival: ambulatory Limitations: no limitations History of Present Illness HPI Narrative: Patient is a 69-year-old female who presents the ED with report of abnormal urine culture. Patient reports she had urinary tract infection symptoms including discolored urine, lower back pain last week. She was seen at an urgent care and was told she had a UTI. Urine was sent for culture. She was started on Keflex. Patient reports symptoms have improved, she is still having slight discomfort in her suprapubic region, slight intermittent discomfort in left flank region. She states she received a call from the urgent care today that her urine culture grew out ESBL. Resistant to most oral antibiotics aside from Bactrim, which patient has an allergy to. Was referred to the ED for IV antibiotics. Patient denies current dysuria hematuria. Denies fevers. Related Data Home Medications ?Medication ?Instructions ?Recorded ?Confirmed ?Last Taken ?Type alprazolam 0.5 mg tablet mg 11/08/23 Unknown History dicyclomine 10 mg capsule mg 11/08/23 Unknown History irbesartan 300 mg tablet mg 11/08/23 Unknown History metoprolol succinate 100 mg mg PO 11/08/23 Unknown History tablet,extended release 24 hr spironolactone 100 mg tablet mg 11/08/23 Unknown History levothyroxine 25 mcg tablet mcg 03/07/25 Unknown History (Unithroid) Allergies Allergy/AdvReac Type Severity Reaction Status Date / Time Sulfa (Sulfonamide Allergy Unknown Hives Verified 03/12/25 23:58 Antibiotics) latex Allergy Itching Verified 03/12/25 23:58 Review of Systems Review of Systems: All systems reviewed & are unremarkable except as noted in HPI. All systems reviewed & are unremarkable except as noted in HPI and below PMFSH Past Medical History Medical History (Updated 03/13/25 @ 02:06 by Anneliese Christian PA-C) Carpal tunnel syndrome Hypertension Bile duct calculus Surgical History Surgical History Hx of foot surgery History of carpal tunnel surgery Hx of cholecystectomy Social History Social History Smoking status: Unknown if ever smoked Alcohol intake: never Substance use: never Gender identity (if verbalized by the patient): Female Exam Narrative: GENERAL: Well appearing, obese with BMI of 31.6, non-toxic, in no acute distress. HEAD: Normocephalic, atraumatic. RESPIRATORY: Airway patent, respirations nonlabored. Clear to auscultation bilaterally, no rales, rhonchi, wheezing. CARDIOVASCULAR: Regular rate and rhythm without murmurs, rubs, or gallops. ABDOMINAL: Soft, no significant tenderness, nondistended. Normoactive BS. MUSCULOSKELETAL: Moves all extremities. No gross deformities. SKIN: Warm, dry, normal color. NEURO: A&O X3. Speech clear. PSYCHIATRIC: Appropriate mood and affect. Normal interaction. Course Vital Signs Vital signs: Vital Signs Temperature 97.3 F L 03/12/25 19:59 Pulse Rate 69 03/12/25 19:59 Respiratory Rate 20 03/12/25 19:59 Blood Pressure 134/72 03/12/25 19:59 Pulse Oximetry 97 03/12/25 19:59 Oxygen Delivery Room Air 03/12/25 19:59 Temperature 97.9 F 03/12/25 23:55 Pulse Rate 62 03/13/25 02:33 Respiratory Rate 17 03/13/25 02:33 Blood Pressure 128/65 03/13/25 02:33 Pulse Oximetry 100 03/13/25 02:33 Oxygen Delivery Room Air 03/12/25 23:55 MDM - Female Genitourinary MDM Narrative Medical decision making narrative: Patient presented to ED with concern for abnormal urine culture from urgent care last week. Per records, urine dip from urgent care on 03/07 did show nitrate positive urine. She was started on Keflex. Does report improvement of symptoms. Urine culture grew out ESBL. History of similar per records. Resistant to oral antibiotics. Patient was advised to return to the ED today. Patient denies significant urinary complaints. She does report intermittent very mild lower abdominal pain, left flank pain. Urinalysis here today is completely clear. Patient otherwise is very well-appearing, does not appear septic. Discussed laboratory findings extensively with patient. Do not feel patient requires admission and IV abx at this time given reassuring urine today. Urine was re-sent for cx today. CBC w/o leukocytosis. BMP was stable kidney function. CT scan of abd/pelvis was obtained and without concerning findings. Does show evidence of pneumobilia. 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 She has had several interventions past. She follows with GI for this. No right upper quadrant tenderness at this time. Do not feel this is correlating in any way with patient's reason for being here today. Feel she is safe for discharge home with close outpatient follow-up for repeat culture results. She is in agreement this plan. Discussed very strict return precautions, signs and symptoms of more significant infection. Patient voiced understanding, she feels comfortable going home. Discharged in stable condition. Medical Records Attestation: I reviewed the patient's medical records. Lab Data Attestation: I reviewed the patient's lab results. 03/13/25 01:37 03/13/25 01:37 Labs: Lab Results 03/12/25 03/13/25 Range/Units 22:09 01:37 WBC 7.1 (4.5-10.0) K/mm3 RBC 4.33 (4.2-5.4) M/mm3 Hgb 12.7 (12.0-15.0) g/dL Hct 39.6 (37.0-47.0) % MCV 91.5 (80-100) fl MCH 29.3 (26-34) pg MCHC 32.1 (32-36) g/dl RDW 13.4 (11.5-14.5) % Plt Count 339 (150-375) k/mm3 MPV 9.4 (7.4-10.4) fl Immature Gran % (Auto) 0.6 H (0-0.5) % Neut % (Auto) 41.2 L (45.5-73.1) % Lymph % (Auto) 47.8 H (18.3-44.2) % [place] % (Auto) 6.6 (2.6-8.5) % Eos % (Auto) 3.1 (0-4.4) % Baso % (Auto) 0.7 (0.2-1.2) % Lymph # (Auto) 3.38 H (0.9-3.2) K/mm3 [place] # (Auto) 0.5 (0.1-0.6) K/mm3 Eos # (Auto) 0.2 (0-0.3) K/mm3 Baso # (Auto) 0.1 (0.0-0.1) K/mm3 Abs Immat Gran (auto) 0.04 H (0.00-0.031) K/mm3 Absolute Neuts (auto) 2.9 (1.3-6.7) K/mm3 Absolute Nucleated RBC 0.000 (0.0-0.012) K/mm3 Nucleated RBC % 0.0 (0.0-0.2) % Sodium 141 (137-145) mmol/L Potassium 4.0 (3.4-5.0) mmol/L Chloride 104 (98-107) mmol/L Carbon Dioxide 27 (22-30) mmol/L Anion Gap 10 (4-12) mmol/L BUN 14 D (7-17) mg/dL Creatinine 0.68 L (0.7-1.0) mg/dL Estim Creat Clear Calc 68 ml/min Estimated GFR > 60 (59 - ) Glucose 123 H (65-110) mg/dL Calcium 9.3 (8.4-10.2) mg/dL Urine Color Yellow (Yellow) Urine Appearance Clear (Clear) Urine pH 6.0 (5.0-9.0) Ur Specific [place] 1.007 (1.001-1.035) Urine Protein Negative (Negative) mg/dL Urine Glucose (UA) Negative (Negative) mg/dL Urine Ketones Negative (Negative) mg/dL Ur Blood (Man) Negative (Negative) Urine Nitrate Negative (Negative) Urine Bilirubin Negative (Negative) Urine Urobilinogen 0.2 (<2.0) mg/dL Leukocyte Esterase Rfl Negative (Negative) MARIANA/UL Imaging Data Attestation: I personally reviewed and interpreted this imaging study as follows: Radiologist's impression: STAT RAD CT abd/pelvis: Impression: Pneumobilia which is new could be related to previous biliary intervention. Clinical correlation is suggested. 8 cm right adrenal right renal cyst is unchanged. Degenerative changes of the spine. Gallbladder is not visualized. Benign simple right renal cysts. Discharge Plan Discharge Clinical Impression: Positive urine culture Patient Disposition: Home Condition: Stable Instructions: Antibiotic Form, Urinary Tract Infection in Women (ED) Additional Instructions: Finish your Keflex as directed. Your urine today did not show evidence of infection. This was re-sent for culture. Follow-up closely with your primary care doctor within the next couple of days for repeat urine culture results. Return to the ED if you experience worsening or severe back or abdominal pain, difficulty urinating, blood in urine, fevers, or any other symptoms of concern. Patient Language: Macanese Prescriptions: No Action levothyroxine [Unithroid] 25 mcg tablet phenazopyridine [Pyridium] 200 mg tablet 200 mg PO TID 3 Days Qty: 9 0RF cephalexin 500 mg capsule 500 mg PO Q12H 7 Days Qty: 14 0RF ondansetron 4 mg tablet,disintegrating 4 mg PO Q6-8H PRN (Reason: nausea and vomiting) Qty: 7 0RF spironolactone 100 mg tablet metoprolol succinate 100 mg tablet extended release 24 hr PO alprazolam 0.5 mg tablet dicyclomine 10 mg capsule irbesartan 300 mg tablet Follow-up/Referrals: Fritz Soria MD [Primary Care Provider] - Time of Disposition: 02:44
[2025-03-13 02:16] LABS: Anion Gap 10 mmol/L (4-12); Blood Urea Nitrogen 14 mg/dL (7-17); Calcium 9.3 mg/dL (8.4-10.2); Carbon Dioxide 27 mmol/L (22-30); Chloride 104 mmol/L (98-107); Estimated CRCL calculation 68 ml/min; Estimated Glomerular Filt Rate > 60; Glucose 123 mg/dL (65-110); Potassium 4.0 mmol/L (3.4-5.0); Sodium 141 mmol/L (137-145)
[2025-03-13 02:33] VITALS: BP 128/65; PULSE 62; RESP 17; O2SAT 100
== END 2025-03-13 02:50 | disposition home or self-care (01) ==
PROVIDERS: Student in an Organized Health Care Education/Training Program; Emergency Provider Physician Assistant; PCP Emergency Medicine
DX: R82.79 Other abnormal findings on microbiological examination of urine (principal); I10 Essential (primary) hypertension; Z90.49 Acquired absence of other specified parts of digestive tract
CPT/HCPCS: 36415; 74176; 80048; 81003; 85025; 87086; 99284